=== PATIENT | female | born 1960 | race Caucasian/White ===

== ENCOUNTER 2022-10-24 10:59 | Outpatient (REF) | payer MEDICARE, SELFPAY ==
[2022-10-24 13:45] LABS: MANUAL DIFF FLAG NO
[2022-10-24 14:06] LABS: Basophils Percent Auto 0.6 % (0-2); Eosinophils Absolute Auto 0.1 X10*3/uL (0.0-0.4); Eosinophils Percent Auto 2.9 % (0-4); Hematocrit 42.4 % (37.0-47.0); Hemoglobin 14.2 g/dl (12.0-16.0); Imm Gran Abs Auto 0.01 X10*3/uL (0.00-0.03); Imm Gran Pct Auto 0.2 % (0.0-0.4); Lymphocytes Absolute Auto 1.1 X10*3/uL (1.2-4.9); Lymphocytes Percent Auto 23.4 % (20-40); Mean Corpuscular HGB Conc 33.5 g/dl (31.0-35.0); Mean Corpuscular Hemoglobin 31.3 pg (27.0-33.0); Mean Corpuscular Volume 93.4 fL (80.0-98.0); Mean Platelet Volume 10.3 fL (9.4-12.3); Monocytes Absolute Auto 0.4 X10*3/uL (0.1-1.2); Monocytes Percent Auto 7.8 % (2-11); NRBC Pct Auto 0.4 /100WBC (0.0-0.2); Neutrophils Absolute Auto 3.2 x10*3/uL (2.0-8.3); Neutrophils Percent Auto 65.1 % (45-73); Platelet Count 246 X10*3/uL (160-400); Red Blood Count 4.54 X10*6/uL (4.20-5.50); Red Cell Distribution Width 13.2 % (11.0-16.0); White Blood Count 4.9 X10*3/uL (4.8-10.8)
[2022-10-24 14:07] LABS: Appearance Urine Turbid; Color Urine Yellow; Glucose Urine UA Negative (Negative); Leukocyte Esterase Urine Negative (Negative); Nitrite Urine Negative (Negative); Specific Gravity - Urine 1.025 (1.005-1.025); Urine Blood Negative (Negative); Urine Ketones Negative (Negative); Urine Protein Negative (Neg-Trace)
[2022-10-24 14:31] LABS: Rheumatoid Factor < 13.0 IU/mL (<15.0)
[2022-10-24 14:40] LABS: Alanine Aminotransferase 17 U/L (0-31); Albumin Level 4.4 g/dL (3.5-5.0); Alkaline Phosphatase 59 U/L (39-117); Anion Gap 15 (12-20); Aspartate Amino Transferase 16 U/L (5-31); Bilirubin Total 0.7 mg/dL (0.0-1.0); Blood Urea Nitrogen 15 mg/dL (9-16); Calcium 9.4 mg/dL (8.4-10.2); Carbon Dioxide 22 mmol/L (22-29); Chloride 110 mmol/L (96-108); Cholesterol 334 mg/dL; Estimated Glomerular Filt Rate > 60; Glucose Fasting 124 mg/dL (60-99); HDL Cholesterol 57 mg/dL; LDL Cholesterol Calculated 235 mg/dl; Potassium 4.5 mmol/L (3.3-5.1); Sodium 142 mmol/L (135-145); Total Protein 6.4 g/dL (6.5-8.0); Triglycerides 214 mg/dL
[2022-10-24 14:50] LABS: TSH reflex Free T4 1.17 uIU/mL (0.32-4.0)
[2022-10-24 14:53] LABS: Erythrocyte Sedimentation Rate 4 MM/HR (0-20)
[2022-10-24 15:01] LABS: Creatinine Urine 127.43 mg/dL
[2022-10-26 17:08] LABS: Cyclic Citrullinated Peptide <16 UNITS
== END 2022-10-24 11:00 | disposition home or self-care (01) ==
LOC: HO.WFDLDS 10:59
PROVIDERS: Visit Provider Family Medicine
DX: Z00.00 Encounter for general adult medical examination without abnormal findings (principal); I10 Essential (primary) hypertension; M06.9 Rheumatoid arthritis, unspecified
CPT/HCPCS: 36415; 80053; 80061; 81003; 82043; 84443; 85025; 85652; 86200; 86431

== ENCOUNTER 2022-11-21 14:03 | Outpatient (REF) | payer MEDICARE, SELFPAY ==
--- NOTE | ~2022-11-21 | XR_ITS ---
EXAMINATION: XR BILATERAL HIPS WITH AP PELVIS CLINICAL INFORMATION: Pain COMPARISON: None available. TECHNIQUE: AP view of the pelvis and single views of each hip were obtained. FINDINGS: No acute fracture or dislocation. Sacroiliac joints are preserved. Mild osteophytosis of the bilateral acetabula suggestive of mild bilateral degenerative arthritis. Feeding symphysis is preserved. XR/XR hips ABIDA min 3V IMPRESSION: Mild bilateral hip osteoarthritis.
--- NOTE | ~2022-11-21 | XR_ITS ---
EXAMINATION: XR lumbar spine 6V w bending CLINICAL INFORMATION: Reason for Exam G89.4 - Chronic pain syndrome COMPARISON: None TECHNIQUE: 6 views of the lumbar spine FINDINGS: 5 nonrib-bearing lumbar-type vertebral bodies. Vertebral body heights are maintained. Anterolisthesis of L5 on S1. Possible L5 pars defects. No subluxation between flexion and extension views. Mild multilevel degenerative disc disease with loss of disc space height, facet arthropathy and disc osteophyte complexes. This is worst at L2/L3. Atherosclerosis of the abdominal aorta. Right upper quadrant cholecystectomy clips. XR/XR lumbar spine 6V w bending IMPRESSION: 1. Moderate spondylosis of the lumbar spine, as above detailed. 2. Spondylolisthesis, as above detailed.
== END 2022-11-21 14:04 | disposition home or self-care (01) ==
LOC: HO.XRAY 14:03
PROVIDERS: PCP Family Medicine; Visit Provider Nurse Practitioner Family
DX: M47.816 Spondylosis without myelopathy or radiculopathy, lumbar region (principal); G89.4 Chronic pain syndrome; M25.551 Pain in right hip; M25.552 Pain in left hip; M81.0 Age-related osteoporosis without current pathological fracture; G35 Multiple sclerosis; M06.9 Rheumatoid arthritis, unspecified; M53.3 Sacrococcygeal disorders, not elsewhere classified
CPT/HCPCS: 72114; 73522; 99202

== ENCOUNTER 2022-11-30 10:47 | Outpatient (REF) | payer MEDICARE, SELFPAY ==
[2022-11-30 11:20] LABS: Amphetamine Screen Urine Not Detected (Not Detect); Barbiturates, Urine Not Detected (Not Detect); Benzodiazepines Screen Urine Not Detected (Not Detect); Cannabinoid Screen Urine POSITIVE (Not Detect); Cocaine Screen Urine Not Detected (Not Detect); Fentanyl, urine Not Detected (Not Detect); Opiate Screen Urine Not Detected (Not Detect); Phencyclidine Screen Urine Not Detected (Not Detect)
== END 2022-11-30 10:48 | disposition home or self-care (01) ==
LOC: HO.LNP 10:47
PROVIDERS: Visit Provider Family Medicine
DX: G89.4 Chronic pain syndrome (principal); F11.20 Opioid dependence, uncomplicated
CPT/HCPCS: 80307

== ENCOUNTER → 2022-12-20 08:21 | Outpatient (BNVA) | payer MEDICARE, SELFPAY | PROVIDERS: PCP Family Medicine; Visit Provider Physician Assistant | DX: K59.03 Drug induced constipation (principal); T40.2X5A Adverse effect of other opioids, initial encounter; S30.861A Insect bite (nonvenomous) of abdominal wall, initial encounter; W57.XXXA Bitten or stung by nonvenomous insect and other nonvenomous arthropods, initial encounter | CPT/HCPCS: 99202 ==

== ENCOUNTER 2022-12-20 10:17 | Outpatient (REF) | payer MEDICARE, SELFPAY ==
[2022-12-22 13:18] LABS: Lyme Abs Screen <0.90 index
== END 2022-12-20 10:18 | disposition home or self-care (01) ==
LOC: HO.WFDLDS 10:17
PROVIDERS: Visit Provider Physician Assistant
DX: R53.83 Other fatigue (principal); S30.861A Insect bite (nonvenomous) of abdominal wall, initial encounter; W57.XXXA Bitten or stung by nonvenomous insect and other nonvenomous arthropods, initial encounter
CPT/HCPCS: 36415; 86617; 86618

== ENCOUNTER 2022-12-27 05:57 | Outpatient (REF) | payer MEDICARE, SELFPAY ==
--- NOTE | ~2022-12-27 | FL_ITS ---
EXAMINATION: XR FLUOROSCOPY WITH IMAGES CLINICAL INFORMATION: Right hip pain COMPARISON: None available. TECHNIQUE: Fluoroscopy Supervised By: Dr. Sarwat Au. Fluoroscopy Time: 0.2. Cumulative Dose: 3.3 mGy. DAP: 12.8 Gycm2. Images: 1. FINDINGS: Images demonstrate needle placement and contrast injection of the right hip joint. FL/FL guidance in treatment room IMPRESSION: Fluoroscopic guidance for right hip injection.
== END 2022-12-27 05:58 | disposition home or self-care (01) ==
LOC: CF 05:57
PROVIDERS: Visit Provider Anesthesiology
DX: R22.42 Localized swelling, mass and lump, left lower limb (principal); C85.90 Non-Hodgkin lymphoma, unspecified, unspecified site; M16.0 Bilateral primary osteoarthritis of hip
CPT/HCPCS: 20610; 99212; J3301

== ENCOUNTER 2023-01-04 13:03 | Outpatient (REF) | payer MEDICARE, SELFPAY ==
[2023-01-05 12:07] LABS: Amphetamine Screen Urine Not Detected (Not Detect); Barbiturates, Urine Not Detected (Not Detect); Benzodiazepines Screen Urine Not Detected (Not Detect); Cannabinoid Screen Urine Not Detected (Not Detect); Cocaine Screen Urine Not Detected (Not Detect); Fentanyl, urine Not Detected (Not Detect); Opiate Screen Urine POSITIVE (Not Detect); Phencyclidine Screen Urine Not Detected (Not Detect)
== END 2023-01-04 13:04 | disposition home or self-care (01) ==
LOC: HO.LAB 13:03
PROVIDERS: Visit Provider Family Medicine
DX: F11.20 Opioid dependence, uncomplicated (principal); G89.29 Other chronic pain
CPT/HCPCS: 80307

== ENCOUNTER 2023-01-10 07:43 | Outpatient (REF) | payer MEDICARE, SELFPAY ==
--- NOTE | ~2023-01-10 | XR_ITS ---
EXAMINATION: XR FOOT, RIGHT CLINICAL INFORMATION: Pain. COMPARISON: None available. TECHNIQUE: AP, lateral, and oblique views of the right foot. FINDINGS: There are post-surgical changes. There are plates and screws across the 2nd and 3rd MTT joints. Orthopedic hardware appears intact. There is ankylosis of the IP joint of the 2nd toe. There is question osteotomy of the proximal phalanx of the 3rd toe at the MTP joint. There is arthritis at the 3rd MTP joint with joint space narrowing and osteophyte formation. The distal phalanx of the 4th toe is normal-appearing. The proximal and mid phalanges are not seen, question post-surgical versus congenital. There is arthrodesis of the DIP joint of the 5th toe. There is mild hallux valgus deformity and osteoarthritis at the 1st MTP joint. Soft tissues are unremarkable. No soft tissue mass over the dorsal foot in the area indicated by arrow seen. Extensive post-surgical changes. XR/XR foot RT min 3V IMPRESSION: Plate and screws across the 2nd and 3rd metatarsal tarsal joints. Orthopedic hardware is intact. Overlying soft tissues in the area indicated as palpable abnormality by arrow appears unremarkable. Other nonacute post-surgical or congenital changes as described above.
--- NOTE | ~2023-01-10 | US_ITS ---
EXAMINATION: US EXTREMITY NONVASCULAR LIMITED CLINICAL INFORMATION: Left lateral hip mass and pain. COMPARISON: None available. TECHNIQUE: Grayscale and color imaging of the area of palpable abnormality over the left lateral hip was performed using a linear and curved transducer. FINDINGS: There is prominent subcutaneous fat seen over the left lateral hip in the area of patient's pain. No focal lesion is seen by ultrasound. Findings were discussed with the patient. We offered to perform ultrasound-guided percutaneous biopsy in the area of the patient's pain; however, the patient declined biopsy at this time. If the area of pain persists or increases, followup ultrasound or MR or CT of the soft tissues to see if a focal lesion can be seen would be recommended. US/US extremity nonvascular leyva IMPRESSION: Prominent fat. No focal lesion seen. Percutaneous biopsy was not performed.
== END 2023-01-10 07:44 | disposition home or self-care (01) ==
LOC: HO.US 07:43
PROVIDERS: PCP Family Medicine; Visit Provider Anesthesiology
DX: M79.671 Pain in right foot (principal); R22.42 Localized swelling, mass and lump, left lower limb; C85.90 Non-Hodgkin lymphoma, unspecified, unspecified site
CPT/HCPCS: 73630; 76882

== ENCOUNTER 2023-02-01 14:20 | Outpatient (REF) | payer MEDICARE, SELFPAY ==
[2023-02-01 14:39] LABS: Amphetamine Screen Urine Not Detected (Not Detect); Barbiturates, Urine Not Detected (Not Detect); Benzodiazepines Screen Urine Not Detected (Not Detect); Cannabinoid Screen Urine Not Detected (Not Detect); Cocaine Screen Urine Not Detected (Not Detect); Fentanyl, urine Not Detected (Not Detect); Opiate Screen Urine POSITIVE (Not Detect); Phencyclidine Screen Urine Not Detected (Not Detect)
== END 2023-02-01 14:21 | disposition home or self-care (01) ==
LOC: HO.LNP 14:20
PROVIDERS: Visit Provider Family Medicine
DX: F11.20 Opioid dependence, uncomplicated (principal)
CPT/HCPCS: 80307

== ENCOUNTER 2023-03-13 11:21 | Outpatient (AMB) | payer MEDICARE, SELFPAY ==
--- NOTE | 2023-03-13 11:23 | MHC.PC.OV ---
Vital Signs 03/13/23 11:24 Height 4 ft 11 in Weight 142 lb BMI 28.7 BP 130/70 Blood Pressure Location Rt brachial Position Sitting Pulse 74 Pulse Source Pulse Oximeter Pulse Oximetry (%) 97 Intake Visit Reasons: 1 mos Intake Note: pt is here for f/u Hitcher Required: No Accompanied by: Self / Same As Patient Allergies No Known Allergies Allergy (Verified 03/13/23 11:23) Tobacco use date assessed: 02/01/23 Dental Screening Dental Screen Date: 03/13/23 Did you have a dental visit in the last 12 months?: Yes Did you have a dental problem in the last 6 months where you did not have access to dental care?: No Was dental information given to patient?: Patient has dentist HPI 1 mos HPI Details 63 y/o female presents to f/u chronic conditions. Had increased Percocet from 5-325 mg, 1 tablet b.i.d. to 1-2 tablets b.i.d. She is followed by pain management and had recently received a R hip injection. Last labs drawn 10/24/22. Reviewed labs with pt. Triglycerides 214. TC 334. LDL 235. HDL 57. She is on artovastatin 10mg daily. Elevated fasting glucose. A1c today 03/13/23 is 5.8%. She is followed by pain mangement and she states they had ordered an MRI to evaluate mass which is most likely lipoma at her hip. HPI Comments History of Present Illness Details Documentation assistance for Salo Young MD, was provided by Jose Manuel Pino,? Photoresist Contact Printer on 03/13/2023 11:54 AM EST. I, Dr. Young, have read, observed, and verified documentation.? [facility] Medical History Multiple sclerosis Non-Hodgkin's lymphoma in remission Surgical History History of cholecystectomy History of esophagogastroduodenoscopy (EGD) History of mastectomy, total Hx of colonoscopy Hx of hernia repair Hx of hysterectomy Family History Mother Lung cancer Sister Lung cancer Social History Household Members: Family Housing: House Alcohol intake: current Alcohol intake frequency: a few times a month Alcohol type: wine Patient Tobacco Use Status: Never used Tobacco e-Cigarette/Vaping Use: Never Used Current occupational status: disabled Cognitive needs: No Hearing needs: No Vision needs: Yes Review of Systems Const Denies chills, Denies fatigue, Denies fever(s), Denies headache(s) and Denies weakness ENT Denies dizziness and Denies headache(s) Card Denies chest pain, Denies lightheadedness, Denies dyspnea and Denies other (Palpitations) Resp Denies cough, Denies dyspnea, Denies wheezing and Denies other ( shortness of breath) Musc Denies numbness and Denies tingling Neuro Denies dizziness, Denies headache(s), Denies numbness, Denies tingling, Denies paresthesias and Denies weakness Psych Denies anxiety and Denies depression Endo Denies fatigue Aller/Immun Denies wheezing Physical exam (Primary Care) Vital Signs: Last Vital Signs Pulse 74 03/13/23 11:24 BP 130/70 03/13/23 11:24 Pulse Ox 97 03/13/23 11:24 BMI result Body Mass Index 28.7 Tobacco/Smoking Status: Tobacco use Status Tobacco use date assessed 02/01/23 03/13/23 11:26 Patient Tobacco Use Status Never used Tobacco 03/13/23 11:26 e-Cigarette/Vaping Use Never Used 03/13/23 11:26 Const General: no acute distress and well developed Nutritional Appearance: well nourished Orientation/consciousness: patient oriented x3 [facility]: Yes normocephalic and Yes atraumatic Eyes General: appearance normal, both eyes and all related structures Pupils: Equal, round and reactive pupils present EOM: EOMs intact bilaterally Resp Effort & Inspection: normal respiratory effort Auscultation: clear to auscultation bilaterally Cardio Rate: regular rate Rhythm: regular rhythm Heart sounds: S1 normal heart sound present, S2 normal heart sound present, no gallops, no murmurs and no rubs Neuro General: patient oriented x3 and gait normal Cranial nerves: Yes Equal, round and reactive pupils present Psych Affect: normal affect Results AMB Hemoglobin A1c AMB Hemoglobin A1c 5.8 % Last Edit by Lucian Jorgensen CMA on 03/13/23 12:02 Assessment and Plan Assessment & Plan (1) Chronic pain syndrome: Code(s): G89.4 - Chronic pain syndrome Plan: Pain is controlled on current regimen of Percocet two tabs 3 times a day Also followed by pain management and they have ordered an MRI to evaluate mass which is likely a lipoma at her hip Follow-up with pain management as recommended Patient's pill count and urine screen are appropriate Will follow her every 3 months (2) Asthma: Code(s): J45.909 - Unspecified asthma, uncomplicated Plan: Patient has mild intermittent asthma Will refill her ProAir inhaler Symptoms most often triggered by allergens such as when she mows her lawn She can pre treat with this medication and I encouraged her to use her Zyrtec as well (3) Elevated fasting glucose: Code(s): R73.01 - Impaired fasting glucose Plan: A1c today was 5.8%; pre diabetes Encouraged a diet lower in sugars and starches Encouraged exercise as tolerated and weight control. (4) Hypercholesterolemia: Code(s): E78.00 - Pure hypercholesterolemia, unspecified Plan: TC and LDL cholesterol are very high She is tolerating atorvastatin 10 mg daily and I am increasing this to 40 mg daily today Will follow-up in 3 months (5) Pre-diabetes: Code(s): R73.03 - Prediabetes Plan: A1c 5.8% Encouraged diet low in sugars and starches Encouraged exercise as tolerated and weight loss Will follow-up again in 3 months Orders: Orders Basic Metabolic Panel Fasting Today E78.00 - Pure hypercholesterolemia, unspecified Lipid Panel Today E78.00 - Pure hypercholesterolemia, unspecified, Z00.00 - Encounter for general adult medical examination without abnormal findings AMB Hemoglobin A1c Today R73.01 - Impaired fasting glucose Medications: New albuterol sulfate 90 mcg/actuation (ProAir HFA) 2 puffs inhalation Q4-6H 30 days PRN 8.5 grams 0RF shortness of breath or wheezing E78.00 - Pure hypercholesterolemia, unspecified Changed From atorvastatin 10 mg PO BEDTIME 30 days 30 tabs 3RF To atorvastatin 40 mg PO BEDTIME 90 days 90 tabs 3RF Refilled oxycodone-acetaminophen 5-325 mg (Percocet) 2 tabs orally 3 times a day PRN; MassPat verified. Partial refill upon request. 30 days 180 tabs 0RF pain G89.4 - Chronic pain syndrome gabapentin 300 mg PO BEDTIME 30 days PRN 30 caps 2RF pain Coding Level of Care Code Est Pt Level 4 (63367) Diagnoses Chronic pain syndrome G89.4 Asthma J45.909 Elevated fasting glucose R73.01 Hypercholesterolemia E78.00 Pre-diabetes R73.03
[2023-03-13 11:24] VITALS: BP 130/70; PULSE 74; O2SAT 97; BMI 28.7
== END 2023-03-13 12:07 | disposition home or self-care (01) ==
PROVIDERS: PCP Family Medicine; Visit Provider Family Medicine
DX: G89.4 Chronic pain syndrome (principal); J45.909 Unspecified asthma, uncomplicated; R73.01 Impaired fasting glucose; E78.00 Pure hypercholesterolemia, unspecified; R73.03 Prediabetes
CPT/HCPCS: 83036; 99214

== ENCOUNTER 2023-03-28 13:42 | Outpatient (AMB) | payer MEDICARE, SELFPAY ==
--- NOTE | 2023-03-28 13:47 | A.OFFVIS_ITS ---
Intake Vital Signs 03/28/23 13:49 Height 4 ft 11 in Weight 142 lb 10.225 oz BMI 28.8 BP 120/70 Blood Pressure Location Rt brachial Position Sitting Pulse 68 Pulse Source Pulse Oximeter Pulse Oximetry (%) 97 Oxygen Delivery Method Room Air Intake Visit Reasons: Rheumatoid arthritis Intake Note: Patient presents for rheumatoid arthritis evaluation. Allergies No Known Allergies Allergy (Verified 03/28/23 13:50) Medication List - Last Reconciled 03/28/23 by Esdras Barajas MD albuterol sulfate 90 mcg/actuation (ProAir HFA) 2 puffs inhalation Q4-6H PRN 30 days atorvastatin 40 mg PO BEDTIME 90 days baclofen 10 mg PO TID carvedilol 12.5 mg PO BID docusate sodium (Colace) 200 mg (2 x 100 mg) PO BEDTIME gabapentin 300 mg PO BEDTIME PRN 30 days meloxicam 15 mg PO DAILY 30 days methylcellulose (laxative) (Citrucel) 500 mg PO BID naloxone 4 mg/actuation 4 mg intranasal Q2M PRN 30 days oxycodone-acetaminophen 5-325 mg (Percocet) 2 tabs orally 3 times a day PRN; MassPat verified. Partial refill upon request. 30 days sertraline 100 mg PO DAILY 90 days HPI HPI Comments History of Present Illness Details This is a 63-year-old female who presents for evaluation of arthritis. Of note patient was diagnosed with MS around age 35 and received Copaxone for 8 years. Per patient she did not receive any other MS specific treatment. She was diagnosed with non-Hodgkin's lymphoma around 2012 and received about a year have of rituximab and fludarabine. She states that she has been in remission since then. Patient states that she has had arthritis for many years. She states that she has had numerous surgeries for her feet for arthritis. She had surgery for bilateral tarsal tunnel syndrome Over the last 1-2 years she has been having episodes of her hands cramping up, fingers getting stuck, she has tingling and numbness of her fingers, worse at night. She noticed a deformity of her right thumb that is been happening over the last year. She notices intermittent pain and swelling of her fingers. Morning stiffness lasts 30 minutes. She is unaw are of any family history of autoimmune rheumatic disease. Denies any history of DVT/PE [facility] Medical History (Updated 03/28/23 @ 14:59 by Esdras Barajas MD) Carpal tunnel syndrome Encounter for testing for latent tuberculosis infection Multiple sclerosis Non-Hodgkin's lymphoma in remission Screening for viral disease Tarsal tunnel syndrome of both lower extremities Surgical History History of cholecystectomy History of esophagogastroduodenoscopy (EGD) History of mastectomy, total Hx of colonoscopy Hx of hernia repair Hx of hysterectomy Family History Mother Lung cancer Sister Lung cancer Social History Household Members: Family Housing: House Alcohol intake: current Alcohol intake frequency: a few times a month Alcohol type: wine Patient Tobacco Use Status: Never used Tobacco e-Cigarette/Vaping Use: Never Used Current occupational status: disabled 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 Cognitive needs: No Hearing needs: No Vision needs: Yes Female Reproductive History Menstrual Total pregnancies: 1 Full term: 1 Review of Systems Musc Reports deformity, Reports arthralgias, Reports joint swelling, Reports numbness, Reports stiffness and Reports tingling Neuro Reports numbness and Reports tingling Physical Exam Vital Signs: Last Vital Signs Pulse 68 03/28/23 13:49 BP 120/70 03/28/23 13:49 Pulse Ox 97 03/28/23 13:49 Oxygen Delivery Method Room Air 03/28/23 13:49 BMI result Body Mass Index 28.8 Const General: cooperative, healthy appearing and comfortable Nutritional Appearance: overweight Orientation/consciousness: patient oriented x3 Limitations: no limitations HEENT Head: Yes normocephalic and Yes atraumatic Mouth: moist mucous membranes Resp Effort & Inspection: normal respiratory effort and able to speak in complete sentences Auscultation: clear to auscultation bilaterally Cardio Rate: regular rate Rhythm: regular rhythm GI Inspection: No distended Palpation (GI): Soft to palpation and nontender Neuro General: patient oriented x3 Extrem Other: Z deformity of right thumb Mild right wrist tenderness without swelling Right 1st MCP tenderness Positive Tinel sign right hand Right hand: Few tender MCPs on the palmar side [place] neck deformities of left hand fingers Left 3rd MCP tenderness and swelling Left knee effusion Multiple deformities of both feet s/p multiple surgeries Assessment & Plan Assessment & Plan (1) Polyarthralgia: Code(s): M25.50 - Pain in unspecified joint Plan: This is a 63-year-old female with past medical history of non-Hodgkin's lymphoma, MS who presents for evaluation of multiple joint pain. Upon evaluation patient has Z deformity of her right thumb, multiple fingers deformity suspicious for [place] neck deformities, she has history of multiple surgeries for both feet arthritis since her 40s, history of bilateral tarsal tunnel release. He has carpal tunnel syndrome of right hand on exam. Clinical picture suspicious for inflammatory arthritis such as RA. Previous RF/CCP negative. Will order labs to evaluate disease activity. Check bilateral hand x-rays. Check bilateral knee x-rays. (2) Osteoporosis: Code(s): M81.0 - Age-related osteoporosis without current pathological fracture Qualifiers: Osteoporosis type: age-related Presence of current pathological fracture: without current pathological fracture Qualified Code(s): M81.0 - Age-related osteoporosis without current pathological fracture Plan: Mentions that she has history of osteoporosis but was never treated. Will check a bone density scan (3) Carpal tunnel syndrome: Code(s): G56.00 - Carpal tunnel syndrome, unspecified upper limb Qualifiers: Laterality: bilateral Qualified Code(s): G56.03 - Carpal tunnel syndrome, bilateral upper limbs Plan: Will check an EMG Plan I spent 48 minutes reviewing patient's chart, evaluating patient, ordering ely gnostic workup, counseling patient and documenting in the chart Orders: Orders Comprehensive Met. Panel Today M06.9 - Rheumatoid arthritis, unspecified C Reactive Protein Today M06.9 - Rheumatoid arthritis, unspecified Complete Blood Count Auto Diff Today M06.9 - Rheumatoid arthritis, unspecified Erythrocyte Sedimentation Rate Today M06.9 - Rheumatoid arthritis, unspecified CLEVE Reflex Titer and Pattern Today M06.9 - Rheumatoid arthritis, unspecified Immunofixation Pnl, Serum Today M06.9 - Rheumatoid arthritis, unspecified Protein Electrophoresis, Serum Today M06.9 - Rheumatoid arthritis, unspecified Hepatitis A,B,C Profile Today Z11.59 - Encounter for screening for other viral diseases T Spot TB Today Z11.7 - Encounter for testing for latent tuberculosis infection XR hand wrist LT Today M06.9 - Rheumatoid arthritis, unspecified XR hand wrist RT Today M06.9 - Rheumatoid arthritis, unspecified XR knee LT 3V Today M06.9 - Rheumatoid arthritis, unspecified XR knee RT 3V Today M06.9 - Rheumatoid arthritis, unspecified XR knee standing BI Today M06.9 - Rheumatoid arthritis, unspecified NE electromyogram (EMG) Today G56.00 - Carpal tunnel syndrome, unspecified upper limb XR DEXA axial skeleton Today M81.0 - Age-related osteoporosis without current pathological fracture Referrals Hematology & Oncology Referral C85.90 - Non-Hodgkin lymphoma, unspecified, unspecified site Coding Level of Care Code New Pt Level 4 (34684) Diagnoses Polyarthralgia M25.50 Osteoporosis M81.0 Osteoporosis type: age-related Presence of current pathological fracture: without current pathological fracture Carpal tunnel syndrome G56.03 Laterality: bilateral
[2023-03-28 13:49] VITALS: BP 120/70; PULSE 68; O2SAT 97; BMI 28.8
== END 2023-03-28 14:47 | disposition home or self-care (01) ==
PROVIDERS: PCP Family Medicine; Visit Provider Student in an Organized Health Care Education/Training Program
DX: M25.50 Pain in unspecified joint (principal); M81.0 Age-related osteoporosis without current pathological fracture; G56.03 Carpal tunnel syndrome, bilateral upper limbs
CPT/HCPCS: 99204

== ENCOUNTER 2023-03-28 13:42 | Outpatient (REF) | payer MEDICARE, SELFPAY ==
--- NOTE | ~2023-03-28 | XR_ITS ---
STUDY: Bilateral hands, bilateral knees INDICATION: Rheumatoid arthritis COMPARISON: None TECHNIQUE: 4 views each hand, 4 views each knee including standing knees FINDINGS: Right hand: Sclerosis, spurring, joint space narrowing and bony proliferation identified first carpometacarpal joint. There is hyperextension first metacarpophalangeal joint. No significant anterior phalangeal or MCP joint space narrowings. Only minimal radiocarpal sclerosis and joint space narrowing. No fracture or dislocation. Left hand: Sclerosis, joint space narrowing and bony proliferation first carpometacarpal joint. Other joint spaces are maintained. No fracture or dislocation. Knees: On standing knee view, left knee joint is lower than the right. Bilateral medial knee joint narrowings are seen, left greater than right. Patellar spurring. No fracture, dislocation or joint effusion bilaterally. XR/XR knee standing BI IMPRESSION: No acute bony pathology bilateral hands and bilateral knees. Degenerative type changes bilateral hands and knees.
--- NOTE | ~2023-03-28 | XR_ITS ---
STUDY: Bilateral hands, bilateral knees INDICATION: Rheumatoid arthritis COMPARISON: None TECHNIQUE: 4 views each hand, 4 views each knee including standing knees FINDINGS: Right hand: Sclerosis, spurring, joint space narrowing and bony proliferation identified first carpometacarpal joint. There is hyperextension first metacarpophalangeal joint. No significant anterior phalangeal or MCP joint space narrowings. Only minimal radiocarpal sclerosis and joint space narrowing. No fracture or dislocation. Left hand: Sclerosis, joint space narrowing and bony proliferation first carpometacarpal joint. Other joint spaces are maintained. No fracture or dislocation. Knees: On standing knee view, left knee joint is lower than the right. Bilateral medial knee joint narrowings are seen, left greater than right. Patellar spurring. No fracture, dislocation or joint effusion bilaterally. XR/XR knee RT 3V IMPRESSION: No acute bony pathology bilateral hands and bilateral knees. Degenerative type changes bilateral hands and knees.
--- NOTE | ~2023-03-28 | XR_ITS ---
STUDY: Bilateral hands, bilateral knees INDICATION: Rheumatoid arthritis COMPARISON: None TECHNIQUE: 4 views each hand, 4 views each knee including standing knees FINDINGS: Right hand: Sclerosis, spurring, joint space narrowing and bony proliferation identified first carpometacarpal joint. There is hyperextension first metacarpophalangeal joint. No significant anterior phalangeal or MCP joint space narrowings. Only minimal radiocarpal sclerosis and joint space narrowing. No fracture or dislocation. Left hand: Sclerosis, joint space narrowing and bony proliferation first carpometacarpal joint. Other joint spaces are maintained. No fracture or dislocation. Knees: On standing knee view, left knee joint is lower than the right. Bilateral medial knee joint narrowings are seen, left greater than right. Patellar spurring. No fracture, dislocation or joint effusion bilaterally. XR/XR hand wrist LT IMPRESSION: No acute bony pathology bilateral hands and bilateral knees. Degenerative type changes bilateral hands and knees.
--- NOTE | ~2023-03-28 | XR_ITS ---
STUDY: Bilateral hands, bilateral knees INDICATION: Rheumatoid arthritis COMPARISON: None TECHNIQUE: 4 views each hand, 4 views each knee including standing knees FINDINGS: Right hand: Sclerosis, spurring, joint space narrowing and bony proliferation identified first carpometacarpal joint. There is hyperextension first metacarpophalangeal joint. No significant anterior phalangeal or MCP joint space narrowings. Only minimal radiocarpal sclerosis and joint space narrowing. No fracture or dislocation. Left hand: Sclerosis, joint space narrowing and bony proliferation first carpometacarpal joint. Other joint spaces are maintained. No fracture or dislocation. Knees: On standing knee view, left knee joint is lower than the right. Bilateral medial knee joint narrowings are seen, left greater than right. Patellar spurring. No fracture, dislocation or joint effusion bilaterally. XR/XR knee LT 3V IMPRESSION: No acute bony pathology bilateral hands and bilateral knees. Degenerative type changes bilateral hands and knees.
--- NOTE | ~2023-03-28 | XR_ITS ---
STUDY: Bilateral hands, bilateral knees INDICATION: Rheumatoid arthritis COMPARISON: None TECHNIQUE: 4 views each hand, 4 views each knee including standing knees FINDINGS: Right hand: Sclerosis, spurring, joint space narrowing and bony proliferation identified first carpometacarpal joint. There is hyperextension first metacarpophalangeal joint. No significant anterior phalangeal or MCP joint space narrowings. Only minimal radiocarpal sclerosis and joint space narrowing. No fracture or dislocation. Left hand: Sclerosis, joint space narrowing and bony proliferation first carpometacarpal joint. Other joint spaces are maintained. No fracture or dislocation. Knees: On standing knee view, left knee joint is lower than the right. Bilateral medial knee joint narrowings are seen, left greater than right. Patellar spurring. No fracture, dislocation or joint effusion bilaterally. XR/XR hand wrist RT IMPRESSION: No acute bony pathology bilateral hands and bilateral knees. Degenerative type changes bilateral hands and knees.
[2023-03-28 15:28] LABS: MANUAL DIFF FLAG NO
[2023-03-28 15:47] LABS: Basophils Absolute Auto 0.1 X10*3/uL (0.0-0.2); Basophils Percent Auto 1.2 % (0-2); Eosinophils Absolute Auto 0.3 X10*3/uL (0.0-0.4); Eosinophils Percent Auto 6.8 % (0-4); Hematocrit 43.7 % (37.0-47.0); Hemoglobin 14.5 g/dl (12.0-16.0); Imm Gran Abs Auto 0.02 X10*3/uL (0.00-0.03); Imm Gran Pct Auto 0.5 % (0.0-0.4); Lymphocytes Absolute Auto 0.8 X10*3/uL (1.2-4.9); Lymphocytes Percent Auto 19.8 % (20-40); Mean Corpuscular HGB Conc 33.2 g/dl (31.0-35.0); Mean Corpuscular Hemoglobin 30.8 pg (27.0-33.0); Mean Corpuscular Volume 92.8 fL (80.0-98.0); Mean Platelet Volume 10.3 fL (9.4-12.3); Monocytes Absolute Auto 0.3 X10*3/uL (0.1-1.2); Neutrophils Absolute Auto 2.6 x10*3/uL (2.0-8.3); Neutrophils Percent Auto 63.7 % (45-73); Platelet Count 237 X10*3/uL (160-400); Red Blood Count 4.71 X10*6/uL (4.20-5.50); Red Cell Distribution Width 12.4 % (11.0-16.0); White Blood Count 4.1 X10*3/uL (4.8-10.8)
[2023-03-28 16:06] LABS: Alanine Aminotransferase 18 U/L (0-31); Albumin Level 4.7 g/dL (3.5-5.0); Alkaline Phosphatase 55 U/L (39-117); Anion Gap 14 (12-20); Aspartate Amino Transferase 17 U/L (5-31); Bilirubin Total 0.6 mg/dL (0.0-1.0); Blood Urea Nitrogen 22 mg/dL (9-16); C Reactive Protein 0.34 mg/dL (< or = 0.50); Calcium 9.6 mg/dL (8.4-10.2); Carbon Dioxide 25 mmol/L (22-29); Chloride 107 mmol/L (96-108); Estimated Glomerular Filt Rate > 60; Glucose Random 118 mg/dL (60-115); Potassium 4.4 mmol/L (3.3-5.1); Sodium 142 mmol/L (135-145); Total Protein 7.1 g/dL (6.5-8.0)
[2023-03-28 16:49] LABS: Erythrocyte Sedimentation Rate 4 MM/HR (0-20)
[2023-03-29 03:58] LABS: HBS Num1 19.24 mIU/mL (0-7.99); HBc Num1 0.06 S/CO (0.00-0.79); HBsAGNum1 0.45 S/CO (0.00-0.99); Hepatitis A Antibody IgM 0.18 Index (0-0.79); Hepatitis B Core Antibody Nonreactive (Nonreactive); Hepatitis B Surface Antigen Negative (Negative); ~HepC Num1 0.02 S/CO (0.00-0.79); ~Hepatitis A Antibody IgM Nonreactive (Nonreactive); ~Hepatitis B Surface Antibody REACTIVE (Nonreactive); ~Hepatitis C Antibody Nonreactive (Nonreactive)
[2023-03-29 13:34] LABS: Prot Elec - Albumin 4.9 g/dL (3.8-4.8); Prot Elec - Alpha1 0.3 g/dL (0.2-0.3); Prot Elec - Alpha2 0.8 g/dL (0.5-0.9); Prot Elec - Beta 1 0.4 g/dL (0.4-0.6); Prot Elec - Beta 2 0.3 g/dL (0.2-0.5); Prot Elec - Gamma 0.4 g/dL (0.8-1.7); Prot Elec - Total Protein 7.1 g/dL (6.1-8.1)
[2023-03-29 15:54] LABS: IgA 27 mg/dL (70-320); IgG 455 mg/dL (600-1540); IgM 30 mg/dL (50-300)
[2023-03-30 22:54] LABS: TS Negative Control Passed; TS Panel A 3; TS Panel B 4; TS Positive Control Passed; TSpotTB Negative (Negative)
[2023-03-31 13:29] LABS: Anti Nuclear Antibody Screen NEGATIVE (NEGATIVE)
== END 2023-03-28 13:43 | disposition home or self-care (01) ==
LOC: HO.LAB 13:42
PROVIDERS: PCP Family Medicine; Visit Provider Student in an Organized Health Care Education/Training Program
DX: Z11.7 Encounter for testing for latent tuberculosis infection (principal); Z11.59 Encounter for screening for other viral diseases; M06.9 Rheumatoid arthritis, unspecified; M25.50 Pain in unspecified joint; G56.03 Carpal tunnel syndrome, bilateral upper limbs; Z72.89 Other problems related to lifestyle
CPT/HCPCS: 36415; 73110; 73130; 73562; 73564; 73565; 80053; 82784; 84165; 85025; 85652; 86038; 86140; 86334; 86481; 86704; 86706; 86709; 86803; 87340; 99202

== ENCOUNTER 2023-04-11 14:04 | Outpatient (AMB) | payer MEDICARE, SELFPAY ==
[2023-04-11 14:06] VITALS: BP 110/64; PULSE 66; O2SAT 97; BMI 28.9
--- NOTE | 2023-04-11 14:06 | A.OFFVIS_ITS ---
Intake Vital Signs 04/11/23 14:06 Height 4 ft 11 in Weight 143 lb 4 oz BMI 28.9 BP 110/64 Blood Pressure Location Lt brachial Position Sitting Pulse 66 Pulse Source Pulse Oximeter Pulse Oximetry (%) 97 Oxygen Delivery Method Room Air Intake Visit Reasons: NPV-Multiple Sclerosis-confirmed Intake Note: Pt presents to the office today for a new patient visit for multiple sclerosis. Pt states she had chemotherapy and was on retuxin and flidera and during that time she had no issue with her MS. After being off of chemo for 6 months she states the MS symptoms started occuring again. Pt states she gets numbness and tingling in her fingers and toes. She states she has had a few falls due to her vertigo. Pt states she has small headaches sometimes but denies any blurred vision. Allergies No Known Allergies Allergy (Verified 04/11/23 14:31) Medication List - Last Reconciled 04/11/23 by Berta Hennessy MD albuterol sulfate 90 mcg/actuation (ProAir HFA) 2 puffs inhalation Q4-6H PRN 30 days atorvastatin 40 mg PO BEDTIME 90 days baclofen 10 mg PO TID carvedilol 12.5 mg PO BID docusate sodium (Colace) 200 mg (2 x 100 mg) PO BEDTIME gabapentin 300 mg PO BEDTIME PRN 30 days meloxicam 15 mg PO DAILY 30 days methylcellulose (laxative) (Citrucel) 500 mg PO BID naloxone 4 mg/actuation 4 mg intranasal Q2M PRN 30 days oxycodone-acetaminophen 5-325 mg (Percocet) 2 tabs orally 3 times a day PRN; MassPat verified. Partial refill upon request. 30 days sertraline 100 mg PO DAILY 90 days HPI HPI Comments History of Present Illness Details 63y/o female comes for further management of Multiple Sclerosis. she was diagnosed with MS at age 35. Her initial symptoms were vertigo, diplopia, balance issues. she also had an episode of diplopia and loss of vision for 3 days. she was treated with IV steroids. she was living in [place] at that time. she on copaxone for 8 years.she is not not sure why it was stopped. She reports chronic fatigue .Her episodes decreased significantly when she was on copaxone. AFter she stopped she had rare episodes. 12 years. ago she had non hodgkins lymphoma treated with Rituximab and Fludrabine and she did not have any MS episodes during the treatment epriod. she moved from [place]- 1 year ago - she was seeing a neurologist there. she was going to start on Ocrevus but she moved here with daughter. she still c/o chronic fatigue and has episodes of vertigo .she has occasional double vision. she had optic neuritis in her right eye but now has good vision. she reports chronic sleep issues- loud snoring and fatigue she had sleep study 6 years ago -diagnosed with sleep apnea . But she lost weight and repeat study 3 years ago was normal . But she has gained about 20 lbs since then . [facility] Medical History Carpal tunnel syndrome Encounter for testing for latent tuberculosis infection Multiple sclerosis Non-Hodgkin's lymphoma in remission Screening for viral disease Tarsal tunnel syndrome of both lower extremities Surgical History History of cholecystectomy History of esophagogastroduodenoscopy (EGD) History of mastectomy, total Hx of colonoscopy Hx of hernia repair Hx of hysterectomy Family History Mother Lung cancer Sister Lung cancer Social History Household Members: Family Housing: House Alcohol intake: current Alcohol intake frequency: a few times a month Alcohol type: wine Patient Tobacco Use Status: Never used Tobacco e-Cigarette/Vaping Use: Never Used Current occupational status: disabled 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 Cognitive needs: No Hearing needs: No Vision needs: Yes Review of Systems Const Denies chills, Denies fatigue, Denies fever(s), Denies headache(s), Reports snoring and Denies weakness Eyes Reports diplopia ENT Reports vertigo, Denies dizziness and Denies headache(s) Card Denies chest pain, Denies lightheadedness, Denies dyspnea and Denies other (Palpitations) Resp Denies cough, Denies dyspnea, Reports snoring, Denies wheezing and Denies other ( shortness of breath) Musc Denies numbness and Denies tingling Neuro Reports vertigo, Denies dizziness, Denies headache(s), Denies numbness, Denies tingling, Denies paresthesias and Denies weakness Psych Denies anxiety and Denies depression Endo Denies fatigue Aller/Immun Denies wheezing Physical Exam Vital Signs: Last Vital Signs Pulse 66 04/11/23 14:06 BP 110/64 04/11/23 14:06 Pulse Ox 97 04/11/23 14:06 Oxygen Delivery Method Room Air 04/11/23 14:06 BMI result Body Mass Index 28.9 Const General: cooperative, healthy appearing and comfortable Nutritional Appearance: average body habitus Orientation/consciousness: patient oriented x3 Eyes Pupils: Equal, round and reactive pupils present Neuro Other: mild dysmetria Marcio Ue left Ue tremors- mild intermittent General: patient oriented x3 Cranial nerves: Yes Facial sensation intact/muscles of mastication intact, Yes Equal, round and reactive pupils present, Yes Bilaterally intact EOM present, Yes Nystagmus not present, Yes Normal facial strength present, Yes Midline tongue present and Yes Symmetric palate elevation present Cognition (Neuro): normal cognition Gait exam (Neuro): Normal gait present Motor exam (neuro): Normal motor muscle tone present throughout and Other motor observations present (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 Code(s): G35 - Multiple sclerosis Plan MRI brain with Alhaji to evaluate progression of MS I will refer her to Dr. Kitchen at [facility] for MS for opinion. Orders: Orders MR head/brain wo/w con Today G35 - Multiple sclerosis Referrals Neurology Referral G35 - Multiple sclerosis Coding Level of Care Code New Pt Level 4 (49178) Diagnoses Multiple sclerosis G35
== END 2023-04-11 15:10 | disposition home or self-care (01) ==
PROVIDERS: PCP Family Medicine; Visit Provider Psychiatry & Neurology Neurology
DX: G35 Multiple sclerosis (principal)
CPT/HCPCS: 99204

== ENCOUNTER → 2023-04-11 14:04 | Outpatient (BNVA) | payer MEDICARE, SELFPAY | PROVIDERS: PCP Family Medicine; Visit Provider Psychiatry & Neurology Neurology | DX: G35 Multiple sclerosis (principal) | CPT/HCPCS: 99202 ==

== ENCOUNTER 2023-04-28 09:52 | Outpatient (REF) | payer MEDICARE, SELFPAY ==
--- NOTE | 2023-04-28 09:56 | EMG_ITS ---
Chief complaint: History of MS, non-Hodgkin's lymphoma, chemotherapy, chronic pain including neck pain, hand pain with arthritic changes in both thumbs Reason for referral: Evaluate for Carpal Tunnel Syndrome Referred by: Dr. Barajas Procedure done: Bilateral upper extremities NCS/EMG Precautions and/or limitations: None The limb temperature was monitored continuously and remained between 32-36 degrees C during the performance of the NCS. Nerve Conduction Studies Anti Sensory Summary Table ?Stim Site NR Onset (ms) Norm Onset (ms) Peak (ms) Norm Peak (ms) O-P Amp (?V) Norm O-P Amp Site1 Site2 Delta-0 (ms) Dist (cm) Mal (m/s) Norm Mal (m/s) Left Median Anti Sensory (2nd Digit) Wrist ? 2.6 3.7 <3.6 24.9 >10 Wrist 2nd Digit 2.6 14.0 54 Right Median Anti Sensory (2nd Digit) Wrist ? 3.0 3.6 <3.6 13.8 >10 Wrist 2nd Digit 3.0 14.0 47 Right Radial Anti Sensory (Thumb) Forearm ? 2.9 3.3 <3.1 26.9 Forearm Thumb 2.9 0.0 Left Ulnar Anti Sensory (5th Digit) Wrist ? 2.9 3.7 <3.7 14.0 >15.0 Wrist 5th Digit 2.9 14.0 48 Right Ulnar Anti Sensory (5th Digit) Wrist ?? 2.7 3.5 <3.7 22.8 >15.0 Wrist 5th Digit 2.7 14.0 52 Motor Summary Table ?Stim Site NR Onset (ms) Norm Onset (ms) O-P Amp (mV) Norm O-P Amp iAmp (mV) Amp (1st) (%) Site1 Site2 Delta-0 (ms) Dist (cm) Mal (m/s) Norm Mal (m/s) Left Median Motor (Abd Poll Brev) Wrist ? 3.7 <3.9 7.2 >4.5 8.6 100.0 Elbow Wrist 3.2 17.0 53 >45 Elbow ? 6.9 7.1 8.5 98.6 Right Median Motor (Abd Poll Brev) Wrist ? 3.4 <3.9 6.5 >4.5 8.3 100.0 Elbow Wrist 3.2 16.0 50 >45 Elbow ? 6.6 9.0 11.1 138.5 Left Ulnar Motor (Abd Dig Minimi) Wrist ? 2.7 <3.0 6.3 >5 8.0 100.0 B Elbow Wrist 3.2 14.5 45 >45 B Elbow ? 5.9 5.5 6.8 87.3 A Elbow B Elbow 2.0 10.0 50 >45 A Elbow ? 7.9 4.9 6.2 77.8 Right Ulnar Motor (Abd Dig Minimi) Wrist ? 3.0 <3.0 7.4 >5 8.6 100.0 B Elbow Wrist 2.9 13.0 45 >45 B Elbow ? 5.9 6.4 7.6 86.5 A Elbow B Elbow 1.3 10.0 77 >45 A Elbow ? 7.2 4.9 6.4 66.2 Comparison Summary Table ?Stim Site NR Peak (ms) Norm Peak (ms) P-T Amp (?V) Site1 Site2 Delta-P (ms) Norm Delta (ms) Left Median/Radial Dig I Comparison (Digit 1 - 10cm) Median ? 3.5 <2.9 11.5 Median Radial 0.7 Radial ? 2.8 <2.8 17.2 EMG ?Side Muscle Nerve Root Ins Act Fibs Psw Amp Dur Poly Recrt Int Pat Comment Right 1stDorInt Ulnar C8-T1 Nml Nml Nml Incr Incr 0 Nml Complete Right FlexCarRad Median C6-7 Nml Nml Nml Nml Nml 0 Nml Complete Right Biceps Musculocut C5-6 Nml Nml Nml Nml Nml 0 Nml Complete Right Triceps Radial C6-7-8 Nml Nml Nml Incr Incr 0 Reduced Complete Right Deltoid Axillary C5-6 Nml Nml Nml Nml Nml 0 Nml Complete Left 1stDorInt Ulnar C8-T1 Nml Nml Nml Nml Nml 0 Nml Complete Left FlexCarRad Median C6-7 Nml Nml Nml Nml Nml 0 Nml Complete Left Biceps Musculocut C5-6 Nml Nml Nml Nml Nml 0 Nml Complete Left Triceps Radial C6-7-8 Nml Nml Nml Incr Incr 0 Nml Complete Left Deltoid Axillary C5-6 Nml Nml Nml Nml Nml 0 Nml Complete FINDINGS: There is increased interlatency difference between left median and radial sensory nerves on digit 1. Left median sensory nerve showed mildly prolonged peak latency. All other nerves tested were within normal. Concentric needle EMG was performed in selected muscles of the bilateral upper extremities and cervical paraspinals. Study revealed signs of electrical abnormalities as shown in the table below. Right triceps showed increased amplitude and duration, reduced recruitment. Right FDI showed increased amplitude and duration Left triceps showed increased amplitude and duration. IMPRESSION: 1. This is an abnormal study. 2. There is electrodiagnostic evidence for left mild median neuropathy at the wrist. 3. There is electrodiagnostic findings suggestive for bilateral subacute/chronic C7-8 radiculopathy. 4. There is no electrodiagnostic evidence for ulnar neuropathy, or brachial plexopathy,. CLINICAL COMMENT: Further clinical correlation recommended. Thank you for your kind referral. Octavia Canales MD, JOSE Board Certified, [place] Board [employer] and Rehabilitation (ABPMR) Board Certified, [place] Board of Electrodiagnostic Medicine (ABEM) CODIN [id number] x2 MTDD
== END 2023-04-28 09:53 | disposition home or self-care (01) ==
LOC: HO.NEURO 09:52
PROVIDERS: PCP Family Medicine; Visit Provider Student in an Organized Health Care Education/Training Program
DX: M79.641 Pain in right hand (principal); M79.642 Pain in left hand
CPT/HCPCS: 95886; 95911

== ENCOUNTER → 2023-04-28 09:56 | Outpatient (BNV) | payer MEDICARE, SELFPAY | PROVIDERS: PCP Family Medicine; Visit Provider Physical Medicine & Rehabilitation | DX: G56.02 Carpal tunnel syndrome, left upper limb (principal); M54.12 Radiculopathy, cervical region | CPT/HCPCS: 95886; 95911 ==

== ENCOUNTER → 2023-05-01 13:58 | Outpatient (BNV) | payer MEDICARE, SELFPAY | PROVIDERS: PCP Family Medicine; Referring Provider Student in an Organized Health Care Education/Training Program; Visit Provider Internal Medicine | DX: Z85.72 Personal history of non-Hodgkin lymphomas (principal) | CPT/HCPCS: 99204 ==

== ENCOUNTER 2023-05-10 11:02 | Outpatient (REF) | payer MEDICARE, SELFPAY ==
--- NOTE | ~2023-05-10 | MM_ITS ---
EXAMINATION: BONE DENSITOMETRY CLINICAL INDICATION: Age-related osteoporosis without current pathological fracture. COMPARISON: This is the patient's baseline examination. TECHNIQUE: Using a STARFACE DXA System (software version: 13.1) manufactured by [employer], dual-energy x-ray absorptiometry was performed of the lumbar spine and left hip. The images are of good technical quality. Summary results are attached. FINDINGS: LEFT FEMUR, NECK: BMD 0.768 g/cm2, Z-score -0.6, T-score -1.9, osteopenia. LEFT FEMUR, TOTAL: BMD 0.841 g/cm2, Z-score -0.2, T-score -1.3, osteopenia. AP SPINE L2-L4 (excluding L1): The data of L1-L4 has been changed to exclude the L1 vertebral body, because at this level may cause overestimation of lumbar spine density. BMD 1.463 g/cm2, Z-score 3.6, T-score 2.2, normal. IDENTIFIED RISK FACTORS: Rheumatoid arthritis, osteoporosis, menopause, hysterectomy, bilateral oophorectomy. HISTORY OF FRACTURE: None listed. MEDICATIONS: Calcium supplements or multivitamin, vitamin D. MM/XR DEXA axial skeleton IMPRESSION: 1. DIAGNOSIS: Osteopenia based on the lowest T-score value of -1.9 in the femoral neck applying World Health Organization criteria. 2. 10-YEAR FRACTURE RISK PREDICTION, FRAX: Major osteoporotic fracture (clinical spine, forearm, hip or shoulder) 12.9%. Hip fracture 1.9%. 3. Treatment Recommendations: NOF guidelines recommend consideration for treatment in postmenopausal women and men age 50 and older presenting with the following: -A hip or vertebral (clinical or morphometric) fracture. -T-score less than or equal to -2.5 at the femoral neck or spine after appropriate evaluation to exclude secondary causes. -Low bone mass at the hip or spine and a 10-year fracture probability by FRAX of greater than or equal to 3% for hip fracture or greater than or equal to 20% for major osteoporotic fracture based on the [place] adapted WHO algorithm. 4. Other Recommendations: All treatment decisions require clinical judgment and consideration of individual patient factors, including patient preferences, comorbidities, previous drug use, risk factors not captured in the FRAX model (e.g. frailty, falls, vitamin D deficiency, increased bone turnover, interval significant decline in bone density) and possible under or overestimation of fracture risk by FRAX. Additional medical evaluation for secondary cause of low bone mineral density may be appropriate. FUTURE SCAN RECOMMENDATION: People with diagnosed cases of osteoporosis or at high risk for fracture should have regular bone mineral density tests. For patients eligible for Medicare, routine testing is allowed once every 2 years. The testing frequency can be increased to one year for patients who have rapidly progressing disease, those who are receiving or discontinuing medical therapy to restore bone mass, or have additional risk factors.
== END 2023-05-10 11:03 | disposition home or self-care (01) ==
LOC: HO.MAMMO 11:02
PROVIDERS: PCP Family Medicine; Visit Provider Family Medicine
DX: Z13.820 Encounter for screening for osteoporosis (principal); M81.0 Age-related osteoporosis without current pathological fracture; Z78.0 Asymptomatic menopausal state
CPT/HCPCS: 77080

== ENCOUNTER 2023-06-01 13:30 | Outpatient (AMB) | payer MEDICARE, SELFPAY ==
[2023-06-01 13:40] VITALS: BP 132/74; PULSE 81; TEMP 36.6; O2SAT 96; BMI 29.5
--- NOTE | 2023-06-01 13:40 | A.OFFVIS_ITS ---
Intake Vital Signs 06/01/23 13:40 Height 4 ft 11 in Weight 146 lb 2.664 oz BMI 29.5 BP 132/74 Blood Pressure Location Rt brachial Position Sitting Pulse 81 Pulse Source Pulse Oximeter Temp 97.8 F Temp Source Skin Pulse Oximetry (%) 96 Intake Visit Reasons: RA Intake Note: Pt presents today for follow up and test results. She was seen by Dr Terrell 05/01/23. Clinical Rehabilitation Coordinator Required: No Accompanied by: Self / Same As Patient Allergies No Known Allergies Allergy (Verified 06/01/23 13:46) Medication List - Last Reconciled 06/01/23 by Esdras Barajas MD albuterol sulfate 90 mcg/actuation (ProAir HFA) 2 puffs inhalation Q4-6H PRN 30 days atorvastatin 40 mg PO BEDTIME 90 days baclofen 10 mg PO TID carvedilol 12.5 mg PO BID docusate sodium (Colace) 200 mg (2 x 100 mg) PO BEDTIME gabapentin 300 mg PO BEDTIME PRN 30 days meloxicam 15 mg PO DAILY PRN methylcellulose (laxative) (Citrucel) 500 mg PO BID montelukast 10 mg PO DAILY naloxone 4 mg/actuation 4 mg intranasal Q2M PRN 30 days oxycodone-acetaminophen 5-325 mg (Percocet) 2 tabs orally 3 times a day PRN; MassPat verified. Partial refill upon request. 30 days sertraline 100 mg PO DAILY 90 days HPI HPI Comments History of Present Illness Details Patient returns for follow-up after completion of her diagnostic workup. Patient stated that she fell on her right hand recently and her right thumb hurts. She also complains of bilateral finger aching pain and numbness of her fingers. It tingling and numbness has worsened her left hand. She also has left medial knee pain when pressing on it and with walking. Initial history: This is a 63-year-old female who presents for evaluation of arthritis. Of note patient was diagnosed with MS around age 35 and received Copaxone for 8 years. Per patient she did not receive any other MS specific treatment. She was diagnosed with non-Hodgkin's lymphoma around 2012 and received about a year have of rituximab and fludarabine. She states that she krause s been in remission since then. Patient states that she has had arthritis for many years. She states that she has had numerous surgeries for her feet for arthritis. She had surgery for bilateral tarsal tunnel syndrome Over the last 1-2 years she has been having episodes of her hands cramping up, fingers getting stuck, she has tingling and numbness of her fingers, worse at night. She noticed a deformity of her right thumb that is been happening over the last year. She notices intermittent pain and swelling of her fingers. Morning stiffness lasts 30 minutes. She is unaware of any family history of autoimmune rheumatic disease. Denies any history of DVT/PE [facility] Medical History (Updated 06/01/23 @ 15:26 by Esdras Barajas MD) Tarsal tunnel syndrome of both lower extremities Screening for viral disease Encounter for testing for latent tuberculosis infection Multiple sclerosis Non-Hodgkin's lymphoma in remission Surgical History Hx of colonoscopy History of esophagogastroduodenoscopy (EGD) Hx of hysterectomy Hx of hernia repair History of mastectomy, total History of cholecystectomy Family History Mother Lung cancer Sister Lung cancer Social History Household Members: Family Housing: House Alcohol intake: current Alcohol intake frequency: a few times a month Alcohol type: wine Patient Tobacco Use Status: Never used Tobacco e-Cigarette/Vaping Use: Never Used Current occupational status: disabled 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 Cognitive needs: No Hearing needs: No Vision needs: Yes Review of Systems Musc Reports deformity, Reports arthralgias, Reports joint swelling, Reports numbness, Reports stiffness and Reports tingling Neuro Reports numbness and Reports tingling Physical Exam Vital Signs: Last Vital Signs Temp 97.8 F 06/01/23 13:40 Pulse 81 06/01/23 13:40 BP 132/74 06/01/23 13:40 Pulse Ox 96 06/01/23 13:40 BMI result Body Mass Index 29.5 Const General: cooperative, healthy appearing and comfortable Nutritional Appearance: overweight Orientation/consciousness: patient oriented x3 Limitations: no limitations HEENT Head: Yes normocephalic and Yes atraumatic Mouth: moist mucous membranes Resp Effort & Inspection: normal respiratory effort and able to speak in complete sentences Auscultation: clear to auscultation bilaterally Cardio Rate: regular rate Rhythm: regular rhythm GI Inspection: No distended Palpation (GI): Soft to palpation and nontender Neuro General: patient oriented x3 Extrem Other: Osteoarthritis changes of both hands Right thumb subluxation Mild right wrist tenderness without swelling Positive MCP squeeze test bilaterally without any MCP swelling Positive Tinel sign left hand Multiple deformities of both feet s/p multiple surgeries Assessment & Plan Assessment & Plan (1) Polyarthralgia: Code(s): M25.50 - Pain in unspecified joint Plan: This is a 63-year-old female with past medical history of non-Hodgkin's lymphoma, MS who presents for evaluation of multiple joint pain. Upon evaluation I do not see any evidence of an autoimmune rheumatic disease. Clinical picture rather consistent with generalized osteoarthritis. Comprehensive serology and inflammatory markers are unremarkable (2) Carpal tunnel syndrome: Code(s): G56.00 - Carpal tunnel syndrome, unspecified upper limb Qualifiers: Laterality: bilateral Qualified Code(s): G56.03 - Carpal tunnel syndrome, bilateral upper limbs Plan: Mild carpal tunnel syndrome on the left. Ordered a wrist splint. Referred patient to Hand surgery (3) Subluxation of thumb: Code(s): S63.103A - Unspecified subluxation of unspecified thumb, initial encounter Qualifiers: Laterality: right Encounter type: initial encounter Qualified Code(s): S63.101A - Unspecified subluxation of right thumb, initial encounter Plan: Prescribed the thumb spica splint. Referred patient to hand surgery (4) Radiculopathy: Code(s): M54.10 - Radiculopathy, site unspecified Qualifiers: Spinal region: cervical Qualified Code(s): M54.12 - Radiculopathy, cervical region Plan: EMG showed bilateral subacute/chronic T7/8 radiculopathy. Referred to spine surgery (5) Osteopenia: Code(s): M85.80 - Other specified disorders of bone density and structure, unspecified site Qualifiers: Osteopenia location: multiple sites Qualified Code(s): M85.89 - Other specified disorders of bone density and structure, multiple sites Plan: DEXA 2022 shows osteopenia. Discussed calcium and vitamin-D supplementation and weight-bearing exercises. Can repeat DEXA in 2-3 years Plan I spent 48 minutes reviewing patient's chart, evaluating patient, placing orders, counseling patient and documenting in the chart Orders: Referrals Hand Surgery Referral G56.02 - Carpal tunnel syndrome, left upper limb, S63.103A - Unspecified subluxation of unspecified thumb, initial encounter Neurosurgery Referral M54.10 - Radiculopathy, site unspecified Medications: New [wrist splint] wear nightly and as much as possible throughout the day 1 ea 0RF G56.02 - Carpal tunnel syndrome, left upper limb [wrist splint] wear nightly and as much as possible throughout the day 1 ea 0RF G56.02 - Carpal tunnel syndrome, left upper limb [thumb spica] right hand, wear nightly & as much as possible throughout the day 1 ea 0RF S63.103A - Unspecified subluxation of unspecified thumb, initial encounter [wrist splint] wear nightly and as much as possible throughout the day 1 ea 0RF G56.02 - Carpal tunnel syndrome, left upper limb Coding Level of Care Code Est Pt Level 5 (69214) Diagnoses Polyarthralgia M25.50 Bilateral carpal tunnel syndrome G56.03 Laterality: bilateral Subluxation of right thumb, initial encounter S63.101A Laterality: right Encounter type: initial encounter Cervical radiculopathy M54.12 Spinal region: cervical Osteopenia of multiple sites M85.89 Osteopenia location: multiple sites
== END 2023-06-01 14:19 | disposition home or self-care (01) ==
PROVIDERS: PCP Family Medicine; Visit Provider Student in an Organized Health Care Education/Training Program
DX: M25.50 Pain in unspecified joint (principal); G56.03 Carpal tunnel syndrome, bilateral upper limbs; S63.101A Unspecified subluxation of right thumb, initial encounter; M85.89 Other specified disorders of bone density and structure, multiple sites
CPT/HCPCS: 99215

== ENCOUNTER → 2023-06-01 13:30 | Outpatient (BNVA) | payer MEDICARE, SELFPAY | PROVIDERS: PCP Family Medicine; Visit Provider Student in an Organized Health Care Education/Training Program | DX: M25.50 Pain in unspecified joint (principal); M54.12 Radiculopathy, cervical region; S63.101A Unspecified subluxation of right thumb, initial encounter; M85.89 Other specified disorders of bone density and structure, multiple sites; G56.03 Carpal tunnel syndrome, bilateral upper limbs | CPT/HCPCS: 99212 ==

== ENCOUNTER 2023-06-05 13:52 | Outpatient (REF) | payer MEDICARE, SELFPAY ==
--- NOTE | ~2023-06-05 | MR_ITS ---
EXAMINATION: MR BRAIN WITHOUT AND WITH CONTRAST CLINICAL INFORMATION: 63 year old with history of MS. COMPARISON: None available. TECHNIQUE: Multiplanar, multisequence MRI of the brain was obtained before and after the intravenous administration of 6.5 mL Gadavist. FINDINGS: Brain Volume: Within normal limits within the limitations of qualitative assessment. Structural: No malformations. Brain and Meninges: DWI sequence demonstrates no restricted diffusion to suggest acute or subacute cerebral ischemia or active demyelination. There are scattered small foci of FLAIR/T2 signal hyperintensity in the subcortical and deeper white matter of both cerebral hemispheres with patchy, partially confluent zones of T2 hyperintensity in the periatrial white matter and deep parietal white matter bilaterally with no abnormal enhancement. The findings are consistent with history of MS. Cannot exclude superimposed chronic ischemic microangiopathy. No brainstem or infratentorial lesions are seen. Gradient refocused imaging demonstrates no abnormal susceptibility-weighted signal loss to suggest hemorrhage, hemosiderin staining or abnormal mineralization. No intracranial mass lesions, extra-axial fluid collections, pathologic intracranial enhancement, space-occupying process or mass effect. Ventricles and Subarachnoid Spaces: The ventricular system and subarachnoid spaces are within normal range; there is no hydrocephalus. Orbital Structures: The visualized orbital structures are grossly unremarkable within the limitations of the study. Susceptibility artifact partially obscures the anterior globes bilaterally. Vascular: Signal voids are noted in the visualized major intracranial vessels. Osseous Structures, Sinuses/Mastoids, Extracranial Soft Tissues: Small bilateral mastoid effusions are nonspecific. Minor mucosal thickening in the residual ethmoid complex noted with evidence of previous FESS procedure. Small defect in the right anterior frontal calvarium noted. Correlate for any history of previous shekhar hole craniostomy to explain this finding. Otherwise, bone marrow signal intensity appears grossly within normal limits. MR/MR head/brain wo/w con IMPRESSION: 1. Scattered nonenhancing white matter T2 hyperintensities in the cerebral hemispheres bilaterally as described above, consistent with history of MS. Cannot exclude superimposed chronic ischemic microangiopathy. No T1 black holes are identified. 2. No intracranial mass lesion, pathologic enhancement, space-occupying process, mass effect or hydrocephalus. 3. Postoperative changes involving the paranasal sinuses with a small defect in the right anterior frontal calvarium. Correlate for any history of a previous shekhar hole craniostomy. 4. Small bilateral mastoid effusions and minor mucosal thickening in the residual ethmoid complex.
[2023-06-05] MEDS: gadobutroL 7.5 ML VIAL IVPUSH (14:33)
== END 2023-06-05 13:53 | disposition home or self-care (01) ==
LOC: HO.MRI 13:52
PROVIDERS: PCP Family Medicine; Visit Provider Psychiatry & Neurology Neurology
DX: G35 Multiple sclerosis (principal)
CPT/HCPCS: 70553; A9585

== ENCOUNTER 2023-06-15 09:24 | Outpatient (AMB) | payer MEDICARE, SELFPAY ==
--- NOTE | 2023-06-15 09:28 | A.OFFPC_ITS ---
Vital Signs 06/15/23 09:30 Height 4 ft 11 in Weight 148 lb 6 oz BMI 30.0 BP 120/80 Blood Pressure Location Lt brachial Position Sitting Pulse 59 Pulse Source Pulse Oximeter Pulse Oximetry (%) 97 Oxygen Delivery Method Room Air Intake Visit Reasons: follow-up hyperlipidemia and pre diabetes Intake Note: Patient is here to follow up on cholesterol and prediabetes. Allergies No Known Allergies Allergy (Verified 06/15/23 09:31) Tobacco use date assessed: 06/15/23 HPI follow-up hyperlipidemia and pre diabetes HPI Details 63 y/o female presents to f/u HLD and pr e-diabetes. A1c today 06/15/23 5.7%. No recent lipid panel to review. [facility] Medical History Tarsal tunnel syndrome of both lower extremities Screening for viral disease Encounter for testing for latent tuberculosis infection Multiple sclerosis Non-Hodgkin's lymphoma in remission Surgical History Hx of colonoscopy History of esophagogastroduodenoscopy (EGD) Hx of hysterectomy Hx of hernia repair History of mastectomy, total History of cholecystectomy Family History Mother Lung cancer Sister Lung cancer Social History Household Members: Family Housing: House Alcohol intake: current Alcohol intake frequency: a few times a month Alcohol type: wine Patient Tobacco Use Status: Never used Tobacco e-Cigarette/Vaping Use: Never Used Current occupational status: disabled 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 1. Little interest or pleasure in doing things: not at all 2. Feeling down, depressed, or hopeless: not at all 3. Trouble falling or staying asleep, or sleeping too much: not at all 4. Feeling tired or having little energy: not at all 5. Poor appetite or overeating: not at all 6. Feeling bad about yourself - or that you are a failure or have let yourself or your family down: not at all 7. Trouble concentrating on things, such as reading the newspaper or watching television: not at all 8. Moving or speaking so slowly that other people could have noticed. Or the opposite - being so fidgety or restless that you have been moving around a lot more than usual: not at all 9. Thoughts that you would be better off or of hurting yourself in some way: not at all Total score: 0 Depression Screening Interpretation: Negative Depression Screening Done: Yes Source: Developed by Drs. Jim Darden, Elke Barbosa, Ike Bowser and colleagues, with an educational rina from [employer]. Thrive Questionnaire Date Thrive assessed: 06/15/23 I am a: Patient What is your living situation today?: I have a steady place to live Within the past 12 months, did the food you bought not last and you didn't have the money to get more?: Sometimes True Within the past 12 months, did you worry whether your food would run out before you got money to buy more?: Sometimes True Do you have trouble paying for medicines?: No Do you have trouble getting transportation to medical appointments?: No Do you have trouble paying your heating and electricity bill?: Yes Do you have trouble taking care of your child, family member or friend?: No Do you have trouble with day-to-day activities such as bathing, preparing meals, shopping, managing finances, etc.?: No Are you currently unemployed and looking for a job?: No Are you interested in more education?: Yes AUDIT C Alcohol Use Questionnaire (AUDIT-C) 1. How often do you have a drink containing alcohol?: Monthly or less 2. How many drinks containing alcohol do you have on a typical day when you are drinking?: 1 or 2 3. How often do you have six or more drinks on one occasion?: Never Total Score: 1 HAYDE-7 AMB Questionnaire HAYDE-7 Date HAYDE - 7 assessed: 06/15/23 Feeling nervous, anxious, or on edge: 0 = Not at all Not being able to stop or control worryin = Not at all Worrying too much about different things: 0 = Not at all Trouble relaxin = Not at all Being so restless that it is hard to sit still: 0 = Not at all Becoming easily annoyed or irritable: 0 = Not at all Feeling afraid as if something awful might happen: 0 = Not at all Total HAYDE-7 score (0-4 normal; 5-9 mild; 10-14 moderate; 15-21 severe): 0 Source: Developed by Drs. Jim Darden, Elke Barbosa, Ike Bowser and colleagues, with an educational rina from [employer]. Review of Systems Const Denies chills, Denies fatigue, Denies fever(s), Denies headache(s) and Denies weakness ENT Denies dizziness and Denies headache(s) Card Denies dyspnea Resp Denies cough, Denies dyspnea, Denies wheezing and Denies other (shortness of breath) Musc Denies numbness and Denies tingling Neuro Denies dizziness, Denies headache(s), Denies numbness, Denies tingling and Denies weakness Psych Denies anxiety and Denies depression Endo Denies fatigue Aller/Immun Denies wheezing Physical exam (Primary Care) Vital Signs: Last Vital Signs Pulse 59 06/15/23 09:30 BP 120/80 06/15/23 09:30 Pulse Ox 97 06/15/23 09:30 Oxygen Delivery Method Room Air 06/15/23 09:30 BMI result Body Mass Index 30.0 Tobacco/Smoking Status: Tobacco use Status Tobacco use date assessed 06/15/23 06/15/23 09:33 Patient Tobacco Use Status Never used Tobacco 06/15/23 09:30 e-Cigarette/Vaping Use Never Used 06/15/23 09:30 PHQ-9: PHQ-9 Score PHQ-9: Total score 0 06/15/23 10:14 Depression Screening Interpretation: Negative Thrive Assessment: Date of Thrive Assessment Date Thrive assessed 06/15/23 06/15/23 09:40 Const General: well developed; No acute distress Nutritional Appearance: well nourished Orientation/consciousness: patient oriented x3 HENMT Head: Yes normocephalic and Yes atraumatic Eyes General: appearance normal, both eyes and all related structures Pupils: Equal, round and reactive pupils present EOM: EOMs intact bilaterally Resp Effort & Inspection: normal respiratory effort Neuro General: patient oriented x3 and gait normal Cranial nerves: Yes Equal, round and reactive pupils present Psych Affect: normal affect Results AMB Hemoglobin A1c AMB Hemoglobin A1c 5.7 % Last Edit by Judith Lynch CMA on 06/15/23 09:55 Results Reviewed Results Reviewed: Laboratory Last Values Hgb A1c (Clinic) 5.7 % (4.0-6.0) 06/15/23 09:54 Assessment and Plan Assessment & Plan (1) Pre-diabetes: Code(s): R73.03 - Prediabetes Plan: A1c?decreased?from?5.8%?to?5.7%.??Still?in?pre?diabetes?range Recommended?diet?low?in?sugars?and?starches Recommended?exercise?and?some?weight?loss (2) Hypercholesterolemia: Code(s): E78.00 - Pure hypercholesterolemia, unspecified Plan: Patient?was?tolerating?atorvastatin?10?mg?daily?so?we? brought?this?up?to?40?mg?daily. Has?not?had?her?lipids?drawn?yet?but?will?do?so?next?week?and?we?can?follow- up?in?a?couple?of?weeks?by?telemedicine. (3) Left carpal tunnel syndrome: Code(s): G56.02 - Carpal tunnel syndrome, left upper limb Plan: Patient?is?referred?by?her?informatics spec?to?Hand?surgery Will?follow?along (4) Chronic, continuous use of opioids: Code(s): F11.90 - Opioid use, unspecified, uncomplicated Plan: Chronic?pain?from?MS,?musculoskeletal?conditions?of?back?and?hip?and?also?arthri tis Encouraged?patient?to?use?her?opioids?as?prescribed Follow-up?with?pain?management?and?rheumatology She?has?an?upcoming?MRI?for?hip?and?back Orders: Orders AMB Hemoglobin A1c Today Z13.9 - Encounter for screening, unspecified Medications: Refilled oxycodone-acetaminophen 5-325 mg (Percocet) 2 tabs orally 3 times a day PRN; MassPat verified. Partial refill upon request. 180 tabs 0RF pain 30 days G89.4 - Chronic pain syndrome Coding Level of Care Code Est Pt Level 4 (31567) Diagnoses Pre-diabetes R73.03 Hypercholesterolemia E78.00 Left carpal tunnel syndrome G56.02 Chronic, continuous use of opioids F11.90
[2023-06-15 09:30] VITALS: BP 120/80; PULSE 59; O2SAT 97
== END 2023-06-15 10:47 | disposition home or self-care (01) ==
PROVIDERS: PCP Family Medicine; Visit Provider Family Medicine
DX: R73.03 Prediabetes (principal); E78.00 Pure hypercholesterolemia, unspecified; G56.02 Carpal tunnel syndrome, left upper limb; F11.90 Opioid use, unspecified, uncomplicated; Z13.9 Encounter for screening, unspecified
CPT/HCPCS: 83036; 99214

== ENCOUNTER 2023-07-27 12:48 | Outpatient (REF) | payer MEDICARE, SELFPAY ==
[2023-07-27 14:57] LABS: Anion Gap 11 (12-20); Blood Urea Nitrogen 19 mg/dL (9-16); Calcium 9.6 mg/dL (8.4-10.2); Carbon Dioxide 28 mmol/L (22-29); Chloride 106 mmol/L (96-108); Cholesterol 199 mg/dL (<200); Estimated Glomerular Filt Rate > 60; Glucose Fasting 110 mg/dL (60-99); HDL Cholesterol 54 mg/dL (>40); LDL Cholesterol Calculated 112 mg/dL (<100); Potassium 4.2 mmol/L (3.3-5.1); Sodium 141 mmol/L (135-145); Triglycerides 169 mg/dL (<150)
== END 2023-07-27 12:49 | disposition home or self-care (01) ==
LOC: HO.WFDLDS 12:48
PROVIDERS: Visit Provider Family Medicine
DX: Z00.00 Encounter for general adult medical examination without abnormal findings (principal); E78.00 Pure hypercholesterolemia, unspecified
CPT/HCPCS: 36415; 80048; 80061

== ENCOUNTER 2023-08-10 09:53 | Outpatient (AMB) | payer MEDICARE, SELFPAY ==
[2023-08-10 09:59] VITALS: BP 126/70; PULSE 81; RESP 13; TEMP 36.2; O2SAT 97; BMI 30.1
--- NOTE | 2023-08-10 09:59 | MHC.PC.OV ---
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 Labs were drawn 07/27/23. Reviewed labs with pt. Triglycerides 169. TC 199. LDL 112. HDL 54. SHe is on artovastatin 40mg. PFSH Medical History Tarsal tunnel syndrome of both lower extremities Screening for viral disease Encounter for testing for latent tuberculosis infection Multiple sclerosis Non-Hodgkin's lymphoma in remission Surgical History Hx of colonoscopy History of esophagogastroduodenoscopy (EGD) Hx of hysterectomy Hx of hernia repair History of mastectomy, total History of cholecystectomy Family History Mother Lung cancer Sister Lung cancer Social History Household Members: Family Housing: House Alcohol intake: current Alcohol intake frequency: a few times a month Alcohol type: wine Patient Tobacco Use Status: Never used Tobacco e-Cigarette/Vaping Use: Never Used service: No Current occupational status: disabled 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 Jim Darden, Elke Barbosa, Ike Bowser and colleagues, with an educational rina from [employer]. Review of Systems Const Denies chills, Denies fatigue, Denies fever(s), Denies headache(s) and Denies weakness ENT Denies dizziness and Denies headache(s) Card Denies dyspnea Resp Denies cough, Denies dyspnea, Denies wheezing and Denies other (shortness of breath) Musc Denies numbness and Denies tingling Neuro Denies dizziness, Denies headache(s), Denies numbness, Denies tingling and Denies weakness Psych Denies anxiety and Denies depression Endo Denies fatigue Aller/Immun Denies wheezing Physical exam (Primary Care) Vital Signs: Last Vital Signs Temp 97.2 F 08/10/23 09:59 Pulse 81 08/10/23 09:59 Resp 13 08/10/23 09:59 BP 126/70 08/10/23 09:59 Pulse Ox 97 08/10/23 09:59 Oxygen Delivery Method Room Air 08/10/23 09:59 BMI result Body Mass Index 30.1 Tobacco/Smoking Status: Tobacco use Status Tobacco use date assessed 06/15/23 08/10/23 10:08 Patient Tobacco Use Status Never used Tobacco 08/10/23 10:08 e-Cigarette/Vaping Use Never Used 08/10/23 10:08 Thrive Assessment: Date of Thrive Assessment Date Thrive assessed 06/15/23 08/10/23 10:08 Const General: well developed; No acute distress Nutritional Appearance: well nourished Orientation/consciousness: patient oriented x3 [facility] Head: Yes normocephalic and Yes atraumatic Eyes General: appearance normal, both eyes and all related structures Pupils: Equal, round and reactive pupils present EOM: EOMs intact bilaterally Resp Effort & Inspection: normal respiratory effort Neuro General: patient oriented x3 and gait normal Cranial nerves: Yes Equal, round and reactive pupils present Psych Affect: normal affect Assessment and Plan Assessment & Plan (1) Hypercholesterolemia: Code(s): E78.00 - Pure hypercholesterolemia, unspecified Plan: LDL?cholesterol?much?improved?and?now?at?goal?of?less?than?130 Continue?atorvastatin (2) Chronic, continuous use of opioids: Code(s): F11.90 - Opioid use, unspecified, uncomplicated Plan: Ongoing?chronic?pain.??Following?up?with?her?specialists?as?recommended Taking?medication?as?prescribed Medications: Refilled oxycodone-acetaminophen 5-325 mg (Percocet) 2 tabs orally 3 times a day PRN; MassPat verified. Partial refill upon request. 180 tabs 0RF pain 30 days G89.4 - Chronic pain syndrome Coding Level of Care Code Est Pt Level 3 (04521) Diagnoses Hypercholesterolemia E78.00 Chronic, continuous use of opioids F11.90
== END 2023-08-10 10:32 | disposition home or self-care (01) ==
PROVIDERS: PCP Family Medicine; Visit Provider Family Medicine
DX: E78.00 Pure hypercholesterolemia, unspecified (principal); F11.90 Opioid use, unspecified, uncomplicated
CPT/HCPCS: 99213

== ENCOUNTER 2023-08-11 13:50 | Outpatient (REF) | payer MEDICARE, SELFPAY ==
[2023-08-11] MEDS: gadobutroL 7.5 ML VIAL IVPUSH (15:24)
== END 2023-08-11 13:51 | disposition home or self-care (01) ==
LOC: HO.MRI 13:50
PROVIDERS: PCP Family Medicine; Visit Provider Anesthesiology
DX: R22.42 Localized swelling, mass and lump, left lower limb (principal); M54.10 Radiculopathy, site unspecified
CPT/HCPCS: 72141; 73723; A9585

== ENCOUNTER 2023-08-24 14:07 | Outpatient (AMB) | payer MEDICARE, SELFPAY ==
--- NOTE | 2023-08-24 15:00 | HO.SPINEOV ---
Intake Intake Visit Reasons: radiculopathy Intake Note: Ms. Berrios was referred to our office for neck pain. MRI done @ [facility] [place]. Md Physician Dermatologist Required: No Allergies Seasonal Allergies Allergy (Intermediate, Verified 08/10/23 10:07) Cough Assessment & Plan Assessment & Plan (1) Cervical myelopathy: Code(s): G95.9 - Disease of spinal cord, unspecified Plan Dear Dr Barajas, Thank you for referring MRs Berrios to our office today. She is a very nice 63-year-old female with what she describes as a history of multiple sclerosis dating back 30 years ago when she was formally diagnosed, underwent chemotherapy for non-Hodgkin's lymphoma about 14 years ago and tells me that her MS has been in remission after that. She has not been on any MS treatments for at least 10 years other than some meclizine for dizziness. For about a year or more she has developed a progressive numbness and severe pain going down both of her arms as well as numbness of her feet with difficulty walking and gait imbalance. She had been moving around the country from place to place and moved up here from [place] last year, and has noticed that over the last 6 months or so she has having a lot of difficulty with fine motor tasks, buttoning buttons and strength in her hands. She thought this might just be her MS, she had seen Neurology who was evaluating her. She was also seen in your office for evaluation and cervical MRI was ordered and this showed severe spinal cord compression at C5-6. She was sent to us for an urgent evaluation. Her progression of symptoms has been slow, over the last year or so. Every month or 2 she will notice a change in the strength in her arms or worsening of her numbness but nothing acutely. PMH: History of MS, high cholesterol, non-Hodgkin's lymphoma with chemotherapy about 14 years ago and she has been in remission. History of hypertension, cholecystectomy, hysterectomy, foot surgery. Denies any history of bleeding disorders, heart attacks, strokes, pulmonary problems or kidney issues Social hx: She does not smoke, denies any drugs or significant alcohol use Medications: Baclofen, Zoloft, Coreg, vitamin-D, meloxicam, atorvastatin, gabapentin Allergies: None Physical exam: She is awake alert oriented no acute distress, here with her sister today, she is able to walk down the hallway about 15 or 20 ft without any gait imbalance but as soon as I tandem gait test her she is quite unsteady. On motor examination testing, she has significant weakness of both hands, right worse than left. I would rate these as 4/5. She also has significant right biceps and triceps weakness on the right, I would rate these as 4-5. Left arm strength is normal at the deltoid biceps and triceps. She has bilateral iliopsoas weakness. The rest of her distal lower extremity strength is full. She is diffusely hyperreflexic with clonus and Feliberto sign bilaterally. Imaging review: Cervical MRI done here at [place] shows evidence of multilevel degenerative disc disease, there is a spondylolisthesis at C4-5, there is significant disc degeneration at C5-6 with severe central canal stenosis with what looks like hyperintensity in the spinal cord at this level and the STIR sequencing. There is moderate to severe stenosis at C6-7. Impression: 63-year-old female, history of MS with progressive numbness and pain in both arms with weakness of the hands, difficulty with fine motor movements as well as gait instability with physical exam showing diffuse hyperreflexia with hand weakness and atrophy of the thenar spaces. She is presenting with a symptoms of myelopathy consistent with her MRI showing severe spinal cord compression at C5-6. There is cord signal change at this level as well. There is moderate stenosis at C6-7. There is also a slight spondylolisthesis at C4-5. At a minimum she will likely need anterior cervical fusion at C5-6 if not C6-7 as well. I am also concerned about the spondylolisthesis segment at C4-5 above a potential fusion. I am going to send her for flexion-extension films to see if we need to include this in the surgical construct as well. I am going to review all of her imaging with Dr. Arnold and get back to her with the final surgical plan. I will send a copy of my note to her neurologist to update her on the status, as well as her PCP Dr. Young. Thank you for allowing us to care for your patient. The total time spent with this visit with this patient was 45 minutes reviewing history, physical exam, cervical spine imaging review, and implementation of treatment plan or further diagnostic testing Ash Arnold MD,PhD [facility] Orders: Orders XR cervical spine 4V Today G95.9 - Disease of spinal cord, unspecified Coding Level of Care Code New Pt Level 4 (82792) Diagnoses Cervical myelopathy G95.9
== END 2023-08-24 16:00 | disposition home or self-care (01) ==
PROVIDERS: PCP Family Medicine; Referring Provider Student in an Organized Health Care Education/Training Program; Visit Provider Physician Assistant
DX: G95.9 Disease of spinal cord, unspecified (principal)
CPT/HCPCS: 99204

== ENCOUNTER 2023-08-24 14:07 | Outpatient (REF) | payer MEDICARE, SELFPAY ==
--- NOTE | ~2023-08-24 | XR_ITS ---
EXAMINATION: XR CERVICAL SPINE CLINICAL INFORMATION: Disease of the spinal cord, unspecified. COMPARISON: MR cervical spine 08/11/2023. TECHNIQUE: 3 views of the cervical spine were obtained. FINDINGS: Straightening of the cervical lordosis. Trace anterolisthesis of C4 on C5 and trace retrolisthesis of C5 on C6. No significant change in alignment in the extension and flexion views. No evidence of acute compression deformity or traumatic subluxation. Redemonstration of severe intervertebral disc height loss at C5-C6 and C6-C7 with exuberant osteophyte complexes, facet arthropathy and severe associated central spinal canal stenoses that is best characterized on prior MRI from 08/11/2023. No prevertebral soft tissue thickening. Included portions of the lung apices are clear. XR/XR cervical spine 4V IMPRESSION: 1. No acute compression deformity or traumatic subluxation. 2. Trace anterolisthesis of C4 on C5 and trace retrolisthesis of C5 on C6 without significant change on flexion or extension views. 3. Severe spondylosis from C5 through C7 resulting in significant central spinal canal stenosis, best characterized on prior MRI were associated intramedullary signal abnormalities were noted. Reevaluation with an MRI could be obtained as clinically warranted.
== END 2023-08-24 14:08 | disposition home or self-care (01) ==
LOC: HO.HOSX 14:07
PROVIDERS: PCP Family Medicine; Visit Provider Physician Assistant
DX: G95.9 Disease of spinal cord, unspecified (principal)
CPT/HCPCS: 72050; 99202

== ENCOUNTER 2023-09-01 09:37 | Outpatient (REF) | payer MEDICARE, SELFPAY | END 2023-09-01 09:38 | disposition home or self-care (01) | LOC: HO.MAMMO 09:37 | PROVIDERS: PCP Family Medicine; Visit Provider Family Medicine | DX: Z12.31 Encounter for screening mammogram for malignant neoplasm of breast (principal) | CPT/HCPCS: 77063; 77067 ==

== ENCOUNTER → 2023-09-01 09:45 | Outpatient (BNV) | payer MEDICARE, SELFPAY | PROVIDERS: PCP Family Medicine; Visit Provider Radiology Diagnostic Radiology | DX: Z12.31 Encounter for screening mammogram for malignant neoplasm of breast (principal) | CPT/HCPCS: 77063; 77067 ==

== ENCOUNTER 2023-09-13 11:48 | Outpatient (AMB) | payer MEDICARE, SELFPAY ==
[2023-09-13 11:53] VITALS: BP 160/78; PULSE 77; RESP 14; TEMP 36.2; O2SAT 99; BMI 29.4
--- NOTE | 2023-09-13 11:53 | AM.OFFWIN_ITS ---
Intake Vital Signs 09/13/23 11:53 Height 4 ft 11 in Weight 145 lb 8 oz BMI 29.4 BP 160/78 H Blood Pressure Location Rt brachial Position Sitting Respiration 14 Pulse 77 Pulse Source Pulse Oximeter Temp 97.1 F Temp Source Temporal Artery Scan Pulse Oximetry (%) 99 Oxygen Delivery Method Room Air Intake Visit Reasons: chest congestion,cough Intake Note: Patient states that shes also been experiencing pain in left ear. Patient states that she has been experiencing symptoms on and off for about a month. Patient Tobacco Use Status: Never used Tobacco Cigarette Examiner Required: No Accompanied by: Self / Same As Patient Allergies Seasonal Allergies Allergy (Intermediate, Verified 09/13/23 12:09) Cough Medication List - Last Reconciled 09/13/23 by Agustina Turner, LIQUOR INSPECTOR- albuterol sulfate 90 mcg/actuation (ProAir HFA) 2 puffs inhalation Q4-6H PRN 30 days atorvastatin 40 mg PO BEDTIME 90 days Bacillus coagulans (Digestive Advantage Probiotics-Prebiotic) cells PO baclofen 10 mg PO TID carvedilol 12.5 mg PO BID docusate sodium (Colace) 200 mg (2 x 100 mg) PO BEDTIME gabapentin 300 mg PO BEDTIME PRN 30 days meloxicam 15 mg PO DAILY PRN montelukast 10 mg PO DAILY naloxone 4 mg/actuation 4 mg intranasal Q2M PRN 30 days oxycodone-acetaminophen 5-325 mg (Percocet) 2 tabs orally 3 times a day PRN; MassPat verified. Partial refill upon request. 30 days sertraline 100 mg PO DAILY 90 days [thumb spica right hand, wear nightly & as much as possible throughout the day] [wrist splint wear nightly and as much as possible throughout the day] HPI HPI Comments History of Present Illness Details Here today w/ c/o URI for the last month did feel better but then her sx came back + cough, head congestion, L ear pain, ti red + sick exposures + asthma, using Proair with + relief UTD on vaccines Tx at home include: nyquil, dayquil + relief of sx Denies fever, chills, chest pain Does feel better than she has over the last few days PFSH Medical History Tarsal tunnel syndrome of both lower extremities Screening for viral disease Encounter for testing for latent tuberculosis infection Multiple sclerosis Non-Hodgkin's lymphoma in remission Surgical History Hx of colonoscopy History of esophagogastroduodenoscopy (EGD) Hx of hysterectomy Hx of hernia repair History of mastectomy, total History of cholecystectomy Family History Mother Lung cancer Sister Lung cancer Social History Household Members: Family Housing: House Alcohol intake: current Alcohol intake frequency: a few times a month Alcohol type: wine Patient Tobacco Use Status: Never used Tobacco e-Cigarette/Vaping Use: Never Used service: No Current occupational status: disabled 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 Cognitive needs: No Hearing needs: No Vision needs: No Review of Systems Const All systems reviewed & are unremarkable except as noted in HPI and below Physical Exam Vital Signs: Last Vital Signs Temp 97.1 F 09/13/23 11:53 Pulse 77 09/13/23 11:53 Resp 14 09/13/23 11:53 BP 160/78 H 09/13/23 11:53 Pulse Ox 99 09/13/23 11:53 Oxygen Delivery Method Room Air 09/13/23 11:53 BMI result Body Mass Index 29.4 Const Other: Awake alert oriented no acute distress Sclera and conjunctiva clear bilat TM intact bilat, erythema with mild injection noted to the left, mild effusions bilat Nares and turbinates within normal limits Pharynx within normal limits Lung sounds clear to auscultation bilat, hacking cough noted occasionally during exam without distress Regular rate and rhythm Assessment & Plan Assessment & Plan (1) RSV (respiratory syncytial virus infection): Code(s): B33.8 - Other specified viral diseases Plan: viral, no further tx, follow currrent CDC guidelines 1658 called w/ results. lmom (2) Flu-like symptoms: Code(s): R68.89 - Other general symptoms and signs Plan: This note is constructed using voice recognition software. While every effort has been made to ensure accuracy in back line cook, still errors may have been included Sometimes, these errors may affect the content or meaning of the given sentence . Feeling better with the use of the regi-rhu-wrvlypy cold medication. She should continue to use this until her symptoms are improved. I have encouraged her to use Flonase to help with the effusions in her ear. Viral swab obtained and showed RSV (3) Hypertension: Code(s): I10 - Essential (primary) hypertension Qualifiers: Hypertension type: primary hypertension Qualified Code(s): I10 - Essential (primary) hypertension Plan: Blood pressure noted to be elevated today on exam. She reports she has a history of hypertension of which she takes Coreg. Reports she is taking this as directed. Repeat blood pressure taken by myself remains the same at 160/90 on the left arm. I have advised her that she should monitor her blood pressure at home. She reports that she has a device in his able to do this. If her blood pressure remains elevated above 140/80 then she should come to the office for further follow-up and treatment. It may be elevated given the fact that she is here in the office today for medical exam in the fact that she is not feeling well. She denies any cardiac or neuro symptoms that would be worrisome. Orders: Orders SARS-CoV2/FLU/RSV Today R68.89 - Other general symptoms and signs Patient Instructions: Flonase (generic version ok) 1 spray each nostril twice per day until your symptoms are resolved. otherwise no nasal spray Coding Level of Care Code Est Pt Level 4 (64082) Diagnoses RSV (respiratory syncytial virus infection) B33.8 Flu-like symptoms R68.89 Primary hypertension I10 Hypertension type: primary hypertension Time Spent (min) 30
== END 2023-09-13 12:25 | disposition home or self-care (01) ==
PROVIDERS: PCP Family Medicine; Visit Provider Nurse Practitioner Family
DX: B33.8 Other specified viral diseases (principal); R68.89 Other general symptoms and signs; I10 Essential (primary) hypertension
CPT/HCPCS: 99214

== ENCOUNTER 2023-09-13 14:55 | Outpatient (REF) | payer MEDICARE, SELFPAY ==
[2023-09-13 15:43] LABS: Influenza A PCR NEGATIVE (Negative); Influenza B PCR NEGATIVE (Negative); Resp Syncy Virus RNA Qual PCR POSITIVE (Negative); SARS COV2 PCR INHOUSE NEGATIVE (Negative)
== END 2023-09-13 14:56 | disposition home or self-care (01) ==
LOC: HO.LNP 14:55
PROVIDERS: Visit Provider Nurse Practitioner Family
DX: R68.89 Other general symptoms and signs (principal); Z11.52 Encounter for screening for COVID-19; Z20.828 Contact with and (suspected) exposure to other viral communicable diseases
CPT/HCPCS: 0241U

== ENCOUNTER 2023-10-06 | Outpatient (REF) | payer MEDICARE, SELFPAY ==
--- NOTE | 2023-10-06 | ECG_ITS ---
Test Reason : preop Blood Pressure : / mmHG Vent. Rate : 061 BPM Atrial Rate : 061 BPM P-R Int : 118 ms QRS Dur : 086 ms QT Int : 424 ms P-R-T Axes : 053 044 051 degrees QTc Int : 426 ms Normal sinus rhythm Normal ECG No previous ECGs available Referred By: Susan López Electronically Signed By:PAMELA FELIPE MD
[2023-10-06 12:17] VITALS: BP 154/71; PULSE 63; RESP 20; O2SAT 97; BMI 29.1
--- NOTE | 2023-10-06 12:28 | HO.ANESPROP2 ---
Documented by User: Susan López NP 10/23/23 08:43 HPI - Anesthesia Eval Consult details Narrative: Resched to 12/28/23 63yo F for C5-6,C6-7 Anterior Cervical Discectomy with Fusion Multiple, 10/19/23 No recent illness No CP/SOB with walking MS. No rx x 8 years. Recent transfer of care to [facility] in [place]. Meclazine / baclofen for symptoms of vertigo, muscle spasm. Non-hodgkin's s/p chemo. 2011 JUNE hx. Last sleep study negative Asthma/allergies. Singulair. Albuterol rare Chronic prn opiods PMFSH Active Problems Active Problems: All Active Problems (Updated 10/06/23 @ 12:07 by Jazlyn Melgar RN) Hypertension (Acute) Flu-like symptoms (Acute) Cervical myelopathy (Acute) Osteopenia (Acute) Radiculopathy (Acute) Subluxation of thumb (Acute) Left carpal tunnel syndrome (Acute) Polyarthralgia (Acute) Pre-diabetes (Acute) Asthma (Acute) Foot pain (Acute) Chronic, continuous use of opioids (Acute) Bilateral hip joint arthritis (Acute) Mass of left hip region (Acute) Constipation due to opioid therapy (Acute) Fatigue (Acute) Tick bite of abdomen (Acute) Sacroiliac joint pain (Acute) Bilateral hip pain (Acute) Lumbar spondylosis (Acute) Chronic pain syndrome (Acute) Chronic pain (Acute) Hypercholesterolemia (Acute) Elevated fasting glucose (Acute) Shingles (Acute) History of colon polyps (Acute) Breast cancer screening by mammogram (Acute) Screening for colon cancer (Acute) Laboratory exam ordered as part of routine general medical examination (Acute) Non-Hodgkin's lymphoma in remission (Chronic) Multiple sclerosis (Acute) Past Medical History Medical History (Updated 10/06/23 @ 12:43 by Jazlyn Melgar RN) Renal calculi Sleep apnea Chronic pain Arthritis Elevated cholesterol Pre-diabetes Asthma HTN (hypertension) Tarsal tunnel syndrome of both lower extremities Encounter for testing for latent tuberculosis infection Multiple sclerosis Non-Hodgkin's lymphoma in remission Family History Family History Mother Lung cancer Sister Lung cancer Family history of problems with anesthesia: No Surgical History Surgical History (Updated 10/06/23 @ 12:10 by Jazlyn Melgar RN) Hx of foot surgery Hx of cystoscopy Hx of colonoscopy History of esophagogastroduodenoscopy (EGD) Hx of hysterectomy Hx of hernia repair History of cholecystectomy History of Problems with Anesthesia: No Social History Social History Household Members: Family Housing: House Are you a primary director of managed care to a significant other at home: No Do you presently have visiting nurse or other home services: No Alcohol intake: current Alcohol intake frequency: a few times a month Alcohol type: wine Patient Tobacco Use Status: Never used Tobacco e-Cigarette/Vaping Use: Never Used Use of substances other than those prescribed or required for medical reasons: No Have you been hit, kicked, punched, or otherwise hurt by someone within the past year? 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 Cognitive needs: No Hearing needs: No Vision needs: No Meds Allergies Allergy/AdvReac Type Severity Reaction Status Date / Time Seasonal Allergies Allergy Intermediate Cough Verified 09/13/23 12:09 Home Medications Medication Instructions Recorded Confirmed Last Taken Type baclofen 10 mg tablet 10 mg PO BID 10/24/22 10/06/23 Unknown History carvedilol 12.5 mg tablet 12.5 mg PO BID 10/24/22 10/06/23 Unknown History montelukast 10 mg tablet 10 mg PO QAM allergy symptoms 06/01/23 10/06/23 Unknown History Lactobacillus acidophilus 10 10,000 mmu cells PO DAILY 10/06/23 10/06/23 Unknown History billion cell capsule (Probiotic) meclizine 12.5 mg tablet 12.5 mg PO TID PRN Vertigo 10/06/23 10/06/23 Unknown History polyethylene glycol 3350 17 17 g PO DAILY 10/06/23 10/06/23 Unknown History gram/dose oral powder (Miralax) sertraline 100 mg tablet 100 mg PO QAM 10/06/23 10/06/23 Unknown History Exam Height,Weight and Vital Signs: Height 4 ft 11 in Weight 65.317 kg Last Vital Signs Pulse 63 10/06/23 12:17 Resp 20 10/06/23 12:17 BP 154/71 H 10/06/23 12:17 Pulse Ox 97 10/06/23 12:17 O2 Del Method Room Air 10/06/23 12:17 Pertinent Lab Results Pertinent Lab Results: Laboratory Tests 07/27/23 12:50 Sodium 141 Potassium 4.2 Chloride 106 Carbon Dioxide 28 BUN 19 H Creatinine 0.77 Narrative Narrative: MR head/brain wo/w con 05/2023 IMPRESSION: 1. Scattered nonenhancing white matter T2 hyperintensities in the cerebral hemispheres bilaterally as described above, consistent with history of MS. Cannot exclude superimposed chronic ischemic microangiopathy. No T1 black holes are identified. 2. No intracranial mass lesion, pathologic enhancement, space-occupying process, mass effect or hydrocephalus. 3. Postoperative changes involving the paranasal sinuses with a small defect in the right anterior frontal calvarium. Correlate for any history of a previous shekhar hole craniostomy. 4. Small bilateral mastoid effusions and minor mucosal thickening in the residual ethmoid complex. Airway Neck ROM: Limited Denture: Upper Loose/Missing/Broken Teeth: No (Crowned molars lower) Heart: RRR Lungs: CTAB Assessment and Plan Assessment Anesthesia Assessment: Anesthesia Plan Discussed and PAT Visit Final Anesthetic Review Family History of Problems with Anesthesia: No History of Problems with Anesthesia: No Documented by User: Wei Winkler MD 10/23/23 09:34 HPI - Anesthesia Eval Consult details Narrative: PATIENT RESCHEDULED TO 12/28/2023. Thanks. Resched to 12/28/23 63yo F for C5-6,C6-7 Anterior Cervical Discectomy with Fusion Multiple, 10/19/23 No recent illness No CP/SOB with walking MS. No rx x 8 years. Recent transfer of care to [facility] in [place]. Meclazine / baclofen for symptoms of vertigo, muscle spasm. Non-hodgkin's s/p chemo. 2010 JUNE hx. Last sleep study negative Asthma/allergies. Singulair. Albuterol rare Chronic prn opiods PMFSH Past Medical History Medical History (Updated 10/06/23 @ 12:43 by Jazlyn Melgar RN) Renal calculi Sleep apnea Chronic pain Arthritis Elevated cholesterol Pre-diabetes Asthma HTN (hypertension) Tarsal tunnel syndrome of both lower extremities Encounter for testing for latent tuberculosis infection Multiple sclerosis Non-Hodgkin's lymphoma in remission Family History Family History Mother Lung cancer Sister Lung cancer Surgical History Surgical History (Updated 10/06/23 @ 12:10 by Jazlyn Melgar RN) Hx of foot surgery Hx of cystoscopy Hx of colonoscopy History of esophagogastroduodenoscopy (EGD) Hx of hysterectomy Hx of hernia repair History of cholecystectomy Social History Social History Household Members: Family Housing: House Are you a primary director of managed care to a significant other at home: No Do you presently have visiting nurse or other home services: No Alcohol intake: current Alcohol intake frequency: a few times a month Alcohol type: wine Patient Tobacco Use Status: Never used Tobacco e-Cigarette/Vaping Use: Never Used Use of substances other than those prescribed or required for medical reasons: No Have you been hit, kicked, punched, or otherwise hurt by someone within the past year? 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 Cognitive needs: No Hearing needs: No Vision needs: No Meds Allergies Allergy/AdvReac Type Severity Reaction Status Date / Time Seasonal Allergies Allergy Intermediate Cough Verified 09/13/23 12:09 Home Medications Medication Instructions Recorded Confirmed Last Taken Type baclofen 10 mg tablet 10 mg PO BID 10/24/22 10/06/23 Unknown History carvedilol 12.5 mg tablet 12.5 mg PO BID 10/24/22 10/06/23 Unknown History montelukast 10 mg tablet 10 mg PO QAM allergy symptoms 06/01/23 10/06/23 Unknown History Lactobacillus acidophilus 10 10,000 mmu cells PO DAILY 10/06/23 10/06/23 Unknown History billion cell capsule (Probiotic) meclizine 12.5 mg tablet 12.5 mg PO TID PRN Vertigo 10/06/23 10/06/23 Unknown History polyethylene glycol 3350 17 17 g PO DAILY 10/06/23 10/06/23 Unknown History gram/dose oral powder (Miralax) sertraline 100 mg tablet 100 mg PO QAM 10/06/23 10/06/23 Unknown History
[2023-10-06 13:38] LABS: Hematocrit 38.4 % (37.0-47.0); Mean Corpuscular HGB Conc 33.9 g/dl (31.0-35.0); Mean Corpuscular Volume 91.4 fL (80.0-98.0); Platelet Count 203 X10*3/uL (160-400); White Blood Count 5.2 X10*3/uL (4.8-10.8)
== END 2023-10-06 00:01 | disposition home or self-care (01) ==
LOC: HO.PAT
PROVIDERS: Nurse Practitioner; PCP Family Medicine; Visit Provider Neurological Surgery
DX: Z01.818 Encounter for other preprocedural examination (principal)
CPT/HCPCS: 36415; 85027; 93005

== ENCOUNTER → 2023-10-06 13:02 | Outpatient (BNV) | payer MEDICARE, SELFPAY | PROVIDERS: PCP Family Medicine; Visit Provider Internal Medicine Cardiovascular Disease | DX: G95.9 Disease of spinal cord, unspecified (principal); Z01.818 Encounter for other preprocedural examination | CPT/HCPCS: 93010 ==

== ENCOUNTER 2023-12-14 13:30 | Outpatient (AMB) | payer MEDICARE, SELFPAY ==
[2023-12-14 13:36] VITALS: BP 144/80; PULSE 66; O2SAT 96; BMI 29.6
--- NOTE | 2023-12-14 13:36 | A.OFFPC_ITS ---
Vital Signs 12/14/23 13:36 Height 4 ft 11 in Weight 146 lb 8 oz BMI 29.6 BP 144/80 H Blood Pressure Location Rt brachial Position Sitting Pulse 66 Pulse Source Pulse Oximeter Pulse Oximetry (%) 96 Oxygen Delivery Method Room Air Intake Visit Reasons: follow up/chronic pain Intake Note: Patient is here with request of refills for Baclofen and Oxycodone is due on the . Allergies Seasonal Allergies Allergy (Intermediate, Verified 12/14/23 13:41) Cough Medication List - Last Reconciled 12/14/23 by Salo Young MD albuterol sulfate 90 mcg/actuation (ProAir HFA) 2 puffs inhalation Q4-6H PRN 30 days atorvastatin 40 mg PO BEDTIME 90 days baclofen 10 mg PO BID carvedilol 12.5 mg PO BID 90 days Lactobacillus acidophilus (Probiotic) 10,000 mmu cells PO DAILY meclizine 12.5 mg PO TID PRN meloxicam 15 mg PO BEDTIME 30 days montelukast 10 mg PO QAM naloxone 4 mg/actuation 4 mg intranasal Q2M PRN 30 days oxycodone-acetaminophen 5-325 mg (Percocet) 2 tabs orally 3 times a day PRN; MassPat verified. Partial refill upon request. 30 days polyethylene glycol 3350 (Miralax) 17 grams PO DAILY sertraline 100 mg PO QAM [thumb spica right hand, wear nightly & as much as possible throughout the day] [wrist splint wear nightly and as much as possible throughout the day] Tobacco use date assessed: 12/14/23 Dental Screening Dental Screen Date: 12/14/23 Did you have a dental visit in the last 12 months?: No Did you have a dental problem in the last 6 months where you did not have access to dental care?: No Was dental information given to patient?: Patient has dentist HPI follow up/chronic pain HPI Details 63 y/o female presents to f/u chronic co nditions. Blood pressure today 144/80. She is on carvedilol 12.5mg b.i.d. Pt is concerned about her weight - does have hx of pre-diabetes. Pt reports some fatigue. [facility] Medical History Renal calculi Sleep apnea Chronic pain Arthritis Elevated cholesterol Pre-diabetes Asthma HTN (hypertension) Tarsal tunnel syndrome of both lower extremities Encounter for testing for latent tuberculosis infection Multiple sclerosis Non-Hodgkin's lymphoma in remission Surgical History Hx of foot surgery Hx of cystoscopy Hx of colonoscopy History of esophagogastroduodenoscopy (EGD) Hx of hysterectomy Hx of hernia repair History of cholecystectomy Family History Mother Lung cancer Sister Lung cancer Social History Household Members: Family Housing: House Are you a primary home care giver to a significant other at home: No Do you presently have visiting nurse or other home services: No Alcohol intake: current Alcohol intake frequency: a few times a month Alcohol type: wine Patient Tobacco Use Status: Never used Tobacco e-Cigarette/Vaping Use: Never Used service: No Current occupational status: disabled 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 Jim Darden, Elke Barbosa, Ike Bowser and colleagues, with an educational rina from [email or web address]. Review of Systems Const Reports fatigue, Denies headache(s) and Denies weakness ENT Denies dizziness and Denies headache(s) Card Denies dyspnea Resp Denies cough, Denies dyspnea, Denies wheezing and Denies other (shortness of breath) Musc Denies numbness and Denies tingling Neuro Denies dizziness, Denies headache(s), Denies numbness, Denies tingling and Denies weakness Psych Denies anxiety and Denies depression Endo Reports fatigue Aller/Immun Denies wheezing Physical exam (Primary Care) Vital Signs: Last Vital Signs Pulse 66 12/14/23 13:36 BP 144/80 H 12/14/23 13:36 Pulse Ox 96 12/14/23 13:36 Oxygen Delivery Method Room Air 12/14/23 13:36 BMI result Body Mass Index 29.6 Tobacco/Smoking Status: Tobacco use Status Tobacco use date assessed 12/14/23 12/14/23 13:47 Patient Tobacco Use Status Never used Tobacco 12/14/23 13:38 e-Cigarette/Vaping Use Never Used 12/14/23 13:38 Thrive Assessment: Date of Thrive Assessment Date Thrive assessed 06/15/23 12/14/23 13:38 Const General: well developed; No acute distress Nutritional Appearance: well nourished Orientation/consciousness: patient oriented x3 HENMT Head: Yes normocephalic and Yes atraumatic Eyes General: appearance normal, both eyes and all related structures Pupils: Equal, round and reactive pupils present EOM: EOMs intact bilaterally Resp Effort & Inspection: normal respiratory effort Neuro General: patient oriented x3 and gait normal Cranial nerves: Yes Equal, round and reactive pupils present Psych Affect: normal affect Assessment and Plan Assessment & Plan (1) Hypertension: Code(s): I10 - Essential (primary) hypertension Qualifiers: Hypertension type: primary hypertension Qualified Code(s): I10 - Essential (primary) hypertension Plan: Blood?pressure?is?high?despite?taking?her?carvedilol?as?prescribed.??Will?add?skylar hernandez (2) Chronic pain syndrome: Code(s): G89.4 - Chronic pain syndrome Plan: Ongoing?pain?in?neck, low?back?and?bilateral?hips She?has?an?upcoming?appointment?with?Dr.?Penn mcdaniels?for?cervical?pain?and?cervical?myelopathy Follow-up?with? Continue?current?opioid?medication?and?can?use?baclofen?as?well. She?is?hopeful?that?after?surgery?she?will?not?need?this?m edication?any?longer.??We?discussed?that?she?may?need?help?with?weaning?off?of?i t?and?that?she?may?have?increased?pain?while?decreasing?the?medication. Will?follow (3) Pre-diabetes: Code(s): R73.03 - Prediabetes Plan: Will?follow-up?on?blood?sugars?at?next?visit (4) Cervical myelopathy: Code(s): G95.9 - Disease of spinal cord, unspecified Plan: As?above,?she?is?seeing Dr. Arnold Follow-up?as?recommended (5) Overweight: Code(s): E66.3 - Overweight Plan: Patient?would?like?to?try?Ozempic.??Discussed?risks/benefits Orders: Orders Drug Screen Urine Today Medications: New losartan 25 mg PO DAILY 90 days 90 tabs 2RF semaglutide (Ozempic) for 4 weeks 0.25 mg (0.368 mL) subcut QWEEK 28 days 1.472 mL 2RF Changed From baclofen 10 mg PO BID To baclofen 10 mg PO BID 30 days 60 tabs 0RF Refilled oxycodone-acetaminophen 5-325 mg (Percocet) 2 tabs orally 3 times a day PRN; MassPat verified. Partial refill upon request. 30 days 180 tabs 0RF pain G89.4 - Chronic pain syndrome Coding Level of Care Code Est Pt Level 3 (67861) Diagnoses Primary hypertension I10 Hypertension type: primary hypertension Chronic pain syndrome G89.4 Pre-diabetes R73.03 Cervical myelopathy G95.9 Overweight E66.3
== END 2023-12-14 14:32 | disposition home or self-care (01) ==
PROVIDERS: PCP Family Medicine; Visit Provider Family Medicine
DX: I10 Essential (primary) hypertension (principal); G89.4 Chronic pain syndrome; R73.03 Prediabetes; G95.9 Disease of spinal cord, unspecified; E66.3 Overweight
CPT/HCPCS: 99214

== ENCOUNTER 2023-12-14 14:34 | Outpatient (REF) | payer MEDICARE, SELFPAY ==
[2023-12-15 11:53] LABS: Appearance Urine Turbid; Color Urine Dark Yellow; Glucose Urine UA Negative (Negative); Leukocyte Esterase Urine Trace (Negative); Nitrite Urine Negative (Negative); PH 5.5 (5.0-9.0); Specific Gravity - Urine >= 1.030 (1.005-1.025); UMIC TRIGGER UA YES; Urine Blood Negative (Negative); Urine Ketones Trace mg/dL (Negative); Urine Protein Trace mg/dL (Neg-Trace)
[2023-12-15 12:28] LABS: Bacteria Urine 2+ (None Seen); RBC Urine 0-2 /HPF (0-2)
[2023-12-15 12:56] LABS: Amphetamine Screen Urine Not Detected (Not Detect); Barbiturates, Urine Not Detected (Not Detect); Benzodiazepines Screen Urine Not Detected (Not Detect); Buprenorphine Scr Not Detected (Not Detect); Cannabinoid Screen Urine Not Detected (Not Detect); Cocaine Screen Urine Not Detected (Not Detect); Fentanyl, urine Not Detected (Not Detect); Methadone Screen, Urine Not Detected (Not Detect); Opiate Screen Urine POSITIVE (Not Detect); Oxycodone Screen Urine Positive (Not Detect); Phencyclidine Screen Urine Not Detected (Not Detect)
[2023-12-15 13:04] LABS: Creatinine Urine 279.93 mg/dL; Microalbum/Creatinine Ratio Ur 7.1 ug/mg cr (<30)
== END 2023-12-14 14:35 | disposition home or self-care (01) ==
LOC: HO.LAB 14:34
PROVIDERS: Visit Provider Family Medicine
DX: I10 Essential (primary) hypertension (principal); F11.20 Opioid dependence, uncomplicated
CPT/HCPCS: 80307; 81001; 82043; 82570

== ENCOUNTER 2024-03-21 10:29 | Outpatient (AMB) | payer MEDICARE, SELFPAY ==
--- NOTE | 2024-03-21 11:15 | A.OFFPC_ITS ---
Vital Signs 03/21/24 11:23 Height 4 ft 11 in Weight 144 lb 4 oz BMI 29.1 BP 100/64 Blood Pressure Location Lt brachial Position Sitting Respiration 16 Pulse 65 Pulse Source Pulse Oximeter Temp 97.6 F Temp Source Oral Pulse Oximetry (%) 98 Oxygen Delivery Method Room Air Intake Visit Reasons: CPE with f/u labs and health maint. Intake Note: CPE Allergies Seasonal Allergies Allergy (Intermediate, Verified 12/14/23 13:41) Cough Medication List - Last Reconciled 03/21/24 by Salo Young MD albuterol sulfate 90 mcg/actuation (ProAir HFA) 2 puffs inhalation Q4-6H PRN 30 days atorvastatin 40 mg PO BEDTIME 90 days baclofen 10 mg PO BID 30 days carvedilol 12.5 mg PO BID 90 days Lactobacillus acidophilus (Probiotic) 10,000 mmu cells PO DAILY losartan 25 mg PO DAILY 90 days meclizine 12.5 mg PO TID PRN meloxicam 15 mg PO BEDTIME 30 days montelukast 10 mg PO QAM naloxone 4 mg/actuation 4 mg intranasal Q2M PRN 30 days oxycodone-acetaminophen 5-325 mg (Percocet) 2 tabs orally 3 times a day PRN; [employer] verified. Partial refill upon request. 30 days polyethylene glycol 3350 (Miralax) 17 grams PO DAILY semaglutide (Ozempic) 0.25 mg (0.368 mL) subcut QWEEK 28 days sertraline 100 mg PO QAM [thumb spica right hand, wear nightly & as much as possible throughout the day] [wrist splint wear nightly and as much as possible throughout the day] Tobacco use date assessed: 03/21/24 Fall risk assessment: 2 + Falls in past year Dental Screening Dental Screen Date: 03/21/24 Did you have a dental visit in the last 12 months?: No Did you have a dental problem in the last 6 months where you did not have access to dental care?: No Was dental information given to patient?: Yes HPI CPE with f/u labs and health maint. HPI Details 64 y/o female presents for an extended e xam with f/u labs and health maintenance. No recent labs to review. Blood pressure today 100/64. She is on losartan 25mg, carvedilol 12.5mg b.i.d. She notes she has been taking ozempic for her weight. She notes she has been losing inches but not weight. She has been exercising. [facility] Medical History Renal calculi Sleep apnea Chronic pain Arthritis Elevated cholesterol Pre-diabetes Asthma HTN (hypertension) Tarsal tunnel syndrome of both lower extremities Encounter for testing for latent tuberculosis infection Multiple sclerosis Non-Hodgkin's lymphoma in remission Surgical History Hx of foot surgery Hx of cystoscopy Hx of colonoscopy History of esophagogastroduodenoscopy (EGD) Hx of hysterectomy Hx of hernia repair History of cholecystectomy Family History Mother Lung cancer Sister Lung cancer Social History (Updated 03/21/24 @ 11:17 by Ej Pelletier) Household Members: Family Housing: House Are you a primary career placement services counselor to a significant other at home: No Do you presently have visiting nurse or other home services: No Alcohol intake: current Alcohol intake frequency: a few times a month Alcohol type: wine Patient Tobacco Use Status: Never used Tobacco e-Cigarette/Vaping Use: Never Used service: No Current occupational status: disabled 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 1. Little interest or pleasure in doing things: not at all 2. Feeling down, depressed, or hopeless: not at all 3. Trouble falling or staying asleep, or sleeping too much: not at all 4. Feeling tired or having little energy: several days 5. Poor appetite or overeating: not at all 6. Feeling bad about yourself - or that you are a failure or have let yourself or your family down: not at all 7. Trouble concentrating on things, such as reading the newspaper or watching television: not at all 8. Moving or speaking so slowly that other people could have noticed. Or the opposite - being so fidgety or restless that you have been moving around a lot more than usual: not at all 9. Thoughts that you would be better off or of hurting yourself in some way: not at all Total score: 1 Depression Screening Interpretation: Negative Depression Screening Done: Yes 22054 - PHQ-9 Billing: Yes Source: Developed by Drs. Jim Darden, Elke Barbosa, Ike Bowser and colleagues, with an educational rina from [employer]. Thrive Questionnaire Date Thrive assessed: 03/21/24 I am a: Patient What is your living situation today?: I have a steady place to live Within the past 12 months, did the food you bought not last and you didn't have the money to get more?: Never true Within the past 12 months, did you worry whether your food would run out before you got money to buy more?: Never true Do you have trouble paying for medicines?: No Do you have trouble getting transportation to medical appointments?: No Do you have trouble paying your heating and electricity bill?: No Do you have trouble taking care of your child, family member or friend?: No Do you have trouble with day-to-day activities such as bathing, preparing meals, shopping, managing finances, etc.?: No Are you currently unemployed and looking for a job?: No Are you interested in more education?: Yes Please select the resources that you would like help with: None Currently or been in a relationship where the following occur: No concerns reported THRIVE Score: 0 AUDIT C Alcohol Use Questionnaire (AUDIT-C) 1. How often do you have a drink containing alcohol?: Monthly or less 2. How many drinks containing alcohol do you have on a typical day when you are drinking?: 1 or 2 3. How often do you have six or more drinks on one occasion?: Less than monthly Total Score: 2 HAYDE-7 AMB Questionnaire HAYDE-7 Date HAYDE - 7 assessed: 03/21/24 Feeling nervous, anxious, or on edge: 0 = Not at all Not being able to stop or control worryin = Not at all Worrying too much about different things: 0 = Not at all Trouble relaxin = Not at all Being so restless that it is hard to sit still: 0 = Not at all Becoming easily annoyed or irritable: 0 = Not at all Feeling afraid as if something awful might happen: 0 = Not at all Total HAYDE-7 score (0-4 normal; 5-9 mild; 10-14 moderate; 15-21 severe): 0 Source: Developed by Drs. Jim Darden, Elke Barbosa, Ike Bowser and colleagues, with an educational rina from [employer]. HAYDE-7 Assessment Billing HAYDE-7 Assessment Tool: HAYDE-7 Assessment 58218 ACT Questionnaire In the past 4 weeks, how much of the time did your asthma keep you from getting as much done at work, school or at home?: None of the time During the past 4 weeks, how often have you had shortness of breath?: 1-2 times a week During the past 4 weeks, how often did your asthma symptoms wake you up at night or earlier than usual in the morning?: Not at all During the past 4 weeks, how often have you had to use your rescue inhaler or nebulizer medication?: 1-2 times a week How would you rate your asthma control during the past 4 weeks?: Well controlled ACT Interpretation: Positive Score: 20 Review of Systems Const Denies chills, Denies fatigue, Denies fever(s), Denies headache(s) and Denies weakness Eyes Denies change in vision ENT Denies dizziness, Denies headache(s), Denies hearing loss, Denies nasal congestion, Denies sinus pain, Denies sinus pressure and Denies sore throat Card Denies chest pain, Denies lightheadedness, Denies dyspnea and Denies other (palpitations) Resp Denies cough, Denies dyspnea and Denies wheezing GI Denies abdominal pain, Denies melena, Denies hematochezia, Denies change in bowel habits, Denies dyspepsia and Denies nausea Denies hematuria and Denies dysuria Musc Denies abnormal gait, Denies myalgias, Denies arthralgias, Denies numbness and Denies tingling Skin/Breast Denies rash, Denies unusual bruising and Denies wounds Neuro Denies abnormal gait, Denies dizziness, Denies headache(s), Denies memory loss, Denies numbness, Denies Sensory deficit (Neuro), Denies tingling and Denies weakness Psych Denies anxiety, Denies depression and Denies memory loss Endo Denies cold intolerance, Denies fatigue, Denies heat intolerance, Denies polydipsia and Denies polyuria Cristopher/Lymph Denies easy bleeding and Denies easy bruising Aller/Immun Denies wheezing Physical exam (Primary Care) Vital Signs: Last Vital Signs Temp 97.6 F 03/21/24 11:23 Pulse 65 03/21/24 11:23 Resp 16 03/21/24 11:23 BP 100/64 03/21/24 11:23 Pulse Ox 98 03/21/24 11:23 Oxygen Delivery Method Room Air 03/21/24 11:23 BMI result Body Mass Index 29.1 Tobacco/Smoking Status: Tobacco use Status Tobacco use date assessed 03/21/24 03/21/24 11:27 Patient Tobacco Use Status Never used Tobacco 03/21/24 11:17 e-Cigarette/Vaping Use Never Used 03/21/24 11:17 PHQ-9: PHQ-9 Score PHQ-9: Total score 1 03/21/24 12:08 Depression Screening Interpretation: Negative Thrive Assessment: Date of Thrive Assessment Date Thrive assessed 03/21/24 03/21/24 11:27 Currently or been in a relationship where the following occur: No concerns reported Const General: no acute distress, well developed, alert and awake Nutritional Appearance: well nourished Orientation/consciousness: patient oriented x3 HENMT Head: Yes normocephalic and Yes atraumatic Ears: hearing grossly normal bilaterally and TM's normal bilaterally General nose exam: Normal external nose present and Normal nares present Mouth: Normal oral and palatal mucosa present and moist mucous membranes Teeth and gingiva: dentition normal Throat: Yes posterior oropharynx normal Eyes General: appearance normal, both eyes and all related structures Pupils: Equal, round and reactive pupils present and Pupil accommodation reflex normal EOM: EOMs intact bilaterally Neck Neck: Yes normal visual inspection, Yes no lymphadenopathy and Yes trachea midline Thyroid: Thyroid normal Carotids: no bruits Lymphatic: no lymphadenopathy noted Chest Chest palpation & inspection: normal inspection of the chest Resp Effort & Inspection: normal respiratory effort Auscultation: clear to auscultation bilaterally Cardio Rate: regular rate Rhythm: regular rhythm Heart sounds: S1 normal heart sound present, S2 normal heart sound present, no gallops, no murmurs and no rubs Bruits: no abdominal aortic bruits and no carotid bruits GI Palpation (GI): No Abdominal aortic bruit present, Soft to palpation, nontender, No hepatosplenomegaly present and No Rebound tenderness present Auscultation: normal bowel sounds General: Yes no CVA tenderness Back/Spine/Pelvis Back: no CVA tenderness Cervical Spine: cervical ROM normal and No Cervical spine tenderness Thoracic/Lumbar Spine: thoraco-lumbar ROM normal, No pain with thoraco-lumbar ROM, No thoracic spinal tenderness and No lumbar spinal tenderness Skin Lesions: no lesions Rashes: no rashes Trauma: no lacerations or abrasions Wounds: no wounds Nails: normal Neuro General: patient oriented x3 Cranial nerves: Yes Equal, round and reactive pupils present Cognition (Neuro): normal cognition Gait exam (Neuro): Normal gait present Motor exam (neuro): 5/5 motor strength present throughout Sensory Exam: No Sensory deficit (Neuro) Deep tendon reflexes (DTR's): Right patellar reflex intensity grade: 2+ and Left patellar reflex intensity grade: 2+ Extrem General: Yes normal to inspection and No edema Psych Appearance: grossly normal Affect: normal affect Attitude: cooperative Thought process: Normal thought process present Assessment and Plan Assessment & Plan (1) Hypertension: Code(s): I10 - Essential (primary) hypertension Qualifiers: Hypertension type: primary hypertension Qualified Code(s): I10 - Essential (primary) hypertension Plan: Blood?pressure?is?controlled.??Goal?is?less?than?140/90 Continue?current?medication Patient?did?note a?mild?productive?cough.??However?she?also?has?a?right?ear?infection?and?this?is ?the?more?likely?cause?of?productive?cough?on?a?patient?with?losartan. (2) Chronic pain: Code(s): G89.29 - Other chronic pain Plan: Taking?her?medication?as?prescribed?and?pain?is?tolerable. Followed?by??Catalina and?also?rheumatology Last?urine?drug?screen?was?appropriate Continue?current?medication (3) Overweight: Code(s): E66.3 - Overweight Plan: Patient?was?able?to?get?Ozempic?and?is?taking?it?as?prescribed. No?adverse?effects She?notes that?she?has?had?decrease?in?size- clothes?are?fitting?better?but?she?has?not?noticed?any?significant?weight?loss. According?to?our?scale?she?has?lost?a?couple?of?lb Will?increase?Ozempic?and?follow-up?in?a?few?months (4) Breast cancer screening by mammogram: Code(s): Z12.31 - Encounter for screening mammogram for malignant neoplasm of breast Plan: Mammogram?in?August?was?negative?for?malignancy Will?continue?annual?screen (5) Screening for cervical cancer: Code(s): Z12.4 - Encounter for screening for malignant neoplasm of cervix Plan: Patient?no?longer?has?her?cervix She?would?like?regular?laborer demolition?care?however Referred?to?[facility]?laborer demolition (6) Screening for colon cancer: Code(s): Z12.11 - Encounter for screening for malignant neoplasm of colon Plan: Patient?had?colonoscopy?in?[place]?within?10?years.??She?thinks?that?this?was?no rmal?but?does?not?have?further?information Will?try?to?get?report (7) Right otitis media: Code(s): H66.91 - Otitis media, unspecified, right ear Plan: Sent?script?for?amoxicillin (8) Adult general medical exam: Code(s): Z00.00 - Encounter for general adult medical examination without abnormal findings Plan: 64-year-old?female?presents?for?an?extended?exam Stable Encouraged?healthy?diet?and?exercise Orders: Orders UA and rflx microscopic Today Z00.00 - Encounter for general adult medical examination without abnormal findings TSH reflex Free T4 Today Z00.00 - Encounter for general adult medical examination without abnormal findings Vitamin B12 and Folate Today E53.8 - Deficiency of other specified B group vitamins MM tomosynthesis screening BI Today Z12.31 - Encounter for screening mammogram for malignant neoplasm of breast Comprehensive [place]. Panel Fast Today Z00.00 - Encounter for general adult medical examination without abnormal findings Lipid Panel Today Z00.00 - Encounter for general adult medical examination without abnormal findings Microalbumin, Random (w Creat) Today I10 - Essential (primary) hypertension Vitamin D 25-OH Total Today E55.9 - Vitamin D deficiency, unspecified Complete Blood Count Auto Diff Today Z00.00 - Encounter for general adult medical examination without abnormal findings Referrals [facility] Referral Z00.00 - Encounter for general adult medical examination without abnormal findings Medications: New amoxicillin 500 mg PO Q12H 10 days 20 tabs 0RF Changed From semaglutide (Ozempic) for 4 weeks 0.25 mg (0.368 mL) subcut QWEEK 28 days 1.472 mL 2RF To semaglutide (Ozempic) for 4 weeks 0.5 mg (0.736 mL) subcut QWEEK 28 days 2.944 mL 2RF Refilled oxycodone-acetaminophen 5-325 mg (Percocet) 2 tabs orally 3 times a day PRN; [employer]Pat verified. Partial refill upon request. 30 days 180 tabs 0RF pain G89.4 - Chronic pain syndrome Coding Level of Care Code Est Pt Level 4 (31025) Diagnoses Primary hypertension I10 Hypertension type: primary hypertension Chronic pain G89.29 Overweight E66.3 Breast cancer screening by mammogram Z12.31 Screening for cervical cancer Z12.4 Screening for colon cancer Z12.11 Right otitis media H66.91 Adult general medical exam Z00.00 Additional Codes HAYDE-7 Assessment Billing - HAYDE-7 Assessment Tool: HAYDE-7 Assessment 47833 ([id number])
[2024-03-21 11:23] VITALS: BP 100/64; PULSE 65; RESP 16; TEMP 36.4; O2SAT 98; BMI 29.1
== END 2024-03-21 12:32 | disposition home or self-care (01) ==
PROVIDERS: PCP Family Medicine; Visit Provider Family Medicine
DX: Z00.00 Encounter for general adult medical examination without abnormal findings (principal); I10 Essential (primary) hypertension; G89.29 Other chronic pain; E66.3 Overweight; Z68.29 Body mass index [BMI] 29.0-29.9, adult; H66.91 Otitis media, unspecified, right ear; Z12.31 Encounter for screening mammogram for malignant neoplasm of breast; Z12.11 Encounter for screening for malignant neoplasm of colon
CPT/HCPCS: 99214; 99396

== ENCOUNTER 2024-03-21 13:12 | Outpatient (REF) | payer MEDICARE, SELFPAY ==
[2024-03-21 14:32] LABS: MANUAL DIFF FLAG NO
[2024-03-21 14:35] LABS: Eosinophils Absolute Auto 0.2 X10*3/uL (0.0-0.4); Eosinophils Percent Auto 5.3 % (0-4); Hematocrit 39.6 % (37.0-47.0); Hemoglobin 13.3 g/dl (12.0-16.0); Imm Gran Abs Auto 0.02 X10*3/uL (0.00-0.03); Imm Gran Pct Auto 0.5 % (0.0-0.4); Lymphocytes Absolute Auto 0.8 X10*3/uL (1.2-4.9); Lymphocytes Percent Auto 20.3 % (20-40); Mean Corpuscular HGB Conc 33.6 g/dl (31.0-35.0); Mean Corpuscular Hemoglobin 31.4 pg (27.0-33.0); Mean Corpuscular Volume 93.6 fL (80.0-98.0); Mean Platelet Volume 9.9 fL (9.4-12.3); Monocytes Absolute Auto 0.4 X10*3/uL (0.1-1.2); Monocytes Percent Auto 9.7 % (2-11); Neutrophils Absolute Auto 2.6 x10*3/uL (2.0-8.3); Neutrophils Percent Auto 63.2 % (45-73); Platelet Count 200 X10*3/uL (160-400); Red Blood Count 4.23 X10*6/uL (4.20-5.50); Red Cell Distribution Width 12.5 % (11.0-16.0); White Blood Count 4.1 X10*3/uL (4.8-10.8)
[2024-03-21 14:49] LABS: Appearance Urine Turbid; Color Urine Yellow; Glucose Urine UA Negative (Negative); Leukocyte Esterase Urine Negative (Negative); Nitrite Urine Negative (Negative); PH 5.5 (5.0-9.0); Specific Gravity - Urine 1.025 (1.005-1.025); Urine Blood Negative (Negative); Urine Ketones Negative (Negative); Urine Protein Negative (Neg-Trace)
[2024-03-21 15:08] LABS: Creatinine Urine 189.24 mg/dL; Microalbum/Creatinine Ratio Ur 8.9 ug/mg cr (<30)
[2024-03-21 15:13] LABS: Alanine Aminotransferase 27 U/L (0-31); Albumin Level 4.5 g/dL (3.5-5.0); Alkaline Phosphatase 41 U/L (39-117); Anion Gap 13 (12-20); Aspartate Amino Transferase 25 U/L (5-31); Bilirubin Total 0.6 mg/dL (0.0-1.0); Blood Urea Nitrogen 22 mg/dL (9-16); Calcium 9.8 mg/dL (8.4-10.2); Carbon Dioxide 26 mmol/L (22-29); Chloride 107 mmol/L (96-108); Cholesterol 192 mg/dL (<200); Estimated Glomerular Filt Rate > 60; Glucose Fasting 110 mg/dL (60-99); HDL Cholesterol 55 mg/dL (>40); LDL Cholesterol Calculated 105 mg/dL (<100); Potassium 4.2 mmol/L (3.3-5.1); Sodium 142 mmol/L (135-145); Total Protein 6.7 g/dL (6.5-8.0); Triglycerides 162 mg/dL (<150)
[2024-03-21 15:19] LABS: TSH reflex Free T4 0.91 uIU/mL (0.32-4.0); Vitamin D 25-OH Total 44.2 ng/mL (>30)
[2024-03-21 15:30] LABS: Folate 10.5 ng/mL (> or = 4.0); Vitamin B12 582 pg/mL (200-900)
== END 2024-03-21 13:13 | disposition home or self-care (01) ==
LOC: HO.WFDLDS 13:12
PROVIDERS: Visit Provider Family Medicine
DX: Z00.00 Encounter for general adult medical examination without abnormal findings (principal); F11.90 Opioid use, unspecified, uncomplicated; I10 Essential (primary) hypertension; E53.8 Deficiency of other specified B group vitamins; E55.9 Vitamin D deficiency, unspecified
CPT/HCPCS: 36415; 80053; 80061; 81003; 82043; 82306; 82570; 82607; 82746; 84443; 85025

== ENCOUNTER → 2024-04-08 13:39 | Outpatient (AMB) | payer MEDICARE, SELFPAY ==
--- NOTE | 2024-04-08 13:37 | MHC.PC.OV ---
Intake Visit Reasons: f/u CPE-labs via telemedicine Intake Note: Lab review Allergies Seasonal Allergies Allergy (Intermediate, Verified 04/08/24 13:37) Cough Medication List - Last Reconciled 04/08/24 by Salo Young MD albuterol sulfate 90 mcg/actuation (ProAir HFA) 2 puffs inhalation Q4-6H PRN 30 days amoxicillin 500 mg PO Q12H 10 days atorvastatin 40 mg PO BEDTIME 90 days baclofen 10 mg PO BID 30 days carvedilol 12.5 mg PO BID 90 days Lactobacillus acidophilus (Probiotic) 10,000 mmu cells PO DAILY losartan 25 mg PO DAILY 90 days meclizine 12.5 mg PO TID PRN meloxicam 15 mg PO BEDTIME 30 days montelukast 10 mg PO QAM 90 days naloxone 4 mg/actuation 4 mg intranasal Q2M PRN 30 days oxycodone-acetaminophen 5-325 mg (Percocet) 2 tabs orally 3 times a day PRN; [employer]Pat verified. Partial refill upon request. 30 days polyethylene glycol 3350 (Miralax) 17 grams PO DAILY semaglutide (Ozempic) 0.5 mg (0.736 mL) subcut QWEEK 28 days sertraline 100 mg PO QAM 90 days [thumb spica right hand, wear nightly & as much as possible throughout the day] [wrist splint wear nightly and as much as possible throughout the day] Tobacco use date assessed: 03/21/24 Dental Screening Dental Screen Date: 03/21/24 HPI f/u CPE-labs via telemedicine HPI Details 64 y/o female presents to f/u CPE-labs via telemedicine. Labs drawn 03/21/24. Reviewed labs with pt. Elevated fasting glucose of 110. Last A1c 5.7%. Triglycerides 162. TC 192. LDL 105. HDL 55. She is on artovastatin 40mg. Pt notes ear is still hurting her. HPI Comments History of Present Illness Details Documentation assistance for Salo Young MD, was provided by Jose Manuel Pino, Pharmacy Clinical Coordinator on 04/08/2024 at 1:50 PM EST. I, Dr. Young, have read, observed, and verified documentation. [facility] Medical History Renal calculi Sleep apnea Chronic pain Arthritis Elevated cholesterol Pre-diabetes Asthma HTN (hypertension) Tarsal tunnel syndrome of both lower extremities Encounter for testing for latent tuberculosis infection Multiple sclerosis Non-Hodgkin's lymphoma in remission Surgical History Hx of foot surgery Hx of cystoscopy Hx of colonoscopy History of esophagogastroduodenoscopy (EGD) Hx of hysterectomy Hx of hernia repair History of cholecystectomy Family History Mother Lung cancer Sister Lung cancer Social History (Updated 03/21/24 @ 11:17 by Ej Pelletier) Household Members: Family Housing: House Are you a primary career technical education instructor to a significant other at home: No Do you presently have visiting nurse or other home services: No Alcohol intake: current Alcohol intake frequency: a few times a month Alcohol type: wine Patient Tobacco Use Status: Never used Tobacco e-Cigarette/Vaping Use: Never Used service: No Current occupational status: disabled 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 Jim Darden, Elke Barbosa, Ike Bowser and colleagues, with an educational rina from [employer]. Review of Systems Const Denies chills, Denies fatigue, Denies fever(s), Denies headache(s) and Denies weakness ENT Denies dizziness and Denies headache(s) Card Denies dyspnea Resp Denies cough, Denies dyspnea, Denies wheezing and Denies other (shortness of breath) Musc Denies numbness and Denies tingling Neuro Denies dizziness, Denies headache(s), Denies numbness, Denies tingling and Denies weakness Psych Denies anxiety and Denies depression Endo Denies fatigue Aller/Immun Denies wheezing Physical exam (Primary Care) Tobacco/Smoking Status: Tobacco use Status Tobacco use date assessed 03/21/24 04/08/24 13:38 Patient Tobacco Use Status Never used Tobacco 04/08/24 13:38 e-Cigarette/Vaping Use Never Used 08/26/24 13:38 Thrive Assessment: Date of Thrive Assessment Date Thrive assessed 03/21/24 04/08/24 13:38 Telehealth Telehealth Telehealth Platform: Telephone Location of provider rendering services: practice address Location of patient: address on file Patient Identification confirmed using: Name, : Yes Telehealth method: voice only Patient verbally consented to treatment: Yes Patient verbally consented to billing insurance company: Yes Patient informed of any privacy concerns related to visit: Yes Minutes spent on Phone/Video with Pt.: 6 Assessment and Plan Assessment & Plan (1) Hypercholesterolemia: Code(s): E78.00 - Pure hypercholesterolemia, unspecified Plan: LDL?cholesterol?is?above?goal?of?less?than?100, on?atorvastatin?40?mg?daily. No?change?in?her?medication?today?but?I?encouraged?a?diet?lower?in?saturated?fats?and?cholesterol Encouraged?exercise?and?weight?loss (2) Pre-diabetes: Code(s): R73.03 - Prediabetes Plan: Fasting?blood?sugar?is?still?elevated Encouraged?a?diet?lower?in?sugars?and?starches Encouraged?weight?loss?and?exercise (3) Ear discomfort: Code(s): H92.09 - Otalgia, unspecified ear Plan: Patient?has?ongoing?ear?discomfort?despite?treatment?for?an?ear?infection?with?amoxicillin She?will?get?checked?out?at?the?walk-in?or?urgent?care. If?no?further?sign?of?infection,?would?refer?her?to?ENT Coding Level of Care Code Tele Est Pt Level 2 (40646) Diagnoses Hypercholesterolemia E78.00 Pre-diabetes R73.03 Ear discomfort H92.09
== END ==
LOC: HO.HMGFM 13:39
PROVIDERS: PCP Family Medicine; Visit Provider Family Medicine
DX: E78.00 Pure hypercholesterolemia, unspecified (principal); R73.03 Prediabetes
CPT/HCPCS: 99441

== ENCOUNTER 2024-06-25 09:30 | Outpatient (AMB) | payer MEDICARE, SELFPAY ==
--- NOTE | 2024-06-25 09:33 | A.OFFPC_ITS ---
Vital Signs 06/25/24 09:43 Height 4 ft 11 in Weight 140 lb 8 oz BMI 28.4 BP 131/77 Blood Pressure Location Rt brachial Position Sitting Respiration 14 Pulse 82 Pulse Source Pulse Oximeter Temp 96.4 F L Temp Source Temporal Artery Scan Pulse Oximetry (%) 97 Oxygen Delivery Method Room Air Intake Visit Reasons: f/u weight Intake Note: f/u on weight management Allergies Seasonal Allergies Allergy (Intermediate, Verified 06/25/24 09:40) Cough Medication List - Last Reconciled 06/25/24 by Salo Young MD albuterol sulfate 90 mcg/actuation 2 puffs inhalation Q4-6H PRN 30 days atorvastatin 40 mg PO BEDTIME 90 days baclofen 10 mg PO BID 30 days carvedilol 12.5 mg PO BID 90 days Lactobacillus acidophilus (Probiotic) 10,000 mmu cells PO DAILY losartan 25 mg PO DAILY 90 days meclizine 12.5 mg PO TID PRN meloxicam 15 mg PO BEDTIME 30 days montelukast 10 mg PO QAM 90 days naloxone 4 mg/actuation 4 mg intranasal Q2M PRN 30 days oxycodone-acetaminophen 5-325 mg (Percocet) 2 tabs orally 3 times a day PRN; [facility] verified. Partial refill upon request. 30 days polyethylene glycol 3350 (Miralax) 17 grams PO DAILY semaglutide (Ozempic) 0.5 mg (0.736 mL) subcut QWEEK 28 days sertraline 100 mg PO QAM 90 days [thumb spica right hand, wear nightly & as much as possible throughout the day] [wrist splint wear nightly and as much as possible throughout the day] Tobacco use date assessed: 03/21/24 Dental Screening Dental Screen Date: 03/21/24 HPI f/u weight HPI Details 64 y/o female presents to .u weight as well as pre-diabetes. Last A1c 04/08/24 5.7%. A1c today 06/25/24 is 5.6%. Has lost some weight since last office visit in March - 144 lbs to 140 lbs. [facility] Medical History Renal calculi Sleep apnea Chronic pain Arthritis Elevated cholesterol Pre-diabetes Asthma HTN (hypertension) Tarsal tunnel syndrome of both lower extremities Encounter for testing for latent tuberculosis infection Multiple sclerosis Non-Hodgkin's lymphoma in remission Surgical History Hx of foot surgery Hx of cystoscopy Hx of colonoscopy History of esophagogastroduodenoscopy (EGD) Hx of hysterectomy Hx of hernia repair History of cholecystectomy Family History Mother Lung cancer Sister Lung cancer Social History (Updated 03/21/24 @ 11:17 by Ej Pelletier [facility]) Household Members: Family Housing: House Are you a primary health care social worker to a significant other at home: No Do you presently have visiting nurse or other home services: No Alcohol intake: current Alcohol intake frequency: a few times a month Alcohol type: wine Patient Tobacco Use Status: Never used Tobacco e-Cigarette/Vaping Use: Never Used service: No Current occupational status: disabled 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 1. Little interest or pleasure in doing things: not at all 2. Feeling down, depressed, or hopeless: not at all 3. Trouble falling or staying asleep, or sleeping too much: several days 4. Feeling tired or having little energy: several days 5. Poor appetite or overeating: several days 6. Feeling bad about yourself - or that you are a failure or have let yourself or your family down: not at all 7. Trouble concentrating on things, such as reading the newspaper or watching television: several days 8. Moving or speaking so slowly that other people could have noticed. Or the opposite - being so fidgety or restless that you have been moving around a lot more than usual: not at all 9. Thoughts that you would be better off or of hurting yourself in some way: not at all Total score: 4 Source: Developed by Drs. Jim Darden, Elke Barbosa, Ike Bowser and colleagues, with an educational rina from [employer]. Thrive Questionnaire Date Thrive assessed: 03/21/24 HAYDE-7 AMB Questionnaire HAYDE-7 Date HAYDE - 7 assessed: 03/21/24 Source: Developed by Drs. Jim Darden, Elke Barbosa, Ike Bowser and colleagues, with an educational rina from [employer]. Review of Systems Const Denies chills, Denies fatigue, Denies fever(s), Denies headache(s) and Denies weakness ENT Denies dizziness and Denies headache(s) Card Denies dyspnea Resp Denies cough, Denies dyspnea, Denies wheezing and Denies other (shortness of breath) Musc Denies numbness and Denies tingling Neuro Denies dizziness, Denies headache(s), Denies numbness, Denies tingling and Denies weakness Psych Denies anxiety and Denies depression Endo Denies fatigue Aller/Immun Denies wheezing Physical exam (Primary Care) Vital Signs: Last Vital Signs Temp 96.4 F L 06/25/24 09:43 Pulse 82 06/25/24 09:43 Resp 14 06/25/24 09:43 BP 131/77 06/25/24 09:43 Pulse Ox 97 06/25/24 09:43 Oxygen Delivery Method Room Air 06/25/24 09:43 BMI result Body Mass Index 28.4 Tobacco/Smoking Status: Tobacco use Status Tobacco use date assessed 03/21/24 06/25/24 09:33 Patient Tobacco Use Status Never used Tobacco 06/25/24 09:33 e-Cigarette/Vaping Use Never Used 06/25/24 09:33 PHQ-9: PHQ-9 Score PHQ-9: Total score 4 06/25/24 10:09 Thrive Assessment: Date of Thrive Assessment Date Thrive assessed 03/21/24 06/25/24 09:33 Const General: well developed; No acute distress Nutritional Appearance: well nourished Orientation/consciousness: patient oriented x3 [facility] Head: Yes normocephalic and Yes atraumatic Eyes General: appearance normal, both eyes and all related structures Pupils: Equal, round and reactive pupils present EOM: EOMs intact bilaterally Resp Effort & Inspection: normal respiratory effort Auscultation: clear to auscultation bilaterally Cardio Rate: regular rate Rhythm: regular rhythm Heart sounds: S1 normal heart sound present, S2 normal heart sound present, no gallops, no murmurs and no rubs Neuro General: patient oriented x3 and gait normal Cranial nerves: Yes Equal, round and reactive pupils present Psych Affect: normal affect Results AMB Hemoglobin A1c AMB Hemoglobin A1c 5.6 % Last Edit by COLLIN Harmon on 06/25/24 10:15 Results Reviewed Results Reviewed: Laboratory Last Values Hgb A1c (Clinic) 5.6 % (4.0-6.0) 06/25/24 10:14 Coding Level of Care Code Est Pt Level 4 (29594) Diagnoses Pre-diabetes R73.03 Primary hypertension I10 Hypertension type: primary hypertension Overweight E66.3 Chronic pain G89.29 Assessment & Plan Assessment & Plan (1) Pre-diabetes: Code(s): R73.03 - Prediabetes Category: Medical Plan: A1c?5.6%?which?is?at?top?normal?range Continuing?Ozempic?for?weight?control?and?this?is?likely?the?cause?of?her?improv ing?A1c Encouraged?diet?low?in?sugars?and?starches,?exercise?and?weight?loss Will?continue?to?monitor (2) Hypertension: Code(s): I10 - Essential (primary) hypertension Category: Medical Qualifiers: Hypertension type: primary hypertension Qualified Code(s): I10 - Essential (primary) hypertension Plan: Blood?pressure?is?controlled.??Goal?is?less?than?140/90 Continue?current?medication (3) Overweight: Code(s): E66.3 - Overweight Category: Medical Plan: Patient?has?only?lost?a?few?lb?with?Ozempic Will?try?increasing?the?dose We?discussed?that?if?she?is?not?losing?any?significant?amount?of? weight?on?Ozempic?we?should?consider?stopping?this.??She?does?benefit?regarding? her?blood?sugars?and?might?need?a?different?blood?sugar?medication. (4) Chronic pain: Code(s): G89.29 - Other chronic pain Category: Medical Plan: Chronic?back?hip?and?small?joint?pain?such?as?in?bilateral?hands. She?is?on?chronic?opioids Taking?medication?as?prescribed Urine?drug?screen?is?ordered. Orders: Orders Drug Screen Urine Today F11.90 - Opioid use, unspecified, uncomplicated AMB Hemoglobin A1c Today R73.03 - Prediabetes
[2024-06-25 09:43] VITALS: BP 131/77; PULSE 82; RESP 14; TEMP 35.8; O2SAT 97; BMI 28.4
== END 2024-06-25 10:23 | disposition home or self-care (01) ==
PROVIDERS: PCP Family Medicine; Visit Provider Family Medicine
DX: R73.03 Prediabetes (principal); I10 Essential (primary) hypertension; E66.3 Overweight; G89.29 Other chronic pain

== ENCOUNTER 2024-06-25 09:30 | Outpatient (REF) | payer MEDICARE, SELFPAY ==
[2024-06-25 15:19] LABS: Amphetamine Screen Urine Not Detected (Not Detect); Barbiturates, Urine Not Detected (Not Detect); Benzodiazepines Screen Urine Not Detected (Not Detect); Buprenorphine Scr Not Detected (Not Detect); Cannabinoid Screen Urine Not Detected (Not Detect); Cocaine Screen Urine Not Detected (Not Detect); Fentanyl, urine Not Detected (Not Detect); Methadone Screen, Urine Not Detected (Not Detect); Opiate Screen Urine Not Detected (Not Detect); Oxycodone Screen Urine Positive (Not Detect); Phencyclidine Screen Urine Not Detected (Not Detect)
== END 2024-06-25 09:31 | disposition home or self-care (01) ==
LOC: HO.LAB 09:30
PROVIDERS: PCP Family Medicine; Visit Provider Family Medicine
DX: R73.03 Prediabetes (principal); I10 Essential (primary) hypertension; E66.3 Overweight; Z68.28 Body mass index [BMI] 28.0-28.9, adult; G89.29 Other chronic pain; Z79.85 Long-term (current) use of injectable non-insulin antidiabetic drugs; Z79.891 Long term (current) use of opiate analgesic; Z79.899 Other long term (current) drug therapy
CPT/HCPCS: 80307; 83036; 99212

== ENCOUNTER 2024-09-26 09:24 | Outpatient (AMB) | payer MEDICARE, SELFPAY ==
--- NOTE | 2024-09-26 09:37 | A.OFFPC_ITS ---
Vital Signs 09/26/24 09:48 Height 4 ft 11 in Weight 135 lb 4 oz BMI 27.3 BP 114/60 Blood Pressure Location Lt brachial Position Sitting Respiration 14 Pulse 71 Pulse Source Pulse Oximeter Temp 97.7 F Temp Source Oral Pulse Oximetry (%) 97 Oxygen Delivery Method Room Air Intake Visit Reasons: f/u weight, pre-diabetes Intake Note: pre-dm follow up would like to get tested for hep c due to exsposure Allergies Seasonal Allergies Allergy (Intermediate, Verified 09/26/24 09:44) Cough Medication List - Last Reconciled 09/26/24 by Salo Young MD albuterol sulfate 90 mcg/actuation 2 puffs inhalation Q4-6H PRN 30 days atorvastatin 40 mg PO BEDTIME 90 days baclofen 10 mg PO BID 30 days carvedilol 12.5 mg PO BID 90 days Lactobacillus acidophilus (Probiotic) 10,000 mmu cells PO DAILY losartan 25 mg PO DAILY 90 days meclizine 12.5 mg PO TID PRN meloxicam 15 mg PO BEDTIME 30 days montelukast 10 mg PO QAM 90 days naloxone 4 mg/actuation 4 mg intranasal Q2M PRN 30 days oxycodone-acetaminophen 5-325 mg (Percocet) 2 tabs orally 3 times a day PRN; [employer] verified. Partial refill upon request. 30 days polyethylene glycol 3350 (Miralax) 17 grams PO DAILY semaglutide 1 mg (0.75 mL) subcut QWEEK 84 days sertraline 100 mg PO QAM 90 days [thumb spica right hand, wear nightly & as much as possible throughout the day] [wrist splint wear nightly and as much as possible throughout the day] Tobacco use date assessed: 03/21/24 Dental Screening Dental Screen Date: 03/21/24 HPI f/u weight, pre-diabetes HPI Details 64 y/o female presents to f/u weight con trol, pre-diabetes. Weight today 135 lbs, which improved from 140 lbs in June. [facility], [facility] Medical History Renal calculi Sleep apnea Chronic pain Arthritis Elevated cholesterol Pre-diabetes Asthma HTN (hypertension) Tarsal tunnel syndrome of both lower extremities Encounter for testing for latent tuberculosis infection Multiple sclerosis Non-Hodgkin's lymphoma in remission Surgical History Hx of foot surgery Hx of cystoscopy Hx of colonoscopy History of esophagogastroduodenoscopy (EGD) Hx of hysterectomy Hx of hernia repair History of cholecystectomy Family History Mother Lung cancer Sister Lung cancer Social History (Updated 03/21/24 @ 11:17 by [facility]j [facility]ier [facility] Household Members: Family Housing: House Are you a primary manager managed care to a significant other at home: No Do you presently have visiting nurse or other home services: No Alcohol intake: current Alcohol intake frequency: a few times a month Alcohol type: wine Patient Tobacco Use Status: Never used Tobacco e-Cigarette/Vaping Use: Never Used service: No Current occupational status: disabled 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 1. Little interest or pleasure in doing things: not at all 2. Feeling down, depressed, or hopeless: not at all Source: Developed by Drs. Jim Darden, Ike Redd and colleagues, with an educational rina from [employer] Thrive Questionnaire Date Thrive assessed: 03/21/24 HAYDE-7 AMB Questionnaire HAYDE-7 Date HAYDE - 7 assessed: 03/21/24 Source: Developed by Elke Ordonez Kurt Kroenke and colleagues, with an educational rina from [employer] Review of Systems Const Denies chills, Denies fatigue, Denies fever(s), Denies headache(s) and Denies weakness ENT Denies dizziness and Denies headache(s) Card Denies dyspnea Resp Denies cough, Denies dyspnea, Denies wheezing and Denies other (shortness of breath) Musc Denies numbness and Denies tingling Neuro Denies dizziness, Denies headache(s), Denies numbness, Denies tingling and Denies weakness Psych Denies anxiety and Denies depression Endo Denies fatigue Aller/Immun Denies wheezing Physical exam (Primary Care) Vital Signs: Last Vital Signs Temp 97.7 F 09/26/24 09:48 Pulse 71 09/26/24 09:48 Resp 14 09/26/24 09:48 BP 114/60 09/26/24 09:48 Pulse Ox 97 09/26/24 09:48 Oxygen Delivery Method Room Air 09/26/24 09:48 BMI result Body Mass Index 27.3 Tobacco/Smoking Status: Tobacco use Status Tobacco use date assessed 03/21/24 09/26/24 09:39 Patient Tobacco Use Status Never used Tobacco 09/26/24 09:39 e-Cigarette/Vaping Use Never Used 09/26/24 09:39 Thrive Assessment: Date of Thrive Assessment Date Thrive assessed 03/21/24 09/26/24 09:39 Const General: well developed; No acute distress Nutritional Appearance: well nourished Orientation/consciousness: patient oriented x3 [facility] Head: Yes normocephalic and Yes atraumatic Eyes General: appearance normal, both eyes and all related structures Pupils: Equal, round and reactive pupils present EOM: EOMs intact bilaterally Resp Effort & Inspection: normal respiratory effort Auscultation: clear to auscultation bilaterally Cardio Rate: regular rate Rhythm: regular rhythm Heart sounds: S1 normal heart sound present, S2 normal heart sound present, no gallops, no murmurs and no rubs Neuro General: patient oriented x3 and gait normal Cranial nerves: Yes Equal, round and reactive pupils present Psych Affect: normal affect Results AMB Hemoglobin A1c AMB Hemoglobin A1c 5.7 % Last Edit by Ej Pelletier CMA on 09/26/24 09:58 Results Reviewed Results Reviewed: Laboratory Last Values Hgb A1c (Clinic) 5.7 % (4.0-6.0) 09/26/24 09:57 Coding Level of Care Code Est Pt Level 3 (96437) Diagnoses Pre-diabetes R73.03 Overweight E66.3 Assessment & Plan Assessment & Plan (1) Pre-diabetes: Code(s): R73.03 - Prediabetes Category: Medical Plan: A1c?in?pre?diabetes?range.??This?had?been?higher.??She?has?been?losing?weight,?l ikely?secondary?to?Ozempic?use. I?suspect?this?is?likely?diet-controlled?diabetes. Concern?that?off?of?Ozempic?A1c?deshaun l?begin?to?climb?again?and?she?may?also?gaining?weight. Will?continue?to?follow (2) Overweight: Code(s): E66.3 - Overweight Category: Medical Plan: Patient?lost?5?lb?on?Ozempic Recommend?she?continue?this?if?covered?by?insurance. Orders: Orders AMB Hemoglobin A1c Today R73.03 - Prediabetes
[2024-09-26 09:48] VITALS: BP 114/60; PULSE 71; RESP 14; TEMP 36.5; O2SAT 97; BMI 27.3
== END 2024-09-26 10:23 | disposition home or self-care (01) ==
PROVIDERS: PCP Family Medicine; Visit Provider Family Medicine
DX: R73.03 Prediabetes (principal); E66.3 Overweight

== ENCOUNTER 2024-09-26 10:44 | Outpatient (REF) | payer MEDICARE, SELFPAY ==
--- OUTSIDE RECORDS SUMMARY | 2024-09-26 11:25 | XMS_ITS | Data Portability ---
Author Organization [place] - [facility], [facility] [place] [address] [place] [address] Assessment No assessment recorded. Plan of Treatment Reminders Order Date Submit Date Provider Last Modified By Organization Details Last Modified Time Details Appointments None recorded. Lab lipid panel, blood [address] [place], [address], [place], [address], 10:56:54 TSH, serum, reflex free T4 [address] [place], [address], [place], [address], 10:56:55 CMP, serum or plasma 2020 021 [employer] [place], [address], [place], [address], 10:56:55 Referral None recorded. Procedures None recorded. Surgeries None recorded. Imaging None recorded. Medication Orders phentermine 37.5 mg tablet 2020 021 [facility] #[id number], [address], [place], [id number], 09:44:30 phentermine 37.5 mg tablet [address] [facility] #[id number], [address], [place], [phone], 22:13:56 phentermine 37.5 mg tablet 2020 021 [facility] #[id number], [address], [place], [place], [phone], 17:20:00 Patient TargetsNo targets recorded. Patient Instructions Encounter Date Encounter Id Patient Instructions Last Modified By Organization Details Last Modified Time 02/23/2021 [id number] rhythm strip, EKG* Not available 02/25/2021 11:25:55 02/23/2021 CT IS A 61 YEAR OLD FEMALE WHO IS 4'11'' AND WEIGHS 140 POUNDS PRESENTS FOR FIRST VISIT WITH REPORTS OF IMBALANCED NUTRITION AND WEIGHT. PLAN: 1. DEVELOP A DAILY FOOD PLAN BASED ON CALORIE INTAKE -1500 - 1800 CALORIES ADA DIET 2.DEVELOP HOME EXERCISE REGIME TO COMPLETE DAILY (WALKING, GYM, YOGA) -CHAIR YOGA -POOL THERAPY 3. EDUCATE PATIENT ON HEALTH PROBLEMS THAT JEFFREY RESULT FROM NOT LOSING WEIGHT >PT DOES SUFFER FROM LOW BACK PAIN -OTC VITAMINS 4. INCREASE WATER INTAKE 8oz AND LIMIT SUGAR BASED DRINKS 5. WEIGH ON NEXT VISIT 6. SEND FOR BASELINE LABS AND EKG 7. FOLLOW UP IN 2WEEKS [email or web address] Not available 02/23/2021 18:12:48 05/03/2021 [id number] 05/03/21 CT IS A 61 YEAR OLD FEMALE WHO IS 4'11'' AND WEIGHS 143 POUNDS PRESENTS WITH REPORTS OF IMBALANCED NUTRITION AND WEIGHT. WEIGHT GAIN NOTED ON VISIT, PRIOR TO START OF PHENTERMINE, PT IN FOR F/U ON LABS PRIOR TO START. TSH WNL , GLU 124, WITH ABNOMAL LIPID PROFILE. LONG DISCUSSION ABOUT HEART HEALTHY DIET AND EXERCISE. DISCCUSED CORRELATION BETWEEN FASTING GLU OF 124, ELEVATED LIPID LEVEL FOR DIABETES AND HEART DISEASE. PT STATES WAS PREVISOULY INFORMED BY PCP REGARDING ELEVATED BLOOD LEVELS, NO LABS FOR REVIEW AT PRESENT. TO START ON PHENETERMINE WITH GOAL OF WEIGHT LOSS AND IMPROVING LABRATORY VALUES FOR OVEALL WELLNESS. PT WILL PURSUE CONCERVATIVE TREATMENT FOR ABNORMAL LABS. TO START OTC OMEGA 3 ALONG WITH DIET AND EXERCISE. PT IS HAS MISSED PRIOR APPOINTMENTS FOR LAB REVIEW PRIOR TO INITIATING PHENTERMINE BUT SHE WAS POSITIVE FOR COVID AND NOT ON IV ABX FOR INFECTED LACRATION TO LEFT HAND INDEX FINGER WITH APPROX TREATMENT TIME OF 4-6 WEEKS. PLAN: 1. DEVELOP A DAILY FOOD PLAN BASED ON CALORIE INTAKE -1500 - 1800 CALORIES ADA DIET 2.DEVELOP HOME EXERCISE REGIME TO COMPLETE DAILY (WALKING, GYM, YOGA) -CHAIR YOGA -POOL THERAPY 3. EDUCATE PATIENT ON HEALTH PROBLEMS THAT JEFFREY RESULT FROM NOT LOSING WEIGHT >PT DOES SUFFER FROM LOW BACK PAIN -OTC VITAMINS 4. INCREASE WATER INTAKE 8oz AND LIMIT SUGAR BASED DRINKS 5. WEIGH ON NEXT VISIT 6. SEND FOR BASELINE LABS AND EKG 7. FOLLOW UP IN 2WEEKS [email or web address] Not available 05/04/2021 09:32:16 06/21/2021 [id number] 06/21/2021 CT IS A 61 YEAR OLD FEMALE WHO IS 4'11'' AND WEIGHS 136 POUNDS SHE HAS LOST 7 LBS IN THE PAST 30 DAYS. PRESENTS WITH REPORTS OF IMBALANCED NUTRITION AND WEIGHT. PATIENT HAS SHOWN A 7LBS WEIGHT LOSS WITH BMI DOWN TO 37.5. WITH CORMOBIDITY OF HTN, CONTROLLED. WILL REFILL PHENTERMINE AND CONTINUE TO FOLLOW. DISCUSSED TO CONTINUE WEIGHT LOSS JOURNEY WITH EXERCISE THERAPY AND HEART HEALTHY LOW CARB DIET. PLAN: 1. DEVELOP A DAILY FOOD PLAN BASED ON CALORIE INTAKE 1800 CALORIES ADA DIET 2.DEVELOP HOME EXERCISE REGIME TO COMPLETE DAILY (WALKING, GYM, YOGA) -CHAIR YOGA -POOL THERAPY 3. EDUCATE PATIENT ON HEALTH PROBLEMS THAT JEFFREY RESULT FROM NOT LOSING WEIGHT >PT DOES SUFFER FROM LOW BACK PAIN -OTC VITAMINS 4. INCREASE WATER INTAKE 8oz AND LIMIT SUGAR BASED DRINKS 5. WEIGH ON NEXT VISIT 6. F/U IN 4WEEKS [email or web address] Not available 06/21/2021 15:04:42 07/26/2021 [id number] 07/26/2021 CT IS A 61 YEAR OLD FEMALE WHO IS 4'11'' AND WEIGHS 133 POUNDS SHE HAS LOST 3 LBS IN THE PAST 30 DAYS. PRESENTS WITH REPORTS OF IMBALANCED NUTRITION AND WEIGHT. PATIENT HAS SHOWN A 3LBS WEIGHT LOSS WITH BMI DOWN TO 26.9. WITH CORMOBIDITY OF HTN, CONTROLLED. WILL REFILL PHENTERMINE AND CONTINUE TO FOLLOW. DISCUSSED TO CONTINUE WEIGHT LOSS JOURNEY WITH EXERCISE THERAPY AND HEART HEALTHY LOW CARB DIET. WILL COTINUE FOR 1 MORE MONTH FOR TOTAL OF THREE MONTHS . PLAN: 1. DEVELOP A DAILY FOOD PLAN BASED ON CALORIE INTAKE 1800 CALORIES ADA DIET 2.DEVELOP HOME EXERCISE REGIME TO COMPLETE DAILY (WALKING, GYM, YOGA) -CHAIR YOGA -POOL THERAPY 3. EDUCATE PATIENT ON HEALTH PROBLEMS THAT JEFFREY RESULT FROM NOT LOSING WEIGHT >PT DOES SUFFER FROM LOW BACK PAIN -OTC VITAMINS 4. INCREASE WATER INTAKE 8oz AND LIMIT SUGAR BASED DRINKS 5. WEIGH ON NEXT VISIT 6. F/U IN 4WEEKS [email or web address] Not available 07/26/2021 16:00:44 Reason for Referral None Reported. Problems Name Problem SNOMED Code Status Onset Date Resolution Date Notes Provider Name and Address Organization Details Recorded Time Increased blood pressure 79008007 Active 021 RAVEN Solomon [address], [place], [address], [facility] 1 18:06:19 Overweight 489181567 Active 021 RAVEN Solomon [address], [place], [address], [facility] 1 18:06:43 Problem Notes None recorded. Medical Equipment None Reported. Medications Name Sig Start Date Stop Date Status Note LastModified by Organization Details LastModified Time ivermectin 3 mg tablet TAKE 6 TABLETS BY MOUTH 1 TIME active Not Available Not Available No t Available doxycycline hyclate 100 mg capsule TAKE 1 CAPSULE BY MOUTH TWICE DAILY FOR 10 DAYS active Not Available Not Available No t Available carvedilol 12.5 mg tablet TAKE 1 TABLET BY MOUTH TWICE DAILY active Not Available Not Available No t Available fluconazole 150 mg tablet active Not Available Not Availabl e Not Available sertraline 100 mg tablet TAKE 1 TABLET BY MOUTH EVERY DAY active Not Available Not Available No t Available phentermine 37.5 mg tablet Take 1 tablet every day by oral route as directed for 30 days. 2020 active Not Available Not Available Not Avai lable prochlorperazi ne maleate 10 mg tablet TK 1 T PO Q 6 H PRF NAUSEA active Not Available Not Available No t Available oxycodone-acet aminophen 10 mg-325 mg tablet TAKE 1 TABLET BY MOUTH EVERY 6 HOURS NEEDED active Not Available Not Available No t Available meclizine 25 mg tablet TK 1 T PO TID PRN active Not Available Not Available No t Available baclofen 10 mg tablet TAKE 1 TABLET BY MOUTH THREE TIMES DAILY active Not Available Not Available No t Available dexamethasone 4 mg tablet TAKE 1 TABLET BY MOUTH TWICE DAILY FOR 5 DAYS active Not Available Not Available No t Available montelukast 10 mg tablet TAKE 1 TABLET BY MOUTH EVERY DAY active Not Available Not Available No t Available morphine ER 15 mg tablet,extende d release TAKE 1 TABLET BY MOUTH EVERY 12 HOURS DIRECTED active Not Available Not Available No t Available acyclovir 200 mg capsule TAKE 1 CAPSULE BY MOUTH FOUR TIMES DAILY FOR 5 DAYS DIRECTED active Not Available Not Available No t Available gabapentin 100 mg capsule TAKE 1 CAPSULE BY MOUTH THREE TIMES DAILY active Not Available Not Available No t Available doxycycline hyclate 100 mg tablet TK 1 T PO BID UTD active Not Available Not Available No t Available ceftriaxone 2 gram solution for injection active Not Available Not Availabl e Not Available nitrofurantoin monohydrate/ma crocrystals 100 mg capsule TK 1 C PO Q 12 H WC active Not Available Not Available No t Available Narcan 4 mg/actuation nasal spray SHUKRI REP ALN active Not Available Not Available No t Available Vitals Date Recorded Heart rate Body height Body mass index (BMI) Body weight Systolic blood pressure Diastolic blood pressure Provider Name and Address Organization Details Last Updated DateTime 1 67 /min 149.86 cm 28.3 kg/m2 59675.9 3 g 185 mm[Hg] 104 mm[Hg] GENE TORO M.D. [address], [place], [address] 6[facility] [place] 1 16:17:06 Date Recorded Body height Heart rate Body mass index (BMI) Body weight Systolic blood pressure Diastolic blood pressure Provider Name and Address Organization Details Last Updated DateTime 1 149.86 cm 70 /min 28.9 kg/m2 46551.7 1 g 128 mm[Hg] 84 mm[Hg] GENE TORO M.D. [address] [facility] [address], [place], [address] [place] 1 15:47:19 Date Recorded Body height Body mass index (BMI) Body weight Heart rate Systolic blood pressure Diastolic blood pressure Provider Name and Address Organization Details Last Updated DateTime 1 149.86 cm 27.5 kg/m2 38740.5 6 g 91 /min 108 mm[Hg] 67 mm[Hg] GENE TORO M.D. [address] [address], [place], [address], [facility] 14:32:40 Date Recorded Body height Heart rate Body mass index (BMI) Body weight Systolic blood pressure Diastolic blood pressure Provider Name and Address Organization Details Last Updated DateTime 1 149.86 cm 88 /min 26.9 kg/m2 25103.7 9 g 153 mm[Hg] 88 mm[Hg] GENE TORO M.D. [address] [facility] [address], [place], [address], [facility] 15:41:17 Social History None recorded. Functional Status None recorded. Mental Status None recorded. Family History Nothing Reported. Medical History No medical history recorded. Gynecological HistoryNo gynecological history recorded. Obstetrics History GPAL:G 0 P 0 0 0 0 Past Encounters Encounter ID Performer Location Encounter Start Date Encounter Closed Date Diagnosis/Indication Diagnosis SNOMED-CT Code Diagnosis ICD10 Code Diagnosis Note [id number] GENE TORO M.D. [facility] [address] [facility] [place] [address] 02/23/2021 15:40:57 02/25/2021 15:34:30 Overweight 918794836 E66.3 [id number] GENE TORO M.D. [facility] [address] [place] [address] 05/03/2021 14:52:27 05/05/2021 11:24:38 Overweight 520398586 E66.3 [id number] GENE TORO M.D. [facility] [address] [place] [address] 06/21/2021 14:24:55 06/22/2021 22:49:35 Overweight 598797510 E66.3 Increased blood pressure 35094576 R03.0 [id number] GENE TORO M.D. [facility] [address] [place] [address] 07/26/2021 15:39:26 08/02/2021 16:44:19 Overweight 074383651 E66.3 Increased blood pressure 11708767 R03.0 Health Concerns Section Related Observation LastModified by Organization Detai ls LastModified Time None Recorded Concern Status LastModified by Organization Details LastModified Time None Recorded Advance Directives Directive None Recorded Payers Encounter Date Sequence Insurance Name Policy Number Policy Ramirez Covered Member ID Ramirez Member ID Guarantor Name 02/23/2021 1 [employer] (MEDICARE REPLACEMENT PPO) [id number] [address] [id number] [address] [facility] 05/03/2021 1 [employer] (MEDICARE REPLACEMENT PPO) [id number] [address] [id number] [address] [facility] 06/21/2021 1 [employer] (MEDICARE REPLACEMENT PPO) [id number] [address] [id number] [address] [facility] 07/26/2021 1 [employer] (MEDICARE REPLACEMENT PPO) [id number] [address] [id number] [address] [facility] [facility] Notes Date Note Type Note Provider Name and Address Organization Details Recorded Time 07/26/2021 text/html WE[facility]NAG[facility] GENE TORO M.D. [address], [place], [address], [facility] 07/28/2021 09:44:33 OBGyn Episode No OBEpisode recorded.
--- OUTSIDE RECORDS SUMMARY | 2024-09-26 11:25 | XMS_ITS | Data Portability ---
Author Organization [place] - [facility]rology macrina MCFARLANE [facility] Address [address] [facility] [address] [place] [address] Assessment No assessment recorded. Plan of Treatment Reminders Order Date Submit Date Provider Last Modified By Organization Details Last Modified Time Details Appointments None recorded. Lab None recorded. Referral ophthalmol ogist referral 2019 [facility], [address] [place], [address], 0 12:20:43 Procedures None recorded. Surgeries None recorded. Imaging MRI, brain, w/wo contrast 2019 020 [facility], [address] [facility] [address], [place], [address], 0 19:30:39 Medication Orders meclizine 25 mg tablet 2019 020 [facility][id number], [address] [place], [place], [id number], 0 11:15:15 baclofen 10 mg tablet 2019 020 [facility] #[id number], [address] [place], [place], [id number], 0 22:07:55 Patient TargetsNo targets recorded. Patient InstructionsNo instructions recorded. 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 Referring Physician: Alejandra Lucas, Neurology, Encounter Date: 05/26/2020 Results Created Date Observation Date Name Description Value Unit Range Abnormal Flag Note LastModifiedBy Organization Detail LastModifiedTime 04/28/20 20 04/28/2020 MRI, brain , w/wo contr ast No observ ation record ed. [email or web address] [facility] [address] [facility] [address], [place], [address], 05/26/2020 10:50:44 05/06/20 20 04/28/2020 MRI, brain , w/wo contr ast No observ ation record ed. [email or web address] [facility] [address] [facility] [address], [place], [address], 05/26/2020 10:50:44 01/06/20 21 01/24/2019 MRI, brain , w/wo contr ast No observ ation record ed. [email or web address] Not Available 01/05 10:38:08 Result Notes None recorded. Problems Name Problem SNOMED Code Status Onset Date Resolution Date Notes Provider Name and Address Organization Details Recorded Time Multiple sclerosis 06753219 Active 020 Alejandra Lucas MD [address] [facility], [place], [address], [facility] 0 22:09:55 Spasticity 151881800 Active 020 Alejandra Lucas MD [address] [facility], [place], [address], [facility] 0 22:09:56 Vertigo 396564906 Active 020 Alejandra Lucas MD [address] [facility], [place], [address], [facility] 0 22:09:57 Problem Notes None recorded. Procedures Surgical History Date Name Laterality Status Provider Name and Address Organization Details Recorded Time 04/29/20 20 Unlisted px foot/toes completed Emili Barron [place] [facility] 05/26/2020 09:42:01 arthroscopy completed Emili Barron [place] [facility] 04/24/2020 09:12:54 Hysterectomy completed Emili Barron [place] [facility] 04/24/2020 09:13:02 Unlisted px foot/toes completed Emili Barron [place] [facility] 04/24/2020 09:13:11 cholecystectomy completed Emili Barron [place] [facility] 04/24/2020 09:13:34 Imaging Results Imaging Date Name Status LastModified by Organiz ation Details LastModified Time 04/28/2020 MRI, brain, w/wo contrast completed [email or web address] [place] [address] [address], [place], [address], 05/26/2020 10:50:44 04/28/2020 MRI, brain, w/wo contrast completed [email or web address] [place] [address] [address], [place], [address], 05/26/2020 10:50:44 01/24/2019 MRI, brain, w/wo contrast completed [email or web address] Information not available 01/05/2021 10:38:08 Procedure Notes None recorded. Medical Equipment None Reported. Allergies No known drug allergies Medications Name Sig Start Date Stop Date [...] No t Available fluconazole 150 mg tablet 04/24 completed Not Available Not Available Not Available sertraline 100 mg tablet TAKE 1 TABLET BY MOUTH EVERY DAY active Not Available Not Available No t Available phentermine 37.5 mg tablet TAKE 1 TABLET BY MOUTH EVERY DAY IN THE MORNING 11/26 completed Not Available Not Available Not Available prochlorper azine maleate 10 mg tablet TK 1 T PO Q 6 H PRF NAUSEA 07/30 completed Not Available Not Available Not Available oxycodone-a cetaminophe n 5 mg-325 mg tablet 04/24 completed Not Available Not Available Not Available oxycodone-a cetaminophe n 10 mg-325 mg tablet TAKE 1 TABLET BY MOUTH FOUR TIMES DAILY FOR 23 DAYS NEEDED active Not Available Not Available No t Available meclizine 25 mg tablet Take 1 tablet 3 times a day by oral route as needed for 30 days. active Not Available Not Available No t Available baclofen 10 mg tablet Take 1 tablet 3 times a day by oral route for 90 days. active Not Available Not Available No t Available ropinirole 0.5 mg tablet qd 07/30 completed Not Available Not Available Not Available dexamethaso ne 4 mg tablet TAKE 1 TABLET BY MOUTH TWICE DAILY FOR 5 DAYS active Not Available Not Available No t Available montelukast 10 mg tablet TAKE 1 TABLET BY MOUTH EVERY DAY active Not Available Not Available No t Available morphine ER 15 mg tablet,exte nded release TAKE 1 TABLET BY MOUTH EVERY 12 HOURS DIRECTED active Not Available Not Available No t Available acyclovir 200 mg capsule TAKE 1 CAPSULE BY MOUTH FOUR TIMES DAILY FOR 5 DAYS DIRECTED active Not Available Not Available No t Available mupirocin 2 % topical ointment 04/24 completed Not Available Not Available Not Available gabapentin 100 mg capsule TAKE 1 CAPSULE BY MOUTH THREE TIMES DAILY active Now BID Not Available Not Available Not Available cefuroxime axetil 500 mg tablet 04/24 completed Not Available Not Available Not Available methylpredn isolone 4 mg tablets in a dose pack 04/24 completed Not Available Not Available Not Available doxycycline hyclate 100 mg tablet TK 1 T PO BID UTD 07/30 completed Not Available Not Available Not Available amoxicillin 875 mg-potassiu m clavulanate 125 mg tablet 04/24 completed Not Available Not Available Not Available ceftriaxone 2 gram solution for injection active Not Available Not Available No t Available nitrofurant oin monohydrate /macrocryst als 100 mg capsule 04/24 completed Not Available Not Available Not Available Boostrix Tdap 2.5 Lf unit-8 mcg-5 Lf/0.5 mL intramuscul ar syringe ADM 0.5ML IM UTD 07/30 completed Not Available Not Available Not Available vitamin E qd active Not Available Not Anabell ilable Not Available Vitamin D qd active Not Available Not Anabell ilable Not Available multivitami n qd active Not Available Not Available Not Available Amitiza 24 mcg capsule 04/24 completed Not Available Not Available Not Available cyanocobala min (vit B-12) 1,000 mcg/mL injection kit Inject 1 mL every month by subcutane ous route. 11/26 completed Not Available Not Available Not Available Narcan 4 mg/actuatio n nasal spray SHUKRI REP ALN active Not Available Not Available No t Available Shingrix (PF) 50 mcg/0.5 mL intramuscul ar suspension, kit ADM 0.5ML IM UTD 07/30 completed Not Available Not Available Not Available Afluria Qd 2019- (36 mos up)(PF)60 mcg (15 mcg x4)/0.5 mL IM syringe ADM 0.5ML IM UTD 07/30 completed Not Available Not Available Not Available Vitals Date Recorded Body height Body mass index (BMI) Body weight Respiratory rate Body temperature Heart rate Systolic blood pressure Diastolic blood pressure Provider Name and Address Organization Details Last Updated DateTime 0 149.86 cm 28.3 kg/m2 35147.9 3 g 14 /min 97.3 [degF] 68 /min 150 mm[Hg] 95 mm[Hg] [facility] 0 10:46:47 Date Recorded Body height Body mass index (BMI) Body weight Respiratory rate Body temperature Heart rate Systolic blood pressure Diastolic blood pressure Provider Name and Address Organization Details Last Updated DateTime 0 149.86 cm 27.9 kg/m2 84645.7 5 g 16 /min 97.3 [degF] 67 /min 129 mm[Hg] 79 mm[Hg] [facility] 0 09:40:03 Date Recorded Body height Body mass index (BMI) Body weight Respiratory rate Body temperature Heart rate Systolic blood pressure Diastolic blood pressure Provider Name and Address Organization Details Last Updated DateTime 0 149.86 cm 26.1 kg/m2 73053.4 2 g 16 /min 97.2 [degF] 81 /min 139 mm[Hg] 81 mm[Hg] [facility] 0 09:52:29 Date Recorded Body height Body mass index (BMI) Body weight Respiratory rate Body temperature Heart rate Systolic blood pressure Diastolic blood pressure Provider Name and Address Organization Details Last Updated DateTime 1 149.86 cm 28.3 kg/m2 22666.9 3 g 15 /min 97.7 [degF] 63 /min 148 mm[Hg] 83 mm[Hg] Emili Barron [place] [facility] 1 09:54:12 Social History Question Answer Notes LastModified by Organizat ion Details LastModified Time Tobacco Smoking Status Never Smoker Emili Barron null, [place] [facility] 04/24/2020 09:13:47 Accident Related Injury No Information not available 04/24/2020 Do You Have An Advance Directive? No Information not available 04/24/2020 What Is Your Level Of Alcohol Consumption? Moderate Information not available 04/24/2020 What Is Your Level Of Caffeine Consumption? Moderate Information not available 04/24/2020 How Much Tobacco Do You Chew? None Information not available 04/24/2020 Currently No Information not available 04/24/2020 What Type Of Diet Are You Following? REGULAR Information not available 04/27/2020 Do You Or Have You Ever Used E-cigarettes Or Vape? Never Used Electronic Cigarettes Information not available 04/24/2020 Which Of Your Hands Is Dominant? Left Information not available 04/27/2020 Live Alone Or With Others? With Others Information not available 04/27/2020 What Was The Date Of Your Most Recent Tobacco Screening? 04/27/2020 Information not available 04/27/2020 Do You Or Have You Ever Used Smokeless Tobacco? Never Used Smokeless Tobacco Information not available 04/24/2020 How Much Tobacco Do You Smoke? No Information not available 04/24/2020 General Stress Level Medium Information not available 04/27/2020 Do You Use Any Illicit Or Recreational Drugs? No Information not available 04/24/2020 How Many Years Have You Smoked Tobacco? 0 Information not available 04/24/2020 Sex: Female Functional Status Question Answer Note LastModified by Organization D etails LastModified Time What is your exercise level? Moderate Information not available 04/27/2020 Mental Status Question Answer Note LastModified by Organization D etails LastModified Time Do you have difficulty concentrating, remembering or making decisions? No Information no t available 04/24/2020 Family History Relationship Description Onset Age of this Age Resolved Age Notes LastModified by Organization Details LastModified Time Mother Chronic obstructive pulmonary disease lung cancer Not available 04/24/2020 09:14:47 Father Chronic obstructive pulmonary disease 65 Not available 2019 09:14:47 Medical History Condition Response Anxiety Disorder Y Heart Problems Y Hyperlipidemia Y Cancer Y Thyroid Problems Y Depression Y Anemia Y Multiple Sclerosis Y Obstructive Sleep Apnea Y Hypertension Y Osteoporosis Y Gynecological HistoryNo gynecological history recorded. Obstetrics History GPAL:G 0 P 0 0 0 0 Past Encounters Encounter ID Performer Location Encounter Start Date Encounter Closed Date Diagnosis/Indication Diagnosis SNOMED-CT Code Diagnosis ICD10 Code Diagnosis Note [id number] Alejandra Lucas MD Main Office [address] [facility] [place] [address] 04/27/2020 10:32:20 04/27/2020 11:20:02 Multiple sclerosis 23927948 G35 Currently she has not evidence of activity. We need to rule out the possibilit y of exacerbati on or new multiple sclerosis lesions. Symptomati c management continues Spasticity 966431445 R25 .2 Baclofen is helping Vertigo 562824863 R42 Will is start symptomati c management [id number] Alejandra Lucas MD Main Office [address] [facility],[address] [place] [address] 05/26/2020 09:22:59 05/26/2020 10:29:48 Multiple sclerosis 90094545 G35 Currently she has not evidence of activity. We need to rule out the possibilit y of exacerbati on or new multiple sclerosis lesions. Symptomati c management continues Spasticity 900833455 R25 .2 Baclofen is helping. Vertigo 747634337 R42 She is having improvemen t with meclizine Optic neuritis 66777654 H46.9 She had symptoms in the past and recently she has had problems with her vision. She has never had formal ophthalmol ogical evaluation and will refer Elevated blood-pressure reading without diagnosis of hypertension 137260774 R03.0 We have discussed about importance of losing weight. She is going to start exercising after she improves of the right foot [id number] Alejandra Lucas MD Main Office [address] [place] [address] 07/30/2020 09:45:30 07/30/2020 10:22:55 Multiple sclerosis 62998358 G35 No evidence of relapses but she has residual deficits that are worsening. She has severe fatigue and problems with balance. She recently had a fall with fx of the ankle that required so far 2 interventi ons. Spasticity 914520504 R25 .2 Baclofen is helping. She may benefit from trial with medical marijuana. Will contact her. Vertigo 114957671 R42 She is having improvemen t with meclizine but still present [id number] Alejandra Lucas MD Main Office [address] [place] [address] 11/26/2020 09:39:56 11/26/2020 10:42:31 Multiple sclerosis 84784130 G35 No evidence of relapses but she has residual deficits that are worsening. She has severe fatigue and problems with balance. She recently had a fall with fx of the ankle that required so far 2 interventi ons. Spasticity 474352196 R25 .2 Baclofen is helping. She may benefit from trial with medical marijuana. Will contact her. Vertigo 881868018 R42 She is having improvemen t with meclizine but still present Health Concerns Section Related Observation LastModified by Organization Detai ls LastModified Time None Recorded Concern Status LastModified by Organization Details LastModified Time None Recorded Advance Directives Directive N: Payers Encounter Date Sequence Insurance Name Policy Number Policy Ramirez Covered Member ID Ramirez Member ID Guarantor Name 04/27/2020 1 [place] Janeth Berrios [id number] Janeth Berrios 05/26/2020 1 [place] Janeth Berrios [id number] Janeth Berrios 07/30/2020 1 [place] Janeth Berrios [id number] Janeth Berrios 11/26/2020 1 [employer] (MEDICARE REPLACEMENT PPO) [id number] Janeth Berrios [id number] Janeth Berrios Notes Date Note Type Note Provider Name and Address Organization Details Recorded Time 04/27/2020 text/html Patient followed in the office since 2018 She will have foot surgery. Again vertigo, spasticity in the hands. She is painting house which I think that might been triggered in prep symptoms from being overtired She is not working currently. He was very difficult her work at the [employer]. She was born in [place], she just moved to [place] 4 years ago. HISTORY OF MULTIPLE SCLEROSIS Date of symptom onset: Vertigo and falling 1998 Date of diagnosis: 1999 Current disease course: Secondary progressive with no activity Prior DMT's: Copaxone for 8 years until diagnoses lymphoma. 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 Complete remission. Last dose of chemotherapy was at least 10 y ago. Most recent MS attack: No recent Most recent MRI: Brain MRI in January 2019 Most recent labs: December 2017 JCV Antibody: NA Serum Hcg: NA CSF: Negative per patient Alejandra Lucas MD [address] [facility],[address], [place], [address], [facility] [place] 05/09/2020 22:10:54 05/26/2020 text/html Patient followed in the office since 2017 with diagnosis of multiple sclerosis. Patient has had no evidence of disease activity since she had chemotherapy for lymphoma. She has residual symptoms that are affecting her level of activity. The patient had right foot surgery and it is immobilized. 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 She try to help as much as possible but she was following all the time and having more spasticity and finally she could not continue working. I have told her already that she is not allowed to work particularly heavy lifting or walking long distances. If she tries to work it should be something very easy and no more than part-time ever. She also try to pain her house which caused severe spasticity and she had to quit that activity also. She was having vertigo that is improved with meclizine. There has been some visual symptoms. In the past she had optic neuritis but she has not had a formal evaluation by freight weigher. She is totally and permanently disabled. HISTORY OF MULTIPLE SCLEROSIS Date of symptom onset: Vertigo and falling 1998 Date of diagnosis: 1999 Current disease course: Secondary progressive with no activity Prior DMT's: Copaxone for 8 years until diagnoses lymphoma. 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 Complete remission. Last dose of chemotherapy was at least 10 y ago. Most recent MS attack: No recent Most recent MRI: Brain MRI in January 2019 Most recent labs: December 2017 JCV Antibody: NA Serum Hcg: NA CSF: Negative per patient Residual symptoms: Severe spasticity, decreased visual acuity, balance problems with frequent falls, episodes of vertigo, weakness Alejandra Lucas MD [address] [facility],[address], [place], [address], [facility] 05/26/2020 10:57:12 07/30/2020 text/html Patient followed in the office since 2018 with diagnosis of multiple sclerosis. Patient has had no evidence of disease activity since she had chemotherapy for lymphoma. She has residual symptoms that are affecting her level of activity. The patient had right foot surgery and she had an second surgery to remove some of the screws. She has also arthritis in the back and foot that is having more problems. Residual symptoms: Right sided weakness, mild Falls and fatigue with minimal activity, her balance is poor and she cannot tolerate much exertion. Vertigo spells better with meclizine She has problems with memory. She gets distracted easily and has problems recalling recent information. 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 She try to help as much as possible but she was following all the time and having more spasticity and finally she could not continue working. I have told her already that she is not allowed to work particularly heavy lifting or walking long distances. If she tries to work it should be something very easy and no more than part-time ever. She also try to paint her house which caused severe spasticity and she had to quit that activity also. She is totally and permanently disabled. HISTORY OF MULTIPLE SCLEROSIS Date of symptom onset: Vertigo and falling 1998 Date of diagnosis: 1999 Current disease course: Secondary progressive with no activity Prior DMT's: Copaxone for 8 years until diagnoses lymphoma. 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 Complete remission. Last dose of chemotherapy was at least 10 y ago. Most recent MS attack: No recent Most recent MRI: Brain MRI in January 2019 Most recent labs: December 2017 JCV Antibody: NA Serum Hcg: NA CSF: Negative per patient Residual symptoms: Severe spasticity, decreased visual acuity, balance problems with frequent falls, episodes of vertigo, weakness Alejandra Lucas MD [address] [facility],[address], [place], [address], [facility] 08/03/2020 20:08:39 11/26/2020 text/html LESLYE SCLEROS IS Patient followed in the office since 2018. Patient has had no evidence of disease activity since she had chemotherapy for lymphoma. She has residual symptoms that are affecting her level of activity. The patient had right foot surgery and she had an second surgery to remove some of the screws. She has also arthritis in the back and foot that is having more problems. Residual symptoms: Right sided weakness, mild Falls and fatigue with minimal activity, her balance is poor and she cannot tolerate much exertion. Vertigo spells better with meclizine She has problems with memory. She gets distracted easily and has problems recalling recent information. She is totally and permanently disabled. HISTORY OF MULTIPLE SCLEROSIS Date of symptom onset: Vertigo and falling 1998 Date of diagnosis: 1999 Current disease course: Secondary progressive with no activity Prior DMT's: Copaxone for 8 years until diagnoses lymphoma. 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 Complete remission. Last dose of chemotherapy was at least 10 y ago. Most recent MS attack: No recent Most recent MRI: Brain MRI in January 2019 Most recent labs: December 2017 JCV Antibody: NA Serum Hcg: NA CSF: Negative per patient Residual symptoms: Severe spasticity, decreased visual acuity, balance problems with frequent falls, episodes of vertigo, weakness Alejandra Lucas MD [address] [facility],[address], [place], [address], [facility] 12/06/2020 20:30:53 OBGyn Episode No OBEpisode recorded.
--- OUTSIDE RECORDS SUMMARY | 2024-09-26 11:25 | XMS_ITS | Clinical Summary ---
Author Organization [facility] Address [address] [place], [place] [id number] Care Team Providers Care Nfl Player Name Role Phone Berta Hennessy MD Primary Care Provider [phone] Allergies Active Allergy Reactions Criticality Noted Date Comments Seasonal 07/28/2023 Medications Medication Sig Dispensed Refills Start Date End Date Status albuterol 108 (90 Base) MCG/ACT inhaler TAKE 2 PUFF INHALED EVERY 4 TO 6 HOURS NEEDED FOR SHORTNESS OF BREATH OR WHEEZING FOR 30 DAYS 0 06/10/2023 Active atorvastatin (LIPITOR) tablet 40 mg Take 1 tablet (40 mg total) by mouth every night at bedtime. 0 06/08/2023 Active gabapentin (NEURONTIN) 300 MG capsule 0 05/08/2023 Active meloxicam (MOBIC) 15 MG tablet Take 1 tablet (15 mg total) by mouth daily. 0 07/05/2023 Active montelukast (SINGULAIR) 10 MG tablet TAKE 1 TABLET BY MOUTH DAILY X90 DAYS 0 07/07/2023 Active oxyCODONE-acetaminop hen (PERCOCET) 5-325 MG per tablet Take 2 tablets by mouth 3 (three) times a day as needed. for pain 0 07/12/2023 Active sertraline (ZOLOFT) 100 MG tablet Take 1 tablet (100 mg total) by mouth daily. 0 05/08/2023 Active ergocalciferol (VITAMIN D2) capsule 02863 units Take 1 capsule (50,000 Units total) by mouth once a week. 4 capsule 12 07/31/2023 Active Social History Tobacco Use Types Packs/Day Years Used Date Smoking Tobacco: Never Smokeless Tobacco: Never Tobacco Cessation:Counseling Given: Not Answered Alcohol Use Standard Drinks/Week Comments Never 0 (1 standard drink = 0.6 oz pur e alcohol) Sex and Gender Information Value Date Recorded Sex Assigned at Female 04/19/2023 11:48 AM EDT Gender Identity Not on file Sexual Orientation Not on file Job Start Date Occupation Industry Not on file Not on file Not on file Last Filed Vital Signs Vital Sign Reading Time Taken Comments Blood Pressure 134/75 07/28/2023 9:23 AM EST Pulse 61 07/28/2023 9:23 AM EST Temperature 36.8 ??C (98.2 ??F) 07/28/2023 9:23 AM ES T Respiratory Rate - - Oxygen Saturation 98% 07/28/2023 9:23 AM EST Inhaled Oxygen Concentration - - Weight 67.5 kg (148 lb 12.8 oz) 07/28/2023 9:23 AM EST Height 149.9 cm (4' 11 ) 07/28/2023 9:23 AM EST Body Mass Index 30.05 07/28/2023 9:23 AM EST Plan of Treatment Health Maintenance Due Date Last Done Comments Hepatitis C Screening 1960 COVID-19 Vaccine (#1) 1960 Depression Screening 1972 Preventative Health Evaluation 01/24/1978 DTap / Tdap / Td (1 - Tdap) 01/24/1979 Cervical Cancer Screening (P ap Smear) 01/24/1981 Colon Cancer Screening (Colonoscopy) 01/24/2005 Breast Cancer Screening (Mammogram) 01/24/2010 Shingrix-Zoster Vaccine (1 of 2) 01/24/2010 Influenza Vaccine (#1) 2024 Pneumococcal Vaccine (1 of 1 - PCV) 01/24/2025 RSV Adult > 60+ Yrs or Pregn ant (1 - 1-dose 75+ series) 01/24/2035 Hepatitis B Vaccines Aged Out No long er eligible based on patient's age to complete this topic Pneumococcal Vaccine Aged Out No long er eligible based on patient's age to complete this topic RSV Ped < 20 months Aged Out No longe r eligible based on patient's age to complete this topic Care Teams Nfl Player Relationship Specialty Start Date End Date Berta Hennessy MD [address] [address] PCP - General Neurology 04/19/23
--- OUTSIDE RECORDS SUMMARY | 2024-09-26 11:25 | XMS_ITS | Data Portability ---
Author Organization AJAY colin MD, [facility] Address [address] [place] [address] Assessment Encounter Date Assessment Date Assessment LastModified by Organization Details LastModified Time 08/01/2018 08/01/2018 Patient presents with hernia. Previous diagnostic tests include INSERT TEXT HERE. History and physical exam indicate need for surgical repair, and I recommend INSERT TEXT HERE. Discussed procedure options with patient. See orders below. [email or web address] Not available 08/01/2018 10:11:07 12/14/2020 12/14/2020 08/01/18 Patient comes in complaining of right groin pain. 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 I did a colonoscopy and the patient 2 years ago grossly unremarkable. 12/14/20 Janeth is a pleasant 60-year-old female with known history of lymphoma and colon polyps. Currently experiencing constipation/ch rogerio in bowel habits. Last colonoscopy was in 2016. Has been placed on Amitiza. Is currently on pain meds. Due to change in bowel habits will perform a colonoscopy for evaluation. No reports of abdominal pain or blood in the stool. [email or web address] Not available 12/14/2020 13:47:32 Plan of Treatment Reminders Order Date Submit Date Provider Last Modified By Organization Details Last Modified Time Details Appointments None record ed. Lab None record ed. Referral None record ed. Procedures None record ed. Surgeries None record ed. Imaging None record ed. Medication Orders None record ed. Patient TargetsNo targets recorded. Patient InstructionsNo instructions recorded. Reason for Referral None Reported. Results Created Date Observation Date Name Description Value Unit Range Abnormal Flag Note LastModifiedBy Organization Detail LastModifiedTime 03/13/20 20 03/11/2020 US, abdom en No observ ation record ed. [email or web address] [facility] [address], [place], [address], 03/13/2020 12:46:40 Result Notes None recorded. Problems Name Problem SNOMED Code Status Onset Date Resolution Date Notes Provider Name and Address Organization Details Recorded Time Constipation 36968917 Active 021 BRITTNEY Peralta [place] - Domingo E Galliano MD 13:38:04 Problem Notes None recorded. Procedures Surgical History Date Name Laterality Status Provider Name and Address Organization Details Recorded Time 05/01/20 18 EGD completed ALVARADO Reaves MD 12/14/2020 12:49:01 12/22/19 16 Colonoscopy completed ALVARADO Reaves MD 12/14/2020 12:48:38 12/25/19 14 Colonoscopy completed ALVARADO Reaves MD 12/14/2020 12:49:31 09/13/19 14 EGD completed ALVARADO Reaves MD 12/14/2020 12:50:10 Gallbladder Surgery completed jim Dumont MD 07/09/2018 09:53:54 Hysterectomy completed jim Dumont MD 07/09/2018 09:54:01 Hernia Repair completed jim Dumont MD 07/09/2018 09:55:08 Imaging Results Imaging Date Name Status LastModified by Organiz ation Details LastModified Time 03/11/2020 US, abdomen completed [email or web address] [facility] [address], [place], [address], 03/13/2020 12:46:40 Procedure Notes None recorded. Medical Equipment None Reported. Allergies No known drug allergies Medications Name Sig Start Date Stop Date Status Note LastModified by Organization Details LastModified Time carvedilol 12.5 mg tablet TAKE 1 TABLET BY MOUTH TWICE DAILY active Not Available Not Available No t Available fluconazole 150 mg tablet TK 1 T PO ONCE. MAY REPEAT DOSE IN THREE DAYS IF NOT RESOLVED 12/14 completed Not Available Not Available Not Available sertraline 100 mg tablet TAKE 1 TABLET BY MOUTH EVERY DAY active Not Available Not Available No t Available phentermine 37.5 mg tablet TAKE 1 TABLET BY MOUTH EVERY DAY IN THE MORNING 12/14 completed Not Available Not Available Not Available prochlorper azine maleate 10 mg tablet TK 1 T PO Q 6 H PRF NAUSEA 12/14 completed Not Available Not Available Not Available oxycodone-a cetaminophe n 5 mg-325 mg tablet TK 1 T PO Q 6 TO 8 H PRN 12/14 completed Not Available Not Available Not Available [...] No t Available ropinirole 0.5 mg tablet TK 1 T PO QHS UTD 12/14 completed Not Available Not Available Not Available montelukast 10 mg tablet TAKE 1 TABLET BY MOUTH EVERY DAY active Not Available Not Available No t Available morphine ER 15 mg tablet,exte nded release TK 1 T PO Q 12 H UTD 12/14 completed Not Available Not Available Not Available gabapentin 100 mg capsule TAKE 1 CAPSULE BY MOUTH THREE TIMES DAILY active Not Available Not Available No t Available doxycycline hyclate 100 mg tablet TK 1 T PO BID UTD 12/14 completed Not Available Not Available Not Available nitrofurant oin monohydrate /macrocryst als 100 mg capsule TK 1 C PO Q 12 H WC 12/14 completed Not Available Not Available Not Available Amitiza 24 mcg capsule TK 1 C PO BID UTD active Not Available Not Available No t Available Narcan 4 mg/actuatio n nasal spray SHUKRI REP ALN 12/14 completed Not Available Not Available Not Available Vitals Date Recorded Body height Provider Name an d Address Organization Details Last Updated DateTime 12/14/2020 152.4 cm Giovana Dumont MD 12/14/2020 12:41:00 Date Recorded Body mass index (BMI) Body weight Body temperature Heart rate Systolic blood pressure Diastolic blood pressure Provider Name and Address Organization Details Last Updated DateTime 1 27.8 kg/m2 43859.2 7 g 96 [degF] 64 /min 118 mm[Hg] 60 mm[Hg] ALVARADO Reaves MD 1 12:51:43 Date Recorded Body height Body mass index (BMI) Body weight Systolic blood pressure Diastolic blood pressure Provider Name and Address Organization Details Last Updated DateTime 07/09/2018 152.4 cm 25 kg/m2 57702.82 g 135 mm[Hg] 73 mm[Hg] jim Dumont MD 8 09:51:37 Date Recorded Body height Body mass index (BMI) Body weight Systolic blood pressure Diastolic blood pressure Provider Name and Address Organization Details Last Updated DateTime 08/01/2018 152.4 cm 25 kg/m2 97681.82 g 135 mm[Hg] 79 mm[Hg] stanley Dumont MD 8 10:12:35 Social History Question Answer Notes LastModified by Organizat ion Details LastModified Time Tobacco Smoking Status Never Smoker Not Available [facility] 05/28/2020 03:13:28 Do You Have An Advance Directive? No Information n ot available 12/14/2020 What Is Your Level Of Alcohol Consumption? Occasional Information not available 12/14/2020 What Is Your Level Of Caffeine Consumption? Occasional Information not available 12/14/2020 In The 14 Days Before Symptom Onset, Have You Had Close Contact With A Laboratory-confirm ed COVID-19 While That Case Was Ill? No Information n ot available 12/14/2020 In The 14 Days Before Symptom Onset, Have You Had Close Contact With A Person Who Is Under Investigation For COVID-19 While That Person Was Ill? No Information not available 12/14/2020 Have You Been To An Area Known To Be High Risk For COVID-19? No Information not available 12/14/2020 What Type Of Diet Are You Following? REGULAR Information n ot available 12/14/2020 What Was The Date Of Your Most Recent Tobacco Screening? 12/14/2020 Information not available 12/14/2020 Do You Use Any Illicit Or Recreational Drugs? No Information not available 12/14/2020 How Many Years Have You Smoked Tobacco? 0 [id number] Information not available 05/28/2020 Sex: Unknown Functional Status Question Answer Note LastModified by Organization D etails LastModified Time Are you able to walk? YESWOREST Information not available 12/14/2020 What is your exercise level? None Information not available 12/14/2020 Mental Status None recorded. Family History Relationship Description Onset Age of this Age Resolved Age Notes LastModified by Organization Details LastModified Time Father No current problems or disability [email or web address] Not available 07/09 09:52:46 Mother No current problems or disability [email or web address] Not available 07/09 09:52:46 Mother Malignant tumor of lung sister lung cancer also [email or web address] Not available 07/09/2018 09:53:20 Medical History Condition Response Gout N Other N Kidney Stones Y Depression N COPD N Osteoporosis/Osteopenia Y Anemia N Diverticulosis/Diverticulitis Y Colon Polyps Y GERD/Acid Reflux N Deep Vein Thrombosis N Diabetes N Anxiety Disorder N Autoimmune disease N Hemorrhoids Y Bleeding Disorder N Arthritis Y Seizures/Epilepsy N Tuberculosis N Cancer Y Stroke N Asthma Y Sleep Apnea N Hepatitis N Cirrhosis N Liver Disease N Pulmonary Embolism N Hypertension N Gynecological HistoryNo gynecological history recorded. Obstetrics History GPAL:G 0 P 0 0 0 0 Immunizations Vaccine Type Date Status Note Provider Nam e and Address Organization Details Recorded Time Influenza, split virus, quadrivalent, preservative 0 completed Brandy Pike LPN [place], [place] - Edenilson Dumont MD 12/14/2020 12:47:30 Past Encounters Encounter ID Performer Location Encounter Start Date Encounter Closed Date Diagnosis/Indication Diagnosis SNOMED-CT Code Diagnosis ICD10 Code Diagnosis Note [id number] Edenilson Dumont MD Main Office [address] [facility] [address] [place] [address] 05/14/2018 11:58:15 05/16/2018 15:14:56 Ultrasound scan abnormal [id number] R93.89 Today I did a right groin ultrasound dynamic. With a linear probe. Patient does have a small right inguinal hernia. Right inguinal hernia 23 2345259 K40.90 We will schedule patient for open right inguinal hernia. Inguinal hernia 62703680 0 K40.90 Gave the patient for an open right inguinal hernia repair [id number] Edenilson Dumont MD Main Office [address] [place] [address] 07/09/2018 09:10:56 07/09/2018 10:45:28 [id number] Edenilson Dumont MD Main Office [address] [place] [address] 08/01/2018 09:20:43 08/01/2018 10:38:00 [id number] BRITTNEY Peralta Main Office [address] [place] [address] 12/14/2020 12:08:02 12/14/2020 14:53:29 Constipation 71680359 K59.00 We will schedule colonoscop y. Bowel prep instructio ns provided. Health Concerns Section Related Observation LastModified by Organization Detai ls LastModified Time None Recorded Concern Status LastModified by Organization Details LastModified Time None Recorded Advance Directives Directive N: Payers Encounter Date Sequence Insurance Name Policy Number Policy Ramirez Covered Member ID Ramirez Member ID Guarantor Name 05/14/2018 1 [place] Janeth Berrios [id number] Janeth Berrios 05/14/2018 2 [place] [id number] [facility] (SECONDARY TO MEDICARE) Janeth Berrios [id number] Janeth Berrios 07/09/2018 1 [place] Janeth Berrios [id number] Janeth Berrios 07/09/2018 2 [place] [employer] [place] [employer] [place]SECONDARY [place] MEDICARE) Janeth Berrios [id number] Janeth Berrios 08/01/2018 1 [place] Janeth Berrios [id number] Janeth Berrios 08/01/2018 2 [place] [employer] [facility] [place] [facility] (SECONDARY TO MEDICARE) Janeth Berrios [id number] Janeth Berrios 12/14/2020 1 [employer] (MEDICARE REPLACEMENT PPO) [id number] Janeth Berrios [id number] Janeth Berrios 12/14/2020 2 [place] [facility] (SECONDARY TO MEDICARE) Janeth Berrios [id number] Janeth Berrios Notes Date Note Type Note Provider Name and Address Organization Details Recorded Time 05/14/2018 text/html Patient comes in complaining of right groin pain. 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 I did a colonoscopy and the patient 2 years ago gross[place] [address], [place], [address], AJYA Dumont MD 07/09/2018 10:32:52 08/01/2018 text/html HerniaReported bypatient.Notes:Tona ent status post open right inguinal hernia repair patient doing well denies any pain [place] [address], [place], [address], [facility] Danette Dumont MD 08/01/2018 10:18:04 12/14/2020 text/html 08/01/18Patient comes in complaining of right groin pain. 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 I did a colonoscopy and the patient 2 years ago grossly unremarkable.12/14/20 nia is a pleasant 16-year-old female with known history of lymphoma. She is currently currently experiencing constipation/change in bowel habits. Last colonoscopy was in 2015. Due to change in bowel habits will perform a colonoscopy for evaluation. No reports of abdominal pain or blood in the stool. BRITTNEY Peralta [place] - Domingo E Galliano MD 12/14/2020 13:48:38 OBGyn Episode No OBEpisode recorded.
--- OUTSIDE RECORDS SUMMARY | 2024-09-26 11:27 | XMS_ITS | Data Portability ---
Author Organization [place] - Sleep & Pulmona ry [facility], [facility] - ER Address [address] [place] [address] Care Team Providers Care Director Of Health Education Name Role Phone HUDSON, GEOFF OTHER Assessment No assessment recorded. Plan of Treatment Reminders Order Date Submit Date Provider Last Modified By Organization Details Last Modified Time Details Appointments None record ed. Lab None record ed. Referral None record ed. Procedures None record ed. Surgeries None record ed. Imaging None record ed. Medication Orders None record ed. Patient TargetsNo targets recorded. Patient Instructions Encounter Date Encounter Id Patient Instructions Last Modified By Organization Details Last Modified Time 05/01/2017 [id number] sleep apnea: car e instructions Not available 05/01/2017 09:44:25 sleep study, baseline diagnostic polysomnogram* - PLEASE SCHEDULE PATIENT AND CALL US WITH DATE SO WE MAY SET F/U DATE ACCORDINGLY JAMES Not available 05/30/2017 11:10:05 shortness of breath: care instructions Not available 05/01/2017 09:44:25 complete PFT w/ post bronchodilator spirometry* JAMES Not available 06/12/2017 15:11:56 Reason for Referral None Reported. Results Created Date Observation Date Name Description Value Unit Range Abnormal Flag Note LastModifiedBy Organization Detail LastModifiedTime 05/29/20 17 05/09/2017 sleep study , basel ine diagn ostic polys omnog nirmala* No observ ation record ed. [email or web address] [facility] - [address], [place], [address], 06/15/2017 11:01:20 06/12/20 17 06/12/2017 compl ete PFT w/ [facility] h[facility] ator ricco metry * No observ ation record ed. [email or web address] [facility] [address] [facility] [address], [place], [address], 06/19/2017 16:37:55 Result Notes None recorded. Problems No Known Problems Procedures Surgical History None recorded. Imaging Results Imaging Date Name Status LastModified by Organization Details LastModified Time 05/09/2017 sleep study, baseline diagnostic polysomnogram* completed [email or web address] [facility] [place] [address] [facility] [place], [address], 06/15/2017 11:01:20 06/12/2017 complete PFT w/ post bronchodilator spirometry* completed [email or web address] [facility] [address] [facility] [address], [place], [address], 06/19/2017 16:37:55 Procedure Notes None recorded. Medical Equipment None Reported. Allergies No known drug allergies Medications Name Sig Start Date Stop Date Status Note LastModified by Organization Details LastModified Time Zoloft 100 mg tablet Take 1 tablet every day by oral route. active Not Available Not Available No t Available Percocet 5 mg-325 mg tablet Take 1 tablet every 6 hours by oral route. active Not Available Not Available No t Available Coreg 12.5 mg tablet Take 1 tablet twice a day by oral route. active Not Available Not Available No t Available Vitals Date Recorded Body height Body mass index (BMI) Body weight Respiratory rate Heart rate Oxygen saturation Oxygen saturation in Arterial blood by Pulse oximetry Body temperature Systolic blood pressure Diastolic blood pressure Provider Name and Address Organization Details Last Updated DateTime 7 149.86 cm 26.7 kg/m2 80183.1 9 g 15 /min 73 /min 98 % 98 % 98.3 [degF] 136 mm[Hg] 66 mm[Hg] carlos jeffrey [facility] 7 09:20:42 Date Recorded Body height Body mass index (BMI) Body weight Respiratory rate Heart rate Oxygen saturation Oxygen saturation in Arterial blood by Pulse oximetry Body temperature Systolic blood pressure Diastolic blood pressure Provider Name and Address Organization Details Last Updated DateTime 7 149.86 cm 26.5 kg/m2 75369.6 g 15 /min 68 /min 99 % 99 % 98 [degF] 140 mm[Hg] 80 mm[Hg] carlos jeffrey [facility] Sleep & Pulmonary [facility] 7 10:49:51 Social History Question Answer Notes LastModified by Organizat ion Details LastModified Time Tobacco Smoking Status Former Smoker carlos jeffrey kuldeep [facility] Sleep [facility] 05/01/2017 09:13:31 Live Alone Or With Others? With Others Information not available 05/01/2017 Marital Status Informatio n not available 05/01/2017 What Was The Date Of Your Most Recent Tobacco Screening? 06/15/2017 Information not available 03/07/2019 Are You Passively Exposed To Smoke? Yes 55 Years Family Information not available 05/01/2017 How Much Tobacco Do You Smoke? No Information not available 05/01/2017 How Many Years Have You Smoked Tobacco? 0 [email or web address] Information not available 06/08/2017 Sex: Unknown Functional Status None recorded. Mental Status None recorded. Family History Relationship Description Onset Age of this Age Resolved Age Notes LastModified by Organization Details LastModified Time Father Chronic obstructive pulmonary disease [email or web address] Not available 2016 09:13:10 Father Malignant tumor of lung ASTHMA [email or web address] Not available 2016 09:13:24 Medical History Condition Response CANCER Y JUNE Y Gynecological HistoryNo gynecological history recorded. Obstetrics History GPAL:G 0 P 0 0 0 0 Past Encounters Encounter ID Performer Location Encounter Start Date Encounter Closed Date Diagnosis/Indication Diagnosis SNOMED-CT Code Diagnosis ICD10 Code Diagnosis Note [id number] Liz Pitts [facility]1 [place] [address] [facility] [place] [address] 05/01/2017 08:46:31 05/01/2017 09:59:53 Dyspnea 462135638 R06.02 Possible from asthmatic bronchitis . I have reviewed the chest Xray and clear Obstructiv e sleep apnea syndrome 94458470 G47.33 She has JUNE about 10 years ago and failed treatment , she has lost weight but she is symptomati c . Sleep disorder 80672436 G47.9 Wheezing 62196671 R06.2 [id number] Liz Pitts [facility] [place] [address] [facility] [place] [address] 06/15/2017 10:35:14 06/15/2017 11:09:17 Dyspnea 731664519 R06.02 I have reviewed the PFt and normal , just some very mild decrease DLCO and her breathing is better . Obstructiv e sleep apnea syndrome 41814156 G47.33 I have reviewed the repeat PSG and she has AHI 4.6 and no JUNE , she has lost over 30 pounds with significan t improvemen t of the JUNE and no need for CPAP Health Concerns Section Related Observation LastModified by Organization Detai ls LastModified Time None Recorded Concern Status LastModified by Organization Details LastModified Time None Recorded Advance Directives Directive None Recorded Payers Encounter Date Sequence Insurance Name Policy Number Policy Ramirez Covered Member ID Ramirez Member ID Guarantor Name 05/01/2017 1 [place] Janeth Berrios [id number] Janeth Berrios 06/15/2017 1 [place] Janeth Berrios [id number] Janeth Berrios Notes Date Note Type Note Provider Name and Address Organization Details Recorded Time 05/01/2017 text/html She has been refered for wheezing and JUNE . She has been complaining or recurrent bronchitis and allergies and has been wheezing on and off and coughing , she has no chest pain and has SOB on exertion . Uses an inhlare as needed when she get sick . Alsos has been diagnosed with JUNE and she has been on a CPAP in the past but she could not tolerate and she has lost 45 pounds since the sleep study . She has been sleeping well but sometimes she wakes up gasping for air and she snores , has been taking naps , feel tired in am and during the day and doze . No sleep walking or talking , no headaches . Liz Pitts Md1 [address] [facility],[address], [place], [address], [facility] - [facility] 05/01/2017 09:39:22 06/15/2017 text/html She is here for follow up and she has been doing well . She has not been sick and no new medications .She has some SOB on exertion and she has been seen pain management . Liz Pitts Md1 [address] [facility],[address], [place], [address], [facility] - [facility] 06/15/2017 11:04:42 OBGyn Episode No OBEpisode recorded.
--- OUTSIDE RECORDS SUMMARY | 2024-09-26 11:27 | XMS_ITS | Data Portability ---
Author Organization [place] - [facility], [facility] Address [address] [place] [address] Assessment No assessment recorded. Plan of Treatment Reminders Order Date Submit Date Provider Last Modified By Organization Details Last Modified Time Details Appointments None recorded. Lab drug screen, urine 2021 022 In-House Results, For Internal Use Only, Do Not Delete/merge, [id number] 10:19:01 drug screen, urine 2021 022 In-House Results, For Internal Use Only, Do Not Delete/merge, [id number] 13:24:44 CMP, serum or plasma 2021 [employer] [facility], [address], [place], [address], 2 03:21:18 urinalysis, dipstick 2021 022 In-House Results, For Internal Use Only, Do Not Delete/merge, [id number] 2 16:02:39 Referral None recorded. Procedures greater trochanteri c bursa injection (PROC) 2021 022 Not available 13:53:25 Surgeries None recorded. Imaging XR, hip + pelvis, bilateral, 3 or 4 view 2021 JAMES Akumin [place], [address] [facility] [facility], [place], [address], 2 20:37:24 Medication Orders oxycodone-a cetaminophe n 10 mg-325 mg tablet 2021 [facility] #59933, [address], [place], [id number], 10:19:15 oxycodone-a cetaminophe n 10 mg-325 mg tablet 2021 [facility] #21469, [address], [place], [id number], 13:46:12 baclofen 10 mg tablet 2021 [facility] #42150, [address], [place], [id number], 10:19:13 baclofen 10 mg tablet 2021 [facility] #19629, [address], [place], [id number], 10:19:13 oxycodone-a cetaminophe n 10 mg-325 mg tablet 2021 [facility] #48696, [address], [place], [id number], 18:27:44 valacyclovi r 1 gram tablet 2021 [facility] #30100, [address], [place], [id number], 18:52:14 Medrol (Fco) 4 mg tablets in a dose pack 2021 [facility] #28227, [address], [place], [id number], 18:39:20 baclofen 10 mg tablet 2021 [facility] #53407, [address], [id number], 18:28:02 oxycodone-a cetaminophe n 10 mg-325 mg tablet 2021 [facility] #61078, [address] [facility], [place], [place], [id number], 13:51:13 baclofen 10 mg tablet 2021 [facility] #34317, [address], [place], [id number], 13:53:06 Patient TargetsNo targets recorded. Patient Instructions Encounter Date Encounter Id Patient Instructions Last Modified By Organization Details Last Modified Time 02/15/2022 [id number] depression and chronic disease: care instructions Not available 02/15/2022 16:02:39 advance directives: care instructions Not available 02/15/2022 16:02:39 influenza (flu) vaccine (live, intranasal): what you need to know [email or web address] Not available 02/15/2022 16:02:39 02/15/2022 Janeth comes in today for her four week follow up.pt states she has been very tired and fatigued . Pt states she thinks she is going through an MS episode. C/O of bilateral hip pain, on exam ROM within range but tender point at greater trochanter will send for xrays then to have INJ in office if approved by INS once image reviewed and no further need for orthopedic evaluation Plan - continue regimen, send for hip xray A comprehensive review of this patient? s most recent and past UDS results play a doyle role in my decision-making process regarding treatment. The latest PDMP of this patient was reviewed to ensure absence of evidence of any doctor shopping or other indication of breach of compliance by this patient. The patient has been previously educated about proper storage and disposal of Opioids and other medications prescribed by our office. A signed Pain Management Agreement is on file. Patient denies any side effects from medications and there is no evidence detected of drug abuse, addiction, or diversion. This patient is being prescribed more than a 72-hour supply of controlled substances for continuation of Chronic Pain treatment of their ongoing medical diagnoses. Patient will follow up with our office in four weeks for re-evaluation, sooner if earlier interventions become necessary. We discussed the dangers of Narcotic Pain Medication and the adverse effects of long-term use including but not limited to the possibility of decreased Liver and Kidney function, depressed immune system, increased risk of respiratory depression/arrest , cognitive dysfunction and depression, dependence, and abuse potential. Patient reports that their pain medication regimen enables daily functioning and without treatment their function would be significantly hindered. Fall risk: A Shane Scale Assessment was performed on this patient to determine their likelihood of falling. This assessment included: History of falling, secondary medical diagnosis placing them at a higher risk of falling, ambulatory aids currently in use, gait assessment, patient? s mental judgement regarding their fall risk, etc. This Fall assessment will help the patient and their family to institute fall prevention strategies for those most at risk. [email or web address] Not available 02/16/2022 14:13:46 03/15/2022 [id number] advance directives: care instructions [email or web address] Not available 03/15/2022 21:51:30 influenza (flu) vaccine (live, intranasal): what you need to know [email or web address] Not available 03/15/2022 21:51:31 using your medicines: care instructions Not available 03/15/2022 21:51:30 learning about high blood pressure Not available 03/15/2022 21:51:30 body mass index: care instructions Not available 03/15/2022 21:51:31 03/15/2022- Janeth comes in today for her four week follow up.pt states she has been very tired and fatigued . Pt states she thinks she is going through an MS episode. C/O of bilateral hip pain, on exam ROM within range but tender point at greater trochanter will send for xrays then to have INJ in office if approved by INS once image reviewed and no further need for orthopedic evaluation. (UPDATE PATIENT HAS NOT YET GOTTEN THE XRAY DONE. WE HAVE PRINTED OUT THE ORDER AGAIN.) Plan - 1. SHE IS TAKING OXYCODONE 10/325MG AND BACLOFEN 10MG WE ARE PRESCRIBING VALCYLIVOR FOR SHINGLES, WHICH IS CAUSING HER PAIN, AND MEDRO PACK FOR NERVE PAIN . continue regimen, send for hip xray 2. Continue HEP and stretching as tolerated. 3. This patient is being prescribed more than a 72-hour supply of controlled substances for continuation of Chronic Pain treatment of their ongoing medical diagnoses. Patient will follow up with our office in four weeks for re-evaluation, sooner if earlier interventions become necessary. 4. A comprehensive review of this patient? s most recent and past UDS results play a doyle role in my decision-making process regarding treatment. The latest PDMP of this patient was reviewed to ensure absence of evidence of any doctor shopping or other indication of breach of compliance by this patient. The patient has been previously educated about proper storage and disposal of Opioids and other medications prescribed by our office. A signed Pain Management Agreement is on file. Patient denies any side effects from medications and there is no evidence detected of drug abuse, addiction or diversion. 5. We discussed the dangers of Narcotic Pain Medication and the adverse effects of long-term use including but not limited to the possibility of decreased Liver and Kidney function, depressed immune system, increased risk of respiratory depression/arrest , cognitive dysfunction and depression, dependence, and abuse potential. Patient reports that their pain medication regimen enables daily functioning and without treatment their function would be significantly hindered. 6. Patient was given brochures / worksheets to assist with their continued interactive participation towards improved self-care. The following was provided: BMI and advance directive and influenza vac Not available 03/15/2022 21:53:52 03/23/2022 [id number] 03/23/22 JANETH IS HERE TODAY FOR INJECTION TO HER RIGHT HIP BURSA. SHE C/O PAIN TO BOTH HIPS FOR SOME TIME AND HAS HAD PERIODIC STEROID INJECTIONS WITH GOOD PAIN RELIEF FOR A FEW MONTHS. AFTER IDENTIFYING THE CORRECT AREA OF PAIN AND AFTER TOPICAL STERILIZATION, WE INJECTED 3ML OF A MIXTURE OF DEPO 40, WITH BUPIVICAINE AND LIDOCAINE. A GENTLE MASSAGE TO THE AREA WAS PERFORMED AFTER THE INJECTION. JANETH VOICED NO COMPLAINTS AND LEFT THE CLINIC IN STABLE CONDITION. WE ADVISED HER TO APPLY ICE PRN OVER THE NEXT 24 HOURS IF NEEDED. Not available 03/27/2022 21:23:32 04/07/2022 [id number] 04/07/2022 TODAY VIA TELEPHONE CALL I DISCUSSED THE MOST RECENT RADIOLOGY STUDIES ON THIS PATIENT. MODERATE SCOLIOSIS OF THE LUMBAR SPINE MODERATE DEGENERATIVE CHANGES OF THE RIGHT HIP JOINT MODERATE DEGENERATIVE CHANGES TO THE LEFT HIP JOINT [email or web address] Not available 04/30/2022 12:55:37 04/13/2022 [id number] 04/13/2022- Onelia comes in today for her four week follow up, she continues to ambulate independently. Onelia presents today with tenderness of the lumbar spine, with radiating pain down the left leg, all the way down to the toes on the left foot. PT states that she does not have an weakness of the BLE's. PT confirms muscle cramps in the bilateral calves at night. Patient recently had a Bursa injection in the right hip with DENYS Richter. Janeth reports relief since the injection, and is hoping for another one to be administered in the left hip, in the future. PT STATES HER PAIN LEVEL IS A 7-9/10 ON MEDICATION AND A 10+/10 WITHOUT MEDICATION. PLAN- 1. SHE IS TAKING PERCOCET 10/325 AT 3 QD. WE WILL REFILL HER CURRENT MEDICATION AT THE CURRENT DOSES. SHE WILL NEED A REFILL ON GABAPENTIN. This patient is being prescribed more than a 72-hour supply of controlled substances for continuation of Chronic Pain treatment of their ongoing medical diagnoses. Patient will follow up with our office in four weeks for re-evaluation, sooner if earlier interventions become necessary. We discussed the dangers of Narcotic Pain Medication and the adverse effects of long-term use including but not limited to the possibility of decreased Liver and Kidney function, depressed immune system, increased risk of respiratory depression/arrest , cognitive dysfunction and depression, dependence and abuse potential. Patient reports that their pain medication regimen enables daily functioning and without treatment their function would be significantly hindered. A comprehensive review of this patient? s most recent and past UDS results play a doyle role in my decision-making process regarding treatment. The latest PDMP of this patient was reviewed to ensure absence of evidence of any doctor shopping or other indication of breach of compliance by this patient. The patient has been previously educated about proper storage and disposal of Opioids and other medications prescribed by our office. A signed Pain Management Agreement is on file. Patient denies any side effects from medications and there is no evidence detected of drug abuse, addiction or diversion. Not available 04/13/2022 11:28:11 Reason for Referral None Reported. Results Created Date Observation Date Name Description Value Unit Range Abnormal Flag Note LastModifiedBy Organization Detail LastModifiedTime 02/16/2002/15/2022 urina lysis , dipst ick OPIATES OPI MOR negati ve Not Available In-House Results For Internal Use Only, Do Not Delete/merge, 02/15/2022 14:03:40 02/16/20 22 02/15/2022 urina lysis , dipst ick OXYCODONE OXI positi ve Not Available In-House Results For Internal Use Only, Do Not Delete/merge, 02/15/2022 14:03:40 02/16/20 22 02/15/2022 urina lysis , dipst ick METHADONE MTD negati ve Not Available In-House Results For Internal Use Only, Do Not Delete/merge, 02/15/2022 14:03:40 02/16/20 22 02/15/2022 urina lysis , dipst ick BENZODIAZEPI BERTA BZO negati ve Not Available In-House Results For Internal Use Only, Do Not Delete/merge, 02/15/2022 14:03:40 02/16/20 22 02/15/2022 urina lysis , dipst ick BARBITUARATE S BAR negati ve Not Available In-House Results For Internal Use Only, Do Not Delete/merge, 02/15/2022 14:03:40 02/16/20 22 02/15/2022 urina lysis , dipst ick TRICYCLIC TCA negati ve Not Available In-House Results For Internal Use Only, Do Not Delete/merge, 02/15/2022 14:03:40 02/16/20 22 02/15/2022 urina lysis , dipst ick AMPHETAMINES AMP negati ve Not Available In-House Results For Internal Use Only, Do Not Delete/merge, 02/15/2022 14:03:40 02/16/20 22 02/15/2022 urina lysis , dipst ick METHAMPHETAM INE METH negati ve Not Available In-House Results For Internal Use Only, Do Not Delete/merge, 02/15/2022 14:03:40 02/16/20 22 02/15/2022 urina lysis , dipst ick COCAINE LEONARDO negati ve Not Available In-House Results For Internal Use Only, Do Not Delete/merge, 02/15/2022 14:03:40 02/16/20 22 02/15/2022 urina lysis , dipst ick PHENCYCLIDIN E PCP negati ve Not Available In-House Results For Internal Use Only, Do Not Delete/merge, 02/15/2022 14:03:40 02/16/20 22 02/15/2022 urina lysis , dipst ick MDMA XTC negati ve Not Available In-House Results For Internal Use Only, Do Not Delete/merge, 02/15/2022 14:03:40 02/16/20 22 02/15/2022 urina lysis , dipst ick MARIJUANA THC negati ve Not Available In-House Results For Internal Use Only, Do Not Delete/merge, 02/15/2022 14:03:40 02/16/20 22 02/15/2022 urina lysis , dipst ick SEND TO LAB NO Not Available In-Namoy se Results For Internal Use Only, Do Not Delete/merge, 02/15/2022 14:03:40 03/21/20 22 03/22/2022 COMPR EHENS PATITO METAB OLIC PANEL glucose 106 mg/dL 65-99 high Fasti ng refer ence inter cinthia For someo ne witho ut known diabe kamar, a gluco se value betwe en 100 and 125 mg/dL is consi stent with predi abete s and shoul d be confi rmed with a follo w-up test. Not Available [facility] [place] [facility] [address], [place], [address], 03/22/2022 03:21:16 03/21/20 22 03/22/2022 COMPR EHENS PATITO METAB OLIC PANEL urea nitrogen (BUN) 25 mg/dL 7-25 normal Not Available [facility] [place] [facility] [address], [place], [address], 03/22/2022 03:21:16 03/21/20 22 03/22/2022 COMPR EHENS PATITO METAB OLIC PANEL creatinine 0.70 mg/dL 0.50-1 .05 normal Not Available [facility] [address], [place], [address], 03/22/2022 03:21:16 03/21/20 22 03/22/2022 COMPR EHENS PATITO METAB OLIC PANEL eGFR 98 mL/mi n/1.7 3m2 > or = 60 normal The eGFR is based on the CKD-E PI 2020 equat ion. To calcu late the new eGFR from a previ ous Creat inine or Cysta tin C resul t, go to https ://vilma w.keo unger.o lisa/laura morales s/ kdoqi /gfr% 5Fcal culat or Not Available [facility] [address], [place], [address], 03/22/2022 03:21:16 03/21/20 22 03/22/2022 COMPR EHENS PATITO METAB OLIC PANEL BUN/creatini ne ratio NOT APPLIC ABLE (calc ) 6-22 Not Available [facility] [address], [place], [address], 03/22/2022 03:21:16 03/21/20 22 03/22/2022 COMPR EHENS PATITO METAB OLIC PANEL sodium 140 mmol/ L 135-14 6 normal Not Available [facility] [place] [facility] [address], [place], [address], 03/22/2022 03:21:16 03/21/20 22 03/22/2022 COMPR EHENS PATITO METAB OLIC PANEL potassium 4.5 mmol/ L 3.5-5. 3 normal Not Available [facility] [address], [place], [address], 03/22/2022 03:21:16 03/21/20 22 03/22/2022 COMPR EHENS PATITO METAB OLIC PANEL chloride 105 mmol/ L 98-110 normal Not Available [facility] [address], [place], [address], 03/22/2022 03:21:16 03/21/20 22 03/22/2022 COMPR EHENS PATITO METAB OLIC PANEL carbon dioxide 24 mmol/ L 20-32 normal Not Available [facility] [address], [place], [address], 03/22/2022 03:21:16 03/21/20 22 03/22/2022 COMPR EHENS PATITO METAB OLIC PANEL calcium 10.0 mg/dL 8.6-10 .4 normal Not Available [facility] [address], [place], [address], 03/22/2022 03:21:16 03/21/20 22 03/22/2022 COMPR EHENS PATITO METAB OLIC PANEL protein, total 7.0 g/dL 6.1-8. 1 normal Not Available [facility] [address], [place], [address], 03/22/2022 03:21:16 03/21/20 22 03/22/2022 COMPR EHENS PATITO METAB OLIC PANEL albumin 4.8 g/dL 3.6-5. 1 normal Not Available [facility] [address], [place], [address], 03/22/2022 03:21:16 03/21/20 22 03/22/2022 COMPR EHENS PATITO METAB OLIC PANEL globulin 2.2 g/dL_ (calc ) 1.9-3. 7 normal Not Available [facility] [address], [place], [address], 03/22/2022 03:21:16 03/21/20 22 03/22/2022 COMPR EHENS PATITO METAB OLIC PANEL albumin/glob ulin ratio 2.2 (calc ) 1.0-2. 5 normal Not Available [facility] [address], [place], [address], 03/22/2022 03:21:16 03/21/20 22 03/22/2022 COMPR EHENS PATITO METAB OLIC PANEL bilirubin, total 0.4 mg/dL 0.2-1. 2 normal Not Available [facility] [address], [place], [address], 03/22/2022 03:21:16 03/21/20 22 03/22/2022 COMPR EHENS PATITO METAB OLIC PANEL alkaline phosphatase 51 U/L 37-153 normal Not Available [facility] [employer] [facility] [address], [place], [address], 03/22/2022 03:21:16 03/21/20 22 03/22/2022 COMPR EHENS PATITO METAB OLIC PANEL AST 14 U/L 10-35 normal Not Available [facility] [address], [place], [address], 03/22/2022 03:21:16 03/21/20 22 03/22/2022 COMPR EHENS PATITO METAB OLIC PANEL ALT 22 U/L 6-29 normal Not Available [facility] [address], [place], [address], 03/22/2022 03:21:16 03/29/20 22 03/29/2022 XR, hip + pelvi s, bilat eral, 3 or 4 view No observ ation record ed. [facility] [address] [place], [address], 04/07/2022 20:32:49 Result Notes None recorded. Problems Name Problem SNOMED Code Status Onset Date Resolution Date Notes Provider Name and Address Organization Details Recorded Time Low back pain 515502363 Completed 201601/29/2018 MD Mikaela Cabello [address], [place], [address] , [facility] 8 09:43:11 Lumbar radiculop athy 032350335 Completed 201601/29/2018 MD Mikaela Cabello [address], [place], [address] , [facility] 8 09:42:52 Inflammat ion of sacroilia c joint 20182909 Active 2016 MD Mikaela Cabello,[address], [place], [address] , [facility] 7 16:57:52 Cervical radiculop athy 93378010 Active 2016 MD Mikaela Cabello [address], [place], [address] , [facility] 7 16:58:05 Multiple sclerosis 23673480 Active 2016 MD Mikaela Cabello,[address], [place], [address] , [facility] 7 16:58:13 Chronic obstructi ve pulmonary disease 45573843 Active 2016 MD Mikaela Cabello,[address], [place], [address] , [facility] 7 16:58:21 Myofascia l pain 929759782 Active 2016 MD [address], [place], [address] , [place] [facility] 7 16:58:40 Neck pain 45085315 Active 2016 MD Mikaela Cabello [address], [place], [address] , [place] [facility] 7 16:58:52 Non-Hodgk in's lymphoma (clinical ) 878792789 Active 2016 MD Mikaela Cabello,[address], [place], [address] , [place] [facility] 7 16:59:07 Restless legs 21314821 Active 2016 MD Mikaela Cabello,[address], [place], [address] , [facility] 7 16:59:20 Osteoporo sis 23170630 Active 2016 MD Mikaela Cabello,[address], [place], [address] , [facility] 7 16:59:33 Chronic fatigue syndrome 20070575 Active 2016 MD Mikaela [address]ello,[address], [place], [address] , [facility] 7 16:59:44 Spinal cord compressi on 30125348 Active 2016 MD Mikaela Cabello,[address], [place], [address] , [facility] 17:00:07 Obesity 309697954 Active 2016 MD Mikaela [address]ello,[address], [place], [address] , [facility] 10/25/201 7 15:18:28 Lumbosacr al radiculit is 82922888 Active 2017 MD Mikaela Cabello [address], [place], [address] , [facility] 8 09:43:03 Long-term drug therapy Active 2017 MD Mikaela Cabello,[address], [place], [address] , [facility] 8 09:43:28 Spasm of back muscles 744063366 Active 2017 MD Mikaela Cabello [address], [place], [address] , [facility] 8 12:30:05 Myalgia/m yositis - multiple 804251416 Active 2017 MD Mikaela Cabello,[address], [place], [address] , [facility] 8 12:30:21 Cervical spondylos is 544968461 Active 2017 MD Mikaela Cabello,[address], [place], [address] , [facility] 8 12:30:29 Chronic pain syndrome 348924138 Active 2017 MD Mikaela Cabello,[address], [place], [address] , [facility] 8 12:30:37 Increased blood pressure 16903667 Active 2017 MD Mikaela Cabello,[address], [place], [address] , [facility] 8 09:14:49 Rheumatoi d arthritis 77178257 Active 2018 MD Mikaela Cabello [address], [place], [address] , [facility] 9 13:45:06 Pain in right hip joint 61061640978 9102 Active 2018 GENE TORO M.D. [address], [place], [address] , [facility] 9 09:25:54 Bursitis of hip 97027972 Active 2018 BRITTNEY LUNA [address], [place], [address] , [facility] 9 15:26:40 Greater trochante jose pain syndrome of right lower limb 72587885730 659335 Active 2018 GENE TORO M.D. [address], [place], [address] , [facility] 9 09:26:37 Pain in right foot 08262326365 9107 Active 2018 GENE TORO M.D. [address], [place], [address] , [facility] 9 16:25:41 Fatigue 29811008 Active 2018 GENE TORO M.D. [address], [place], [address] , [facility] 9 16:31:53 Drug-dayanara awilda constipat ion 15045110 Active 2019 GENE TORO M.D. [address], [place], [address] , [facility] 0 09:24:53 Herpes zoster 7558481 Active 2021 GENE TORO M.D. [address], [place], [address] , [facility] 13:31:05 Problem Notes None recorded. Procedures Surgical History Date Name Laterality Status Provider Name and Address Organization Details Recorded Time 03/23/2022 Procedure completed GENE TORO M.D. [address] [facility],[address], [place], [address], [facility] 03/27/2022 21:23:38 08/19/2019 Procedure completed GENE TORO M.D. [address] [facility],[address], [place], [address], [facility] 08/19/2019 14:15:23 06/17/2019 Procedure completed GENE TORO M.D. [address] [facility] [address], [place], [address], [facility] 06/18/2019 09:27:55 Imaging Results Imaging Date Name Status LastModified by Organiz ation Details LastModified Time 03/29/2022 XR, hip + pelvis, bilateral, 3 or 4 view completed Akumin [place] [address] [facility], [place], [address], 04/07/2022 20:32:49 Procedure Notes None recorded. Medical Equipment None Reported. Allergies No known drug allergies Medications Name Sig Start Date Stop Date Status Note LastModified by Organization Details LastModified Time Prescripti on - Clarificat ion 11/17 completed Not Available Not Available Not Available amoxicilli n 500 mg capsule TK 1 C PO BID FOR 14 DAYS 09/24 completed Not Available Not Available Not Available ivermectin 3 mg tablet TAKE 6 TABLETS BY MOUTH 1 TIME active Not Available Not Available No t Available doxycyclin e hyclate 100 mg capsule TAKE 1 CAPSULE BY MOUTH TWICE DAILY FOR 10 DAYS 07/27 completed Not Available Not Available Not Available carvedilol 12.5 mg tablet TAKE 1 TABLET BY MOUTH TWICE DAILY active Not Available Not Available No t Available naproxen 375 mg tablet TK 1 T PO BID 09/24 completed Not Available Not Available Not Available azithromyc in 250 mg tablet 04/23 completed Not Available Not Available Not Available ibuprofen 800 mg tablet TAKE 1 TABLET EVERY 8 HOURS NEEDED FOR PAIN TAKE WITH FOOD active Not Available Not Available No t Available fluconazol e 150 mg tablet TK 1 T PO ONCE. MAY REPEAT DOSE IN THREE DAYS IF NOT RESOLVED active Not Available Not Available No t Available valacyclov ir 1 gram tablet TAKE 1 TABLET BY MOUTH EVERY 8 HOURS DIRECTED active Not Available Not Available No t Available clarithrom ycin 500 mg tablet TK 1 T PO BID FOR 14 DAYS 09/24 completed Not Available Not Available Not Available fluconazol e 200 mg tablet TK 1 T PO D 09/24 completed Not Available Not Available Not Available sertraline 100 mg tablet TAKE 1 TABLET BY MOUTH EVERY DAY active Not Available Not Available No t Available moxifloxac in 400 mg tablet TK 1 T PO QD 09/24 completed Not Available Not Available Not Available clobetasol 0.05 % topical cream APPLY BID TO RASH UP TO 2 WEEKS PER MONTH NEEDED 09/24 completed Not Available Not Available Not Available phentermin e 37.5 mg tablet TAKE 1 TABLET BY MOUTH EVERY DAY DIRECTED active Not Available Not Available No t Available prochlorpe razine maleate 10 mg tablet TK 1 T PO Q 6 H PRF NAUSEA 11/17 completed Not Available Not Available Not Available valacyclov ir 500 mg tablet TK 1 T PO BID FOR 5 DAYS 11/17 completed Not Available Not Available Not Available oxycodone- acetaminop hen 5 mg-325 mg tablet TK 1 T PO Q 6 TO 8 H PRN 01/28 completed Not Available Not Available Not Available alprazolam 0.5 mg tablet TK 1 T PO D 09/24 completed Not Available Not Available Not Available amoxicilli n 875 mg tablet TAKE 1 TABLET (ORAL) 2 TIMES PER DAY FOR 10 DAYS FOR INFECTIO N active Not Available Not Available No t Available oxycodone- acetaminop hen 10 mg-325 mg tablet TAKE 1 TABLET BY MOUTH EVERY 6 HOURS NEEDED active Not Available Not Available No t Available levetirace walker 250 mg tablet TK 3 TS PO QHS 09/24 completed Not Available Not Available Not Available meclizine 25 mg tablet TK 1 T PO TID PRN 11/17 completed Not Available Not Available Not Available baclofen 10 mg tablet TAKE 1 TABLET BY MOUTH THREE TIMES DAILY active Not Available Not Available No t Available pantoprazo le 40 mg tablet,del ayed release TK 1 T PO BID FOR 14 DAYS 11/17 completed Not Available Not Available Not Available triamcinol one acetonide 0.1 % topical ointment HOLGER AA ON ARM BID 09/24 completed Not Available Not Available Not Available ropinirole 0.5 mg tablet TK 1 T PO QHS UTD 11/17 completed Not Available Not Available Not Available dexamethas one 4 mg tablet TAKE 1 TABLET BY MOUTH TWICE DAILY FOR 5 DAYS 07/27 completed Not Available Not Available Not Available montelukas t 10 mg tablet TAKE 1 TABLET BY MOUTH EVERY DAY active Not Available Not Available No t Available clindamyci n 2 % vaginal cream IVB FOR 7 NTS UTD 09/24 completed Not Available Not Available Not Available morphine ER 15 mg tablet,ext ended release TAKE 1 TABLET BY MOUTH EVERY 12 HOURS DIRECTED 07/27 completed Not Available Not Available Not Available acyclovir 200 mg capsule Take 1 capsule 4 times a day by oral route as directed for 5 days. 2020 active Not Available Not Available Not Avai lable mupirocin 2 % topical ointment HOLGER SML AMT EXT AA TID 11/17 completed Not Available Not Available Not Available gabapentin 100 mg capsule Take 1 capsule 3 times a day by oral route for 30 days. 02/15 completed weight gain Not Available Not Available Not Available cefuroxime axetil 500 mg tablet TK 1 T PO Q 12 H FOR 10 DAYS 11/17 completed Not Available Not Available Not Available methylpred nisolone 4 mg tablets in a dose pack FOLLOW PACKAGE DIRECTIO NS active Not Available Not Available No t Available doxycyclin e hyclate 100 mg tablet TK 1 T PO BID UTD 11/17 completed Not Available Not Available Not Available diazepam 5 mg tablet TK 1 T PO BID PRN FOR 4 DAYS 09/24 completed Not Available Not Available Not Available amoxicilli n 875 mg-potassi um clavulanat e 125 mg tablet TK 1 T PO Q 12 H FOR 10 DAYS 11/17 completed Not Available Not Available Not Available ceftriaxon e 2 gram solution for injection active Not Available Not Available No t Available nitrofuran toin monohydrat e/macrocry stals 100 mg capsule 11/17 completed Not Available Not Available Not Available tizanidine 2 mg capsule TK 1 C PO BID PRN 11/17 completed Not Available Not Available Not Available Boostrix Tdap 2.5 Lf unit-8 mcg-5 Lf/0.5 mL intramuscu lar syringe ADM 0.5ML IM UTD 11/17 completed Not Available Not Available Not Available Amitiza 24 mcg capsule TK 1 C PO BID UTD 11/17 completed Not Available Not Available Not Available Virtussin AC 10 mg-100 mg/5 mL oral liquid TK 5 ML PO Q 6 H PRN COU UTD 09/24 completed Not Available Not Available Not Available naloxone 4 mg/actuati on nasal spray CALL 911. SPR CONTENTS OF ONE SPRAYER (0.1ML) INTO ONE NOSTRIL. REPEAT IN 2-3 MIN IF SYMPTOMS OF OPIOID EMERGENC Y PERSIST, ALTERNAT E NOSTRILS active Not Available Not Available No t Available Shingrix (PF) 50 mcg/0.5 mL intramuscu lar suspension , kit ADMINIST ER 0.5ML IN THE MUSCLE DIRECTED 11/17 completed Not Available Not Available Not Available Afluria Qd 2018- (36 mos up)(PF)60 mcg (15 mcg x4)/0.5 mL IM syringe ADM 0.5ML IM UTD 11/17 completed Not Available Not Available Not Available Afluria Qd 2019- (36 mos up)(PF)60 mcg (15 mcg x4)/0.5 mL IM syringe ADM 0.5ML IM UTD 11/17 completed Not Available Not Available Not Available Vitals Date Recorded Body height Heart rate Body mass index (BMI) Body weight Systolic blood pressure Diastolic blood pressure Provider Name and Address Organization Details Last Updated DateTime 2 149.86 cm 77 /min 25.9 kg/m2 01752.8 2 g 122 mm[Hg] 81 mm[Hg] GENE TORO M.D. [address] [facility], [place], [address] [place] [address] [facility] 2 13:31:41 Date Recorded Body height Body mass index (BMI) Body weight Heart rate Systolic blood pressure Diastolic blood pressure Provider Name and Address Organization Details Last Updated DateTime 2 149.86 cm 25.9 kg/m2 98200.8 2 g 72 /min 133 mm[Hg] 86 mm[Hg] GENE TORO M.D. [address] [facility],[address], [place], [address] [place] 2 13:13:10 Date Recorded Body height Body mass index (BMI) Body weight Heart rate Systolic blood pressure Diastolic blood pressure Provider Name and Address Organization Details Last Updated DateTime 2 149.86 cm 25.9 kg/m2 83443.8 2 g 77 /min 128 mm[Hg] 82 mm[Hg] GENE TORO M.D. [address] [facility],[address], [place], [address] 2 08:41:03 Date Recorded Body height Body mass index (BMI) Body weight Provider Name and Address Organization Details Last Updated DateTime 04/07/2022 149.86 cm 25.9 kg/m2 98813.82 g GENE TORO M.D. [address] [facility] [address], [place], [address] 04/07/2022 20:32:44 Date Recorded Body height Body mass index (BMI) Body weight Heart rate Systolic blood pressure Diastolic blood pressure Provider Name and Address Organization Details Last Updated DateTime 2 149.86 cm 25.9 kg/m2 57165.8 2 g 103 /min 131 mm[Hg] 80 mm[Hg] GENE TORO M.D. [address] [facility] [place], [address] 2 09:56:25 Social History Question Answer Notes LastModified by Organizat ion Details LastModified Time Tobacco Smoking Status Never Smoker GENE TORO M.D. [address] [facility] [address], [address], [facility] [place] 06/16/2020 09:57:52 Do You Have An Advance Directive? No Information not available 06/29/2021 What Is Your Level Of Alcohol Consumption? Occasional Information not available 06/29/2021 Are You Blind Or Do You Have Difficulty Seeing? No Information not available 06/29/2021 In The 14 Days Before Symptom Onset, Have You Had Close Contact With A Laboratory-confir med COVID-19 While That Case Was Ill? No Information not available 06/29/2021 In The 14 Days Before Symptom Onset, Have You Had Close Contact With A Person Who Is Under Investigation For COVID-19 While That Person Was Ill? No Information not available 06/29/2021 Have You Been To An Area Known To Be High Risk For COVID-19? No Information not available 06/29/2021 Are You Deaf Or Do You Have Serious Difficulty Hearing? No Information not available 06/29/2021 Do You Or Have You Ever Used E-cigarettes Or Vape? Never Used Electronic Cigarettes Information not available 06/16/2020 How Many Days Of Moderate To Strenuous Exercise, Like A Brisk Walk, Did You Do In The Last 7 Days? 7 Information not available 06/29/2021 On Those Days That You Engage In Moderate To Strenuous Exercise, How Many Minutes, On Average, Do You Exercise? 30 Information not available 06/29/2021 What Was The Date Of Your Most Recent Tobacco Screening? 10/26/2021 Information not available 10/26/2021 What Is Your Relationship Status? Single Information not available 06/29/2021 Do You Or Have You Ever Used Smokeless Tobacco? Never Used Smokeless Tobacco Information not available 06/16/2020 How Much Tobacco Do You Smoke? No Information not available 06/16/2020 Do You Feel Stressed (tense, Restless, Nervous, Or Anxious, Or Unable To Sleep At Night)? [id number] BEST FRIEND JUST Information not available 06/29/2021 Do You Use Any Illicit Or Recreational Drugs? No Information not available 07/27/2021 How Many Years Have You Smoked Tobacco? 0 [email or web address] Information not available 07/14/2020 Do You Or Have You Ever Used Any Other Forms Of Tobacco Or Nicotine? No [email or web address] Information not available 06/29/2021 Sex: Female Functional Status Question Answer Note LastModified by Organization D etails LastModified Time Do you have difficulty walking or climbing stairs? Yes [email or web address] Information not available 06/29/2021 Do you have difficulty doing errands alone? No Information not available 06/29/2021 Do you have difficulty dressing or bathing? No Information not available 06/29/2021 Mental Status Question Answer Note LastModified by Organization D etails LastModified Time Do you have difficulty concentrating, remembering or making decisions? [place] [id number] Information no t available 06/29/2021 Family History Nothing Reported. Medical History Condition Response HIV N Gout N Kidney Stones Y Hyperthyroidism N Hepatitis A N Migraines N Depression Y COPD N Hypothyroidism N IBS - Irritable Bowel Syndrome N Anemia N Hepatitis C N Anxiety Disorder N Diabetes N Arthritis Y Tuberculosis N CAD - Coronary Artery Disease N Cancer Y Stroke N Diverticulitis N Asthma N Hepatitis B N Seizures N High Cholesterol Y GERD/Reflux N Liver Disease N Heart Disease N Pulmonary Embolism N Fibromyalgia N Hypertension Y Osteoporosis Y Kidney Disease N Gynecological HistoryNo gynecological history recorded. Obstetrics History GPAL:G 0 P 0 0 0 0 Past Encounters Encounter ID Performer Location Encounter Start Date Encounter Closed Date Diagnosis/Indication Diagnosis SNOMED-CT Code Diagnosis ICD10 Code Diagnosis Note [id number] Jose Hatch MD [facility] [address] [facility] [address] [place] [address] 03/29/2017 15:04:29 03/30/2017 10:18:08 Low back pain 533045190 M54.5 Inflammati on of sacroiliac joint 89138634 M46.1 Lumbar fac et joint pain 416844693 M54.5 Neck pain 54516502 M54.2 Cervical f acet joint pain 761532173 M54.2 Skin sensa tion disturbance 29916216 R20.9 Sleep apnea 97288245 G47 .30 Lumbar radiculopathy 128 659442 M54.16 Cervical radiculopathy 69589457 M54.12 Myofascial pain 84057876 9 M79.1 Non-Hodgki n's lymphoma (clinical) 997143868 C85.90 Multiple sclerosis 75613 007 G35 Chronic ob structive pulmonary disease 63507643 J44.9 Long-term drug therapy 157470018 Z79.899 Restless legs 81256934 G 25.81 Osteoporosis 74858794 M8 1.0 [id number] Jose Hatch MD [facility] [address] [facility] [address] [place] [address] 04/12/2017 09:16:17 04/13/2017 13:27:49 Low back pain 046050801 M54.5 Lumbar radiculopathy 128 018952 M54.16 Inflammati on of sacroiliac joint 27720234 M46.1 Lumbar fac et joint pain 118976959 M54.5 Neck pain 74730374 M54.2 Cervical f acet joint pain 914244451 M54.2 Skin sensa tion disturbance 15371253 R20.9 Sleep apnea 39718677 G47 .30 Cervical radiculopathy 86359753 M54.12 Myofascial pain 85150111 9 M79.1 Non-Hodgki n's lymphoma (clinical) 831530710 C85.90 Multiple sclerosis 78991 007 G35 Chronic ob structive pulmonary disease 27367456 J44.9 Long-term drug therapy 187480134 Z79.899 Restless legs 76992018 G 25.81 Osteoporosis 84790053 M8 1.0 Chronic fa tigue syndrome 88541331 R53.82 Spinal cor d compression 50170337 G95.20 [id number] Jose Hatch MD [facility] [facility] [address] [place] [address] 05/10/2017 15:57:15 05/16/2017 15:50:47 Lumbar radiculopathy 150503372 M54.16 Low back pain 879407899 M54.5 Multiple sclerosis 74623 007 G35 Long-term drug therapy 653663064 Z79.899 Cervical radiculopathy 34119287 M54.12 Myofascial pain 56233688 9 M79.1 Neck pain 24612668 M54.2 Non-Hodgki n's lymphoma (clinical) 207116652 C85.90 Osteoporosis 76198455 M8 1.0 Spinal cor d compression 99937871 G95.20 Inflammati on of sacroiliac joint 10710238 M46.1 [id number] Jose Hatch MD [facility] [address] [facility] [address] [place] [address] 06/07/2017 12:36:54 06/08/2017 16:16:09 Lumbar radiculopathy 109236174 M54.16 Osteoporosis 22345760 M8 1.0 Multiple sclerosis 80066 007 G35 Long-term drug therapy 470967325 Z79.899 Spinal cor d compression 03518293 G95.20 Neck pain 12138982 M54.2 Myofascial pain 70388300 9 M79.1 Cervical radiculopathy 78158585 M54.12 Inflammati on of sacroiliac joint 89879870 M46.1 Obesity 236492005 E66.9 [id number] Jose Hatch MD [facility] [address] [facility] [address] [place] [address] 07/05/2017 10:40:27 07/09/2017 14:03:18 Lumbar radiculopathy 798075140 M54.16 Multiple sclerosis 00357 007 G35 Low back pain 013379947 M54.5 Long-term drug therapy 562650366 Z79.899 Myofascial pain 57373182 9 M79.1 Cervical radiculopathy 63306711 M54.12 Inflammati on of sacroiliac joint 02836927 M46.1 Spinal cor d compression 48082390 G95.20 Osteoporosis 41690573 M8 1.0 Restless legs 45026212 G 25.81 [id number] Jose Hatch MD [facility] [address] [address] 07/31/2017 16:18:40 08/01/2017 15:13:56 Lumbar radiculopathy 439103337 M54.16 Multiple sclerosis 62062 007 G35 Low back pain 709484740 M54.5 Long-term drug therapy 648279534 Z79.899 Myofascial pain 77990990 9 M79.1 Cervical radiculopathy 50908163 M54.12 Inflammati on of sacroiliac joint 27543823 M46.1 Spinal cor d compression 75921191 G95.20 Osteoporosis 35626453 M8 1.0 Restless legs 25004229 G 25.81 Chronic fa tigue syndrome 03868357 R53.82 Anxiety disorder 7235982 06 F41.9 Non-Hodgki n's lymphoma (clinical) 141628881 C85.90 Chronic ob structive pulmonary disease 53026985 J44.9 [id number] Jose Hatch MD [facility] [address] [facility] [address] [place] [address] 09/04/2017 08:43:44 09/04/2017 16:24:06 Low back pain 054569165 M54.5 Restless legs 78791183 G 25.81 Cervical radiculopathy 44104943 M54.12 Long-term drug therapy 035272519 Z79.899 Anxiety 03166272 F41.9 [id number] Jose Hatch MD [facility] [address] [facility] [address] [place] [address] 10/02/2017 10:19:16 10/02/2017 23:13:02 Low back pain 921898504 M54.5 Long-term drug therapy 775647876 Z79.899 Cervical radiculopathy 66450246 M54.12 Restless legs 41118103 G 25.81 Anxiety 10368875 F41.9 Obesity 556583622 E66.9 Chronic fa tigue syndrome 77743946 R53.82 Lumbar radiculopathy 128 009741 M54.16 Relapsing remitting multiple sclerosis 864735616 G35 Myofascial pain syndrome 655500135 M79.1 [id number] Jose Hatch MD [facility] [address] [facility] [address] [place] [address] 11/06/2017 16:40:36 11/08/2017 11:17:30 Low back pain 784835775 M54.5 Cervical radiculopathy 81753724 M54.12 Restless legs 80277601 G 25.81 Anxiety 70139879 F41.9 Obesity 061933079 E66.9 Chronic fa tigue syndrome 54465076 R53.82 Lumbar radiculopathy 128 300803 M54.16 Long-term drug therapy 335898499 Z79.899 Relapsing remitting multiple sclerosis 489642415 G35 Myofascial pain syndrome 032083523 M79.1 [id number] Jose Hatch MD [facility] [address] [facility] [address] [place] [address] 12/04/2017 14:44:23 12/05/2017 14:05:44 Chronic fatigue syndrome 07997241 R53.82 Anxiety 34426486 F41.1 Cervical radiculopathy 46728067 M54.12 Long-term drug therapy 436914354 Z79.899 Restless legs 05926797 G 25.81 Obesity 332284776 E66.9 Low back pain 135113471 M54.5 Lumbar radiculopathy 128 095848 M54.16 Relapsing remitting multiple sclerosis 697479143 G35 Myofascial pain syndrome 626975946 M79.1 [id number] Jose Hatch MD [facility] [address] [address] 01/01/2018 14:41:59 01/04/2018 10:29:02 Chronic fatigue syndrome 00450807 R53.82 Anxiety 76880736 F41.1 Cervical radiculopathy 52529910 M54.12 Long-term drug therapy 546761865 Z79.899 Restless legs 27130941 G 25.81 Obesity 270417495 E66.9 Low back pain 692467169 M54.5 Lumbar radiculopathy 128 195554 M54.16 Relapsing remitting multiple sclerosis 906300895 G35 Myofascial pain syndrome 181040536 M79.1 [id number] Jose Hatch MD [facility] [address] [facility] [address] [place] [address] 01/29/2018 09:15:36 01/29/2018 11:13:29 Non-Hodgkin's lymphoma (clinical) 456166854 C85.90 Lumbosacra l radiculitis 82291218 M54.17 Multiple sclerosis 18452 007 G35 Long-term drug therapy 732560713 Z79.899 Inflammati on of sacroiliac joint 56466226 M46.1 Cervical radiculopathy 11620571 M54.12 Spinal cor d compression 47957824 G95.20 Neck pain 21969740 M54.2 Osteoporosis 80454446 M8 1.0 Restless legs 31507022 G 25.81 Myofascial pain 85644967 9 M79.1 Chronic ob structive pulmonary disease 89654955 J44.9 [id number] Jose Hatch MD [facility] [address] [facility] [place] [address] 02/28/2018 10:01:11 02/28/2018 11:50:17 Non-Hodgkin's lymphoma (clinical) 076468149 C85.90 Multiple sclerosis 93658 007 G35 Lumbosacra l radiculitis 55553366 M54.17 Long-term drug therapy 434598056 Z79.899 Inflammati on of sacroiliac joint 00474044 M46.1 Cervical radiculopathy 08139708 M54.12 Spinal cor d compression 10572930 G95.20 Neck pain 48538076 M54.2 Osteoporosis 34121859 M8 1.0 Restless legs 28182671 G 25.81 Myofascial pain 30418574 9 M79.1 Obesity 468958078 E66.9 Chronic fa tigue syndrome 17407660 R53.82 Chronic ob structive pulmonary disease 91669679 J44.9 [id number] Jose Hatch MD [facility] [address] [facility],[address] [place] [address] 03/28/2018 11:48:50 04/02/2018 10:01:32 Non-Hodgkin's lymphoma (clinical) 078669193 C85.90 Multiple sclerosis 89983 007 G35 Lumbosacra l radiculitis 77397597 M54.17 Long-term drug therapy 665576016 Z79.899 Inflammati on of sacroiliac joint 57819386 M46.1 Cervical radiculopathy 56836387 M54.12 Spinal cor d compression 32176969 G95.20 Neck pain 18989260 M54.2 Osteoporosis 47263507 M8 1.0 Restless legs 26245439 G 25.81 Myofascial pain 88691022 9 M79.1 Obesity 841765357 E66.9 Chronic fa tigue syndrome 95206179 R53.82 Chronic ob structive pulmonary disease 92909273 J44.9 [id number] Jose Hatch MD [facility] [address] [place] [address] 04/23/2018 12:13:10 04/23/2018 15:47:03 Inflammation of sacroiliac joint 59337609 M46.1 Notes: SI joints are formed by the connection of the sacrum and the right and left iliac bones. While most of the bones of the spine are mobile, the sacrum is made up of five vertebrae that are fused together and do not move. As a result, the SI joints connect the spine to the pelvis. The sacrum and the ileum are held together by ligaments. There is relatively little motion at the SI joints. There are normally less than 4 degrees of rotation and 2 mm of translatio n at these joints. Most of the motion in the area of the pelvis occurs either at the hips or the lumbar spine. These joints do need to support the entire weight of the upper body which places a large amount of stress across them. This can lead to wearing of the cartilage of the SI joints and arthritis. Lumbosacra l radiculitis 71668707 M54.17 Notes: Discussed radicular pain extend from the spinal cord down into the arms and legs. Inflammato ry irritation of the nerve root can produce severe pain. Such inflammati on most commonly arises from a disc injury such as HNP or DDD. Controllin g and decreasing the local inflammati on, will control and decrease the pain. Radiculopa thy can also produce numbness and/or weakness and may become permanent if the pressure is not relieved. Conservati ve treatment such as rest, ice, NSAID when appropriat e and HEP including stretching and strengthin g help alleviate symptoms. Physical Therapy is also beneficial . If no relief from conservati ve care, injection therapy is indicated. Cervical radiculopathy 65699089 M54.12 Notes: Cervical radiculopa thy is pain and neurologic al symptoms resulting from any type of condition that irritates a nerve in the cervical spine.Cerv ical nerves exit the cervical spine at each level, and then branch out to supply muscles that enable the shoulders, arms, hands and fingers to function. They also carry sensory fibers to the skin and muscles that provide sensation. When any nerve root in the cervical spine is irritated through compressio n or inflammati on, the symptoms can radiate along that nerves pathway into the arm and hand. The patients specific cervical radiculopa thy symptoms will depend primarily on which nerve is affected. Cervical spondylosis 387 981028 M47.812 Notes: Discussed cervicalgi a in detail with the patient. The pain may spread into the shoulder or down the arm. When a bone spur causes nerve root compressio n, extremity weakness may result. In rare cases, bone spurs that form at the front of the cervical spine, may cause dysphagia. Conservati ve treatment such as rest, ice, NSAID when appropriat e and HEP including stretching and strengthin g help alleviate symptoms. Physical Therapy is also beneficial . If no relief from conservati ve care, injection therapy may be indicated. Spasm of back muscles 20 1497655 M62.830 Notes: Muscle spasms are usually the body's protective mechanism of an underlying injury or strain. Muscles tense up to protect the area and keep you from further injuring yourself. As these muscles go into spasm, the lose blood flow and can build up inflammato ry toxins. The muscle spasm will then become painful especially to touch. Icing can decrease inflammati on, while heat can improve blood flow. An injection of the steroid medication to the area (Trigger Point) can decrease inflammati on of both the muscle spasm and the underlying pathology. Myalgia/my ositis - multiple [id number] M79.1 Notes: Discussed with the patient pain may be localized, as in a muscle strain or crush injury, or generalize d pain. The most common type of localized muscle pain is caused by muscle overuse or injury from strenuous activity. Myositis can lead to muscle pain, swelling, and weakness and may be caused by overexerci se or injury to the muscles, and chronic forms can develop. Both myalgia and myositis are symptoms of underlying conditions . Effective relief requires diagnosis and treatment of the underlying condition causing these symptoms.S tiffness or weakness may be evident in gait, posture, and coordinati on. Wasting , hypertroph y or contractur e of the muscles may also be evident. Muscle tone and strength are assessed. EMG and nerve conduction studies NCS measure the electrical activity and proper functionin g of muscles. X-ray, diagnose bone and joint disorders, differenti ating them from muscle disorders. Conservati ve treatment consists of stretching and strengthen ing exercises, possible NSAID, physical therapy and strapping. Injection for diagnostic and/or therapeuti c evaluation is indicated if no relief from conservati ve treatment is noted Chronic pain syndrome 37 [id number] G89.4 Notes: Pain Management : Medication Management Evaluation 1. Diagnosis reviewed and clinical options reviewed for necessity of medication management . 2. Medication types, classes , amounts, dosages, and refills reviewed with verificati on. 3. Reviewed analgesic response, adverse side effects, aberrant behavior, physical activity , and affect. 4. Reviewed risk stratifica tion for ongoing medication management . 5. Checked urine drug screening, and genetic metabolism testing if appropriat e. 6. Reviewed safe and appropriat e storage of medication s. 7. Discussed pharmacy dispensing and monitoring . 8. Determined appropriat e return to clinic interval. Medication s ordered as below. Drug dependence [id number] Z79.891 [id number] Jose Hatch MD [facility] [place] [address] [facility] [address] [place] [address] 05/23/2018 08:32:16 05/23/2018 12:37:07 Inflammation of sacroiliac joint [id number] M46.1 Notes: SI joints are formed by the connection of the sacrum and the right and left iliac bones. While most of the bones of the spine are mobile, the sacrum is made up of five vertebrae that are fused together and do not move. As a result, the SI joints connect the spine to the pelvis. The sacrum and the ileum are held together by ligaments. There is relatively little motion at the SI joints. There are normally less than 4 degrees of rotation and 2 mm of translatio n at these joints. Most of the motion in the area of the pelvis occurs either at the hips or the lumbar spine. These joints do need to support the entire weight of the upper body which places a large amount of stress across them. This can lead to wearing of the cartilage of the SI joints and arthritis. Lumbosacra l radiculitis 26287256 M54.17 Notes: Discussed radicular pain extend from the spinal cord down into the arms and legs. Inflammato ry irritation of the nerve root can produce severe pain. Such inflammati on most commonly arises from a disc injury such as HNP or DDD. Controllin g and decreasing the local inflammati on, will control and decrease the pain. Radiculopa thy can also produce numbness and/or weakness and may become permanent if the pressure is not relieved. Conservati ve treatment such as rest, ice, NSAID when appropriat e and HEP including stretching and strengthin g help alleviate symptoms. Physical Therapy is also beneficial . If no relief from conservati ve care, injection therapy is indicated. Cervical radiculopathy [id number] M54.12 Notes: Cervical radiculopa thy is pain and neurologic al symptoms resulting from any type of condition that irritates a nerve in the cervical spine.Cerv ical nerves exit the cervical spine at each level, and then branch out to supply muscles that enable the shoulders, arms, hands and fingers to function. They also carry sensory fibers to the skin and muscles that provide sensation. When any nerve root in the cervical spine is irritated through compressio n or inflammati on, the symptoms can radiate along that nerves pathway into the arm and hand. The patients specific cervical radiculopa thy symptoms will depend primarily on which nerve is affected. Cervical spondylosis [id number] 422892 M47.812 Notes: Discussed cervicalgi a in detail with the patient. The pain may spread into the shoulder or down the arm. When a bone spur causes nerve root compressio n, extremity weakness may result. In rare cases, bone spurs that form at the front of the cervical spine, may cause dysphagia. Conservati ve treatment such as rest, ice, NSAID when appropriat e and HEP including stretching and strengthin g help alleviate symptoms. Physical Therapy is also beneficial . If no relief from conservati ve care, injection therapy may be indicated. Spasm of back muscles 20 [id number] M62.830 Notes: Muscle spasms are usually the body's protective mechanism of an underlying injury or strain. Muscles tense up to protect the area and keep you from further injuring yourself. As these muscles go into spasm, the lose blood flow and can build up inflammato ry toxins. The muscle spasm will then become painful especially to touch. Icing can decrease inflammati on, while heat can improve blood flow. An injection of the steroid medication to the area (Trigger Point) can decrease inflammati on of both the muscle spasm and the underlying pathology. Myalgia/my ositis - multiple [id number] M79.10 Notes: Discussed with the patient pain may be localized, as in a muscle strain or crush injury, or generalize d pain. The most common type of localized muscle pain is caused by muscle overuse or injury from strenuous activity. Myositis can lead to muscle pain, swelling, and weakness and may be caused by overexerci se or injury to the muscles, and chronic forms can develop. Both myalgia and myositis are symptoms of underlying conditions . Effective relief requires diagnosis and treatment of the underlying condition causing these symptoms.S tiffness or weakness may be evident in gait, posture, and coordinati on. Wasting , hypertroph y or contractur e of the muscles may also be evident. Muscle tone and strength are assessed. EMG and nerve conduction studies NCS measure the electrical activity and proper functionin g of muscles. X-ray, diagnose bone and joint disorders, differenti ating them from muscle disorders. Conservati ve treatment consists of stretching and strengthen ing exercises, possible NSAID, physical therapy and strapping. Injection for diagnostic and/or therapeuti c evaluation is indicated if no relief from conservati ve treatment is noted Chronic pain syndrome 37 [id number] G89.4 Notes: Pain Management : Medication Management Evaluation 1. Diagnosis reviewed and clinical options reviewed for necessity of medication management . 2. Medication types, classes , amounts, dosages, and refills reviewed with verificati on. 3. Reviewed analgesic response, adverse side effects, aberrant behavior, physical activity , and affect. 4. Reviewed risk stratifica tion for ongoing medication management . 5. Checked urine drug screening, and genetic metabolism testing if appropriat e. 6. Reviewed safe and appropriat e storage of medication s. 7. Discussed pharmacy dispensing and monitoring . 8. Determined appropriat e return to clinic interval. Medication s ordered as below. Long-term drug therapy [id number] Z79.899 Increased blood pressure [id number] R03.0 [id number] Jose Hatch MD [facility] [place] [address] [facility] [address] [place] [address] 07/03/2018 09:05:13 07/03/2018 17:21:47 Inflammation of sacroiliac joint 14955428 M46.1 Notes: SI joints are formed by the connection of the sacrum and the right and left iliac bones. While most of the bones of the spine are mobile, the sacrum is made up of five vertebrae that are fused together and do not move. As a result, the SI joints connect the spine to the pelvis. The sacrum and the ileum are held together by ligaments. There is relatively little motion at the SI joints. There are normally less than 4 degrees of rotation and 2 mm of translatio n at these joints. Most of the motion in the area of the pelvis occurs either at the hips or the lumbar spine. These joints do need to support the entire weight of the upper body which places a large amount of stress across them. This can lead to wearing of the cartilage of the SI joints and arthritis. Lumbosacra l radiculitis [id number] M54.17 Notes: Discussed radicular pain extend from the spinal cord down into the arms and legs. Inflammato ry irritation of the nerve root can produce severe pain. Such inflammati on most commonly arises from a disc injury such as HNP or DDD. Controllin g and decreasing the local inflammati on, will control and decrease the pain. Radiculopa thy can also produce numbness and/or weakness and may become permanent if the pressure is not relieved. Conservati ve treatment such as rest, ice, NSAID when appropriat e and HEP including stretching and strengthin g help alleviate symptoms. Physical Therapy is also beneficial . If no relief from conservati ve care, injection therapy is indicated. Cervical radiculopathy [id number] M54.12 Notes: Cervical radiculopa thy is pain and neurologic al symptoms resulting from any type of condition that irritates a nerve in the cervical spine.Cerv ical nerves exit the cervical spine at each level, and then branch out to supply muscles that enable the shoulders, arms, hands and fingers to function. They also carry sensory fibers to the skin and muscles that provide sensation. When any nerve root in the cervical spine is irritated through compressio n or inflammati on, the symptoms can radiate along that nerves pathway into the arm and hand. The patients specific cervical radiculopa thy symptoms will depend primarily on which nerve is affected. Long-term drug therapy [id number] Z79.899 Cervical spondylosis 387 809752 M47.812 Notes: Discussed cervicalgi a in detail with the patient. The pain may spread into the shoulder or down the arm. When a bone spur causes nerve root compressio n, extremity weakness may result. In rare cases, bone spurs that form at the front of the cervical spine, may cause dysphagia. Conservati ve treatment such as rest, ice, NSAID when appropriat e and HEP including stretching and strengthin g help alleviate symptoms. Physical Therapy is also beneficial . If no relief from conservati ve care, injection therapy may be indicated. Spasm of back muscles 20 [id number] M62.830 Notes: Muscle spasms are usually the body's protective mechanism of an underlying injury or strain. Muscles tense up to protect the area and keep you from further injuring yourself. As these muscles go into spasm, the lose blood flow and can build up inflammato ry toxins. The muscle spasm will then become painful especially to touch. Icing can decrease inflammati on, while heat can improve blood flow. An injection of the steroid medication to the area (Trigger Point) can decrease inflammati on of both the muscle spasm and the underlying pathology. Myalgia/my ositis - multiple [id number] M79.10 Notes: Discussed with the patient pain may be localized, as in a muscle strain or crush injury, or generalize d pain. The most common type of localized muscle pain is caused by muscle overuse or injury from strenuous activity. Myositis can lead to muscle pain, swelling, and weakness and may be caused by overexerci se or injury to the muscles, and chronic forms can develop. Both myalgia and myositis are symptoms of underlying conditions . Effective relief requires diagnosis and treatment of the underlying condition causing these symptoms.S tiffness or weakness may be evident in gait, posture, and coordinati on. Wasting , hypertroph y or contractur e of the muscles may also be evident. Muscle tone and strength are assessed. EMG and nerve conduction studies NCS measure the electrical activity and proper functionin g of muscles. X-ray, diagnose bone and joint disorders, differenti ating them from muscle disorders. Conservati ve treatment consists of stretching and strengthen ing exercises, possible NSAID, physical therapy and strapping. Injection for diagnostic and/or therapeuti c evaluation is indicated if no relief from conservati ve treatment is noted Chronic pain syndrome 37 8632890 G89.4 Notes: Pain Management : Medication Management Evaluation 1. Diagnosis reviewed and clinical options reviewed for necessity of medication management . 2. Medication types, classes , amounts, dosages, and refills reviewed with verificati on. 3. Reviewed analgesic response, adverse side effects, aberrant behavior, physical activity , and affect. 4. Reviewed risk stratifica tion for ongoing medication management . 5. Checked urine drug screening, and genetic metabolism testing if appropriat e. 6. Reviewed safe and appropriat e storage of medication s. 7. Discussed pharmacy dispensing and monitoring . 8. Determined appropriat e return to clinic interval. Medication s ordered as below. [id number] Jose Hatch MD [facility] [place] [address] [place] [address] 07/31/2018 09:19:55 07/31/2018 13:30:15 Inflammation of sacroiliac joint [id number] M46.1 Notes: SI joints are formed by the connection of the sacrum and the right and left iliac bones. While most of the bones of the spine are mobile, the sacrum is made up of five vertebrae that are fused together and do not move. As a result, the SI joints connect the spine to the pelvis. The sacrum and the ileum are held together by ligaments. There is relatively little motion at the SI joints. There are normally less than 4 degrees of rotation and 2 mm of translatio n at these joints. Most of the motion in the area of the pelvis occurs either at the hips or the lumbar spine. These joints do need to support the entire weight of the upper body which places a large amount of stress across them. This can lead to wearing of the cartilage of the SI joints and arthritis. Lumbosacra l radiculitis 87583712 M54.17 Notes: Discussed radicular pain extend from the spinal cord down into the arms and legs. Inflammato ry irritation of the nerve root can produce severe pain. Such inflammati on most commonly arises from a disc injury such as HNP or DDD. Controllin g and decreasing the local inflammati on, will control and decrease the pain. Radiculopa thy can also produce numbness and/or weakness and may become permanent if the pressure is not relieved. Conservati ve treatment such as rest, ice, NSAID when appropriat e and HEP including stretching and strengthin g help alleviate symptoms. Physical Therapy is also beneficial . If no relief from conservati ve care, injection therapy is indicated. Cervical radiculopathy 63228058 M54.12 Notes: Cervical radiculopa thy is pain and neurologic al symptoms resulting from any type of condition that irritates a nerve in the cervical spine.Cerv ical nerves exit the cervical spine at each level, and then branch out to supply muscles that enable the shoulders, arms, hands and fingers to function. They also carry sensory fibers to the skin and muscles that provide sensation. When any nerve root in the cervical spine is irritated through compressio n or inflammati on, the symptoms can radiate along that nerves pathway into the arm and hand. The patients specific cervical radiculopa thy symptoms will depend primarily on which nerve is affected. Long-term drug therapy [id number] Z79.899 Cervical spondylosis 387 844554 M47.812 Notes: Discussed cervicalgi a in detail with the patient. The pain may spread into the shoulder or down the arm. When a bone spur causes nerve root compressio n, extremity weakness may result. In rare cases, bone spurs that form at the front of the cervical spine, may cause dysphagia. Conservati ve treatment such as rest, ice, NSAID when appropriat e and HEP including stretching and strengthin g help alleviate symptoms. Physical Therapy is also beneficial . If no relief from conservati ve care, injection therapy may be indicated. Spasm of back muscles 20 3289340 M62.830 Notes: Muscle spasms are usually the body's protective mechanism of an underlying injury or strain. Muscles tense up to protect the area and keep you from further injuring yourself. As these muscles go into spasm, the lose blood flow and can build up inflammato ry toxins. The muscle spasm will then become painful especially to touch. Icing can decrease inflammati on, while heat can improve blood flow. An injection of the steroid medication to the area (Trigger Point) can decrease inflammati on of both the muscle spasm and the underlying pathology. Myalgia/my ositis - multiple [id number] M79.10 Notes: Discussed with the patient pain may be localized, as in a muscle strain or crush injury, or generalize d pain. The most common type of localized muscle pain is caused by muscle overuse or injury from strenuous activity. Myositis can lead to muscle pain, swelling, and weakness and may be caused by overexerci se or injury to the muscles, and chronic forms can develop. Both myalgia and myositis are symptoms of underlying conditions . Effective relief requires diagnosis and treatment of the underlying condition causing these symptoms.S tiffness or weakness may be evident in gait, posture, and coordinati on. Wasting , hypertroph y or contractur e of the muscles may also be evident. Muscle tone and strength are assessed. EMG and nerve conduction studies NCS measure the electrical activity and proper functionin g of muscles. X-ray, diagnose bone and joint disorders, differenti ating them from muscle disorders. Conservati ve treatment consists of stretching and strengthen ing exercises, possible NSAID, physical therapy and strapping. Injection for diagnostic and/or therapeuti c evaluation is indicated if no relief from conservati ve treatment is noted Chronic pain syndrome 37 3960602 G89.4 Notes: Pain Management : Medication Management Evaluation 1. Diagnosis reviewed and clinical options reviewed for necessity of medication management . 2. Medication types, classes , amounts, dosages, and refills reviewed with verificati on. 3. Reviewed analgesic response, adverse side effects, aberrant behavior, physical activity , and affect. 4. Reviewed risk stratifica tion for ongoing medication management . 5. Checked urine drug screening, and genetic metabolism testing if appropriat e. 6. Reviewed safe and appropriat e storage of medication s. 7. Discussed pharmacy dispensing and monitoring . 8. Determined appropriat e return to clinic interval. Medication s ordered as below. [id number] Jose Hatch MD [facility] [place] [address] [place] [address] 09/24/2018 08:47:14 09/24/2018 09:56:22 Cervical radiculopathy [id number] M54.12 Notes: Cervical radiculopa thy is pain and neurologic al symptoms resulting from any type of condition that irritates a nerve in the cervical spine.Cerv ical nerves exit the cervical spine at each level, and then branch out to supply muscles that enable the shoulders, arms, hands and fingers to function. They also carry sensory fibers to the skin and muscles that provide sensation. When any nerve root in the cervical spine is irritated through compressio n or inflammati on, the symptoms can radiate along that nerves pathway into the arm and hand. The patients specific cervical radiculopa thy symptoms will depend primarily on which nerve is affected. Cervical spondylosis 387 830893 M47.812 Notes: Discussed cervicalgi a in detail with the patient. The pain may spread into the shoulder or down the arm. When a bone spur causes nerve root compressio n, extremity weakness may result. In rare cases, bone spurs that form at the front of the cervical spine, may cause dysphagia. Conservati ve treatment such as rest, ice, NSAID when appropriat e and HEP including stretching and strengthin g help alleviate symptoms. Physical Therapy is also beneficial . If no relief from conservati ve care, injection therapy may be indicated. Myalgia/my ositis - multiple 500011284 M79.18 Notes: Discussed with the patient pain may be localized, as in a muscle strain or crush injury, or generalize d pain. The most common type of localized muscle pain is caused by muscle overuse or injury from strenuous activity. Myositis can lead to muscle pain, swelling, and weakness and may be caused by overexerci se or injury to the muscles, and chronic forms can develop. Both myalgia and myositis are symptoms of underlying conditions . Effective relief requires diagnosis and treatment of the underlying condition causing these symptoms.S tiffness or weakness may be evident in gait, posture, and coordinati on. Wasting , hypertroph y or contractur e of the muscles may also be evident. Muscle tone and strength are assessed. EMG and nerve conduction studies NCS measure the electrical activity and proper functionin g of muscles. X-ray, diagnose bone and joint disorders, differenti ating them from muscle disorders. Conservati ve treatment consists of stretching and strengthen ing exercises, possible NSAID, physical therapy and strapping. Injection for diagnostic and/or therapeuti c evaluation is indicated if no relief from conservati ve treatment is noted. Spasm of back muscles 20 6013625 M62.830 Notes: Muscle spasms are usually the body's protective mechanism of an underlying injury or strain. Muscles tense up to protect the area and keep you from further injuring yourself. As these muscles go into spasm, the lose blood flow and can build up inflammato ry toxins. The muscle spasm will then become painful especially to touch. Icing can decrease inflammati on, while heat can improve blood flow. An injection of the steroid medication to the area (Trigger Point) can decrease inflammati on of both the muscle spasm and the underlying pathology. Chronic pain syndrome 37 1537026 G89.4 Notes: Pain Management : Medication Management Evaluation 1. Diagnosis reviewed and clinical options reviewed for necessity of medication management . 2. Medication types, classes , amounts, dosages, and refills reviewed with verificati on. 3. Reviewed analgesic response, adverse side effects, aberrant behavior, physical activity , and affect. 4. Reviewed risk stratifica tion for ongoing medication management . 5. Checked urine drug screening, and genetic metabolism testing if appropriat e. 6. Reviewed safe and appropriat e storage of medication s. 7. Discussed pharmacy dispensing and monitoring . 8. Determined appropriat e return to clinic interval. Medication s ordered as below. Long-term drug therapy [id number] Z79.899 Restless legs 74011006 G 25.81 [id number] Jose Hatch MD [facility] [place] [address] [facility] [address] [place] [address] 10/22/2018 10:54:28 10/22/2018 16:42:52 Cervical spondylosis [id number] M47.812 Notes: Discussed cervicalgi a in detail with the patient. The pain may spread into the shoulder or down the arm. When a bone spur causes nerve root compressio n, extremity weakness may result. In rare cases, bone spurs that form at the front of the cervical spine, may cause dysphagia. Conservati ve treatment such as rest, ice, NSAID when appropriat e and HEP including stretching and strengthin g help alleviate symptoms. Physical Therapy is also beneficial . If no relief from conservati ve care, injection therapy may be indicated. Spasm of back muscles 20 7262248 M62.830 Notes: Muscle spasms are usually the body's protective mechanism of an underlying injury or strain. Muscles tense up to protect the area and keep you from further injuring yourself. As these muscles go into spasm, the lose blood flow and can build up inflammato ry toxins. The muscle spasm will then become painful especially to touch. Icing can decrease inflammati on, while heat can improve blood flow. An injection of the steroid medication to the area (Trigger Point) can decrease inflammati on of both the muscle spasm and the underlying pathology. Lumbosacra l radiculitis 33070758 M54.17 Notes: Discussed radicular pain extend from the spinal cord down into the arms and legs. Inflammato ry irritation of the nerve root can produce severe pain. Such inflammati on most commonly arises from a disc injury such as HNP or DDD. Controllin g and decreasing the local inflammati on, will control and decrease the pain. Radiculopa thy can also produce numbness and/or weakness and may become permanent if the pressure is not relieved. Conservati ve treatment such as rest, ice, NSAID when appropriat e and HEP including stretching and strengthin g help alleviate symptoms. Physical Therapy is also beneficial . If no relief from conservati ve care, injection therapy is indicated. Long-term drug therapy [id number] Z79.899 Restless legs 19417028 G 25.81 Cervical radiculopathy 82328635 M54.12 Notes: Cervical radiculopa thy is pain and neurologic al symptoms resulting from any type of condition that irritates a nerve in the cervical spine.Cerv ical nerves exit the cervical spine at each level, and then branch out to supply muscles that enable the shoulders, arms, hands and fingers to function. They also carry sensory fibers to the skin and muscles that provide sensation. When any nerve root in the cervical spine is irritated through compressio n or inflammati on, the symptoms can radiate along that nerves pathway into the arm and hand. The patients specific cervical radiculopa thy symptoms will depend primarily on which nerve is affected. Inflammati on of sacroiliac joint 25967318 M46.1 Notes: SI joints are formed by the connection of the sacrum and the right and left iliac bones. While most of the bones of the spine are mobile, the sacrum is made up of five vertebrae that are fused together and do not move. As a result, the SI joints connect the spine to the pelvis. The sacrum and the ileum are held together by ligaments. There is relatively little motion at the SI joints. There are normally less than 4 degrees of rotation and 2 mm of translatio n at these joints. Most of the motion in the area of the pelvis occurs either at the hips or the lumbar spine. These joints do need to support the entire weight of the upper body which places a large amount of stress across them. This can lead to wearing of the cartilage of the SI joints and arthritis. [id number] Jose Hatch MD [facility] [address] [place] [address] 11/21/2018 11:43:55 11/21/2018 13:56:51 Cervical spondylosis 512619137 M47.812 Notes: Discussed cervicalgi a in detail with the patient. The pain may spread into the shoulder or down the arm. When a bone spur causes nerve root compressio n, extremity weakness may result. In rare cases, bone spurs that form at the front of the cervical spine, may cause dysphagia. Conservati ve treatment such as rest, ice, NSAID when appropriat e and HEP including stretching and strengthin g help alleviate symptoms. Physical Therapy is also beneficial . If no relief from conservati ve care, injection therapy may be indicated. Lumbosacra l radiculitis 18235087 M54.17 Notes: Discussed radicular pain extend from the spinal cord down into the arms and legs. Inflammato ry irritation of the nerve root can produce severe pain. Such inflammati on most commonly arises from a disc injury such as HNP or DDD. Controllin g and decreasing the local inflammati on, will control and decrease the pain. Radiculopa thy can also produce numbness and/or weakness and may become permanent if the pressure is not relieved. Conservati ve treatment such as rest, ice, NSAID when appropriat e and HEP including stretching and strengthin g help alleviate symptoms. Physical Therapy is also beneficial . If no relief from conservati ve care, injection therapy is indicated. Cervical radiculopathy 46298483 M54.12 Notes: Cervical radiculopa thy is pain and neurologic al symptoms resulting from any type of condition that irritates a nerve in the cervical spine.Cerv ical nerves exit the cervical spine at each level, and then branch out to supply muscles that enable the shoulders, arms, hands and fingers to function. They also carry sensory fibers to the skin and muscles that provide sensation. When any nerve root in the cervical spine is irritated through compressio n or inflammati on, the symptoms can radiate along that nerves pathway into the arm and hand. The patients specific cervical radiculopa thy symptoms will depend primarily on which nerve is affected. Long-term drug therapy 912893897 Z79.899 Restless legs 12517622 G 25.81 Spasm of back muscles 20 6960443 M62.830 Notes: Muscle spasms are usually the body's protective mechanism of an underlying injury or strain. Muscles tense up to protect the area and keep you from further injuring yourself. As these muscles go into spasm, the lose blood flow and can build up inflammato ry toxins. The muscle spasm will then become painful especially to touch. Icing can decrease inflammati on, while heat can improve blood flow. An injection of the steroid medication to the area (Trigger Point) can decrease inflammati on of both the muscle spasm and the underlying pathology. Inflammati on of sacroiliac joint 00756921 M46.1 Notes: SI joints are formed by the connection of the sacrum and the right and left iliac bones. While most of the bones of the spine are mobile, the sacrum is made up of five vertebrae that are fused together and do not move. As a result, the SI joints connect the spine to the pelvis. The sacrum and the ileum are held together by ligaments. There is relatively little motion at the SI joints. There are normally less than 4 degrees of rotation and 2 mm of translatio n at these joints. Most of the motion in the area of the pelvis occurs either at the hips or the lumbar spine. These joints do need to support the entire weight of the upper body which places a large amount of stress across them. This can lead to wearing of the cartilage of the SI joints and arthritis. Rheumatoid arthritis 698 06246 M06.9 [id number] Jose Hatch MD [facility] [address] [facility] [address] [place] [address] 12/24/2018 08:17:29 12/24/2018 09:35:05 Cervical spondylosis 927380919 M47.812 Notes: Discussed cervicalgi a in detail with the patient. The pain may spread into the shoulder or down the arm. When a bone spur causes nerve root compressio n, extremity weakness may result. In rare cases, bone spurs that form at the front of the cervical spine, may cause dysphagia. Conservati ve treatment such as rest, ice, NSAID when appropriat e and HEP including stretching and strengthin g help alleviate symptoms. Physical Therapy is also beneficial . If no relief from conservati ve care, injection therapy may be indicated. Spasm of back muscles 20 8121090 M62.830 Notes: Muscle spasms are usually the body's protective mechanism of an underlying injury or strain. Muscles tense up to protect the area and keep you from further injuring yourself. As these muscles go into spasm, the lose blood flow and can build up inflammato ry toxins. The muscle spasm will then become painful especially to touch. Icing can decrease inflammati on, while heat can improve blood flow. An injection of the steroid medication to the area (Trigger Point) can decrease inflammati on of both the muscle spasm and the underlying pathology. Lumbosacra l radiculitis 42399015 M54.17 Notes: Discussed radicular pain extend from the spinal cord down into the arms and legs. Inflammato ry irritation of the nerve root can produce severe pain. Such inflammati on most commonly arises from a disc injury such as HNP or DDD. Controllin g and decreasing the local inflammati on, will control and decrease the pain. Radiculopa thy can also produce numbness and/or lnuhim5hh and may become permanent if the pressure is not relieved. Conservati ve treatment such as rest, ice, NSAID when appropriat e and HEP including stretching and strengthin g help alleviate symptoms. Physical Therapy is also beneficial . If no relief from conservati ve care, injection therapy is indicated. Long-term drug therapy 110705579 Z79.899 Inflammati on of sacroiliac joint 48516889 M46.1 Notes: SI joints are formed by the connection of the sacrum and the right and left iliac bones. While most of the bones of the spine are mobile, the sacrum is made up of five vertebrae that are fused together and do not move. As a result, the SI joints connect the spine to the pelvis. The sacrum and the ileum are held together by ligaments. There is relatively little motion at the SI joints. There are normally less than 4 degrees of rotation and 2 mm of translatio n at these joints. Most of the motion in the area of the pelvis occurs either at the hips or the lumbar spine. These joints do need to support the entire weight of the upper body which places a large amount of stress across them. This can lead to wearing of the cartilage of the SI joints and arthritis. Cervical radiculopathy 67196674 M54.12 Notes: Cervical radiculopa thy is pain and neurologic al symptoms resulting from any type of condition that irritates a nerve in the cervical spine.Cerv ical nerves exit the cervical spine at each level, and then branch out to supply muscles that enable the shoulders, arms, hands and fingers to function. They also carry sensory fibers to the skin and muscles that provide sensation. When any nerve root in the cervical spine is irritated through compressio n or inflammati on, the symptoms can radiate along that nerves pathway into the arm and hand. The patients specific cervical radiculopa thy symptoms will depend primarily on which nerve is affected. Restless legs 13417503 G 25.81 Multiple sclerosis 75573 007 G35 Chronic pain syndrome 37 5554340 G89.4 Notes: Pain Management : Medication Management Evaluation 1. Diagnosis reviewed and clinical options reviewed for necessity of medication management . 2. Medication types, classes , amounts, dosages, and refills reviewed with verificati on. 3. Reviewed analgesic response, adverse side effects, aberrant behavior, physical activity , and affect. 4. Reviewed risk stratifica tion for ongoing medication management . 5. Checked urine drug screening, and genetic metabolism testing if appropriat e. 6. Reviewed safe and appropriat e storage of medication s. 7. Discussed pharmacy dispensing and monitoring . 8. Determined appropriat e return to clinic interval. Medication s ordered as below. Rheumatoid arthritis 698 69503 M06.9 [id number] GENE TORO M.D. [facility] [address] [place] [address] 01/23/2019 08:03:42 01/23/2019 13:43:58 Cervical spondylosis 090888553 M47.812 Lumbosacra l radiculitis 44427809 M54.17 Cervical radiculopathy 98334748 M54.12 Long-term drug therapy 408590363 Z79.899 Inflammati on of sacroiliac joint 26436882 M46.1 Rheumatoid arthritis 698 07532 M06.9 Restless legs 15685702 G 25.81 Spasm of back muscles 20 2527310 M62.830 Non-Hodgki n's lymphoma (clinical) 081234816 C85.90 Overweight 515879648 E66 .3 Multiple sclerosis 37750 007 G35 [id number] GENE TORO M.D. [facility] [address] [facility] [address] [place] [address] 02/20/2019 08:20:37 02/20/2019 09:25:07 Multiple sclerosis 97643017 G35 Rheumatoid arthritis 698 72781 M06.9 Cervical spondylosis 387 098856 M47.812 Lumbosacra l radiculitis 81033156 M54.17 Cervical radiculopathy 93510349 M54.12 Long-term drug therapy 279050984 Z79.899 Inflammati on of sacroiliac joint 50141300 M46.1 Restless legs 59488926 G 25.81 Spasm of back muscles 20 0480501 M62.830 Non-Hodgki n's lymphoma (clinical) 210298259 C85.90 Overweight 309508348 E66 .3 [id number] GENE TORO M.D. [facility] [address] [facility] [address] [place] [address] 03/26/2019 09:06:23 03/26/2019 11:06:08 Cervical radiculopathy 78206529 M54.12 Cervical spondylosis 387 164815 M47.812 Multiple sclerosis 02961 007 G35 Long-term drug therapy 361855923 Z79.899 Rheumatoid arthritis 698 03360 M06.9 Lumbosacra l radiculitis 47374059 M54.17 Inflammati on of sacroiliac joint 86840992 M46.1 Restless legs 51862938 G 25.81 Spasm of back muscles 20 1955369 M62.830 Non-Hodgki n's lymphoma (clinical) 580163709 C85.90 Overweight 043652554 E66 .3 [id number] GENE TORO M.D. [facility] [address] [facility] [address] [place] [address] 04/23/2019 10:06:19 04/23/2019 13:29:57 Cervical radiculopathy 79042593 M54.12 Cervical spondylosis 387 349697 M47.812 Multiple sclerosis 89453 007 G35 Long-term drug therapy 941042169 Z79.899 Rheumatoid arthritis 698 83027 M06.9 Lumbosacra l radiculitis 38298160 M54.17 Inflammati on of sacroiliac joint 93092880 M46.1 Restless legs 76797279 G 25.81 Spasm of back muscles 20 2397838 M62.830 Non-Hodgki n's lymphoma (clinical) 674509681 C85.90 Overweight 122571088 E66 .3 Drug-induc ed constipation 20570241 K59.03 [id number] GENE TORO M.D. [facility] [address] [facility] [address] [place] [address] 05/28/2019 08:49:01 05/28/2019 10:36:23 Cervical radiculopathy 50316604 M54.12 Cervical spondylosis 387 638361 M47.812 Multiple sclerosis 00324 007 G35 Long-term drug therapy 454495272 Z79.899 Lumbosacra l radiculitis 36202270 M54.17 Inflammati on of sacroiliac joint 38616104 M46.1 Restless legs 09506590 G 25.81 Spasm of back muscles 20 4819268 M62.830 Drug-induc ed constipation 10827772 K59.03 Pain in ri ght hip joint 2764935094 28201 M25.551 [id number] GENE TORO M.D. [facility] [address] [facility] [address] [place] [address] 06/17/2019 14:42:41 06/18/2019 09:30:46 Inflammation of sacroiliac joint 14084701 M46.1 Pain in ri ght hip joint 8890256156 09931 M25.551 Myalgia/my ositis - multiple 475054192 M60.89 Chronic pain syndrome 37 1149942 G89.4 Bursitis of hip 37568742 M70.71 Greater tr ochanteric pain syndrome of right lower limb 0657524879 7363179 M70.61 [id number] GENE TORO M.D. [facility] [address] [facility] [address] [place] [address] 07/09/2019 11:58:34 07/12/2019 12:04:13 Cervical radiculopathy 31669118 M54.12 Cervical spondylosis 387 872561 M47.812 Multiple sclerosis 14963 007 G35 Long-term drug therapy 267077637 Z79.899 Lumbosacra l radiculitis 78887879 M54.17 Inflammati on of sacroiliac joint 95054953 M46.1 Restless legs 04939663 G 25.81 Spasm of back muscles 20 5885479 M62.830 Drug-induc ed constipation 33713343 K59.03 Pain in ri ght hip joint 9610915922 47791 M25.551 Overweight 137438883 E66 .3 [id number] GENE TORO M.D. [facility] [address] [facility] [address] [place] [address] 07/31/2019 15:13:04 08/01/2019 12:11:12 Cervical radiculopathy 87244252 M54.12 Cervical spondylosis 387 679565 M47.812 Multiple sclerosis 68620 007 G35 Long-term drug therapy 451232773 Z79.891 Lumbosacra l radiculitis 80346984 M54.17 Inflammati on of sacroiliac joint 80230115 M46.1 Restless legs 75863351 G 25.81 Spasm of back muscles 20 5754733 M62.830 Drug-induc ed constipation 64889966 K59.03 Pain in ri ght hip joint 5927359504 06814 M25.551 Pain in right foot 63990 21604 70848 M79.671 Chronic fa tigue syndrome 85342530 G93.3 [id number] GENE TORO M.D. [facility] [address] [address] 08/19/2019 08:28:10 08/20/2019 09:23:59 Inflammation of sacroiliac joint 03887192 M46.1 Multiple sclerosis 04590 007 G35 Pain in right foot 04209 58023 93734 M79.671 Obesity 738703721 E66.9 Bursitis of hip 82775947 M70.71 Greater tr ochanteric pain syndrome of right lower limb 7997851936 8230376 M70.61 [id number] GENE TORO M.D. [facility] [address] [address] 08/27/2019 08:31:23 08/27/2019 12:19:43 Cervical radiculopathy 47301253 M54.12 Cervical spondylosis 387 390476 M47.812 Multiple sclerosis 21736 007 G35 Long-term drug therapy 974304532 Z79.891 Lumbosacra l radiculitis 56500209 M54.17 Inflammati on of sacroiliac joint 38690843 M46.1 Chronic fa tigue syndrome 58356352 G93.3 Restless legs 98975297 G 25.81 Spasm of back muscles 20 6934248 M62.830 Drug-induc ed constipation 77531109 K59.03 Pain in ri ght hip joint 9207269382 93962 M25.551 Pain in right foot 50951 51900 14531 M79.671 [id number] GENE TORO M.D. [facility] [address] [address] 09/25/2019 08:33:14 09/25/2019 09:15:42 Non-Hodgkin's lymphoma (clinical) 183326048 C85.90 Cervical radiculopathy 08499672 M54.12 Cervical spondylosis 387 533223 M47.812 Multiple sclerosis 08430 007 G35 Long-term drug therapy 077212877 Z79.891 Lumbosacra l radiculitis 54765043 M54.17 Inflammati on of sacroiliac joint 35481484 M46.1 Chronic fa tigue syndrome 21632689 G93.3 Restless legs 74280599 G 25.81 Spasm of back muscles 20 7498907 M62.830 Drug-induc ed constipation 10269941 K59.03 Pain in ri ght hip joint 6303958599 15630 M25.551 Pain in right foot 32440 47707 94731 M79.671 Fatigue 90971346 R53.83 [id number] GENE TORO M.D. [facility] [address] [address] 10/23/2019 10:23:27 10/23/2019 12:15:55 Lumbosacral radiculitis 42668632 M54.17 Inflammati on of sacroiliac joint 38864782 M46.1 Cervical radiculopathy 34838397 M54.12 Long-term drug therapy 528633678 Z79.891 Cervical spondylosis 387 374532 M47.812 Neck pain 02288835 M54.2 Myofascial pain 32122004 9 M79.10 Multiple sclerosis 30240 007 G35 Fatigue 56407621 R53.83 Drug-induc ed constipation 80298958 K59.03 [id number] GENE TORO M.D. [facility] [address] [facility] [address] [place] [address] 11/26/2019 08:33:48 11/26/2019 09:42:44 Non-Hodgkin's lymphoma (clinical) 846267601 C85.90 Multiple sclerosis 43052 007 G35 Lumbosacra l radiculitis 20679908 M54.17 Inflammati on of sacroiliac joint 03987489 M46.1 Cervical radiculopathy 05714816 M54.12 Long-term drug therapy 041581033 Z79.891 Cervical spondylosis 387 595641 M47.812 Neck pain 18051397 M54.2 Myofascial pain 56575492 9 M79.10 Fatigue 51297356 R53.83 Drug-induc ed constipation 06745287 K59.03 [id number] GENE TORO M.D. [facility] [address] [facility] [address] [place] [address] 12/24/2019 08:51:49 12/24/2019 09:55:32 Cervical radiculopathy 86831408 M54.12 Cervical spondylosis 387 787396 M47.812 Rheumatoid arthritis 698 79351 M06.9 Long-term drug therapy 558077312 Z79.891 Restless legs 64382686 G 25.81 Spasm of back muscles 20 0840870 M62.830 Chronic pain syndrome 37 7340211 G89.4 Lumbosacra l radiculitis 08662938 M54.17 Myalgia/my ositis - multiple 391562275 M60.89 Pain in right foot 07665 25178 87031 M79.671 Pain in ri ght hip joint 7023269014 23386 M25.551 Drug-induc ed constipation 87616488 K59.03 Fatigue 69616782 R53.83 Multiple sclerosis 36744 007 G35 [id number] GENE TORO M.D. [facility] [address] [facility] [address] [place] [address] 01/29/2020 10:19:04 01/29/2020 13:17:47 Fatigue 95901373 R53.83 Multiple sclerosis 10225 007 G35 Rheumatoid arthritis 698 85034 M06.9 Cervical radiculopathy 50206255 M54.12 Cervical spondylosis 387 854460 M47.812 Long-term drug therapy 705080390 Z79.891 Restless legs 31171078 G 25.81 Spasm of back muscles 20 9006489 M62.830 Chronic pain syndrome 37 6622814 G89.4 Lumbosacra l radiculitis 82738533 M54.17 Myalgia/my ositis - multiple 985733382 M60.89 Pain in right foot 24006 30356 34284 M79.671 Pain in ri ght hip joint 6940257861 47659 M25.551 Drug-induc ed constipation 51162200 K59.03 [id number] GENE TORO M.D. [facility] [address] [facility] [address] [place] [address] 02/25/2020 00:11:20 02/25/2020 12:08:12 Fatigue 63990819 R53.83 Multiple sclerosis 29390 007 G35 Rheumatoid arthritis 698 78800 M06.9 Cervical radiculopathy 22774566 M54.12 Cervical spondylosis 387 084217 M47.812 Restless legs 84611787 G 25.81 Spasm of back muscles 20 0492375 M62.830 Chronic pain syndrome 37 1317292 G89.4 Lumbosacra l radiculitis 44323987 M54.17 Myalgia/my ositis - multiple 154226485 M60.89 Pain in right foot 08525 21951 05763 M79.671 Pain in ri ght hip joint 3074970546 94274 M25.551 Drug-induc ed constipation 82424958 K59.03 [id number] GENE TORO M.D. [facility] [address] [facility] [address] [place] [address] 03/25/2020 14:44:32 03/26/2020 11:43:36 Fatigue 47774696 R53.83 Multiple sclerosis 67811 007 G35 Cervical radiculopathy 77003142 M54.12 Rheumatoid arthritis 698 18066 M06.9 Cervical spondylosis 387 054503 M47.812 Restless legs 41440511 G 25.81 Spasm of back muscles 20 4087833 M62.830 Chronic pain syndrome 37 2423029 G89.4 Lumbosacra l radiculitis 57628041 M54.17 Myalgia/my ositis - multiple 904546539 M60.89 Pain in right foot 65410 11707 41082 M79.671 Pain in ri ght hip joint 8793121392 05932 M25.551 Drug-induc ed constipation 04169945 K59.03 Long-term drug therapy 983861173 Z79.891 [id number] GENE TORO M.D. [facility] [address] [facility] [address] [place] [address] 04/22/2020 15:06:03 04/23/2020 09:34:41 Cervical radiculopathy 08962034 M54.12 Fatigue 14545720 R53.83 Multiple sclerosis 72132 007 G35 Long-term drug therapy 514232855 Z79.891 Rheumatoid arthritis 698 23356 M06.9 Cervical spondylosis 387 597809 M47.812 Restless legs 95123753 G 25.81 Spasm of back muscles 20 7692621 M62.830 Chronic pain syndrome 37 7283622 G89.4 Lumbosacra l radiculitis 79687666 M54.17 Myalgia/my ositis - multiple 498022879 M60.89 Pain in right foot 35011 38016 06643 M79.671 Pain in ri ght hip joint 4403660122 59861 M25.551 Drug-induc ed constipation 35493371 K59.03 [id number] GENE TORO M.D. [facility] [address] [facility] [address] [place] [address] 05/18/2020 10:41:50 05/19/2020 09:03:03 Cervical radiculopathy 91764333 M54.12 Fatigue 40189353 R53.83 Multiple sclerosis 14059 007 G35 Long-term drug therapy 824805105 Z79.891 Rheumatoid arthritis 698 03678 M06.9 Cervical spondylosis 387 637794 M47.812 Restless legs 56926095 G 25.81 Spasm of back muscles 20 4522320 M62.830 Chronic pain syndrome 37 0480742 G89.4 Lumbosacra l radiculitis 21926643 M54.17 Myalgia/my ositis - multiple 010050541 M60.89 Pain in right foot 01305 54750 14442 M79.671 Pain in ri ght hip joint 4708436340 85060 M25.551 Drug-induc ed constipation 39990457 K59.03 [id number] GENE TORO M.D. [facility] [address] [facility] [address] [place] [address] 06/16/2020 09:46:11 06/16/2020 13:53:11 Cervical radiculopathy 66449687 M54.12 Fatigue 13442742 R53.83 Multiple sclerosis 14692 007 G35 Long-term drug therapy 144981475 Z79.891 Rheumatoid arthritis 698 82963 M06.9 Cervical spondylosis 387 913038 M47.812 Restless legs 22378326 G 25.81 Spasm of back muscles 20 9901672 M62.830 Chronic pain syndrome 37 8924572 G89.4 Lumbosacra l radiculitis 95958878 M54.17 Myalgia/my ositis - multiple 956007619 M60.89 Pain in right foot 05415 81864 96483 M79.671 Pain in ri ght hip joint 3560140133 47787 M25.551 Drug-induc ed constipation 41406024 K59.03 [id number] GENE TORO M.D. [facility] [address] [facility] [address] [place] [address] 07/13/2020 08:38:38 07/14/2020 15:01:47 Cervical radiculopathy 48897693 M54.12 Fatigue 02227855 R53.83 Multiple sclerosis 53963 007 G35 Long-term drug therapy 920972140 Z79.891 Rheumatoid arthritis 698 46085 M05.19 Cervical spondylosis 387 871686 M47.812 Restless legs 20191135 G 25.81 Spasm of back muscles 20 6244690 M62.830 Chronic pain syndrome 37 9770727 G89.4 Lumbosacra l radiculitis 42702552 M54.17 Myalgia/my ositis - multiple 785631883 M60.89 Pain in right foot 39500 56818 64569 M79.671 Pain in ri ght hip joint [id number] 97918 M25.551 Drug-induc ed constipation 49607011 K59.03 Tobacco us e cessation education 118291106 Z87.891 [id number] GENE TORO M.D. [facility] [address] [facility] [address] [place] [address] 08/26/2020 09:58:26 08/26/2020 10:30:22 Cervical radiculopathy 20505165 M54.12 Fatigue 11782798 R53.83 Cervical spondylosis 387 494575 M47.812 Chronic pain syndrome 37 9831880 G89.4 Inflammati on of sacroiliac joint 61418831 M46.1 Long-term drug therapy 942378696 Z79.891 Lumbosacra l radiculitis 39390607 M54.17 Multiple sclerosis 45700 007 G35 Myalgia/my ositis - multiple 149792000 M60.89 Non-Hodgki n's lymphoma (clinical) 894345344 C85.90 [id number] GENE TORO M.D. [facility] [address] [facility] [address] [place] [address] 09/23/2020 14:52:35 09/24/2020 08:16:38 Cervical radiculopathy 63114016 M54.12 Rheumatoid arthritis 698 41475 M05.19 Multiple sclerosis 47774 007 G35 Long-term drug therapy 751347998 Z79.891 Fatigue 08819985 R53.83 Cervical spondylosis 387 185295 M47.812 Restless legs 21540132 G 25.81 Spasm of back muscles 20 8464862 M62.830 Chronic pain syndrome 37 8361476 G89.4 Lumbosacra l radiculitis 16929594 M54.17 Myalgia/my ositis - multiple 953816055 M60.89 Pain in right foot 71145 50804 98459 M79.671 Pain in ri ght hip joint 2197933600 74358 M25.551 Drug-induc ed constipation 79538211 K59.03 Tobacco us e cessation education 296198790 Z87.891 Bursitis of hip 48764457 M70.71 M70.72 Greater tr ochanteric pain syndrome of right lower limb 6733601651 9849586 M70.61 Non-Hodgki n's lymphoma (clinical) 205377655 C85.90 [id number] GENE TORO M.D. [facility] [address] [facility] [address] [place] [address] 10/21/2020 16:45:12 10/26/2020 21:08:53 Cervical radiculopathy 09878193 M54.12 Cervical spondylosis 387 069167 M47.812 Inflammati on of sacroiliac joint 22500829 M46.1 Long-term drug therapy 952683111 Z79.891 Chronic pain syndrome 37 8444429 G89.4 Fatigue 27801689 R53.83 Lumbosacra l radiculitis 45480958 M54.17 Multiple sclerosis 90134 007 G35 Myalgia/my ositis - multiple 351193343 M60.89 Non-Hodgki n's lymphoma (clinical) 228586408 C85.90 [id number] GENE TORO M.D. [facility] [address] [facility] [address] [place] [address] 11/17/2020 11:01:43 11/18/2020 12:48:50 Cervical radiculopathy 22817053 M54.12 Notes: Cervical radiculopa thy is pain and neurologic al symptoms resulting from any type of condition that irritates a nerve in the cervical spine.Cerv ical nerves exit the cervical spine at each level, and then branch out to supply muscles that enable the shoulders, arms, hands and fingers to function. They also carry sensory fibers to the skin and muscles that provide sensation. When any nerve root in the cervical spine is irritated through compressio n or inflammati on, the symptoms can radiate along that nerves pathway into the arm and hand. The patients specific cervical radiculopa thy symptoms will depend primarily on which nerve is affected. Greater tr ochanteric pain syndrome of right lower limb 1818015127 7642878 M70.61 Pain in ri ght hip joint 3414672436 55629 M25.551 Rheumatoid arthritis 698 87918 M06.9 Multiple sclerosis 37396 007 G35 Inflammati on of sacroiliac joint 85874440 M46.1 Notes: SI joints are formed by the connection of the sacrum and the right and left iliac bones. While most of the bones of the spine are mobile, the sacrum is made up of five vertebrae that are fused together and do not move. As a result, the SI joints connect the spine to the pelvis. The sacrum and the ileum are held together by ligaments. There is relatively little motion at the SI joints. There are normally less than 4 degrees of rotation and 2 mm of translatio n at these joints. Most of the motion in the area of the pelvis occurs either at the hips or the lumbar spine. These joints do need to support the entire weight of the upper body which places a large amount of stress across them. This can lead to wearing of the cartilage of the SI joints and arthritis. [id number] GENE TORO M.D. [facility] [address] [facility] [address] [place] [address] 12/14/2020 09:46:57 12/15/2020 08:56:18 Cervical radiculopathy 83440351 M54.12 Notes: Cervical radiculopa thy is pain and neurologic al symptoms resulting from any type of condition that irritates a nerve in the cervical spine.Cerv ical nerves exit the cervical spine at each level, and then branch out to supply muscles that enable the shoulders, arms, hands and fingers to function. They also carry sensory fibers to the skin and muscles that provide sensation. When any nerve root in the cervical spine is irritated through compressio n or inflammati on, the symptoms can radiate along that nerves pathway into the arm and hand. The patients specific cervical radiculopa thy symptoms will depend primarily on which nerve is affected. Greater tr ochanteric pain syndrome of right lower limb 8143192507 3636440 M70.61 Pain in ri ght hip joint 3306734453 78092 M25.551 Rheumatoid arthritis 698 85995 M06.9 Multiple sclerosis 53771 007 G35 Inflammati on of sacroiliac joint 69518024 M46.1 Notes: SI joints are formed by the connection of the sacrum and the right and left iliac bones. While most of the bones of the spine are mobile, the sacrum is made up of five vertebrae that are fused together and do not move. As a result, the SI joints connect the spine to the pelvis. The sacrum and the ileum are held together by ligaments. There is relatively little motion at the SI joints. There are normally less than 4 degrees of rotation and 2 mm of translatio n at these joints. Most of the motion in the area of the pelvis occurs either at the hips or the lumbar spine. These joints do need to support the entire weight of the upper body which places a large amount of stress across them. This can lead to wearing of the cartilage of the SI joints and arthritis. [id number] GENE TORO M.D. [facility] [address] [facility] [address] [address] 01/13/2021 13:58:18 01/18/2021 22:33:01 Cervical radiculopathy 56523973 M54.12 Notes: Cervical radiculopa thy is pain and neurologic al symptoms resulting from any type of condition that irritates a nerve in the cervical spine.Cerv ical nerves exit the cervical spine at each level, and then branch out to supply muscles that enable the shoulders, arms, hands and fingers to function. They also carry sensory fibers to the skin and muscles that provide sensation. When any nerve root in the cervical spine is irritated through compressio n or inflammati on, the symptoms can radiate along that nerves pathway into the arm and hand. The patients specific cervical radiculopa thy symptoms will depend primarily on which nerve is affected. Greater tr ochanteric pain syndrome of right lower limb [id number] 9262806 M70.61 Pain in ri ght hip joint 3384986498 69045 M25.551 Rheumatoid arthritis 698 96461 M06.9 Multiple sclerosis 27975 007 G35 Inflammati on of sacroiliac joint 04500082 M46.1 Notes: SI joints are formed by the connection of the sacrum and the right and left iliac bones. While most of the bones of the spine are mobile, the sacrum is made up of five vertebrae that are fused together and do not move. As a result, the SI joints connect the spine to the pelvis. The sacrum and the ileum are held together by ligaments. There is relatively little motion at the SI joints. There are normally less than 4 degrees of rotation and 2 mm of translatio n at these joints. Most of the motion in the area of the pelvis occurs either at the hips or the lumbar spine. These joints do need to support the entire weight of the upper body which places a large amount of stress across them. This can lead to wearing of the cartilage of the SI joints and arthritis. Long-term drug therapy 368188027 Z79.899 [id number] GENE TORO M.D. [facility] [address] [place] [address] 02/10/2021 08:41:24 02/10/2021 10:24:46 Greater trochanteric pain syndrome of right lower limb [id number] 0151378 M70.61 Rheumatoid arthritis 698 20776 M06.9 M05.29 Cervical radiculopathy 65130923 M54.12 Notes: Cervical radiculopa thy is pain and neurologic al symptoms resulting from any type of condition that irritates a nerve in the cervical spine.Cerv ical nerves exit the cervical spine at each level, and then branch out to supply muscles that enable the shoulders, arms, hands and fingers to function. They also carry sensory fibers to the skin and muscles that provide sensation. When any nerve root in the cervical spine is irritated through compressio n or inflammati on, the symptoms can radiate along that nerves pathway into the arm and hand. The patients specific cervical radiculopa thy symptoms will depend primarily on which nerve is affected. Cervical spondylosis 387 417763 M47.812 Notes: Discussed cervicalgi a in detail with the patient. The pain may spread into the shoulder or down the arm. When a bone spur causes nerve root compressio n, extremity weakness may result. In rare cases, bone spurs that form at the front of the cervical spine, may cause dysphagia. Conservati ve treatment such as rest, ice, NSAID when appropriat e and HEP including stretching and strengthin g help alleviate symptoms. Physical Therapy is also beneficial . If no relief from conservati ve care, injection therapy may be indicated. Long-term drug therapy 253097328 Z79.899 Lumbosacra l radiculitis 62271370 M54.17 Notes: Discussed radicular pain extend from the spinal cord down into the arms and legs. Inflammato ry irritation of the nerve root can produce severe pain. Such inflammati on most commonly arises from a disc injury such as HNP or DDD. Controllin g and decreasing the local inflammati on, will control and decrease the pain. Radiculopa thy can also produce numbness and/or weakness and may become permanent if the pressure is not relieved. Conservati ve treatment such as rest, ice, NSAID when appropriat e and HEP including stretching and strengthin g help alleviate symptoms. Physical Therapy is also beneficial . If no relief from conservati ve care, injection therapy is indicated. Multiple sclerosis 36209 007 G35 Chronic pain syndrome 37 0871659 G89.4 Notes: Pain Management : Medication Management Evaluation 1. Diagnosis reviewed and clinical options reviewed for necessity of medication management . 2. Medication types, classes , amounts, dosages, and refills reviewed with verificati on. 3. Reviewed analgesic response, adverse side effects, aberrant behavior, physical activity , and affect. 4. Reviewed risk stratifica tion for ongoing medication management . 5. Checked urine drug screening, and genetic metabolism testing if appropriat e. 6. Reviewed safe and appropriat e storage of medication s. 7. Discussed pharmacy dispensing and monitoring . 8. Determined appropriat e return to clinic interval. Medication s ordered as below. Pain in ri ght hip joint 2429846533 32550 M25.551 Myalgia/my ositis - multiple 730136033 M60.89 Notes: Discussed with the patient pain may be localized, as in a muscle strain or crush injury, or generalize d pain. The most common type of localized muscle pain is caused by muscle overuse or injury from strenuous activity. Myositis can lead to muscle pain, swelling, and weakness and may be caused by overexerci se or injury to the muscles, and chronic forms can develop. Both myalgia and myositis are symptoms of underlying conditions . Effective relief requires diagnosis and treatment of the underlying condition causing these symptoms.S tiffness or weakness may be evident in gait, posture, and coordinati on. Wasting , hypertroph y or contractur e of the muscles may also be evident. Muscle tone and strength are assessed. EMG and nerve conduction studies NCS measure the electrical activity and proper functionin g of muscles. X-ray, diagnose bone and joint disorders, differenti ating them from muscle disorders. Conservati ve treatment consists of stretching and strengthen ing exercises, possible NSAID, physical therapy and strapping. Injection for diagnostic and/or therapeuti c evaluation is indicated if no relief from conservati ve treatment is noted Bursitis of hip 24545704 M70.71 Inflammati on of sacroiliac joint 59079450 M46.1 [id number] GENE TORO M.D. [facility] [address] [place] [address] [address] [place] [address] 03/02/2021 14:25:27 03/08/2021 09:41:36 Generalized rash 203590054 R21 Rheumatoid arthritis 698 47465 M06.9 M05.29 [id number] GENE TORO M.D. [facility] [address] [place] [address] [address] [place] [address] 05/04/2021 15:12:19 05/05/2021 12:00:13 Non-Hodgkin's lymphoma (clinical) 140190271 C85.90 Cervical radiculopathy 19066430 M54.12 Rheumatoid arthritis 698 22874 M06.9 M05.29 Cervical spondylosis 387 982646 M47.812 Inflammati on of sacroiliac joint 67000469 M46.1 Long-term drug therapy 591565804 Z79.891 Chronic pain syndrome 37 9030457 G89.4 Fatigue 73198154 R53.83 Lumbosacra l radiculitis 65283628 M54.17 Multiple sclerosis 02363 007 G35 Myalgia/my ositis - multiple 616324098 M60.89 [id number] [facility] [address] [facility] [address] [place] [address] 06/01/2021 15:09:13 06/04/2021 19:21:10 Non-Hodgkin's lymphoma (clinical) 307446203 C85.90 Cervical radiculopathy 39751221 M54.12 Cervical spondylosis 387 508447 M47.812 Rheumatoid arthritis 698 97212 M06.9 M05.29 Lumbosacra l radiculitis 09455524 M54.17 Long-term drug therapy 496099298 Z79.891 Inflammati on of sacroiliac joint 07891625 M46.1 Multiple sclerosis 17962 007 G35 Chronic pain syndrome 37 8557775 G89.4 Fatigue 19505251 R53.83 Myalgia/my ositis - multiple 905588121 M60.89 [id number] GENE TORO M.D. [facility] [address] [place] [address] 06/29/2021 15:08:29 07/02/2021 12:57:06 Non-Hodgkin's lymphoma (clinical) 848169846 C85.90 Cervical radiculopathy 46223039 M54.12 Notes: Cervical radiculopa thy is pain and neurologic al symptoms resulting from any type of condition that irritates a nerve in the cervical spine.Cerv ical nerves exit the cervical spine at each level, and then branch out to supply muscles that enable the shoulders, arms, hands and fingers to function. They also carry sensory fibers to the skin and muscles that provide sensation. When any nerve root in the cervical spine is irritated through compressio n or inflammati on, the symptoms can radiate along that nerves pathway into the arm and hand. The patients specific cervical radiculopa thy symptoms will depend primarily on which nerve is affected. Cervical spondylosis 387 948706 M47.812 Notes: Discussed cervicalgi a in detail with the patient. The pain may spread into the shoulder or down the arm. When a bone spur causes nerve root compressio n, extremity weakness may result. In rare cases, bone spurs that form at the front of the cervical spine, may cause dysphagia. Conservati ve treatment such as rest, ice, NSAID when appropriat e and HEP including stretching and strengthin g help alleviate symptoms. Physical Therapy is also beneficial . If no relief from conservati ve care, injection therapy may be indicated. Rheumatoid arthritis 698 47660 M06.9 M05.29 Lumbosacra l radiculitis 86691997 M54.17 Notes: Discussed radicular pain extend from the spinal cord down into the arms and legs. Inflammato ry irritation of the nerve root can produce severe pain. Such inflammati on most commonly arises from a disc injury such as HNP or DDD. Controllin g and decreasing the local inflammati on, will control and decrease the pain. Radiculopa thy can also produce numbness and/or weakness and may become permanent if the pressure is not relieved. Conservati ve treatment such as rest, ice, NSAID when appropriat e and HEP including stretching and strengthin g help alleviate symptoms. Physical Therapy is also beneficial . If no relief from conservati ve care, injection therapy is indicated. Long-term drug therapy 822482646 Z79.891 Inflammati on of sacroiliac joint 32187367 M46.1 Multiple sclerosis 62849 007 G35 Chronic pain syndrome 37 8888377 G89.4 Notes: Pain Management : Medication Management Evaluation 1. Diagnosis reviewed and clinical options reviewed for necessity of medication management . 2. Medication types, classes , amounts, dosages, and refills reviewed with verificati on. 3. Reviewed analgesic response, adverse side effects, aberrant behavior, physical activity , and affect. 4. Reviewed risk stratifica tion for ongoing medication management . 5. Checked urine drug screening, and genetic metabolism testing if appropriat e. 6. Reviewed safe and appropriat e storage of medication s. 7. Discussed pharmacy dispensing and monitoring . 8. Determined appropriat e return to clinic interval. Medication s ordered as below. Fatigue 96417206 R53.83 Myalgia/my ositis - multiple 161158505 M60.89 Notes: Discussed with the patient pain may be localized, as in a muscle strain or crush injury, or generalize d pain. The most common type of localized muscle pain is caused by muscle overuse or injury from strenuous activity. Myositis can lead to muscle pain, swelling, and weakness and may be caused by overexerci se or injury to the muscles, and chronic forms can develop. Both myalgia and myositis are symptoms of underlying conditions . Effective relief requires diagnosis and treatment of the underlying condition causing these symptoms.S tiffness or weakness may be evident in gait, posture, and coordinati on. Wasting , hypertroph y or contractur e of the muscles may also be evident. Muscle tone and strength are assessed. EMG and nerve conduction studies NCS measure the electrical activity and proper functionin g of muscles. X-ray, diagnose bone and joint disorders, differenti ating them from muscle disorders. Conservati ve treatment consists of stretching and strengthen ing exercises, possible NSAID, physical therapy and strapping. Injection for diagnostic and/or therapeuti c evaluation is indicated if no relief from conservati ve treatment is noted [id number] GENE TORO M.D. [facility] [address] [place] [address] 07/27/2021 09:16:24 08/02/2021 16:42:42 Rheumatoid arthritis 39010605 M06.9 M05.29 Non-Hodgki n's lymphoma (clinical) 360733643 C85.90 Cervical radiculopathy 16107536 M54.12 Notes: Cervical radiculopa thy is pain and neurologic al symptoms resulting from any type of condition that irritates a nerve in the cervical spine.Cerv ical nerves exit the cervical spine at each level, and then branch out to supply muscles that enable the shoulders, arms, hands and fingers to function. They also carry sensory fibers to the skin and muscles that provide sensation. When any nerve root in the cervical spine is irritated through compressio n or inflammati on, the symptoms can radiate along that nerves pathway into the arm and hand. The patients specific cervical radiculopa thy symptoms will depend primarily on which nerve is affected. Cervical spondylosis 387 795927 M47.812 Notes: Discussed cervicalgi a in detail with the patient. The pain may spread into the shoulder or down the arm. When a bone spur causes nerve root compressio n, extremity weakness may result. In rare cases, bone spurs that form at the front of the cervical spine, may cause dysphagia. Conservati ve treatment such as rest, ice, NSAID when appropriat e and HEP including stretching and strengthin g help alleviate symptoms. Physical Therapy is also beneficial . If no relief from conservati ve care, injection therapy may be indicated. Lumbosacra l radiculitis 25030191 M54.17 Notes: Discussed radicular pain extend from the spinal cord down into the arms and legs. Inflammato ry irritation of the nerve root can produce severe pain. Such inflammati on most commonly arises from a disc injury such as HNP or DDD. Controllin g and decreasing the local inflammati on, will control and decrease the pain. Radiculopa thy can also produce numbness and/or weakness and may become permanent if the pressure is not relieved. Conservati ve treatment such as rest, ice, NSAID when appropriat e and HEP including stretching and strengthin g help alleviate symptoms. Physical Therapy is also beneficial . If no relief from conservati ve care, injection therapy is indicated. Long-term drug therapy 630024930 Z79.891 Inflammati on of sacroiliac joint 76334323 M46.1 Multiple sclerosis 91624 007 G35 Chronic pain syndrome 37 3756843 G89.4 Notes: Pain Management : Medication Management Evaluation 1. Diagnosis reviewed and clinical options reviewed for necessity of medication management . 2. Medication types, classes , amounts, dosages, and refills reviewed with verificati on. 3. Reviewed analgesic response, adverse side effects, aberrant behavior, physical activity , and affect. 4. Reviewed risk stratifica tion for ongoing medication management . 5. Checked urine drug screening, and genetic metabolism testing if appropriat e. 6. Reviewed safe and appropriat e storage of medication s. 7. Discussed pharmacy dispensing and monitoring . 8. Determined appropriat e return to clinic interval. Medication s ordered as below. Fatigue 21903975 R53.83 Myalgia/my ositis - multiple 331143209 M60.89 Notes: Discussed with the patient pain may be localized, as in a muscle strain or crush injury, or generalize d pain. The most common type of localized muscle pain is caused by muscle overuse or injury from strenuous activity. Myositis can lead to muscle pain, swelling, and weakness and may be caused by overexerci se or injury to the muscles, and chronic forms can develop. Both myalgia and myositis are symptoms of underlying conditions . Effective relief requires diagnosis and treatment of the underlying condition causing these symptoms.S tiffness or weakness may be evident in gait, posture, and coordinati on. Wasting , hypertroph y or contractur e of the muscles may also be evident. Muscle tone and strength are assessed. EMG and nerve conduction studies NCS measure the electrical activity and proper functionin g of muscles. X-ray, diagnose bone and joint disorders, differenti ating them from muscle disorders. Conservati ve treatment consists of stretching and strengthen ing exercises, possible NSAID, physical therapy and strapping. Injection for diagnostic and/or therapeuti c evaluation is indicated if no relief from conservati ve treatment is noted Advance di rective discussed with patient 284986182 Z71.89 Body mass index 25-29 - overweight 251263244 Z68.26 BMI 26.7 Administra tion of influenza vaccine 98427402 Z23 [id number] GENE TORO M.D. [facility] [address] [place] [address] 08/24/2021 10:05:36 08/24/2021 22:36:36 Non-Hodgkin's lymphoma (clinical) 032590783 C85.90 Cervical radiculopathy 88750974 M54.12 Notes: Cervical radiculopa thy is pain and neurologic al symptoms resulting from any type of condition that irritates a nerve in the cervical spine.Cerv ical nerves exit the cervical spine at each level, and then branch out to supply muscles that enable the shoulders, arms, hands and fingers to function. They also carry sensory fibers to the skin and muscles that provide sensation. When any nerve root in the cervical spine is irritated through compressio n or inflammati on, the symptoms can radiate along that nerves pathway into the arm and hand. The patients specific cervical radiculopa thy symptoms will depend primarily on which nerve is affected. Rheumatoid arthritis 698 16472 M06.9 M05.29 Cervical spondylosis 387 374111 M47.812 Notes: Discussed cervicalgi a in detail with the patient. The pain may spread into the shoulder or down the arm. When a bone spur causes nerve root compressio n, extremity weakness may result. In rare cases, bone spurs that form at the front of the cervical spine, may cause dysphagia. Conservati ve treatment such as rest, ice, NSAID when appropriat e and HEP including stretching and strengthin g help alleviate symptoms. Physical Therapy is also beneficial . If no relief from conservati ve care, injection therapy may be indicated. Lumbosacra l radiculitis 40252632 M54.17 Notes: Discussed radicular pain extend from the spinal cord down into the arms and legs. Inflammato ry irritation of the nerve root can produce severe pain. Such inflammati on most commonly arises from a disc injury such as HNP or DDD. Controllin g and decreasing the local inflammati on, will control and decrease the pain. Radiculopa thy can also produce numbness and/or weakness and may become permanent if the pressure is not relieved. Conservati ve treatment such as rest, ice, NSAID when appropriat e and HEP including stretching and strengthin g help alleviate symptoms. Physical Therapy is also beneficial . If no relief from conservati ve care, injection therapy is indicated. Long-term drug therapy [id number] Z79.891 Inflammati on of sacroiliac joint 78808008 M46.1 Multiple sclerosis 35834 007 G35 Chronic pain syndrome 37 3844575 G89.4 Notes: Pain Management : Medication Management Evaluation 1. Diagnosis reviewed and clinical options reviewed for necessity of medication management . 2. Medication types, classes , amounts, dosages, and refills reviewed with verificati on. 3. Reviewed analgesic response, adverse side effects, aberrant behavior, physical activity , and affect. 4. Reviewed risk stratifica tion for ongoing medication management . 5. Checked urine drug screening, and genetic metabolism testing if appropriat e. 6. Reviewed safe and appropriat e storage of medication s. 7. Discussed pharmacy dispensing and monitoring . 8. Determined appropriat e return to clinic interval. Medication s ordered as below. Fatigue 11196720 R53.83 Myalgia/my ositis - multiple 762207648 M60.89 Notes: Discussed with the patient pain may be localized, as in a muscle strain or crush injury, or generalize d pain. The most common type of localized muscle pain is caused by muscle overuse or injury from strenuous activity. Myositis can lead to muscle pain, swelling, and weakness and may be caused by overexerci se or injury to the muscles, and chronic forms can develop. Both myalgia and myositis are symptoms of underlying conditions . Effective relief requires diagnosis and treatment of the underlying condition causing these symptoms.S tiffness or weakness may be evident in gait, posture, and coordinati on. Wasting , hypertroph y or contractur e of the muscles may also be evident. Muscle tone and strength are assessed. EMG and nerve conduction studies NCS measure the electrical activity and proper functionin g of muscles. X-ray, diagnose bone and joint disorders, differenti ating them from muscle disorders. Conservati ve treatment consists of stretching and strengthen ing exercises, possible NSAID, physical therapy and strapping. Injection for diagnostic and/or therapeuti c evaluation is indicated if no relief from conservati ve treatment is noted Advance di rective discussed with patient 760865413 Z71.89 Body mass index 25-29 - overweight 761477272 Z68.26 BMI 26.7 Administra tion of influenza vaccine 73567764 Z23 [id number] GENE TORO M.D. [facility] [address] [place] [address] 09/21/2021 09:39:15 09/27/2021 21:21:12 Cervical spondylosis 051117180 M47.812 Notes: Discussed cervicalgi a in detail with the patient. The pain may spread into the shoulder or down the arm. When a bone spur causes nerve root compressio n, extremity weakness may result. In rare cases, bone spurs that form at the front of the cervical spine, may cause dysphagia. Conservati ve treatment such as rest, ice, NSAID when appropriat e and HEP including stretching and strengthin g help alleviate symptoms. Physical Therapy is also beneficial . If no relief from conservati ve care, injection therapy may be indicated. Cervical radiculopathy 62526068 M54.12 Notes: Cervical radiculopa thy is pain and neurologic al symptoms resulting from any type of condition that irritates a nerve in the cervical spine.Cerv ical nerves exit the cervical spine at each level, and then branch out to supply muscles that enable the shoulders, arms, hands and fingers to function. They also carry sensory fibers to the skin and muscles that provide sensation. When any nerve root in the cervical spine is irritated through compressio n or inflammati on, the symptoms can radiate along that nerves pathway into the arm and hand. The patients specific cervical radiculopa thy symptoms will depend primarily on which nerve is affected. Multiple sclerosis 98288 007 G35 Long-term drug therapy 733339835 Z79.891 Lumbosacra l radiculitis 92958774 M54.17 Notes: Discussed radicular pain extend from the spinal cord down into the arms and legs. Inflammato ry irritation of the nerve root can produce severe pain. Such inflammati on most commonly arises from a disc injury such as HNP or DDD. Controllin g and decreasing the local inflammati on, will control and decrease the pain. Radiculopa thy can also produce numbness and/or weakness and may become permanent if the pressure is not relieved. Conservati ve treatment such as rest, ice, NSAID when appropriat e and HEP including stretching and strengthin g help alleviate symptoms. Physical Therapy is also beneficial . If no relief from conservati ve care, injection therapy is indicated. Non-Hodgki n's lymphoma (clinical) 458698063 C85.90 Osteoporosis 65310254 M8 1.0 Rheumatoid arthritis 698 14023 M05.29 [id number] GENE TORO M.D. [facility] [address] [place] [address] 10/26/2021 13:00:23 10/27/2021 17:58:30 Cervical spondylosis 527376240 M47.812 Notes: Discussed cervicalgi a in detail with the patient. The pain may spread into the shoulder or down the arm. When a bone spur causes nerve root compressio n, extremity weakness may result. In rare cases, bone spurs that form at the front of the cervical spine, may cause dysphagia. Conservati ve treatment such as rest, ice, NSAID when appropriat e and HEP including stretching and strengthin g help alleviate symptoms. Physical Therapy is also beneficial . If no relief from conservati ve care, injection therapy may be indicated. Cervical radiculopathy 62630137 M54.12 Notes: Cervical radiculopa thy is pain and neurologic al symptoms resulting from any type of condition that irritates a nerve in the cervical spine.Cerv ical nerves exit the cervical spine at each level, and then branch out to supply muscles that enable the shoulders, arms, hands and fingers to function. They also carry sensory fibers to the skin and muscles that provide sensation. When any nerve root in the cervical spine is irritated through compressio n or inflammati on, the symptoms can radiate along that nerves pathway into the arm and hand. The patients specific cervical radiculopa thy symptoms will depend primarily on which nerve is affected. Multiple sclerosis 89185 007 G35 Long-term drug therapy 759865968 Z79.891 Lumbosacra l radiculitis 17486432 M54.17 Notes: Discussed radicular pain extend from the spinal cord down into the arms and legs. Inflammato ry irritation of the nerve root can produce severe pain. Such inflammati on most commonly arises from a disc injury such as HNP or DDD. Controllin g and decreasing the local inflammati on, will control and decrease the pain. Radiculopa thy can also produce numbness and/or weakness and may become permanent if the pressure is not relieved. Conservati ve treatment such as rest, ice, NSAID when appropriat e and HEP including stretching and strengthin g help alleviate symptoms. Physical Therapy is also beneficial . If no relief from conservati ve care, injection therapy is indicated. Non-Hodgki n's lymphoma (clinical) 576553730 C85.90 Osteoporosis 44131740 M8 1.0 Rheumatoid arthritis 698 30975 M05.29 [id number] GENE TORO M.D. [facility] [address] [place] [address] 12/06/2021 09:12:51 12/06/2021 20:26:10 Cervical spondylosis 047427326 M47.812 Notes: Discussed cervicalgi a in detail with the patient. The pain may spread into the shoulder or down the arm. When a bone spur causes nerve root compressio n, extremity weakness may result. In rare cases, bone spurs that form at the front of the cervical spine, may cause dysphagia. Conservati ve treatment such as rest, ice, NSAID when appropriat e and HEP including stretching and strengthin g help alleviate symptoms. Physical Therapy is also beneficial . If no relief from conservati ve care, injection therapy may be indicated. Cervical radiculopathy 57407784 M54.12 Notes: Cervical radiculopa thy is pain and neurologic al symptoms resulting from any type of condition that irritates a nerve in the cervical spine.Cerv ical nerves exit the cervical spine at each level, and then branch out to supply muscles that enable the shoulders, arms, hands and fingers to function. They also carry sensory fibers to the skin and muscles that provide sensation. When any nerve root in the cervical spine is irritated through compressio n or inflammati on, the symptoms can radiate along that nerves pathway into the arm and hand. The patients specific cervical radiculopa thy symptoms will depend primarily on which nerve is affected. Multiple sclerosis 83821 007 G35 Long-term drug therapy 614664587 Z79.891 [employer]UC[employer] PROVIDED Lumbosacra l radiculitis 88559855 M54.17 Notes: Discussed radicular pain extend from the spinal cord down into the arms and legs. Inflammato ry irritation of the nerve root can produce severe pain. Such inflammati on most commonly arises from a disc injury such as HNP or DDD. Controllin g and decreasing the local inflammati on, will control and decrease the pain. Radiculopa thy can also produce numbness and/or weakness and may become permanent if the pressure is not relieved. Conservati ve treatment such as rest, ice, NSAID when appropriat e and HEP including stretching and strengthin g help alleviate symptoms. Physical Therapy is also beneficial . If no relief from conservati ve care, injection therapy is indicated. Non-Hodgki n's lymphoma (clinical) 921496538 C85.90 Osteoporosis 42728309 M8 1.0 Rheumatoid arthritis 698 60372 M05.29 [id number] GENE TORO M.D. [facility] [address] [place] [address] 01/04/2022 15:56:22 01/04/2022 22:07:43 Cervical spondylosis 427941728 M47.812 Notes: Discussed cervicalgi a in detail with the patient. The pain may spread into the shoulder or down the arm. When a bone spur causes nerve root compressio n, extremity weakness may result. In rare cases, bone spurs that form at the front of the cervical spine, may cause dysphagia. Conservati ve treatment such as rest, ice, NSAID when appropriat e and HEP including stretching and strengthin g help alleviate symptoms. Physical Therapy is also beneficial . If no relief from conservati ve care, injection therapy may be indicated. Cervical radiculopathy 11924315 M54.12 Notes: Cervical radiculopa thy is pain and neurologic al symptoms resulting from any type of condition that irritates a nerve in the cervical spine.Cerv ical nerves exit the cervical spine at each level, and then branch out to supply muscles that enable the shoulders, arms, hands and fingers to function. They also carry sensory fibers to the skin and muscles that provide sensation. When any nerve root in the cervical spine is irritated through compressio n or inflammati on, the symptoms can radiate along that nerves pathway into the arm and hand. The patients specific cervical radiculopa thy symptoms will depend primarily on which nerve is affected. Multiple sclerosis 81861 007 G35 Long-term drug therapy 541977462 Z79.891 Lumbosacra l radiculitis 60284972 M54.17 Notes: Discussed radicular pain extend from the spinal cord down into the arms and legs. Inflammato ry irritation of the nerve root can produce severe pain. Such inflammati on most commonly arises from a disc injury such as HNP or DDD. Controllin g and decreasing the local inflammati on, will control and decrease the pain. Radiculopa thy can also produce numbness and/or weakness and may become permanent if the pressure is not relieved. Conservati ve treatment such as rest, ice, NSAID when appropriat e and HEP including stretching and strengthin g help alleviate symptoms. Physical Therapy is also beneficial . If no relief from conservati ve care, injection therapy is indicated. Non-Hodgki n's lymphoma (clinical) 010513423 C85.90 Osteoporosis 03119883 M8 1.0 Rheumatoid arthritis 698 90540 M05.29 [id number] GENE TORO M.D. [facility] [address] [place] [address] 02/15/2022 13:11:33 02/17/2022 11:52:01 Long-term drug therapy 947092222 Z79.899 Cervical radiculopathy 40494898 M54.12 Notes: Cervical radiculopa thy is pain and neurologic al symptoms resulting from any type of condition that irritates a nerve in the cervical spine.Cerv ical nerves exit the cervical spine at each level, and then branch out to supply muscles that enable the shoulders, arms, hands and fingers to function. They also carry sensory fibers to the skin and muscles that provide sensation. When any nerve root in the cervical spine is irritated through compressio n or inflammati on, the symptoms can radiate along that nerves pathway into the arm and hand. The patients specific cervical radiculopa thy symptoms will depend primarily on which nerve is affected. 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 The pain may spread into the shoulder or down the arm. When a bone spur causes nerve root compressio n, extremity weakness may result. In rare cases, bone spurs that form at the front of the cervical spine, may cause dysphagia. Conservati ve treatment such as rest, ice, NSAID when appropriat e and HEP including stretching and strengthen ing help alleviate symptoms. Physical Therapy is also beneficial . If no relief from conservati ve care, injection therapy may be indicated. Chronic pain syndrome 37 0078910 G89.4 Notes: Pain Management : Medication Management Evaluation 1. Diagnosis reviewed and clinical options reviewed for necessity of medication management . 2. Medication types, classes , amounts, dosages, and refills reviewed with verificati on. 3. Reviewed analgesic response, adverse side effects, aberrant behavior, physical activity , and affect. 4. Reviewed risk stratifica tion for ongoing medication management . 5. Checked urine drug screening, and genetic metabolism testing if appropriat e. 6. Reviewed safe and appropriat e storage of medication s. 7. Discussed pharmacy dispensing and monitoring . 8. Determined appropriat e return to clinic interval. Medication s ordered as below. Lumbosacra l radiculitis 59456212 M54.17 Notes: Discussed radicular pain extend from the spinal cord down into the arms and legs. Inflammato ry irritation of the nerve root can produce severe pain. Such inflammati on most commonly arises from a disc injury such as HNP or DDD. Controllin g and decreasing the local inflammati on, will control and decrease the pain. Radiculopa thy can also produce numbness and/or weakness and may become permanent if the pressure is not relieved. Conservati ve treatment such as rest, ice, NSAID when appropriat e and HEP including stretching and strengthen ing help alleviate symptoms. Physical Therapy is also beneficial . If no relief from conservati ve care, injection therapy is indicated. Spasm of back muscles 20 2636391 M62.830 Body mass index 25-29 - overweight 094414260 Z68.26 BMI 25.9 At moderat e risk for fall 8245173465 90557486 Z91.89 Depression screening 171 370176 Z13.31 Advance di rective discussed with patient 564216990 Z71.89 Influenza 9674392 J11.1 Medication review done by doctor 396669861 Z76.89 [id number] GENE TORO M.D. [facility] [address] [place] [address] 03/15/2022 12:56:50 03/16/2022 09:55:28 Long-term drug therapy 890246928 Z79.899 Cervical radiculopathy 80469329 M54.12 Notes: Cervical radiculopa thy is pain and neurologic al symptoms resulting from any type of condition that irritates a nerve in the cervical spine.Cerv ical nerves exit the cervical spine at each level, and then branch out to supply muscles that enable the shoulders, arms, hands and fingers to function. They also carry sensory fibers to the skin and muscles that provide sensation. When any nerve root in the cervical spine is irritated through compressio n or inflammati on, the symptoms can radiate along that nerves pathway into the arm and hand. The patients specific cervical radiculopa thy symptoms will depend primarily on which nerve is affected. 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 Diagnosis reviewed and clinical options reviewed for necessity of medication management . 2. Medication types, classes , amounts, dosages, and refills reviewed with verificati on. 3. Reviewed analgesic response, adverse side effects, aberrant behavior, physical activity , and affect. 4. Reviewed risk stratifica tion for ongoing medication management . 5. Checked urine drug screening, and genetic metabolism testing if appropriat e. 6. Reviewed safe and appropriat e storage of medication s. 7. Discussed pharmacy dispensing and monitoring . 8. Determined appropriat e return to clinic interval. Medication s ordered as below. [id number] GENE TORO M.D. 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 [facility] [address] [place] [address] 04/13/2022 09:33:11 04/13/2022 22:28:21 Cervical radiculopathy 78102860 M54.12 Notes: Cervical radiculopa thy is pain and neurologic al symptoms resulting from any type of condition that irritates a nerve in the cervical spine.Cerv ical nerves exit the cervical spine at each level, and then branch out to supply muscles that enable the shoulders, arms, hands and fingers to function. They also carry sensory fibers to the skin and muscles that provide sensation. When any nerve root in the cervical spine is irritated through compressio n or inflammati on, the symptoms can radiate along that nerves pathway into the arm and hand. The patients specific cervical radiculopa thy symptoms will depend primarily on which nerve is affected. 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 2994078495 4075310 M70.61 Spasm of back muscles 20 1875571 M62.830 Herpes zoster 3136342 B0 2.9 Long-term drug therapy 016930022 Z79.899 Health Concerns Section Related Observation LastModified by Organization Detai ls LastModified Time None Recorded Concern Status LastModified by Organization Details LastModified Time None Recorded Advance Directives Directive N: Payers Encounter Date Sequence Insurance Name Policy Number Policy Ramirez Covered Member ID Ramirez Member ID Guarantor Name 02/15/2022 1 [employer] (MEDICARE REPLACEMENT PPO) [id number] Janeth Rosas Berrios [id number] Janeth Berrios 02/15/2022 2 [place] [id number] Janeth Alison Berrios [id number] Jaenth Berrios 03/15/2022 1 [employer] (MEDICARE REPLACEMENT PPO) [id number] Janeth Rosas Berrios [id number] Janeth Berrios 03/15/2022 2 [place] [employer] Janeth Rosas Berrios [id number] Janeth Berrios 03/23/2022 1 [employer] (MEDICARE REPLACEMENT PPO) [id number] L Janeth Rosas Berrios [id number] Janeth Berrios 04/07/2022 1 [employer] (MEDICARE REPLACEMENT PPO) [id number] L Janeth Rosas Berrios [id number] Janeth Berrios 04/13/2022 1 [employer] (MEDICARE REPLACEMENT PPO) [id number] L Janeth M Berrios [id number] Janeth Berrios Notes Date Note Type Note Provider Name and Address Organization Details Recorded Time 02/15/2022 text/html Pain Management C-spineReported bypatient.Location :radiating to RUE;radiating to LUE;radiating to bilateral UE;right shoulder pain;left shoulder pain;neck pain trapezius area bilateral Quality:throbbing; tightness;numbess; burning;sharp;ting ling;always the same Severity:same;inte rference with sleep;interference with work Duration:constant; pain at night Onset/Timing:chron ic Context:cannot identify Alleviating Factors:medication Aggravating Factors:cold weather; damp weather; lifting; looking down; looking up; sitting; turning to the left; turning to the right; twisting; movement/positioni ng Associated Symptoms:no bladder compromise; no bowel compromise;weaknes s;numbness Radiation Right:T1; C2-7; entire extremity; radial nerve Radiation Left:T1; C2-7; entire extremity; radial nerve Work Related:no ADL (Activities of Daily Living):walking; sweeping; mopping; improves with medication Pain Relief With Current Medications:70-80% ; 5-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 [address] [facility], [place], [address], [facility] 02/16/2022 20:12:25 03/15/2022 text/html Pain Management C-spineReported bypatient.Location :radiating to RUE;radiating to LUE;radiating to bilateral UE;right shoulder pain;left shoulder pain;neck pain trapezius area bilateral Quality:throbbing; tightness;numbess; burning;sharp;ting ling;always the same Severity:same;inte rference with sleep;interference with work Duration:constant; pain at night Onset/Timing:chron ic Context:cannot identify Alleviating Factors:medication Aggravating Factors:cold weather; damp weather; lifting; looking down; looking up; sitting; turning to the left; turning to the right; twisting; movement/positioni ng Associated Symptoms:no bladder compromise; no bowel compromise;weaknes s;numbness Radiation Right:T1; C2-7; entire extremity; radial nerve Radiation Left:T1; C2-7; entire extremity; radial nerve Work Related:no ADL (Activities of Daily Living):walking; sweeping; mopping; improves with medication Pain Relief With Current Medications:70-80% ; 5-6 hrs. 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 [address] [facility], [place], [address], [facility] 03/15/2022 21:55:57 03/23/2022 text/html Pain Management C-spineReported bypatient.Location :radiating to RUE;radiating to LUE;radiating to bilateral UE;right shoulder pain;left shoulder pain;neck pain trapezius area bilateral Quality:throbbing; tightness;numbess; burning;sharp;ting ling;always the same Severity:same;inte rference with sleep;interference with work Duration:constant; pain at night Onset/Timing:chron ic Context:cannot identify Alleviating Factors:medication Aggravating Factors:cold weather; damp weather; lifting; looking down; looking up; sitting; turning to the left; turning to the right; twisting; movement/positioni ng Associated Symptoms:no bladder compromise; no bowel compromise;weaknes s;numbness Radiation Right:T1; C2-7; entire extremity; radial nerve Radiation Left:T1; C2-7; entire extremity; radial nerve Work Related:no ADL (Activities of Daily Living):walking; sweeping; mopping; improves with medication Pain Relief With Current Medications:70-80% ; 5-6 hrs. 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 [address] [facility],[address], [place], [address], [facility] 03/27/2022 21:27:27 04/07/2022 text/html Pain Management C-spineReported bypatient.Location :radiating to RUE;radiating to LUE;radiating to bilateral UE;right shoulder pain;left shoulder pain;neck pain trapezius area bilateral Quality:throbbing; tightness;numbess; burning;sharp;ting ling;always the same Severity:same;inte rference with sleep;interference with work Duration:constant; pain at night Onset/Timing:chron ic Context:cannot identify Alleviating Factors:medication Aggravating Factors:cold weather; damp weather; lifting; looking down; looking up; sitting; turning to the left; turning to the right; twisting; movement/positioni ng Associated Symptoms:no bladder compromise; no bowel compromise;weaknes s;numbness Radiation Right:T1; C2-7; entire extremity; radial nerve Radiation Left:T1; C2-7; entire extremity; radial nerve Work Related:no ADL (Activities of Daily Living):walking; sweeping; mopping; improves with medication Pain Relief With Current Medications:70-80% ; 5-6 hrs. 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 [address] [facility], [place], [address], [facility] 05/02/2022 13:52:26 04/13/2022 text/html Pain Management C-spineReported bypatient.Location :radiating to RUE;radiating to LUE;radiating to bilateral UE;right shoulder pain;left shoulder pain;neck pain trapezius area bilateral Quality:throbbing; tightness;numbess; burning;sharp;ting ling;always the same Severity:same;inte rference with sleep;interference with work Duration:constant; pain at night Onset/Timing:chron ic Context:cannot identify Alleviating Factors:medication Aggravating Factors:cold weather; damp weather; lifting; looking down; looking up; sitting; turning to the left; turning to the right; twisting; movement/positioni ng Associated Symptoms:no bladder compromise; no bowel compromise;weaknes s;numbness Radiation Right:T1; C2-7; entire extremity; radial nerve Radiation Left:T1; C2-7; entire extremity; radial nerve Work Related:no ADL (Activities of Daily Living):walking; sweeping; mopping; improves with medication Pain Relief With Current Medications:70-80% ; 5-6 hrs. 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 [address], [place], [address], [facility] 04/13/2022 11:28:47 OBGyn Episode No OBEpisode recorded.
--- OUTSIDE RECORDS SUMMARY | 2024-09-26 11:27 | XMS_ITS | Data Portability ---
Author Organization [place] - [place] PIPER Arredondo, [id number] Address [address] [facility] [address] [place] [address] Assessment Encounter Date Assessment Date Assessment LastModified by Organization Details LastModified Time 03/21/2017 03/21/2017 57 year old female here with several concerns: 1) bleeding after intercourse- vaginal cultures done- use lubricant with intercourse- may need estrace cream- will await cultures. 2) occ RLQ pain with intercourse- urine sent for culture- pt. has had bowel resection- may have scar tissue. [email or web address] Not available 03/21/2017 12:05:16 Plan of Treatment Reminders Order Date Submit Date Provider Last Modified By Organization Details Last Modified Time Details Appointments None recorded. Lab bacterial vaginosis panel, vaginal 2016 017 [place] [address] [place] [address], [id number], 7 01:00:46 urinalysis , dipstick 2016 017 [email or web address] [id number] In-House Results, For Internal Use Only, Do Not Delete/merge, [id number] 7 12:03:45 culture, urine 2016 017 [place] [facility] ([facility]) , [facility] [address], [place], [address], 7 16:50:06 Referral None recorded. Procedures None recorded. Surgeries None recorded. Imaging None recorded. Medication Orders None recorded. Patient TargetsNo targets recorded. Patient InstructionsNo instructions recorded. Reason for Referral None Reported. Results Created Date Observation Date Name Description Value Unit Range Abnormal Flag Note LastModifiedBy Organization Detail LastModifiedTime 03/21/20 17 03/21/2017 urina lysis , dipst ick Unknown Analyte Clean Catch Not Available In-House Results For Internal Use Only, Do Not Delete/merge, 03/21/2017 11:22:56 03/21/20 17 03/21/2017 urina lysis , dipst ick Unknown Analyte Negati ve Not Available In-House Results For Internal Use Only, Do Not Delete/merge, 03/21/2017 11:22:56 03/21/20 17 03/21/2017 urina lysis , dipst ick Unknown Analyte Negati ve Not Available In-House Results For Internal Use Only, Do Not Delete/merge, 03/21/2017 11:22:56 03/21/20 17 03/21/2017 urina lysis , dipst ick Unknown Analyte Trace Not Available In-Naomy se Results For Internal Use Only, Do Not Delete/merge, 03/21/2017 11:22:56 03/21/20 17 03/21/2017 urina lysis , dipst ick Unknown Analyte 1.025 Not Available In-Naomy se Results For Internal Use Only, Do Not Delete/merge, 03/21/2017 11:22:56 03/21/20 17 03/21/2017 urina lysis , dipst ick Unknown Analyte Negati ve Not Available In-House Results For Internal Use Only, Do Not Delete/merge, 03/21/2017 11:22:56 03/21/20 17 03/21/2017 urina lysis , dipst ick Unknown Analyte 5.0 Not Available In-Naomy se Results For Internal Use Only, Do Not Delete/merge, 03/21/2017 11:22:56 03/21/20 17 03/21/2017 urina lysis , dipst ick Unknown Analyte Trace Not Available In-Naomy se Results For Internal Use Only, Do Not Delete/merge, 03/21/2017 11:22:56 03/21/20 17 03/21/2017 urina lysis , dipst ick Unknown Analyte 0.2 Not Available In-Naomy se Results For Internal Use Only, Do Not Delete/merge, 03/21/2017 11:22:56 03/21/20 17 03/21/2017 urina lysis , dipst ick Unknown Analyte negati ve Not Available In-House Results For Internal Use Only, Do Not Delete/merge, [id number] 03/21/2017 11:22:56 03/21/20 17 03/21/2017 urina lysis , dipst ick Unknown Analyte Small Not Available In-Naomy se Results For Internal Use Only, Do Not Delete/merge, 03/21/2017 11:22:56 03/21/20 17 03/21/2017 urina lysis , dipst ick Unknown Analyte Yellow Not Available In-Naomy se Results For Internal Use Only, Do Not Delete/merge, 03/21/2017 11:22:56 03/21/20 17 03/21/2017 urina lysis , dipst ick Unknown Analyte Cloudy Not Available In-Naomy se Results For Internal Use Only, Do Not Delete/merge, 03/21/2017 11:22:56 03/21/20 17 03/23/2017 bacte rial vagin osis panel , vagin al anisa glabrata by real-time PCR Negati ve normal Swab- 1 Vagin al Not Available [facility] [address] [place] [address], [id number], 03/25/2017 01:00:46 03/21/2003/24/2017 bacte rial vagin osis panel , vagin al gardnerella vaginalis by real-time PCR Positi ve abnormal Swab- 1 Vagin al Not Available [facility] ([facility]) [address] [place] [address], [id number], 03/25/2017 01:00:46 03/21/2003/24/2017 bacte rial vagin osis panel , vagin al atopobium vaginae by real-time PCR Positi ve abnormal Swab- 1 Vagin al Not Available [facility] ([facility] [address] [place] [address], [id number], 03/25/2017 01:00:46 03/21/2003/24/2017 bacte rial vagin osis panel , vagin al bacterial vaginosis associated bacterium 2 (bvab2) by real-time PCR Negati ve normal Swab- 1 Vagin al Not Available [facility] [address] [place] [address], [id number], 03/25/2017 01:00:46 03/21/20 17 03/24/2017 bacte rial vagin osis panel , vagin al megasphaera species (type 1 and type 2) by real-time PCR Negati ve normal Swab- 1 Vagin al Type1 :Nega tive Type2 :Nega tive. Not Available [facility] [address] [place] [address], [id number], 03/25/2017 01:00:46 03/21/2003/24/2017 bacte rial vagin osis panel , vagin al lactobacillu s (bv \T\ av panel) by real time PCR See Commen t normal Swab- 1 Vagin al L.cri spatu s: Negat surinder L.zoila senii : Posit surinder L.gas seri : Negat surinder L.ine rs : Negat surinder. Not Available [facility] ([facility]) [address] [place] [address], [id number], 03/25/2017 01:00:46 03/21/2003/24/2017 bacte rial vagin osis panel , vagin al anisa albicans by real-time PCR Negati ve normal Swab- 1 Vagin al Not Available [facility] ([facility] [address] [place] [address], [id number], 03/25/2017 01:00:46 03/21/20 17 03/24/2017 bacte rial vagin osis panel , vagin al anisa tropicalis by real-time PCR Negati ve normal Swab- 1 Vagin al Not Available [facility] ([facility]) [address] [place] [address], [id number], 03/25/2017 01:00:46 03/21/20 03/24/2017 bacte rial vagin osis panel , vagin al anisa parapsilosis by real-time PCR Negati ve normal Swab- 1 Vagin al Not Available [facility] ([facility]) [address] [place] [address], [place], [address], 03/25/2017 01:00:46 03/22/20 17 03/22/2017 cultu re, urine abnormal status normal Not Available [facility] ([facility]) [address] [place] [address] Chris El, [place], [address], 03/24/2017 16:50:06 Result Notes None recorded. Problems Name Problem SNOMED Code Status Onset Date Resolution Date Notes Provider Name and Address Organization Details Recorded Time Abnormal vaginal bleeding 584269111 Active 017 Eugencia Jaylen-Butn er (TERMED) [facility] 7 10:37:15 Problem Notes None recorded. 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 Procedure Notes None recorded. Medical Equipment None Reported. Allergies No known drug allergies Medications Name Sig Start Date Stop Date Status Note LastModified by Organization Details LastModified Time amoxicillin 500 mg capsule 03/21 completed Not Available Not Available Not Available nystatin 100,000 unit/mL oral suspension 03/21 completed Not Available Not Available Not Available doxycycline hyclate 100 mg capsule 03/21 completed Not Available Not Available Not Available carvedilol 12.5 mg tablet TK 1 T PO QD active Not Available Not Available No t Available naproxen 375 mg tablet active Not Available Not Available Not Available azithromyci n 250 mg tablet 03/21 completed Not Available Not Available Not Available fluconazole 150 mg tablet 03/21 completed Not Available Not Available Not Available benzonatate 200 mg capsule TK 1 C PO TID WITH WATER PRN COU active Not Available Not Available No t Available cephalexin 250 mg capsule 03/21 completed Not Available Not Available Not Available fluconazole 200 mg tablet 03/21 completed Not Available Not Available Not Available phenazopyri dine 200 mg tablet TK 1 T PO TID FOR 2 DAYS 03/21 completed Not Available Not Available Not Available prednisone 20 mg tablet 03/21 completed Not Available Not Available Not Available sertraline 100 mg tablet TK 1 T PO QD active Not Available Not Available No t Available moxifloxaci n 400 mg tablet TK 1 T PO D FOR 7 DAYS 03/21 completed Not Available Not Available Not Available phentermine 37.5 mg tablet TK 1 T PO BID active Not Available Not Available No t Available valacyclovi r 500 mg tablet active Not Available Not Available Not Available ciprofloxac in 500 mg tablet 03/21 completed Not Available Not Available Not Available bupropion HCl SR 100 mg tablet,12 hr sustained-r elease TK 1 T PO ONCE DAILY 03/21 completed Not Available Not Available Not Available amoxicillin 500 mg tablet 03/21 completed Not Available Not Available Not Available oxycodone-a cetaminophe n 5 mg-325 mg tablet 03/21 completed Not Available Not Available Not Available alprazolam 0.5 mg tablet TK 1 T PO BID PRN active Not Available Not Available No t Available oxycodone-a cetaminophe n 10 mg-325 mg tablet TK 1 T PO QID 03/21 completed Not Available Not Available Not Available triamcinolo ne acetonide 0.1 % topical ointment active Not Available Not Available Not Available montelukast 10 mg tablet active Not Available Not Available Not Available clindamycin 2 % vaginal cream Insert 1 applicato rful every day by vaginal route for 7 days. 2016 active Not Available Not Available Not Avai lable prednisone 5 mg tablets in a dose pack 03/21 completed Not Available Not Available Not Available cefuroxime axetil 500 mg tablet 03/21 completed Not Available Not Available Not Available methylpredn isolone 4 mg tablets in a dose pack TK UTD 03/21 completed Not Available Not Available Not Available ipratropium bromide 42 mcg (0.06 %) nasal spray 03/21 completed Not Available Not Available Not Available cefdinir 300 mg capsule 03/21 completed Not Available Not Available Not Available fluticasone propionate 50 mcg/actuati on nasal spray,suspe nsion 03/21 completed Not Available Not Available Not Available doxycycline hyclate 100 mg tablet 03/21 completed Not Available Not Available Not Available azithromyci n 500 mg tablet 03/21 completed Not Available Not Available Not Available ProAir HFA 90 mcg/actuati on aerosol inhaler INHALE 2 PUFFS PO Q 4 H PRN active Not Available Not Available No t Available Virtussin AC 10 mg-100 mg/5 mL oral liquid TK 5 ML PO Q 6 H PRN COU UTD 03/21 completed Not Available Not Available Not Available Vitals Date Recorded Body weight Body mass index (BMI) Body height Systolic blood pressure Diastolic blood pressure Provider Name and Address Organization Details Last Updated DateTime 03/21/2017 81426.97 g 26.4 kg/m2 152.4 cm 132 mm[Hg] 70 mm[Hg] Shimadavid combs (TERMED) [facility] [employer] 10:33:14 Social History Question Answer Notes LastModified by Organizat ion Details LastModified Time Tobacco Smoking Status Never Smoker Joaquin Corbin (TERMED) [facility] [employer] 03/21/2017 10:42:25 Do You Have An Advance Directive? No Information not available 03/21/2017 What Is Your Level Of Alcohol Consumption? Occasional Information not available 03/21/2017 What Is Your Level Of Caffeine Consumption? Moderate Information not available 03/21/2017 How Much Tobacco Do You Chew? None Information not available 03/21/2017 What Type Of Diet Are You Following? 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 No Information not available 03/21/2017 Illicit Drugs? No Informat ion not available 03/21/2017 Marital Status Informat ion not available 03/21/2017 What Was The Date Of Your Most Recent Tobacco Screening? 03/21/2017 Information not available 03/07/2019 Seat Belts Used Routinely Yes Information not available 03/21/2017 Smoke Alarm In Home Yes Information not available 03/21/2017 General Stress Level Medium Information not available 03/21/2017 Do You Use Sunscreen Routinely? Yes Information not available 03/21/2017 Sex: Unknown Functional Status Question Answer Note LastModified by Organizat ion Details LastModified Time What is your exercise level? Occasional Information not available 03/21/2017 Mental Status None recorded. Family History Relationship Description Onset Age of this Age Resolved Age Notes LastModified by Organization Details LastModified Time Father No current problems or disability [email or web address] Not available 10:42:15 Mother No current problems or disability [email or web address] Not available 10:42:15 Medical History Condition Response GI- Hemorrhoids N Neurology-Other N Hematology-Blood Clotting Disorder/Facto r V Leiden N Neurology- Stroke/TIA N Dermatology-Acne N Endocrinology-Other N Endocrinology- Osteoporosis Y Psych- Depression N Hematology-Other N Hematology-Anemia N Ortho-Chronic Back Pain Y Dermatology-Other N Dermatology-Eczema/Psoriasis N Rheumatology-Autoimmune Disease Y Cardiology- High Cholesterol N Cancer- Ovary N Cardiology- Heart Arrhythmia N Psych-other N Hematology-DVT/Pulmonary Embolism N Neurology- Seizures/Epilepsy N Cancer- Breast N Ortho-Fractures N Psych- ADD N GI- Liver Disease/Hepatitis N Weight Management/Obesity N Psych- PMS/PMDD N Pulmonary-Other N Cancer- Colon N ENT- Hearing Loss Y Cancer- Vulvar N Psych- Anxiety Disorder N Cancer- Vaginal N GI- Reflux/Ulcers N GI-Other N Rheumatology-Arthritis Y Neurology- Headaches/Migraines N Hematology-Bleeding Disorder N Endocrinology- Diabetes N ID-Chicken Pox/Shingles Y Cancer- Cervical N Cancer- Skin N Pulmonary- COPD/Emphysema N Cardiology- Heart Disease N GI- Irritable Bowel Syndrome N ID-HIV N GI- Colon Polyps Y GI- Crohn's/Ulcerative Colitis N Endocrinology- Osteopenia Y Psych- Bipolar Disease N Cardiology- High Blood Pressure Y Cancer- Lung N Cancer- Endometrial/Uterine N Eyes- Vision Loss/Macular Degeneration N ENT-Other N ID-Other N Psych- Eating Disorder N Rheumatology-Other N Hematology-Blood Transfusion Y Pulmonary- Asthma N Urology- Hematuria (Blood in Urine) N Pulmonary- Sleep Apnea Y Neurology- Dementia Y Urology- Interstitial Cystitis N Urology- Stones Y ID-MRSA Y Cancer-Other Y GI- Gallbladder Disease Y Gynecological History Statement/Question Response Date of Last Mammogram Date of LMP Age at Menopause 42 Age at Menarche 12 Post Menopausal Hormone Use Past Use History of Endometriosis N History of Cervical Dysplasia Y Age at first intercourse 18 Date of Last Colonoscopy Sexually active Y Current Control Method: Hysterecto my History of Sexually Transmitted Infectio n N History of Infertility N HPV Vaccine Not applicable Date of last bone density History of abnormal PAP Y Date of Last Pap Smear History of Recurrent Ovarian Cyst N History of Fibroids Y History of PCOS N Obstetrics History GPAL:G 1 P 1 0 0 1 Type Value Full Term 1 Living 1 Total 1 Past Encounters Encounter ID Performer Location Encounter Start Date Encounter Closed Date Diagnosis/Indication Diagnosis SNOMED-CT Code Diagnosis ICD10 Code Diagnosis Note [id number] BRITTNEY SANCHEZ CC185_([facility] O[facility]) [place] [address] [place] [address] 03/21/2017 10:19:03 03/21/2017 11:26:36 Pain in pelvis 57615926 R10.2 Vaginal discharge 714382 006 N89.8 Dyspareunia 61090069 N94 .10 Health Concerns Section Related Observation LastModified by Organization Detai ls LastModified Time None Recorded Concern Status LastModified by Organization Details LastModified Time None Recorded Advance Directives Directive N: Payers Encounter Date Sequence Insurance Name Policy Number Policy Ramirez Covered Member ID Ramirez Member ID Guarantor Name 03/21/2017 1 [place] Janeth Berrios [id number] Janeth Berrios Notes Date Note Type Note Provider Name and Address Organization Details Recorded Time 03/21/2017 text/html 57 year old alley moreland 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 She states she has bleeding after intercourse and R side pelvic pain. Had a complete hyst with BSO and then needed a bowel resection after- 2011. Had [facility] pap in past but no HPV typing done- colposcopy was normal and repaps in 2014 and 2015 were normal. Get's occ RLQ pain- more with intercourse. Occ bleeding after intercourse only when she wipes- denies any discharge, itching, odor or vaginal dryness. BRITTNEY SANCHEZ [address] [facility], [address], [place], [address], [facility], [facility] 03/21/2017 12:05:38 OBGyn Episode No OBEpisode recorded.
[2024-09-27 07:54] LABS: HBc Num1 0.15 S/CO (0.00-0.79); HBsAGNum1 0.19 S/CO (0.00-0.99); Hepatitis B Core Antibody Nonreactive (Nonreactive); Hepatitis B Surface Antigen Negative (Negative); ~HepC Num1 0.02 S/CO (0.00-0.79); ~Hepatitis B Surface Antibody REACTIVE (Nonreactive); ~Hepatitis C Antibody Nonreactive (Nonreactive)
== END 2024-09-26 10:45 | disposition home or self-care (01) ==
LOC: HO.WFDLDS 10:44
PROVIDERS: Visit Provider Family Medicine
DX: Z20.5 Contact with and (suspected) exposure to viral hepatitis (principal); Z11.3 Encounter for screening for infections with a predominantly sexual mode of transmission; R73.03 Prediabetes; E66.3 Overweight; Z68.27 Body mass index [BMI] 27.0-27.9, adult; Z71.3 Dietary counseling and surveillance
CPT/HCPCS: 36415; 83036; 86704; 86706; 86803; 87340; 99212

== ENCOUNTER 2024-10-30 09:49 | Outpatient (AMB) | payer MEDICARE, SELFPAY ==
--- NOTE | 2024-10-30 09:35 | A.OFFPC_ITS ---
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 Notes hx of sleep apnea. Had not been able to tolerate her last CPAP mask. 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 Jim Darden, Elke Barbosa, Ike Bowser and colleagues, with an educational rina from [employer]. Physical exam (Primary Care) Tobacco/Smoking Status: Tobacco use Status Tobacco use date assessed 03/21/24 10/30/24 09:38 Patient Tobacco Use Status Never used Tobacco 10/30/24 09:38 e-Cigarette/Vaping Use Never Used 10/30/24 09:38 Thrive Assessment: Date of Thrive Assessment Date Thrive assessed 03/21/24 10/30/24 09:38 Telehealth Telehealth Telehealth Platform: Telephone Location of provider rendering services: practice address Location of patient: address on file Patient Identification confirmed using: Name, : Yes Telehealth method: voice only Patient verbally consented to treatment: Yes Patient verbally consented to billing insurance company: Yes Patient informed of any privacy concerns related to visit: Yes Coding Level of Care Code Tele Est Pt Level 2 (21967) Diagnoses Exposure to hepatitis C Z20.5 Overweight E66.3 Sleep apnea G47.30 Assessment & Plan Assessment & Plan (1) Exposure to hepatitis C: Code(s): Z20.5 - Contact with and (suspected) exposure to viral hepatitis Category: Medical Plan: Patient?is?partner?had?hepatitis?C?and?was?treated?and?re cently?had?liver?transplant. Testing?for?hep?C?is?negative?for?patient (2) Overweight: Code(s): E66.3 - Overweight Category: Medical Plan: Patient?was?prescribed?Ozempic?but?this?was?declined?by?her?insurance. She?has?a?history?of?sleep?apnea?so?may?qualify Sending?patient?for?sleep?study?as?he?has?not?had?what?some?time. (3) Sleep apnea: Comment: states tried CPAP, could not use, better with weight loss Code(s): G47.30 - Sleep apnea, unspecified Category: Medical Plan: As?above,?history?of?sleep?apnea. Patient?has?gained?weight?and?notes?that?she?has?gasping?she?is?sleeping Referred?to?Sleep?Medicine Orders: Referrals Sleep Medicine Referral G47.30 - Sleep apnea, unspecified Medications: Refilled sertraline 100 mg PO QAM 90 days 90 tabs 3RF
== END 2024-10-30 17:05 | disposition home or self-care (01) ==
LOC: HO.HMCFM 09:49
PROVIDERS: PCP Family Medicine; Visit Provider Family Medicine
DX: G47.30 Sleep apnea, unspecified (principal); Z20.5 Contact with and (suspected) exposure to viral hepatitis; E66.3 Overweight

== ENCOUNTER → 2024-10-30 09:49 | Outpatient (BNVA) | payer MEDICARE, SELFPAY | PROVIDERS: PCP Family Medicine; Visit Provider Family Medicine ==

== ENCOUNTER 2024-11-21 09:49 | Outpatient (AMB) | payer MEDICARE, SELFPAY ==
--- NOTE | 2024-11-21 10:25 | A.OFFPC_ITS ---
Vital Signs 11/21/24 10:29 Height 4 ft 11 in Weight 135 lb BMI 27.3 BP 126/50 L Blood Pressure Location Lt brachial Position Sitting Respiration 14 Pulse 85 Pulse Source Pulse Oximeter Temp 98.7 F Temp Source Oral Pulse Oximetry (%) 98 Oxygen Delivery Method Room Air Intake Visit Reasons: tooth pain (left) Intake Note: patient is scheduled for tooth pain Public Service Director Required: No Allergies Seasonal Allergies Allergy (Intermediate, Verified 11/21/24 10:26) Cough Medication List - Last Reconciled 11/21/24 by Salo Young MD albuterol sulfate 90 mcg/actuation 2 puffs inhalation Q4-6H PRN 30 days atorvastatin 40 mg PO BEDTIME 90 days baclofen 10 mg PO BID 30 days carvedilol 12.5 mg PO BID 90 days losartan 25 mg PO DAILY 90 days meclizine 12.5 mg PO TID PRN meloxicam 15 mg PO BEDTIME 30 days montelukast 10 mg PO QAM 90 days naloxone 4 mg/actuation 4 mg intranasal Q2M PRN 30 days oxycodone-acetaminophen 5-325 mg (Percocet) 2 tabs orally 3 times a day PRN; [employer] verified. Partial refill upon request. 30 days penicillin V potassium 500 mg PO TID 10 days polyethylene glycol 3350 (Miralax) 17 grams PO DAILY semaglutide 1 mg (0.75 mL) subcut QWEEK 84 days sertraline 100 mg PO QAM 90 days [thumb spica right hand, wear nightly & as much as possible throughout the day] [wrist splint wear nightly and as much as possible throughout the day] Tobacco use date assessed: 03/21/24 Dental Screening Dental Screen Date: 03/21/24 HPI tooth pain (left) HPI Details 64 y/o female presents today with compla ints of tooth pain. 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 Encounter for testing for latent tuberculosis infection Multiple sclerosis Non-Hodgkin's lymphoma in remission Surgical History Hx of foot surgery Hx of cystoscopy Hx of colonoscopy History of esophagogastroduodenoscopy (EGD) Hx of hysterectomy Hx of hernia repair History of cholecystectomy Family History Mother Lung cancer Sister Lung cancer Social History (Updated 03/21/24 @ 11:17 [facility] Household Members: Family Housing: House Are you a primary health care administrator to a significant other at home: No Do you presently have visiting nurse or other home services: No Alcohol intake: current Alcohol intake frequency: a few times a month Alcohol type: wine Patient Tobacco Use Status: Never used Tobacco e-Cigarette/Vaping Use: Never Used service: No Current occupational status: disabled 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 Jim Darden, Elke Barbosa, Ike Bowser and colleagues, with an educational rina from [employer]. Review of Systems Const Denies chills, Denies fatigue, Denies fever(s), Denies headache(s) and Denies weakness ENT Details: L jaw pain/tooth pain Denies dizziness and Denies headache(s) Card Denies chest pain, Denies lightheadedness, Denies dyspnea and Denies other (Palpitations) Resp Denies cough, Denies dyspnea, Denies wheezing and Denies other ( shortness of breath) Musc Denies numbness and Denies tingling Neuro Denies dizziness, Denies headache(s), Denies numbness, Denies tingling, Denies paresthesias and Denies weakness Psych Denies anxiety and Denies depression Endo Denies fatigue Aller/Immun Denies wheezing Physical exam (Primary Care) Vital Signs: Last Vital Signs Temp 98.7 F 11/21/24 10:29 Pulse 85 11/21/24 10:29 Resp 14 11/21/24 10:29 BP 126/50 L 11/21/24 10:29 Pulse Ox 98 11/21/24 10:29 Oxygen Delivery Method Room Air 11/21/24 10:29 BMI result Body Mass Index 27.3 Tobacco/Smoking Status: Tobacco use Status Tobacco use date assessed 03/21/24 11/21/24 10:29 Patient Tobacco Use Status Never used Tobacco 11/21/24 10:29 e-Cigarette/Vaping Use Never Used 11/21/24 10:29 Thrive Assessment: Date of Thrive Assessment Date Thrive assessed 03/21/24 11/21/24 10:29 Const General: no acute distress and well developed; No acute distress Nutritional Appearance: well nourished Orientation/consciousness: patient oriented x3 HENMT Other: L lower molar w/ swollen erythematous gums and pus. Jaw swelling. Head: Yes normocephalic and Yes atraumatic Eyes General: appearance normal, both eyes and all related structures Pupils: Equal, round and reactive pupils present EOM: EOMs intact bilaterally Resp Effort & Inspection: normal respiratory effort Auscultation: clear to auscultation bilaterally Cardio Rate: regular rate Rhythm: regular rhythm Heart sounds: S1 normal heart sound present, S2 normal heart sound present, no gallops, no murmurs and no rubs Neuro General: patient oriented x3 and gait normal Cranial nerves: Yes Equal, round and reactive pupils present Psych Affect: normal affect Coding Level of Care Code Est Pt Level 3 (88389) Diagnoses Dental abscess K04.7 Assessment & Plan Assessment & Plan (1) Dental abscess: Code(s): K04.7 - Periapical abscess without sinus Category: Medical Plan: Dental?abscess?at?left?lower?molar?with?erythema,?swelling?and?pus?at?gum?line Start?penicillin?VK Warm?saltwater?gargles Warm?compresses Advised?she?seek?definitive?care?with?a?dentist?as?soon?as?possible Medications: New penicillin V potassium 500 mg PO TID 30 tabs 0RF 10 days
[2024-11-21 10:29] VITALS: BP 126/50; PULSE 85; RESP 14; TEMP 37.1; O2SAT 98; BMI 27.3
--- OUTSIDE RECORDS SUMMARY | 2024-11-21 11:10 | XMS_ITS | Data Portability ---
Author Organization AJAY colin MD, [facility] Address [address] [place] [address] Assessment Encounter Date Assessment Date Assessment LastModified [...] bowel habits. Last colonoscopy was in 2015. Has been placed on Amitiza. Is currently on pain meds. Due to change in bowel habits will perform a colonoscopy for evaluation. No reports of abdominal pain or blood in the stool. [email or web address] Not available 12/14/2020 13:47:32 Plan of Treatment [...] en No observ ation record ed. [email or web address] [facility] [address], [place], [address], 03/13/2020 12:46:40 Result Notes None recorded. Problems Name Problem SNOMED Code Status Onset Date Resolution Date Notes Provider Name and Address Organization Details Recorded Time Constipation 43576378 Active 021 BRITTNEY Peralta [place] - Domingo [...] LastModified Time 03/11/2020 US, abdomen completed [email or web address] [facility] [address], [place], [address], 03/13/2020 12:46:40 Procedure Notes None recorded. Medical [...] Details Last Updated DateTime 1 27.8 kg/m2 40613.2 7 g 96 [degF] 64 /min 118 mm[Hg] 60 mm[Hg] ALVARADO Reaves MD 1 12:51:43 Date Recorded Body height Body mass index (BMI) Body weight Systolic blood pressure Diastolic blood pressure Provider Name and Address Organization Details Last Updated DateTime 07/09/2018 152.4 cm 25 kg/m2 65813.82 g 135 mm[Hg] 73 mm[Hg] jim jack Dumont MD 8 09:51:37 Date Recorded Body height Body mass index (BMI) Body weight Systolic blood pressure Diastolic blood pressure Provider Name and Address Organization Details Last Updated DateTime 08/01/2018 152.4 cm 25 kg/m2 03827.82 g 135 mm[Hg] 79 mm[Hg] stanley Dumont MD 8 10:12:35 Social History Question Answer Notes LastModified by Organizat ion Details LastModified Time Tobacco Smoking Status Never Smoker Not Available [facility] 05/28/2020 03:13:28 Do You Have An Advance [...] Many Years Have You Smoked Tobacco? 0 [id number] Information not available 05/28/2020 Sex: Unknown Functional [...] Gout N Other N Kidney Stones Y COPD N Depression N Osteoporosis/Osteopenia Y Anemia N Diverticulosis/Diverticulitis Y Colon Polyps Y GERD/Acid Reflux N Deep Vein Thrombosis N Anxiety Disorder N Diabetes N Autoimmune disease N Hemorrhoids Y Bleeding [...] quadrivalent, preservative 0 completed Brandy Pike LPN [place], [place] - Edenilson Dumont MD 12/14/2020 12:47:30 Past Encounters Encounter ID Performer Location Encounter Start Date Encounter Closed Date Diagnosis/Indication Diagnosis SNOMED-CT Code Diagnosis ICD10 Code Diagnosis Note [id number] Edenilson Dumont MD Main Office [address] [place] [address] 05/14/2018 11:58:15 05/16/2018 15:14:56 Ultrasound scan abnormal [id number] R93.89 Today I did a right groin ultrasound dynamic. With a linear probe. Patient does have a small right inguinal hernia. Right inguinal hernia 23 9066447 K40.90 We will schedule patient for open right inguinal hernia. Inguinal hernia 53914188 0 K40.90 Gave the patient for an open right inguinal hernia repair [id number] Edenilson Dumont MD Main Office [address] [place] [address] 07/09/2018 09:10:56 07/09/2018 10:45:28 [id number] Edenilson Dumont MD Main Office [address] [place] [address] 08/01/2018 09:20:43 08/01/2018 10:38:00 [id number] BRITTNEY Peralta Main Office [address] [place] [address] 12/14/2020 12:08:02 12/14/2020 14:53:29 Constipation 15087542 K59.00 We will schedule colonoscop y. Bowel prep instructio ns provided. Health Concerns Section Related Observation LastModified by Organization Detai ls LastModified Time None Recorded Concern Status LastModified by Organization Details LastModified Time None Recorded Advance Directives Directive N: Payers Encounter Date Sequence Insurance Name Policy Number Policy Ramirez Covered Member ID Ramirez Member ID Guarantor Name 05/14/2018 1 [place] Janeth Berrios [id number] Janeth Berrios 05/14/2018 2 [place] [id number] [facility] [place] [facility] (SECONDARY TO MEDICARE) Janeth Berrios [id number] Janeth Berrios 07/09/2018 1 [place] Janeth Berrios [id number] Janeth Berrios 07/09/2018 2 [place] [employer] [place] (SECONDARY TO MEDICARE) Janeth Berrios [id number] Janeth Berrios 08/01/2018 1 [place] Janeth Berrios [id number] Janeth Berrios 08/01/2018 2 [place] [employer] [facility] [place] (SECONDARY TO MEDICARE) Janeth Berrios [id number] Janeth Berrios 12/14/2020 1 [employer] (MEDICARE REPLACEMENT PPO) [id number] Janeth Berrios [id number] Janeth Rosas Berrios 12/14/2020 2 [place]: [facility] [place] [facility] (SECONDARY TO MEDICARE) Janeth Rosas Berrios [id number] Janeth Berrios Notes Date Note Type Note [...] years ago grossly [place] [address], [place], [address], [facility] Danette Dumont MD 07/09/2018 10:32:52 08/01/2018 text/html HerniaReported bypatient.Notes:Tona ent status post open right inguinal hernia repair patient doing well denies any pain [place] [address], [place], [address], [facility] Danette Dumont MD 08/01/2018 10:18:04 12/14/2020 text/html [...] or blood in the stool. BRITTNEY Peralta [place] Danette Dumont MD 12/14/2020 13:48:38 OBGyn Episode No OBEpisode recorded.
--- OUTSIDE RECORDS SUMMARY | 2024-11-21 11:10 | XMS_ITS | Data Portability ---
Author Organization [place] - [facility], [facility] Address [address] [address] [facility] [place] [address] Assessment No assessment recorded. Plan of Treatment Reminders Order Date Submit Date Provider Last Modified By Organization Details Last Modified Time Details Appointments None recorded. Lab lipid panel, blood 2020 021 [facility], [address], [place], [address], 10:56:54 TSH, serum, reflex free T4 2020 021 [facility], [address], [place], [address], 10:56:55 CMP, serum or plasma 2020 021 [facility], [address], [place], [address], 10:56:55 Referral None recorded. Procedures None recorded. Surgeries None recorded. Imaging None recorded. Medication Orders phentermine 37.5 mg tablet 2020 021 [facility] #[id number], [address] [place], [place], [id number], 09:44:30 phentermine 37.5 mg tablet 2020 021 [facility][id number], [address] [place], [place], [id number], 22:13:56 phentermine 37.5 mg tablet 2020 021 [facility] #[id number], [address], [place], [place], [id number], 17:20:00 Patient TargetsNo targets recorded. Patient Instructions Encounter Date Encounter Id Patient Instructions Last Modified By Organization Details Last Modified Time 02/23/2021 [id number] rhythm strip, EKG* Not available 02/25/2021 11:25:55 [...] 2WEEKS [email or web address] Not available 02/23/2021 18:12:48 05/03/2021 [id number] 05/03/21 CT IS A 61 YEAR OLD [...] 2WEEKS tlouissaint Not available 05/04/2021 09:32:16 06/21/2021 [id number] 06/21/2021 CT IS A 61 YEAR OLD [...] 4WEEKS tlouissaint Not available 06/21/2021 15:04:42 07/26/2021 [id number] 07/26/2021 CT IS A 61 YEAR OLD [...] Organization Details Recorded Time Increased blood pressure 50818820 Active 021 RAVEN Solomon [address], [place], [address], [facility] 1 18:06:19 Overweight 135846701 Active 021 RAVEN Solomon [address], [place], [address], [facility] 1 18:06:43 Problem Notes [...] 1 67 /min 149.86 cm 28.3 kg/m2 35228.9 3 g 185 mm[Hg] 104 mm[Hg] GENE TORO M.D. [address] [facility] [address], [place], [address] [place] 1 16:17:06 Date Recorded Body height Heart rate Body mass index (BMI) Body weight Systolic blood pressure Diastolic blood pressure Provider Name and Address Organization Details Last Updated DateTime 1 149.86 cm 70 /min 28.9 kg/m2 19728.7 1 g 128 mm[Hg] 84 mm[Hg] GENE TORO M.D. [address] [facility] [address], [place], [address] [place] 1 15:47:19 Date Recorded Body height Body mass index (BMI) Body weight Heart rate Systolic blood pressure Diastolic blood pressure Provider Name and Address Organization Details Last Updated DateTime 1 149.86 cm 27.5 kg/m2 04239.5 6 g 91 /min 108 mm[Hg] 67 mm[Hg] GENE TORO M.D. [address] [facility] [address] [address], [place], [address], [facility] 14:32:40 Date Recorded Body height Heart rate Body mass index (BMI) Body weight Systolic blood pressure Diastolic blood pressure Provider Name and Address Organization Details Last Updated DateTime 1 149.86 cm 88 /min 26.9 kg/m2 25660.7 9 g 153 mm[Hg] 88 mm[Hg] GENE TORO M.D. [address] [facility] [address], [place], [address], [facility] 15:41:17 Social History None recorded. Functional Status None recorded. Mental Status None recorded. Family History Nothing Reported. Medical History No medical history recorded. Gynecological HistoryNo gynecological history recorded. Obstetrics History GPAL:G 0 P 0 0 0 0 Past Encounters Encounter ID Performer Location Encounter Start Date Encounter Closed Date Diagnosis/Indication Diagnosis SNOMED-CT Code Diagnosis ICD10 Code Diagnosis Note [id number] GENE TORO M.D. [facility] [address] [place] [address] 02/23/2021 15:40:57 02/25/2021 15:34:30 Overweight 634761793 E66.3 [id number] GENE TORO M.D. [facility] [address] [place] [address] 05/03/2021 14:52:27 05/05/2021 11:24:38 Overweight 776545312 E66.3 [id number] GENE TORO M.D. [facility] [address] [facility] [address] [place] [address] 06/21/2021 14:24:55 06/22/2021 22:49:35 Overweight 998524743 E66.3 Increased blood pressure 59925485 R03.0 [id number] GENE TORO M.D. [facility] [address] [place] [address] 07/26/2021 15:39:26 08/02/2021 16:44:19 Overweight 292166193 E66.3 Increased blood pressure 95702773 R03.0 Health Concerns Section Related Observation LastModified by Organization Detai ls LastModified Time None Recorded Concern Status LastModified by Organization Details LastModified Time None Recorded Advance Directives Directive None Recorded Payers Encounter Date Sequence Insurance Name Policy Number Policy Ramirez Covered Member ID Ramirez Member ID Guarantor Name 02/23/2021 1 [employer] (MEDICARE REPLACEMENT PPO) [id number] [address] Rosas Berrios [id number] [address] Rosas Yash 05/03/2021 1 [employer] (MEDICARE REPLACEMENT PPO) [id number] [address] Ros[address] [id number] [address] Rosas Yash 06/21/2021 1 [employer] (MEDICARE REPLACEMENT PPO) [id number] [address] Ros[address] [id number] [address] Rosas Yash 07/26/2021 1 [employer] (MEDICARE REPLACEMENT PPO) [id number] [address] Ber[address] [id number] [address] Rosas Berrios Notes Date Note Type Note Provider Name and Address Organization Details Recorded Time 07/26/2021 text/html WEIGHT LOSS MANAGMENT GENE TORO M.D. [address], [place], [address], [facility] 07/28/2021 09:44:33 OBGyn Episode No OBEpisode recorded.
--- OUTSIDE RECORDS SUMMARY | 2024-11-21 11:10 | XMS_ITS | Clinical Summary ---
Author Organization [facility] Address [address] [place] [address] Care Team Providers Care [employer] Name Role Phone Berta Hennessy MD Primary Care Provider [phone] Allergies Active Allergy Reactions Criticality Noted Date [...] 0 05/08/2023 Active ergocalciferol (VITAMIN D2) capsule 48104 units Take 1 capsule (50,000 Units total) [...] age to complete this topic Care Teams [employer] Relationship Specialty Start Date End Date Berta Hennessy MD [address] [address] PCP - General Neurology 04/19/23
--- OUTSIDE RECORDS SUMMARY | 2024-11-21 11:10 | XMS_ITS | Data Portability ---
Author Organization [place] - [facility] Address [address] [place] [address] Assessment No assessment recorded. Plan of Treatment Reminders Order Date Submit Date Provider Last Modified By Organization Details Last Modified Time Details Appointments None recorded. Lab None recorded. Referral ophthalmol ogist referral 2019 [facility], [address] [place], [address], 0 12:20:43 Procedures None recorded. Surgeries None recorded. Imaging MRI, brain, w/wo contrast 2019 020 [facility], [address], [place], [address], 0 19:30:39 Medication Orders meclizine 25 mg tablet 2019 020 [facility] #[id number], [address] [place], [place], [id number], 0 11:15:15 baclofen 10 mg tablet 2019 020 [email or web address] [facility] #[id number], [address], [place], [id number], 0 22:07:55 Patient TargetsNo targets recorded. Patient InstructionsNo instructions recorded. 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 Referring Physician: Alejandra Lucas, Neurology, Encounter Date: 05/26/2020 Results Created Date Observation Date Name Description Value Unit Range Abnormal Flag Note LastModifiedBy Organization Detail LastModifiedTime 04/28/20 20 04/28/2020 MRI, brain , w/wo contr ast No observ ation record ed. [email or web address] [facility] [address], [place], [address], 05/26/2020 10:50:44 05/06/20 20 04/28/2020 MRI, brain , w/wo contr ast No observ ation record ed. [email or web address] [facility] [address] [facility] [address], [place], [address], 05/26/2020 10:50:44 01/06/20 21 01/24/2019 MRI, brain , w/wo contr ast No observ ation record ed. [email or web address] Not Available 01/05 10:38:08 Result Notes None recorded. Problems Name Problem SNOMED Code Status Onset Date Resolution Date Notes Provider Name and Address Organization Details Recorded Time Multiple sclerosis 19157005 Active 020 Alejandra Lucas MD [address] [facility], [place], [address], [facility] [place] 0 22:09:55 Spasticity 447560825 Active 020 Alejandra Lucas MD [address] [facility], [place], [address], [facility] [place] 0 22:09:56 Vertigo 216282956 Active 020 Alejandra Lucas MD [address] [facility], [place], [address], [facility] [place] 0 22:09:57 Problem Notes None recorded. Procedures Surgical History Date Name Laterality Status Provider Name and Address Organization Details Recorded Time 04/29/20 20 Unlisted px foot/toes completed Emili Barron [place] [facility] [place] 05/26/2020 09:42:01 arthroscopy completed [...] Time 04/28/2020 MRI, brain, w/wo contrast completed [email or web address] [place] [address] [address], [place], [address], 05/26/2020 10:50:44 04/28/2020 MRI, brain, w/wo contrast completed [email or web address] [place] [address] [address], [place], [address], 05/26/2020 10:50:44 01/24/2019 MRI, brain, w/wo contrast [...] Updated DateTime 0 149.86 cm 28.3 kg/m2 15683.9 3 g 14 /min 97.3 [degF] 68 /min 150 mm[Hg] 95 mm[Hg] [facility] 0 10:46:47 Date Recorded Body height Body mass index (BMI) Body weight Respiratory rate Body temperature Heart rate Systolic blood pressure Diastolic blood pressure Provider Name and Address Organization Details Last Updated DateTime 0 149.86 cm 27.9 kg/m2 95146.7 5 g 16 /min 97.3 [degF] 67 /min 129 mm[Hg] 79 mm[Hg] [facility] 0 09:40:03 Date Recorded Body height Body mass index (BMI) Body weight Respiratory rate Body temperature Heart rate Systolic blood pressure Diastolic blood pressure Provider Name and Address Organization Details Last Updated DateTime 0 149.86 cm 26.1 kg/m2 81954.4 2 g 16 /min 97.2 [degF] 81 /min 139 mm[Hg] 81 mm[Hg] [facility] 0 09:52:29 Date Recorded Body height Body mass index (BMI) Body weight Respiratory rate Body temperature Heart rate Systolic blood pressure Diastolic blood pressure Provider Name and Address Organization Details Last Updated DateTime 1 149.86 cm 28.3 kg/m2 08601.9 3 g 15 /min 97.7 [degF] 63 [...] 3467 Alejandra Lucas MD Main Office [address] [place] [address] 04/27/2020 10:32:20 04/27/2020 11:20:02 Multiple sclerosis 91050669 G35 Currently she has not evidence of activity. We need to rule out the possibilit y of exacerbati on or new multiple sclerosis lesions. Symptomati c management continues Spasticity 283321496 R25 .2 Baclofen is helping Vertigo 149063535 R42 Will is start symptomati c management 4326 Alejandra Lucas MD Main Office [address] [facility] [place] [address] 05/26/2020 09:22:59 05/26/2020 10:29:48 Multiple sclerosis 88435807 G35 Currently she has not evidence of activity. We need to rule out the possibilit y of exacerbati on or new multiple sclerosis lesions. Symptomati c management continues Spasticity 239001522 R25 .2 Baclofen is helping. Vertigo 480203102 R42 She is having improvemen t with meclizine Optic neuritis 68915630 H46.9 She had symptoms in the past and recently she has had problems with her vision. She has never had formal ophthalmol ogical evaluation and will refer Elevated blood-pressure reading without diagnosis of hypertension 342244974 R03.0 We have discussed about importance of losing weight. She is going to start exercising after she improves of the right foot 6359 Alejandra Lucas MD Main Office [address] [place] [address] 07/30/2020 09:45:30 07/30/2020 10:22:55 Multiple sclerosis 75640950 G35 No evidence of relapses but she has residual deficits that are worsening. She has severe fatigue and problems with balance. She recently had a fall with fx of the ankle that required so far 2 interventi ons. Spasticity 060524989 R25 .2 Baclofen is helping. She may benefit from trial with medical marijuana. Will contact her. Vertigo 727815082 R42 She is having improvemen t with meclizine but still present 9870 Alejandra Lucas MD Main Office [address] [place] [address] 11/26/2020 09:39:56 11/26/2020 10:42:31 Multiple sclerosis 13234607 G35 No evidence of relapses but she has residual deficits that are worsening. She has severe fatigue and problems with balance. She recently had a fall with fx of the ankle that required so far 2 interventi ons. Spasticity 058090190 R25 .2 Baclofen is helping. She may benefit from trial with medical marijuana. Will contact her. Vertigo 534710877 R42 She is having improvemen t with meclizine but still present Health Concerns Section Related Observation LastModified by Organization Detai ls LastModified Time None Recorded Concern Status LastModified by Organization Details LastModified Time None Recorded Advance Directives Directive N: Payers Encounter Date Sequence Insurance Name Policy Number Policy Ramirez Covered Member ID Ramirez Member ID Guarantor Name 04/27/2020 1 [place] Janeth Berrios [id number] Janeth Berrios 05/26/2020 1 [place] Janeth Berrios [id number] Janeth Berrios 07/30/2020 1 [place] Janeth Berrios [id number] Janeth Berrios 11/26/2020 1 [employer] (MEDICARE REPLACEMENT PPO) [id number] Janeth Berrios [id number] Janeth Berrios Notes Date Note Type Note [...] was very difficult her work at the [employer]. She was born in [place], she just moved to [place] 4 years ago. HISTORY OF MULTIPLE SCLEROSIS [...] Negative per patient Alejandra Lucas MD [address] [facility],[address], [place], [address], [facility] [place] 05/09/2020 22:10:54 05/26/2020 text/html Patient followed in the office since 2017 with diagnosis of multiple sclerosis. Patient has had no evidence of disease activity since she had chemotherapy for lymphoma. She has residual symptoms that are affecting her level of activity. The patient had right foot surgery and it is immobilized. 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 She try to help as much [...] has not had a formal evaluation by oyster culturist. She is totally and permanently disabled. 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 She try to help as much [...] of vertigo, weakness Alejandra Lucas MD [address] [facility],[address], [place], [address], [facility] 08/03/2020 20:08:39 11/26/2020 text/html LESLYE [...] of vertigo, weakness Alejandra Lucas MD [address] [facility],[address], [place], [address], [facility] 12/06/2020 20:30:53 OBGyn Episode No OBEpisode recorded.
--- OUTSIDE RECORDS SUMMARY | 2024-11-21 11:11 | XMS_ITS | Data Portability ---
Author Organization [place] [facility] [place] [facility] [address], [id number] Address [address] [place] [address] Assessment Encounter Date Assessment Date Assessment LastModified by Organization Details LastModified Time 03/21/2017 03/21/2017 57 year old female here with several concerns: 1) bleeding after intercourse- vaginal cultures done- use lubricant with intercourse- may need estrace cream- will await cultures. 2) occ RLQ pain with intercourse- urine sent for culture- pt. has had bowel resection- may have scar tissue. [email or web address] Not available 03/21/2017 12:05:16 Plan of Treatment Reminders Order Date Submit Date Provider Last Modified By Organization Details Last Modified Time Details Appointments None recorded. Lab bacterial vaginosis panel, vaginal 2016 017 [facility] [address] [place] [address], [address], 7 01:00:46 urinalysis , dipstick 2016 017 [email or web address] In-House Results, For Internal Use Only, Do Not Delete/merge, [id number] 7 12:03:45 culture, urine 2016 017 [place] [facility] ([facility] , [facility] [address], [place], [address], 7 16:50:06 Referral None recorded. Procedures None [...] For Internal Use Only, Do Not Delete/merge, [id number] 03/21/2017 11:22:56 03/21/20 17 03/21/2017 urina lysis [...] al Not Available [facility] [address] [place] [address], [address], 03/25/2017 01:00:46 03/21/2003/24/2017 bacte rial vagin osis panel , vagin al gardnerella vaginalis by real-time PCR Positi ve abnormal Swab- 1 Vagin al Not Available [facility] [address] [place] [address], [address], 03/25/2017 01:00:46 03/21/2003/24/2017 bacte rial vagin osis panel , vagin al atopobium vaginae by real-time PCR Positi ve abnormal Swab- 1 Vagin al Not Available [facility] [address] [place] [address], [address], 03/25/2017 01:00:46 03/21/2003/24/2017 bacte rial vagin osis panel , vagin al bacterial vaginosis associated bacterium 2 (bvab2) by real-time PCR Negati ve normal Swab- 1 Vagin al Not Available [facility] [address] [place] [address], [address], 03/25/2017 01:00:46 03/21/20 17 03/24/2017 bacte rial vagin osis panel , vagin al megasphaera species (type 1 and type 2) by real-time PCR Negati ve normal Swab- 1 Vagin al Type1 :Nega tive Type2 :Nega tive. Not Available [facility] [address] [place] [address], [address], 03/25/2017 01:00:46 03/21/2003/24/2017 bacte rial vagin osis panel , vagin al lactobacillu s (bv \T\ av panel) by real time PCR See Commen t normal Swab- 1 Vagin al L.cri spatu s: Negat surinder L.zoila senii : Posit surinder L.gas seri : Negat surinder L.ine rs : Negat surinder. Not Available [facility] [address] [place] [address], [address], 03/25/2017 01:00:46 03/21/2003/24/2017 bacte rial vagin osis panel , vagin al anisa albicans by real-time PCR Negati ve normal Swab- 1 Vagin al Not Available [facility] [address] [place] [address], [address], 03/25/2017 01:00:46 03/21/20 17 03/24/2017 bacte rial vagin osis panel , vagin al anisa tropicalis by real-time PCR Negati ve normal Swab- 1 Vagin al Not Available [facility] [address] [place] [address], [address], 03/25/2017 01:00:46 03/21/20 03/24/2017 bacte rial vagin osis panel , vagin al anisa parapsilosis by real-time PCR Negati ve normal Swab- 1 Vagin al Not Available [facility] [address] [place] [address], [place], [address], 03/25/2017 01:00:46 03/22/20 17 03/22/2017 cultu re, urine abnormal status normal Not Available [facility] ([facility]) [address] [place] [address] [address], [place], [address], 03/24/2017 16:50:06 Result Notes None recorded. Problems Name Problem SNOMED Code Status Onset Date Resolution Date Notes Provider Name and Address Organization Details Recorded Time Abnormal vaginal bleeding 550539955 Active 017 Eugencia Jaylen-Butn er (TERMED) [facility] 7 10:37:15 Problem Notes None recorded. Procedures Surgical History Date Name Laterality Status Provider Name and Address Organization Details Recorded Time SHIRT TURNER- Hysterectomy, Vaginal completed Eugencia Romayor-Medford (TERMED) [facility] 03/21/2017 10:44:24 Surgery-Other completed Eugencia Romayor-Medford (TERMED) [facility] 03/21/2017 10:45:09 Imaging Results None recorded. Procedure [...] Address Organization Details Last Updated DateTime 03/21/2017 63971.97 g 26.4 kg/m2 152.4 cm 132 mm[Hg] 70 mm[Hg] Shimadavid combs (TERMED) [facility] [employer] 10:33:14 Social History Question Answer Notes LastModified by Organizat ion Details LastModified Time Tobacco Smoking Status Never Smoker Joaquin Corbin (TERMED) [facility] [employer] 03/21/2017 10:42:25 Do You Have An Advance [...] available 03/21/2017 What Is Your Occupation? Retired [employer]er Information not available 03/21/2017 Are There Any [...] Medical History Condition Response GI- Hemorrhoids N Hematology-Blood Clotting Disorder/Facto r V Leiden N Neurology-Other N Neurology- Stroke/TIA N Dermatology-Acne N Endocrinology-Other N Endocrinology- Osteoporosis Y Psych- Depression N Hematology-Other N Hematology-Anemia N Dermatology-Eczema/Psoriasis N Dermatology-Other N Ortho-Chronic Back Pain Y Rheumatology-Autoimmune Disease Y Cancer- Ovary N Cardiology- High Cholesterol N Cardiology- Heart Arrhythmia N Psych-other N [...] SNOMED-CT Code Diagnosis ICD10 Code Diagnosis Note [id number] BRITTNEY SANCHEZ CC185_(UR OGYN) [place] [address] [place] [address] 03/21/2017 10:19:03 03/21/2017 11:26:36 Pain in pelvis 71168681 R10.2 Vaginal discharge 036488 006 N89.8 Dyspareunia 18369320 N94 .10 Health Concerns Section Related Observation LastModified by Organization Detai ls LastModified Time None Recorded Concern Status LastModified by Organization Details LastModified Time None Recorded Advance Directives Directive N: Payers Encounter Date Sequence Insurance Name Policy Number Policy Ramirez Covered Member ID Ramirez Member ID Guarantor Name 03/21/2017 1 [place] Janeth Berrios [id number] Janeth Berrios Notes Date Note Type Note Provider Name and Address Organization Details Recorded Time 03/21/2017 text/html 57 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 She states she has bleeding after [...] or vaginal dryness. BRITTNEY SANCHEZ [address], [address], [place], [address], [facility], [facility] 03/21/2017 12:05:38 OBGyn Episode No OBEpisode recorded.
--- OUTSIDE RECORDS SUMMARY | 2024-11-21 11:11 | XMS_ITS | Data Portability ---
Author Organization [place] - [facility], [facility] Address [address] [facility] [address] [place] [address] Assessment No assessment recorded. Plan of Treatment Reminders Order Date Submit Date Provider Last Modified By Organization Details Last Modified Time Details Appointments None recorded. Lab drug screen, urine 2021 022 In-House Results, For Internal Use Only, Do Not Delete/merge, [id number] 10:19:01 drug screen, urine 2021 022 In-House Results, For Internal Use Only, Do Not Delete/merge, [id number] 13:24:44 CMP, serum or plasma 2021 [facility], [address] [facility] [address], [place], [address], 2 03:21:18 urinalysis, dipstick 2021 022 In-House Results, For Internal Use Only, Do Not Delete/merge, [id number] 2 16:02:39 Referral None recorded. Procedures greater trochanteri c bursa injection (PROC) 2021 022 Not available 13:53:25 Surgeries None recorded. Imaging XR, hip + pelvis, bilateral, 3 or 4 view 2021 JAMES Akumin [place], [address] [facility], [place], [address], 2 20:37:24 Medication Orders oxycodone-a cetaminophe n 10 mg-325 mg tablet 2021 [facility] #[id number], [address] [place], [id number], 10:19:15 oxycodone-a cetaminophe n 10 mg-325 mg tablet 2021 [facility] #19876, [address] [place], [place], [id number], 13:46:12 baclofen 10 mg tablet 2021 [facility] #61193, [address] [place], [id number], 10:19:13 baclofen 10 mg tablet 2021 [facility] #85687, [address] [place], [place], [id number], 10:19:13 oxycodone-a cetaminophe n 10 mg-325 mg tablet 2021 [facility] #39047, [address] [place], [id number], 18:27:44 valacyclovi r 1 gram tablet 2021 [facility] #66733, [address] [place], [id number], 18:52:14 Medrol (Fco) 4 mg tablets in a dose pack 2021 [facility] #48894, [address] [place], [id number], 18:39:20 baclofen 10 mg tablet 2021 [facility] #54629, [address] [place], [id number], 18:28:02 oxycodone-a cetaminophe n 10 mg-325 mg tablet 2021 [facility] #31998, [address] [facility], [place], [place], [id number], 13:51:13 baclofen 10 mg tablet 2021 [facility] #75932, [address] [place], [place], [id number], 13:53:06 Patient TargetsNo targets recorded. Patient Instructions Encounter Date Encounter Id Patient Instructions Last Modified By Organization Details Last Modified Time 02/15/2022 [id number] depression and chronic disease: care instructions Not [...] risk. [email or web address] Not available 02/16/2022 14:13:46 03/15/2022 [id number] advance directives: care instructions [email or web address] Not available [...] recent and past UDS results play a odyle role in my decision-making process regarding treatment. [...] influenza vac Not available 03/15/2022 21:53:52 03/23/2022 [id number] 03/23/22 JANETH IS HERE TODAY FOR INJECTION [...] IF NEEDED. Not available 03/27/2022 21:23:32 04/07/2022 [id number] 04/07/2022 TODAY VIA TELEPHONE CALL I DISCUSSED THE MOST RECENT RADIOLOGY STUDIES ON THIS PATIENT. MODERATE SCOLIOSIS OF THE LUMBAR SPINE MODERATE DEGENERATIVE CHANGES OF THE RIGHT HIP JOINT MODERATE DEGENERATIVE CHANGES TO THE LEFT HIP JOINT [email or web address] Not available 04/30/2022 12:55:37 04/13/2022 [id number] 04/13/2022- Onelia comes in today for her [...] ick SEND TO LAB NO Not Available In-Naomy se Results For Internal [...] w-up test. Not Available [facility] [place] [facility] [address], [place], [address], 03/22/2022 03:21:16 03/21/20 22 03/22/2022 COMPR EHENS PATITO METAB OLIC PANEL urea nitrogen (BUN) 25 mg/dL 7-25 normal Not Available [facility] [place] [facility] [address], [place], [address], 03/22/2022 03:21:16 03/21/20 22 03/22/2022 COMPR EHENS PATITO METAB OLIC PANEL creatinine 0.70 mg/dL 0.50-1 .05 normal Not Available [facility] [address], [place], [address], 03/22/2022 03:21:16 03/21/20 22 03/22/2022 COMPR EHENS [...] kdoqi /gfr% 5Fcal culat or Not Available [facility] [address], [place], [address], 03/22/2022 03:21:16 03/21/20 22 03/22/2022 COMPR EHENS PATITO METAB OLIC PANEL BUN/creatini ne ratio NOT APPLIC ABLE (calc ) 6-22 Not Available [facility] [address], [place], [address], 03/22/2022 03:21:16 03/21/20 22 03/22/2022 COMPR EHENS PATITO METAB OLIC PANEL sodium 140 mmol/ L 135-14 6 normal Not Available [facility] [place] [facility] [address], [place], [address], 03/22/2022 03:21:16 03/21/20 22 03/22/2022 COMPR EHENS PATITO METAB OLIC PANEL potassium 4.5 mmol/ L 3.5-5. 3 normal Not Available [facility] [address], [place], [address], 03/22/2022 03:21:16 03/21/20 22 03/22/2022 COMPR EHENS PATITO METAB OLIC PANEL chloride 105 mmol/ L 98-110 normal Not Available [facility] [address], [place], [address], 03/22/2022 03:21:16 03/21/20 22 03/22/2022 COMPR EHENS PATITO METAB OLIC PANEL carbon dioxide 24 mmol/ L 20-32 normal Not Available [facility] [address], [place], [address], 03/22/2022 03:21:16 03/21/20 22 03/22/2022 COMPR EHENS PATITO METAB OLIC PANEL calcium 10.0 mg/dL 8.6-10 .4 normal Not Available [facility] [address], [place], [address], 03/22/2022 03:21:16 03/21/20 22 03/22/2022 COMPR EHENS PATITO METAB OLIC PANEL protein, total 7.0 g/dL 6.1-8. 1 normal Not Available [facility] [address], [place], [address], 03/22/2022 03:21:16 03/21/20 22 03/22/2022 COMPR EHENS PATITO METAB OLIC PANEL albumin 4.8 g/dL 3.6-5. 1 normal Not Available [facility] [address], [place], [address], 03/22/2022 03:21:16 03/21/20 22 03/22/2022 COMPR EHENS PATITO METAB OLIC PANEL globulin 2.2 g/dL_ (calc ) 1.9-3. 7 normal Not Available [facility] [address], [place], [address], 03/22/2022 03:21:16 03/21/20 22 03/22/2022 COMPR EHENS PATITO METAB OLIC PANEL albumin/glob ulin ratio 2.2 (calc ) 1.0-2. 5 normal Not Available [facility] [address], [place], [address], 03/22/2022 03:21:16 03/21/20 22 03/22/2022 COMPR EHENS PATITO METAB OLIC PANEL bilirubin, total 0.4 mg/dL 0.2-1. 2 normal Not Available [facility] [address], [place], [address], 03/22/2022 03:21:16 03/21/20 22 03/22/2022 COMPR EHENS PATITO METAB OLIC PANEL alkaline phosphatase 51 U/L 37-153 normal Not Available [facility] [address], [place], [address], 03/22/2022 03:21:16 03/21/20 22 03/22/2022 COMPR EHENS PATITO METAB OLIC PANEL AST 14 U/L 10-35 normal Not Available [facility] [address], [place], [address], 03/22/2022 03:21:16 03/21/20 22 03/22/2022 COMPR EHENS PATITO METAB OLIC PANEL ALT 22 U/L 6-29 normal Not Available [facility] [address], [place], [address], 03/22/2022 03:21:16 03/29/20 22 03/29/2022 XR, hip + pelvi s, bilat eral, 3 or 4 view No observ ation record ed. [facility] [address] [place], [address], 04/07/2022 20:32:49 Result Notes None recorded. Problems Name Problem SNOMED Code Status Onset Date Resolution Date Notes Provider Name and Address Organization Details Recorded Time Low back pain 066244714 Completed 201601/29/2018 MD Mikaela Cabello [address] [place],[address], [place], [address] , [facility] 8 09:43:11 Lumbar radiculop athy 521047338 Completed 201601/29/2018 MD Mikaela Cabello [address], [place], [address] , [facility] 8 09:42:52 Inflammat ion of sacroilia c joint 28300736 Active 2016 MD Mikaela Cabello,[address], [place], [address] , [facility] 7 16:57:52 Cervical radiculop athy 33681175 Active 2016 MD Mikaela Cabello [address], [place], [address] , [facility] 7 16:58:05 Multiple sclerosis 33375800 Active 2016 MD Mikaela Cabello,[address], [place], [address] , [facility] 7 16:58:13 Chronic obstructi ve pulmonary disease 23646372 Active 2016 MD Mikaela Cabello,[address], [place], [address] , [facility] 7 16:58:21 Myofascia l pain 553028231 Active 2016 MD [address], [place], [address] , [place] [facility] 7 16:58:40 Neck pain 14357212 Active 2016 MD Mikaela Cabello [place],[address], [place], [address] , [place] [facility] 7 16:58:52 Non-Hodgk in's lymphoma (clinical ) 713339654 Active 2016 MD Mikaela Cabello,[address], [place], [address] , [place] [facility] 7 16:59:07 Restless legs 35757303 Active 2016 MD Mikaela Cabello,[address], [place], [address] , [facility] 7 16:59:20 Osteoporo sis 41736149 Active 2016 MD Mikaela Cabello,[address], [place], [address] , [facility] 7 16:59:33 Chronic fatigue syndrome 54560166 Active 2016 MD Mikaela Cabello,[address], [place], [address] , [facility] 7 16:59:44 Spinal cord compressi on 67927458 Active 2016 MD Mikaela Cabello,[address], [place], [address] , [facility] 17:00:07 Obesity 976801260 Active 2016 MD Mikaela Cabello,[address], [place], [address] , [facility] 10/25/201 7 15:18:28 Lumbosacr al radiculit is 34052660 Active 2017 MD Mikaela Cabello [address], [place], [address] , [facility] 8 09:43:03 Long-term drug therapy Active 2017 MD Mikaela Cabello,[address], [place], [address] , [facility] 8 09:43:28 Spasm of back muscles 574753385 Active 2017 MD Mikaela Cabello [place],[address], [place], [address] , [facility] 8 12:30:05 Myalgia/m yositis - multiple 682344156 Active 2017 MD Mikaela Cabello,[address], [place], [address] , [facility] 8 12:30:21 Cervical spondylos is 148369203 Active 2017 MD Mikaela Cabello,[address], [place], [address] , [facility] 8 12:30:29 Chronic pain syndrome 407520888 Active 2017 MD Mikaela Cabello,[address], [place], [address] , [facility] 8 12:30:37 Increased blood pressure 04658788 Active 2017 MD Mikaela Cabello,[address], [place], [address] , [facility] 8 09:14:49 Rheumatoi d arthritis 58037916 Active 2018 MD Mikaela Cabello [place],[address], [place], [address] , [facility] 9 13:45:06 Pain in right hip joint 99986919856 9102 Active 2018 GENE TORO M.D. [address] [place],[address], [place], [address] , [facility] 9 09:25:54 Bursitis of hip 03467889 Active 2018 BRITTNEY LUNA [address] [place],[address], [place], [address] , [facility] 9 15:26:40 Greater trochante jose pain syndrome of right lower limb [id number] 441149 Active 2018 GENE TORO M.D. [address] [place],[address], [place], [address] , [facility] 9 09:26:37 Pain in right foot 00495828905 9107 Active 2018 GENE TORO M.D. [address] [place],[address], [place], [address] , [facility] 9 16:25:41 Fatigue 29223223 Active 2018 GENE TORO M.D. [address] [place],[address], [place], [address] , [facility] 9 16:31:53 Drug-dayanara awilda constipat ion 69554495 Active 2019 GENE TORO M.D. [address] [place],[address], [place], [address] , [facility] 0 09:24:53 Herpes zoster 4545113 Active 2021 GENE TORO M.D. [address] [place],[address], [place], [address] , [facility] 13:31:05 Problem Notes None recorded. Procedures Surgical History Date Name Laterality Status Provider Name and Address Organization Details Recorded Time 03/23/2022 Procedure completed GENE TORO M.D. [address] [facility],[address], [place], [address], [facility] 03/27/2022 21:23:38 08/19/2019 Procedure completed GENE TORO M.D. [address] [facility],[address], [place], [address], [facility] 08/19/2019 14:15:23 06/17/2019 Procedure completed GENE TORO M.D. [address] [facility] [address], [place], [address], [facility] 06/18/2019 09:27:55 Imaging Results Imaging Date Name Status LastModified by Organiz ation Details LastModified Time 03/29/2022 XR, hip + pelvis, bilateral, 3 or 4 view completed Akumin [place] [address] [facility], [place], [address], 04/07/2022 20:32:49 Procedure Notes None recorded. Medical [...] 2 149.86 cm 77 /min 25.9 kg/m2 59522.8 2 g 122 mm[Hg] 81 mm[Hg] GENE TORO M.D. [address] [facility] [address], [place], [address] [place] [address] [facility] 2 13:31:41 Date Recorded Body height Body mass index (BMI) Body weight Heart rate Systolic blood pressure Diastolic blood pressure Provider Name and Address Organization Details Last Updated DateTime 2 149.86 cm 25.9 kg/m2 88881.8 2 g 72 /min 133 mm[Hg] 86 mm[Hg] GENE TORO M.D. [address] [facility] 3[place], [address], [facility] 2 13:13:10 Date Recorded Body height Body mass index (BMI) Body weight Pain severity Hartley-Bashir FACES pain rating scale Heart rate Systolic blood pressure Diastolic blood pressure Provider Name and Address Organization Details Last Updated DateTime 2 149.86 cm 25.9 kg/m2 58889.8 2 g 6 77 /min 128 mm[Hg] 82 mm[Hg] GENE TORO M.D. [address] [facility] 3[place], [address], [facility] 2 08:41:03 Date Recorded Body height Body mass index (BMI) Body weight Pain severity - 0-10 verbal numeric rating [Score] - Reported Provider Name and Address Organization Details Last Updated DateTime 04/07/2022 149.86 cm 25.9 kg/m2 47542.82 g 6 GENE TORO M.D. [address] [facility] [address], [address], [facility] 04/07/2022 20:32:45 Date Recorded Body height Pain severity - 0-10 verbal numeric rating [Score] - Reported Body mass index (BMI) Body weight Heart rate Systolic blood pressure Diastolic blood pressure Provider Name and Address Organization Details Last Updated DateTime 2 149.86 cm 7 25.9 kg/m2 24758.8 2 g 103 /min 131 mm[Hg] 80 mm[Hg] GEEN TORO M.D. [address] [facility] 3[place], [address], [facility] 2 09:56:25 Social History Question Answer Notes LastModified by Organizat ion Details LastModified Time Tobacco Smoking Status Never Smoker GENE TORO M.D. [address] [facility],[address], [place], [address], [facility] 06/16/2020 09:57:52 Do You Have An Advance [...] Anxious, Or Unable To Sleep At Night)? [id number] BEST FRIEND JUST Information not available 06/29/2021 Do You Use Any Illicit Or Recreational Drugs? No Information not available 07/27/2021 How Many Years Have You Smoked Tobacco? 0 [id number] Information not available 07/14/2020 Do You Or Have You Ever Used Any Other Forms Of Tobacco Or Nicotine? No Information not available 06/29/2021 Sex: Female Functional Status Question Answer Note LastModified by Organization D etails LastModified Time Do you have difficulty walking or climbing stairs? Yes Information not available 06/29/2021 Do you have difficulty doing errands alone? No Information not available 06/29/2021 Do you have difficulty dressing or bathing? No Information not available 06/29/2021 Mental Status Question Answer Note LastModified by Organization D etails LastModified Time Do you have difficulty concentrating, remembering or making decisions? [place] [id number] Information no t available 06/29/2021 Family History Nothing Reported. Medical History Condition Response HIV N Gout N Kidney Stones Y Hyperthyroidism N Hepatitis A N Migraines N Hypothyroidism N COPD N Depression Y Hepatitis C N IBS - Irritable Bowel Syndrome N Anemia N Anxiety Disorder N Diabetes N Arthritis Y Tuberculosis N CAD - Coronary Artery Disease N Cancer Y Stroke N Diverticulitis N Asthma N Hepatitis B N Seizures N GERD/Reflux N High Cholesterol Y Liver Disease N Heart Disease N Pulmonary Embolism N Fibromyalgia N Hypertension Y Osteoporosis Y Kidney Disease N Gynecological HistoryNo gynecological history recorded. Obstetrics History GPAL:G 0 P 0 0 0 0 Past Encounters Encounter ID Performer Location Encounter Start Date Encounter Closed Date Diagnosis/Indication Diagnosis SNOMED-CT Code Diagnosis ICD10 Code Diagnosis Note [id number] Jose Hatch MD [facility] [address] [place] [address] 03/29/2017 15:04:29 03/30/2017 10:18:08 Low back pain 829295216 M54.5 Inflammati on of sacroiliac joint 42949697 M46.1 Lumbar fac et joint pain 015303202 M54.5 Neck pain 19821012 M54.2 Cervical f acet joint pain 925748664 M54.2 Skin sensa tion disturbance 34409600 R20.9 Sleep apnea 61969997 G47 .30 Lumbar radiculopathy 128 433872 M54.16 Cervical radiculopathy 92556578 M54.12 Myofascial pain 95124768 9 M79.1 Non-Hodgki n's lymphoma (clinical) 519845481 C85.90 Multiple sclerosis 62512 007 G35 Chronic ob structive pulmonary disease 91967369 J44.9 Long-term drug therapy 650315463 Z79.899 Restless legs 45370072 G 25.81 Osteoporosis 71167365 M8 1.0 [id number] Jose Hatch MD [facility] [address] [facility] [place] [address] 04/12/2017 09:16:17 04/13/2017 13:27:49 Low back pain 389849868 M54.5 Lumbar radiculopathy 128 768278 M54.16 Inflammati on of sacroiliac joint 47211628 M46.1 Lumbar fac et joint pain 343896087 M54.5 Neck pain 74638565 M54.2 Cervical f acet joint pain 814306864 M54.2 Skin sensa tion disturbance 15290651 R20.9 Sleep apnea 32884784 G47 .30 Cervical radiculopathy 69783480 M54.12 Myofascial pain 77848171 9 M79.1 Non-Hodgki n's lymphoma (clinical) 512191556 C85.90 Multiple sclerosis 01373 007 G35 Chronic ob structive pulmonary disease 38182285 J44.9 Long-term drug therapy 810644906 Z79.899 Restless legs 29592752 G 25.81 Osteoporosis 78678821 M8 1.0 Chronic fa tigue syndrome 74616800 R53.82 Spinal cor d compression 55501828 G95.20 [id number] Jose Hatch MD [facility] [address] [address] [place] [address] 05/10/2017 15:57:15 05/16/2017 15:50:47 Lumbar radiculopathy 833767246 M54.16 Low back pain 791277013 M54.5 Multiple sclerosis 87113 007 G35 Long-term drug therapy 863609237 Z79.899 Cervical radiculopathy 03000979 M54.12 Myofascial pain 91075831 9 M79.1 Neck pain 46888247 M54.2 Non-Hodgki n's lymphoma (clinical) 384918961 C85.90 Osteoporosis 47447236 M8 1.0 Spinal cor d compression 78486123 G95.20 Inflammati on of sacroiliac joint 99281801 M46.1 [id number] Jose Hatch MD [facility] [address] [address] 06/07/2017 12:36:54 06/08/2017 16:16:09 Lumbar radiculopathy 157977913 M54.16 Osteoporosis 36360779 M8 1.0 Multiple sclerosis 86203 007 G35 Long-term drug therapy 796578512 Z79.899 Spinal cor d compression 94007577 G95.20 Neck pain 10586811 M54.2 Myofascial pain 80217547 9 M79.1 Cervical radiculopathy 32066509 M54.12 Inflammati on of sacroiliac joint 06538942 M46.1 Obesity 394424022 E66.9 [id number] Jose Hatch MD [facility] [address] [address] 07/05/2017 10:40:27 07/09/2017 14:03:18 Lumbar radiculopathy 866256584 M54.16 Multiple sclerosis 90369 007 G35 Low back pain 183574925 M54.5 Long-term drug therapy 304462945 Z79.899 Myofascial pain 80905524 9 M79.1 Cervical radiculopathy 88088711 M54.12 Inflammati on of sacroiliac joint 50466350 M46.1 Spinal cor d compression 79249067 G95.20 Osteoporosis 61818785 M8 1.0 Restless legs 40527252 G 25.81 [id number] Jose Hatch MD [facility] [address] [address] 07/31/2017 16:18:40 08/01/2017 15:13:56 Lumbar radiculopathy 433618058 M54.16 Multiple sclerosis 94107 007 G35 Low back pain 831148390 M54.5 Long-term drug therapy 631396073 Z79.899 Myofascial pain 32000261 9 M79.1 Cervical radiculopathy 30886874 M54.12 Inflammati on of sacroiliac joint 75467255 M46.1 Spinal cor d compression 81081721 G95.20 Osteoporosis 42659041 M8 1.0 Restless legs 74042209 G 25.81 Chronic fa tigue syndrome 45884502 R53.82 Anxiety disorder 1308843 06 F41.9 Non-Hodgki n's lymphoma (clinical) 642098156 C85.90 Chronic ob structive pulmonary disease 09362188 J44.9 [id number] Jose Hatch MD [facility] [address] [address] 09/04/2017 08:43:44 09/04/2017 16:24:06 Low back pain 485745089 M54.5 Restless legs 86183328 G 25.81 Cervical radiculopathy 21682881 M54.12 Long-term drug therapy 257446564 Z79.899 Anxiety 58794021 F41.9 [id number] Jose Hatch MD [facility] [address] [facility] [address] [place] [address] 10/02/2017 10:19:16 10/02/2017 23:13:02 Low back pain 825083878 M54.5 Long-term drug therapy 782487029 Z79.899 Cervical radiculopathy 12094575 M54.12 Restless legs 01405097 G 25.81 Anxiety 53008815 F41.9 Obesity 420700296 E66.9 Chronic fa tigue syndrome 92436556 R53.82 Lumbar radiculopathy 128 902679 M54.16 Relapsing remitting multiple sclerosis 989933614 G35 Myofascial pain syndrome 345985876 M79.1 [id number] Jose Hatch MD [facility] [address] [address] 11/06/2017 16:40:36 11/08/2017 11:17:30 Low back pain 979716617 M54.5 Cervical radiculopathy 42237188 M54.12 Restless legs 96017793 G 25.81 Anxiety 40110360 F41.9 Obesity 395911046 E66.9 Chronic fa tigue syndrome 17449860 R53.82 Lumbar radiculopathy 128 049394 M54.16 Long-term drug therapy 289380375 Z79.899 Relapsing remitting multiple sclerosis 704751332 G35 Myofascial pain syndrome 483720680 M79.1 [id number] Jose Hatch MD [facility] [address] [facility] [address] [place] [address] 12/04/2017 14:44:23 12/05/2017 14:05:44 Chronic fatigue syndrome 21782761 R53.82 Anxiety 00103019 F41.1 Cervical radiculopathy 97074826 M54.12 Long-term drug therapy 482147221 Z79.899 Restless legs 89809190 G 25.81 Obesity 145945720 E66.9 Low back pain 194524020 M54.5 Lumbar radiculopathy 128 108858 M54.16 Relapsing remitting multiple sclerosis 796710757 G35 Myofascial pain syndrome 590064430 M79.1 [id number] Jose Hatch MD [facility] [address] [facility] [place] [address] 01/01/2018 14:41:59 01/04/2018 10:29:02 Chronic fatigue syndrome 65861012 R53.82 Anxiety 94825741 F41.1 Cervical radiculopathy 67055719 M54.12 Long-term drug therapy 361873731 Z79.899 Restless legs 54970799 G 25.81 Obesity 736407162 E66.9 Low back pain 272097290 M54.5 Lumbar radiculopathy 128 756317 M54.16 Relapsing remitting multiple sclerosis 272122321 G35 Myofascial pain syndrome 249401501 M79.1 [id number] Jose Hatch MD [facility] [address] [facility] [place] [address] 01/29/2018 09:15:36 01/29/2018 11:13:29 Non-Hodgkin's lymphoma (clinical) 517550588 C85.90 Lumbosacra l radiculitis 52194206 M54.17 Multiple sclerosis 07201 007 G35 Long-term drug therapy 135875437 Z79.899 Inflammati on of sacroiliac joint 43798032 M46.1 Cervical radiculopathy 91325542 M54.12 Spinal cor d compression 57703796 G95.20 Neck pain 27429645 M54.2 Osteoporosis 59199338 M8 1.0 Restless legs 87071210 G 25.81 Myofascial pain 28747030 9 M79.1 Chronic ob structive pulmonary disease 08708493 J44.9 [id number] Jose Hatch MD [facility] [address] [facility] [address] [place] [address] 02/28/2018 10:01:11 02/28/2018 11:50:17 Non-Hodgkin's lymphoma (clinical) 635916796 C85.90 Multiple sclerosis 42216 007 G35 Lumbosacra l radiculitis 98585825 M54.17 Long-term drug therapy 057639012 Z79.899 Inflammati on of sacroiliac joint 91337476 M46.1 Cervical radiculopathy 24051386 M54.12 Spinal cor d compression 74139331 G95.20 Neck pain 57559511 M54.2 Osteoporosis 03353334 M8 1.0 Restless legs 02366997 G 25.81 Myofascial pain 16990252 9 M79.1 Obesity 478914036 E66.9 Chronic fa tigue syndrome 26319380 R53.82 Chronic ob structive pulmonary disease 02446217 J44.9 [id number] Jose Hatch MD [facility] [address] [facility] [address] [place] [address] 03/28/2018 11:48:50 04/02/2018 10:01:32 Non-Hodgkin's lymphoma (clinical) 533574479 C85.90 Multiple sclerosis 62796 007 G35 Lumbosacra l radiculitis 40408003 M54.17 Long-term drug therapy 165755462 Z79.899 Inflammati on of sacroiliac joint 39854598 M46.1 Cervical radiculopathy 21143596 M54.12 Spinal cor d compression 75469290 G95.20 Neck pain 29476612 M54.2 Osteoporosis 04155015 M8 1.0 Restless legs 25286908 G 25.81 Myofascial pain 08811569 9 M79.1 Obesity 722007743 E66.9 Chronic fa tigue syndrome 62342689 R53.82 Chronic ob structive pulmonary disease 77541624 J44.9 [id number] Jose Hatch MD [facility] [address] [place] [address] 04/23/2018 12:13:10 04/23/2018 15:47:03 Inflammation of sacroiliac joint 45246672 M46.1 Notes: SI joints are formed by [...] SI joints and arthritis. Lumbosacra l radiculitis 44734372 M54.17 Notes: Discussed radicular pain extend from [...] care, injection therapy is indicated. Cervical radiculopathy 90298075 M54.12 Notes: Cervical radiculopa thy is pain [...] which nerve is affected. Cervical spondylosis 387 100687 M47.812 Notes: Discussed cervicalgi a in detail [...] be indicated. Spasm of back muscles 20 1556250 M62.830 Notes: Muscle spasms are usually the [...] the underlying pathology. Myalgia/my ositis - multiple 048433809 M79.1 Notes: Discussed with the patient pain [...] treatment is noted Chronic pain syndrome 37 9370336 G89.4 Notes: Pain Management : Medication Management [...] Medication s ordered as below. Drug dependence 48998878 9 Z79.891 [id number] Jose Hatch MD [facility] [address] [place] [address] 05/23/2018 08:32:16 05/23/2018 12:37:07 Inflammation of sacroiliac joint 93719380 M46.1 Notes: SI joints are formed by [...] SI joints and arthritis. Lumbosacra l radiculitis 07432564 M54.17 Notes: Discussed radicular pain extend from [...] care, injection therapy is indicated. Cervical radiculopathy 73663360 M54.12 Notes: Cervical radiculopa thy is pain [...] which nerve is affected. Cervical spondylosis 387 687734 M47.812 Notes: Discussed cervicalgi a in detail [...] be indicated. Spasm of back muscles 20 7790254 M62.830 Notes: Muscle spasms are usually the [...] the underlying pathology. Myalgia/my ositis - multiple 710766207 M79.10 Notes: Discussed with the patient pain [...] treatment is noted Chronic pain syndrome 37 1617496 G89.4 Notes: Pain Management : Medication Management [...] s ordered as below. Long-term drug therapy 834684162 Z79.899 Increased blood pressure 67717063 R03.0 [id number] Jose Hatch MD [facility] [address] [place] [address] 07/03/2018 09:05:13 07/03/2018 17:21:47 Inflammation of sacroiliac joint 53280534 M46.1 Notes: SI joints are formed by [...] SI joints and arthritis. Lumbosacra l radiculitis 99508825 M54.17 Notes: Discussed radicular pain extend from [...] care, injection therapy is indicated. Cervical radiculopathy 64334234 M54.12 Notes: Cervical radiculopa thy is pain [...] which nerve is affected. Long-term drug therapy 933418158 Z79.899 Cervical spondylosis 387 353727 M47.812 Notes: Discussed cervicalgi a in detail [...] be indicated. Spasm of back muscles 20 4169772 M62.830 Notes: Muscle spasms are usually the [...] the underlying pathology. Myalgia/my ositis - multiple 563598853 M79.10 Notes: Discussed with the patient pain [...] treatment is noted Chronic pain syndrome 37 1900403 G89.4 Notes: Pain Management : Medication Management [...] clinic interval. Medication s ordered as below. [id number] Jose Hatch MD [facility] [address] [place] [address] 07/31/2018 09:19:55 07/31/2018 13:30:15 Inflammation of sacroiliac joint 13189366 M46.1 Notes: SI joints are formed by [...] SI joints and arthritis. Lumbosacra l radiculitis 26117789 M54.17 Notes: Discussed radicular pain extend from [...] care, injection therapy is indicated. Cervical radiculopathy 96400585 M54.12 Notes: Cervical radiculopa thy is pain [...] which nerve is affected. Long-term drug therapy 080667296 Z79.899 Cervical spondylosis 387 831371 M47.812 Notes: Discussed cervicalgi a in detail [...] be indicated. Spasm of back muscles 20 7489071 M62.830 Notes: Muscle spasms are usually the [...] the underlying pathology. Myalgia/my ositis - multiple 169840471 M79.10 Notes: Discussed with the patient pain [...] treatment is noted Chronic pain syndrome 37 4243838 G89.4 Notes: Pain Management : Medication Management [...] clinic interval. Medication s ordered as below. [id number] Jose Hatch MD [facility] [address] [place] [address] 09/24/2018 08:47:14 09/24/2018 09:56:22 Cervical radiculopathy 98903565 M54.12 Notes: Cervical radiculopa thy is pain [...] which nerve is affected. Cervical spondylosis 387 007930 M47.812 Notes: Discussed cervicalgi a in detail [...] may be indicated. Myalgia/my ositis - multiple 140674564 M79.18 Notes: Discussed with the patient pain [...] is noted. Spasm of back muscles 20 5763281 M62.830 Notes: Muscle spasms are usually the [...] the underlying pathology. Chronic pain syndrome 37 3731608 G89.4 Notes: Pain Management : Medication Management [...] s ordered as below. Long-term drug therapy 157073954 Z79.899 Restless legs 04176852 G 25.81 [id number] Jose Hatch MD [facility] [address] [facility] [address]I [address] [place] [address] 10/22/2018 10:54:28 10/22/2018 16:42:52 Cervical spondylosis 738187482 M47.812 Notes: Discussed cervicalgi a in detail [...] be indicated. Spasm of back muscles 20 1222328 M62.830 Notes: Muscle spasms are usually the [...] and the underlying pathology. Lumbosacra l radiculitis 80109331 M54.17 Notes: Discussed radicular pain extend from [...] injection therapy is indicated. Long-term drug therapy 406149655 Z79.899 Restless legs 60471216 G 25.81 Cervical radiculopathy 38273927 M54.12 Notes: Cervical radiculopa thy is pain [...] is affected. Inflammati on of sacroiliac joint 77316710 M46.1 Notes: SI joints are formed by [...] cartilage of the SI joints and arthritis. [id number] Jose Hatch MD [facility] [address] [place] [address] 11/21/2018 11:43:55 11/21/2018 13:56:51 Cervical spondylosis 550491077 M47.812 Notes: Discussed cervicalgi a in detail [...] therapy may be indicated. Lumbosacra l radiculitis 46172288 M54.17 Notes: Discussed radicular pain extend from [...] care, injection therapy is indicated. Cervical radiculopathy 22413559 M54.12 Notes: Cervical radiculopa thy is pain [...] which nerve is affected. Long-term drug therapy 450635037 Z79.899 Restless legs 03941805 G 25.81 Spasm of back muscles 20 2692018 M62.830 Notes: Muscle spasms are usually the [...] underlying pathology. Inflammati on of sacroiliac joint 08731354 M46.1 Notes: SI joints are formed by [...] SI joints and arthritis. Rheumatoid arthritis 698 23661 M06.9 [id number] Jose Hatch MD [facility] [address] [facility] [address] [place] [address] 12/24/2018 08:17:29 12/24/2018 09:35:05 Cervical spondylosis 360086655 M47.812 Notes: Discussed cervicalgi a in detail [...] be indicated. Spasm of back muscles 20 7373428 M62.830 Notes: Muscle spasms are usually the [...] and the underlying pathology. Lumbosacra l radiculitis 83043655 M54.17 Notes: Discussed radicular pain extend from the spinal cord down into the arms and legs. Inflammato ry irritation of the nerve root can produce severe pain. Such inflammati on most commonly arises from a disc injury such as HNP or DDD. Controllin g and decreasing the local inflammati on, will control and decrease the pain. Radiculopa thy can also produce numbness and/or dmrfyu5gi and may become permanent if the pressure is not relieved. Conservati ve treatment such as rest, ice, NSAID when appropriat e and HEP including stretching and strengthin g help alleviate symptoms. Physical Therapy is also beneficial . If no relief from conservati ve care, injection therapy is indicated. Long-term drug therapy 440118628 Z79.899 Inflammati on of sacroiliac joint 81900041 M46.1 Notes: SI joints are formed by [...] the SI joints and arthritis. Cervical radiculopathy 37829718 M54.12 Notes: Cervical radiculopa thy is pain [...] on which nerve is affected. Restless legs 32468741 G 25.81 Multiple sclerosis 85969 007 G35 Chronic pain syndrome 37 2250268 G89.4 Notes: Pain Management : Medication Management [...] s ordered as below. Rheumatoid arthritis 698 53137 M06.9 [id number] GENE TORO M.D. [facility] [address] [facility] [address] [place] [address] 01/23/2019 08:03:42 01/23/2019 13:43:58 Cervical spondylosis 970466768 M47.812 Lumbosacra l radiculitis 05258222 M54.17 Cervical radiculopathy 89653469 M54.12 Long-term drug therapy 143954132 Z79.899 Inflammati on of sacroiliac joint 21970725 M46.1 Rheumatoid arthritis 698 64505 M06.9 Restless legs 31992967 G 25.81 Spasm of back muscles 20 9751326 M62.830 Non-Hodgki n's lymphoma (clinical) 798800061 C85.90 Overweight 735355011 E66 .3 Multiple sclerosis 32021 007 G35 [id number] GENE TORO M.D. [facility] [address] [facility] [address] [place] [address] 02/20/2019 08:20:37 02/20/2019 09:25:07 Multiple sclerosis 87151509 G35 Rheumatoid arthritis 698 63524 M06.9 Cervical spondylosis 387 293140 M47.812 Lumbosacra l radiculitis 82974858 M54.17 Cervical radiculopathy 35439307 M54.12 Long-term drug therapy 617265442 Z79.899 Inflammati on of sacroiliac joint 83634516 M46.1 Restless legs 88645748 G 25.81 Spasm of back muscles 20 4444013 M62.830 Non-Hodgki n's lymphoma (clinical) 273263001 C85.90 Overweight 111431681 E66 .3 [id number] GENE TORO M.D. [facility] [address] [facility] 3 [place] [address] 03/26/2019 09:06:23 03/26/2019 11:06:08 Cervical radiculopathy 51616681 M54.12 Cervical spondylosis 387 525868 M47.812 Multiple sclerosis 84013 007 G35 Long-term drug therapy 726857656 Z79.899 Rheumatoid arthritis 698 16844 M06.9 Lumbosacra l radiculitis 35414410 M54.17 Inflammati on of sacroiliac joint 52705517 M46.1 Restless legs 34627232 G 25.81 Spasm of back muscles 20 4949067 M62.830 Non-Hodgki n's lymphoma (clinical) 317259657 C85.90 Overweight 021683717 E66 .3 [id number] GENE TORO M.D. [facility] [address] [facility] 3 [place] [address] 04/23/2019 10:06:19 04/23/2019 13:29:57 Cervical radiculopathy 65361253 M54.12 Cervical spondylosis 387 786788 M47.812 Multiple sclerosis 02371 007 G35 Long-term drug therapy 848006162 Z79.899 Rheumatoid arthritis 698 42043 M06.9 Lumbosacra l radiculitis 99894906 M54.17 Inflammati on of sacroiliac joint 29680560 M46.1 Restless legs 67378798 G 25.81 Spasm of back muscles 20 5279523 M62.830 Non-Hodgki n's lymphoma (clinical) 258102607 C85.90 Overweight 248828289 E66 .3 Drug-induc ed constipation 77737179 K59.03 [id number] GENE TORO M.D. [facility] [address] [facility] 3 [place] [address] 05/28/2019 08:49:01 05/28/2019 10:36:23 Cervical radiculopathy 67614697 M54.12 Cervical spondylosis 387 175630 M47.812 Multiple sclerosis 78648 007 G35 Long-term drug therapy 080871360 Z79.899 Lumbosacra l radiculitis 19510735 M54.17 Inflammati on of sacroiliac joint 06475217 M46.1 Restless legs 16060501 G 25.81 Spasm of back muscles 20 9031363 M62.830 Drug-induc ed constipation 21969219 K59.03 Pain in ri t hip joint 8670573407 77251 M25.551 [id number] GENE TORO M.D. [facility] [address] [facility] [address] [place] [address] 06/17/2019 14:42:41 06/18/2019 09:30:46 Inflammation of sacroiliac joint 21197569 M46.1 Pain in ri ght hip joint 3403811204 22829 M25.551 Myalgia/my ositis - multiple 204067410 M60.89 Chronic pain syndrome 37 7584516 G89.4 Bursitis of hip 94937683 M70.71 Greater tr ochanteric pain syndrome of right lower limb 0021450090 7995811 M70.61 [id number] GENE TORO M.D. [facility] [address] [facility] 3 [place] [address] 07/09/2019 11:58:34 07/12/2019 12:04:13 Cervical radiculopathy 02449602 M54.12 Cervical spondylosis 387 944007 M47.812 Multiple sclerosis 25822 007 G35 Long-term drug therapy 634565262 Z79.899 Lumbosacra l radiculitis 72904229 M54.17 Inflammati on of sacroiliac joint 33985085 M46.1 Restless legs 68481223 G 25.81 Spasm of back muscles 20 2218851 M62.830 Drug-induc ed constipation 59516712 K59.03 Pain in ri ght hip joint 7655359288 34851 M25.551 Overweight 213032921 E66 .3 [id number] GENE TORO M.D. [facility] [address] [facility] [address] [place] [address] 07/31/2019 15:13:04 08/01/2019 12:11:12 Cervical radiculopathy 09589448 M54.12 Cervical spondylosis 387 804526 M47.812 Multiple sclerosis 11868 007 G35 Long-term drug therapy 007330664 Z79.891 Lumbosacra l radiculitis 96353196 M54.17 Inflammati on of sacroiliac joint 21504510 M46.1 Restless legs 50717678 G 25.81 Spasm of back muscles 20 5511652 M62.830 Drug-induc ed constipation 52727305 K59.03 Pain in ri ght hip joint 9420222057 97420 M25.551 Pain in right foot 45700 09530 21884 M79.671 Chronic fa tigue syndrome 32740911 G93.3 [id number] GENE TORO M.D. [facility] [address] [facility] [place] [address] 08/19/2019 08:28:10 08/20/2019 09:23:59 Inflammation of sacroiliac joint 96585049 M46.1 Multiple sclerosis 43791 007 G35 Pain in right foot 72122 73754 08555 M79.671 Obesity 538956715 E66.9 Bursitis of hip 99183623 M70.71 Greater tr ochanteric pain syndrome of right lower limb 9444707998 8559474 M70.61 [id number] GENE TORO M.D. [facility] [address] [facility] [address] [place] [address] 08/27/2019 08:31:23 08/27/2019 12:19:43 Cervical radiculopathy 08644053 M54.12 Cervical spondylosis 387 897459 M47.812 Multiple sclerosis 99268 007 G35 Long-term drug therapy 487307752 Z79.891 Lumbosacra l radiculitis 51575841 M54.17 Inflammati on of sacroiliac joint 38092778 M46.1 Chronic fa tigue syndrome 84503192 G93.3 Restless legs 72419887 G 25.81 Spasm of back muscles 20 8070154 M62.830 Drug-induc ed constipation 43694132 K59.03 Pain in ri ght hip joint 9735792083 02091 M25.551 Pain in right foot 15203 09853 57698 M79.671 [id number] GENE TORO M.D. [facility] [address] [facility] [address] [place] [address] 09/25/2019 08:33:14 09/25/2019 09:15:42 Non-Hodgkin's lymphoma (clinical) 635630933 C85.90 Cervical radiculopathy 03146678 M54.12 Cervical spondylosis 387 870551 M47.812 Multiple sclerosis 22432 007 G35 Long-term drug therapy 720693211 Z79.891 Lumbosacra l radiculitis 93270785 M54.17 Inflammati on of sacroiliac joint 99635843 M46.1 Chronic fa tigue syndrome 64043007 G93.3 Restless legs 85360896 G 25.81 Spasm of back muscles 20 5581785 M62.830 Drug-induc ed constipation 05444328 K59.03 Pain in ri ght hip joint 0233001052 72014 M25.551 Pain in right foot 80267 62618 98073 M79.671 Fatigue 85781502 R53.83 [id number] GENE TORO M.D. [facility] [address] [facility] 3 [place] [address] 10/23/2019 10:23:27 10/23/2019 12:15:55 Lumbosacral radiculitis 76169683 M54.17 Inflammati on of sacroiliac joint 43594698 M46.1 Cervical radiculopathy 64735904 M54.12 Long-term drug therapy 378631675 Z79.891 Cervical spondylosis 387 217732 M47.812 Neck pain 38419575 M54.2 Myofascial pain 74280576 9 M79.10 Multiple sclerosis 15814 007 G35 Fatigue 21696128 R53.83 Drug-induc ed constipation 89606504 K59.03 [id number] GENE TORO M.D. [facility] [address] [facility] [address] [place] [address] 11/26/2019 08:33:48 11/26/2019 09:42:44 Non-Hodgkin's lymphoma (clinical) 691603310 C85.90 Multiple sclerosis 34954 007 G35 Lumbosacra l radiculitis 39637367 M54.17 Inflammati on of sacroiliac joint 60053304 M46.1 Cervical radiculopathy 53030553 M54.12 Long-term drug therapy 325946769 Z79.891 Cervical spondylosis 387 524791 M47.812 Neck pain 35530040 M54.2 Myofascial pain 37648062 9 M79.10 Fatigue 98755390 R53.83 Drug-induc ed constipation 12090194 K59.03 [id number] GENE TORO M.D. [facility] [address] [facility] 3 [place] [address] 12/24/2019 08:51:49 12/24/2019 09:55:32 Cervical radiculopathy 91252854 M54.12 Cervical spondylosis 387 688124 M47.812 Rheumatoid arthritis 698 85833 M06.9 Long-term drug therapy 077277859 Z79.891 Restless legs 50460937 G 25.81 Spasm of back muscles 20 0364642 M62.830 Chronic pain syndrome 37 7389395 G89.4 Lumbosacra l radiculitis 80607808 M54.17 Myalgia/my ositis - multiple 536494928 M60.89 Pain in right foot 75692 15766 44895 M79.671 Pain in ri ght hip joint 9493224181 00454 M25.551 Drug-induc ed constipation 42904959 K59.03 Fatigue 84603769 R53.83 Multiple sclerosis 59713 007 G35 [id number] GENE TORO M.D. [facility] [address] [facility] 3 [place] [address] 01/29/2020 10:19:04 01/29/2020 13:17:47 Fatigue 69696206 R53.83 Multiple sclerosis 57119 007 G35 Rheumatoid arthritis 698 12956 M06.9 Cervical radiculopathy 09728016 M54.12 Cervical spondylosis 387 392362 M47.812 Long-term drug therapy 709484822 Z79.891 Restless legs 81597972 G 25.81 Spasm of back muscles 20 9010552 M62.830 Chronic pain syndrome 37 0893823 G89.4 Lumbosacra l radiculitis 60167500 M54.17 Myalgia/my ositis - multiple 121061098 M60.89 Pain in right foot 20712 23658 30779 M79.671 Pain in ri ght hip joint 8289247590 61542 M25.551 Drug-induc ed constipation 73784018 K59.03 [id number] GENE TORO M.D. [facility] [address] [facility] [address] [place] [address] 02/25/2020 00:11:20 02/25/2020 12:08:12 Fatigue 83409261 R53.83 Multiple sclerosis 83545 007 G35 Rheumatoid arthritis 698 66140 M06.9 Cervical radiculopathy 95584454 M54.12 Cervical spondylosis 387 488659 M47.812 Restless legs 80533834 G 25.81 Spasm of back muscles 20 0597400 M62.830 Chronic pain syndrome 37 3111092 G89.4 Lumbosacra l radiculitis 66414268 M54.17 Myalgia/my ositis - multiple 855928867 M60.89 Pain in right foot 46005 18611 12266 M79.671 Pain in ri ght hip joint 8998016402 31454 M25.551 Drug-induc ed constipation 14975243 K59.03 [id number] GENE TORO M.D. [facility] [address] [facility] [place] [address] 03/25/2020 14:44:32 03/26/2020 11:43:36 Fatigue 10289169 R53.83 Multiple sclerosis 62088 007 G35 Cervical radiculopathy 34464504 M54.12 Rheumatoid arthritis 698 28079 M06.9 Cervical spondylosis 387 518893 M47.812 Restless legs 58867287 G 25.81 Spasm of back muscles 20 5463047 M62.830 Chronic pain syndrome 37 0084773 G89.4 Lumbosacra l radiculitis 85701562 M54.17 Myalgia/my ositis - multiple 674810491 M60.89 Pain in right foot 96869 73067 79960 M79.671 Pain in ri ght hip joint 3901451816 69497 M25.551 Drug-induc ed constipation 41324596 K59.03 Long-term drug therapy 765333784 Z79.891 [id number] GENE TORO M.D. [facility] [address] [address] 04/22/2020 15:06:03 04/23/2020 09:34:41 Cervical radiculopathy 73200041 M54.12 Fatigue 94887091 R53.83 Multiple sclerosis 21333 007 G35 Long-term drug therapy 881208287 Z79.891 Rheumatoid arthritis 698 43808 M06.9 Cervical spondylosis 387 675559 M47.812 Restless legs 14404437 G 25.81 Spasm of back muscles 20 8141763 M62.830 Chronic pain syndrome 37 7263565 G89.4 Lumbosacra l radiculitis 75988093 M54.17 Myalgia/my ositis - multiple 596498216 M60.89 Pain in right foot 82495 26903 31251 M79.671 Pain in ri ght hip joint 2272265059 46797 M25.551 Drug-induc ed constipation 46388704 K59.03 [id number] GENE TORO M.D. [facility] [address] [address] 05/18/2020 10:41:50 05/19/2020 09:03:03 Cervical radiculopathy 92378916 M54.12 Fatigue 83385301 R53.83 Multiple sclerosis 85825 007 G35 Long-term drug therapy 921810874 Z79.891 Rheumatoid arthritis 698 23706 M06.9 Cervical spondylosis 387 743752 M47.812 Restless legs 93188578 G 25.81 Spasm of back muscles 20 2155741 M62.830 Chronic pain syndrome 37 9019467 G89.4 Lumbosacra l radiculitis 35280062 M54.17 Myalgia/my ositis - multiple 021969184 M60.89 Pain in right foot 28969 88244 45209 M79.671 Pain in ri ght hip joint 0140221797 70707 M25.551 Drug-induc ed constipation 71082960 K59.03 [id number] GENE TORO M.D. [facility] [address] [address] 06/16/2020 09:46:11 06/16/2020 13:53:11 Cervical radiculopathy 37063701 M54.12 Fatigue 04577424 R53.83 Multiple sclerosis 20702 007 G35 Long-term drug therapy 760459588 Z79.891 Rheumatoid arthritis 698 55781 M06.9 Cervical spondylosis 387 494193 M47.812 Restless legs 72967831 G 25.81 Spasm of back muscles 20 9061140 M62.830 Chronic pain syndrome 37 8240270 G89.4 Lumbosacra l radiculitis 79812718 M54.17 Myalgia/my ositis - multiple 951739081 M60.89 Pain in right foot 02011 46438 23036 M79.671 Pain in ri ght hip joint 3301939164 53266 M25.551 Drug-induc ed constipation 25575408 K59.03 [id number] GENE TORO M.D. [facility] [address] [facility] [address] [place] [address] 07/13/2020 08:38:38 07/14/2020 15:01:47 Cervical radiculopathy 89790329 M54.12 Fatigue 49331460 R53.83 Multiple sclerosis 10601 007 G35 Long-term drug therapy 401880996 Z79.891 Rheumatoid arthritis 698 13818 M05.19 Cervical spondylosis 387 619123 M47.812 Restless legs 47044234 G 25.81 Spasm of back muscles 20 2007508 M62.830 Chronic pain syndrome 37 4920091 G89.4 Lumbosacra l radiculitis 96104533 M54.17 Myalgia/my ositis - multiple 428121030 M60.89 Pain in right foot 17560 64715 54621 M79.671 Pain in ri ght hip joint 8124893450 91315 M25.551 Drug-induc ed constipation 24353679 K59.03 Tobacco us e cessation education 915361483 Z87.891 [id number] GENE TORO M.D. [facility] [address] [facility] [address] [place] [address] 08/26/2020 09:58:26 08/26/2020 10:30:22 Cervical radiculopathy 82037844 M54.12 Fatigue 58814567 R53.83 Cervical spondylosis 387 708110 M47.812 Chronic pain syndrome 37 9399385 G89.4 Inflammati on of sacroiliac joint 68228862 M46.1 Long-term drug therapy 317581462 Z79.891 Lumbosacra l radiculitis 53099530 M54.17 Multiple sclerosis 76068 007 G35 Myalgia/my ositis - multiple 874099906 M60.89 Non-Hodgki n's lymphoma (clinical) 014715510 C85.90 [id number] GENE TORO M.D. [facility] [address] [facility] [address] [place] [address] 09/23/2020 14:52:35 09/24/2020 08:16:38 Cervical radiculopathy 41590764 M54.12 Rheumatoid arthritis 698 96550 M05.19 Multiple sclerosis 23111 007 G35 Long-term drug therapy 681756483 Z79.891 Fatigue 22910711 R53.83 Cervical spondylosis 387 738459 M47.812 Restless legs 92718903 G 25.81 Spasm of back muscles 20 3385785 M62.830 Chronic pain syndrome 37 6159874 G89.4 Lumbosacra l radiculitis 41911253 M54.17 Myalgia/my ositis - multiple 943547144 M60.89 Pain in right foot 30464 88873 12055 M79.671 Pain in ri ght hip joint 6074962636 92574 M25.551 Drug-induc ed constipation 97328994 K59.03 Tobacco us e cessation education 679556483 Z87.891 Bursitis of hip 21718328 M70.71 M70.72 Greater tr ochanteric pain syndrome of right lower limb 1528581737 8017651 M70.61 Non-Hodgki n's lymphoma (clinical) 960385908 C85.90 [id number] GENE TORO M.D. [facility] [address] [facility] [address] [place] [address] 10/21/2020 16:45:12 10/26/2020 21:08:53 Cervical radiculopathy 39504565 M54.12 Cervical spondylosis 387 750187 M47.812 Inflammati on of sacroiliac joint 85944685 M46.1 Long-term drug therapy 366932943 Z79.891 Chronic pain syndrome 37 2903121 G89.4 Fatigue 40262612 R53.83 Lumbosacra l radiculitis 60486552 M54.17 Multiple sclerosis 84722 007 G35 Myalgia/my ositis - multiple 435798169 M60.89 Non-Hodgki n's lymphoma (clinical) 930980268 C85.90 [id number] GENE TORO M.D. [facility] [address] [facility] [address] [place] [address] 11/17/2020 11:01:43 11/18/2020 12:48:50 Cervical radiculopathy 54048915 M54.12 Notes: Cervical radiculopa thy is pain [...] ochanteric pain syndrome of right lower limb 0760435918 9567770 M70.61 Pain in ri ght hip joint 9522749553 20307 M25.551 Rheumatoid arthritis 698 64458 M06.9 Multiple sclerosis 77214 007 G35 Inflammati on of sacroiliac joint 43467744 M46.1 Notes: SI joints are formed by [...] cartilage of the SI joints and arthritis. [id number] GENE TORO M.D. [facility] [address] [facility] [address] [place] [address] 12/14/2020 09:46:57 12/15/2020 08:56:18 Cervical radiculopathy 65048036 M54.12 Notes: Cervical radiculopa thy is pain [...] ochanteric pain syndrome of right lower limb 9672921463 6984902 M70.61 Pain in ri ght hip joint 0835547019 39295 M25.551 Rheumatoid arthritis 698 54539 M06.9 Multiple sclerosis 47216 007 G35 Inflammati on of sacroiliac joint 35254324 M46.1 Notes: SI joints are formed by [...] cartilage of the SI joints and arthritis. [id number] GENE TORO M.D. [facility] [address] [facility] [address] [place] [address] 01/13/2021 13:58:18 01/18/2021 22:33:01 Cervical radiculopathy 44111059 M54.12 Notes: Cervical radiculopa thy is pain [...] ochanteric pain syndrome of right lower limb 7587753734 7733652 M70.61 Pain in ri [facility] hip joint 1455321657 73309 M25.551 Rheumatoid arthritis 698 98775 M06.9 Multiple sclerosis 87149 007 G35 Inflammati on of sacroiliac joint 20611801 M46.1 Notes: SI joints are formed by [...] SI joints and arthritis. Long-term drug therapy 076981589 Z79.899 [id number] GENE TORO M.D. [facility] [address] [place] [address] 02/10/2021 08:41:24 02/10/2021 10:24:46 Greater trochanteric pain syndrome of right lower limb 5544849295 5836847 M70.61 Rheumatoid arthritis 698 20595 M06.9 M05.29 Cervical radiculopathy 18255388 M54.12 Notes: Cervical radiculopa thy is pain [...] which nerve is affected. Cervical spondylosis 387 833744 M47.812 Notes: Discussed cervicalgi a in detail [...] therapy may be indicated. Long-term drug therapy 696657617 Z79.899 Lumbosacra l radiculitis 39912363 M54.17 Notes: Discussed radicular pain extend from [...] care, injection therapy is indicated. Multiple sclerosis 87361 007 G35 Chronic pain syndrome 37 4139757 G89.4 Notes: Pain Management : Medication Management [...] below. Pain in ri ght hip joint 2844729108 11871 M25.551 Myalgia/my ositis - multiple 637531965 M60.89 Notes: Discussed with the patient pain [...] ve treatment is noted Bursitis of hip 55070895 M70.71 Inflammati on of sacroiliac joint 91308127 M46.1 [id number] GENE TORO M.D. [facility] [address] [facility] [address] [place] [address] 03/02/2021 14:25:27 03/08/2021 09:41:36 Generalized rash 772426228 R21 Rheumatoid arthritis 698 69238 M06.9 M05.29 [id number] GENE TORO M.D. [facility] [address] [facility] [address] [place] [address] 05/04/2021 15:12:19 05/05/2021 12:00:13 Non-Hodgkin's lymphoma (clinical) 785886399 C85.90 Cervical radiculopathy 56575745 M54.12 Rheumatoid arthritis 698 37690 M06.9 M05.29 Cervical spondylosis 387 534355 M47.812 Inflammati on of sacroiliac joint 63617964 M46.1 Long-term drug therapy 678614016 Z79.891 Chronic pain syndrome 37 4840617 G89.4 Fatigue 55706957 R53.83 Lumbosacra l radiculitis 48529666 M54.17 Multiple sclerosis 06769 007 G35 Myalgia/my ositis - multiple 760235177 M60.89 [id number] [facility] [address] [facility] [address] [place] [address] 06/01/2021 15:09:13 06/04/2021 19:21:10 Non-Hodgkin's lymphoma (clinical) 103124611 C85.90 Cervical radiculopathy 19567067 M54.12 Cervical spondylosis 387 699143 M47.812 Rheumatoid arthritis 698 01421 M06.9 M05.29 Lumbosacra l radiculitis 44412681 M54.17 Long-term drug therapy 364166498 Z79.891 Inflammati on of sacroiliac joint 16873138 M46.1 Multiple sclerosis 45846 007 G35 Chronic pain syndrome 37 5173883 G89.4 Fatigue 88613403 R53.83 Myalgia/my ositis - multiple 508595260 M60.89 [id number] GENE TORO M.D. [facility] [address] [place] [address] 06/29/2021 15:08:29 07/02/2021 12:57:06 Non-Hodgkin's lymphoma (clinical) 239506937 C85.90 Cervical radiculopathy 85002547 M54.12 Notes: Cervical radiculopa thy is pain [...] which nerve is affected. Cervical spondylosis 387 799745 M47.812 Notes: Discussed cervicalgi a in detail [...] therapy may be indicated. Rheumatoid arthritis 698 64603 M06.9 M05.29 Lumbosacra l radiculitis 80112664 M54.17 Notes: Discussed radicular pain extend from [...] injection therapy is indicated. Long-term drug therapy 582944303 Z79.891 Inflammati on of sacroiliac joint 68778008 M46.1 Multiple sclerosis 28870 007 G35 Chronic pain syndrome 37 1904056 G89.4 Notes: Pain Management : Medication Management [...] interval. Medication s ordered as below. Fatigue 65726492 R53.83 Myalgia/my ositis - multiple 327033965 M60.89 Notes: Discussed with the patient pain [...] relief from conservati ve treatment is noted [id number] GENE TORO M.D. [facility] [address] [place] [address] 07/27/2021 09:16:24 08/02/2021 16:42:42 Rheumatoid arthritis 30187324 M06.9 M05.29 Non-Hodgki n's lymphoma (clinical) 786252288 C85.90 Cervical radiculopathy 90194934 M54.12 Notes: Cervical radiculopa thy is pain [...] which nerve is affected. Cervical spondylosis 387 913051 M47.812 Notes: Discussed cervicalgi a in detail [...] therapy may be indicated. Lumbosacra l radiculitis 64205281 M54.17 Notes: Discussed radicular pain extend from [...] injection therapy is indicated. Long-term drug therapy 904697941 Z79.891 Inflammati on of sacroiliac joint 63813554 M46.1 Multiple sclerosis 14752 007 G35 Chronic pain syndrome 37 6454864 G89.4 Notes: Pain Management : Medication Management [...] interval. Medication s ordered as below. Fatigue 11656137 R53.83 Myalgia/my ositis - multiple 564844594 M60.89 Notes: Discussed with the patient pain [...] noted Advance di rective discussed with patient 870645080 Z71.89 Body mass index 25-29 - overweight 808944001 Z68.26 BMI 26.7 Administra tion of influenza vaccine 94574405 Z23 [id number] GENE TORO M.D. [facility] [address] [place] [address] 08/24/2021 10:05:36 08/24/2021 22:36:36 Non-Hodgkin's lymphoma (clinical) 596413683 C85.90 Cervical radiculopathy 76974046 M54.12 Notes: Cervical radiculopa thy is pain [...] which nerve is affected. Rheumatoid arthritis 698 60655 M06.9 M05.29 Cervical spondylosis 387 710276 M47.812 Notes: Discussed cervicalgi a in detail [...] therapy may be indicated. Lumbosacra l radiculitis 68786913 M54.17 Notes: Discussed radicular pain extend from [...] injection therapy is indicated. Long-term drug therapy 438929262 Z79.891 Inflammati on of sacroiliac joint 97988773 M46.1 Multiple sclerosis 57590 007 G35 Chronic pain syndrome 37 3638516 G89.4 Notes: Pain Management : Medication Management [...] interval. Medication s ordered as below. Fatigue 39878109 R53.83 Myalgia/my ositis - multiple 125773259 M60.89 Notes: Discussed with the patient pain [...] noted Advance di rective discussed with patient 027221325 Z71.89 Body mass index 25-29 - overweight 984646874 Z68.26 BMI 26.7 Administra tion of influenza vaccine 30302705 Z23 [id number] GENE TORO M.D. [facility] [address] [place] [address] 09/21/2021 09:39:15 09/27/2021 21:21:12 Cervical spondylosis 465043252 M47.812 Notes: Discussed cervicalgi a in detail [...] injection therapy may be indicated. Cervical radiculopathy 30637586 M54.12 Notes: Cervical radiculopa thy is pain [...] on which nerve is affected. Multiple sclerosis 61661 007 G35 Long-term drug therapy 539030589 Z79.891 Lumbosacra l radiculitis 30989651 M54.17 Notes: Discussed radicular pain extend from [...] therapy is indicated. Non-Hodgki n's lymphoma (clinical) 103692124 C85.90 Osteoporosis 99343598 M8 1.0 Rheumatoid arthritis 698 54834 M05.29 [id number] GENE TORO M.D. [facility] [address] [place] [address] 10/26/2021 13:00:23 10/27/2021 17:58:30 Cervical spondylosis 802319964 M47.812 Notes: Discussed cervicalgi a in detail [...] injection therapy may be indicated. Cervical radiculopathy 01767575 M54.12 Notes: Cervical radiculopa thy is pain [...] on which nerve is affected. Multiple sclerosis 69901 007 G35 Long-term drug therapy 984156751 Z79.891 Lumbosacra l radiculitis 72671210 M54.17 Notes: Discussed radicular pain extend from [...] therapy is indicated. Non-Hodgki n's lymphoma (clinical) 137831856 C85.90 Osteoporosis 90214407 M8 1.0 Rheumatoid arthritis 698 71153 M05.29 [id number] GENE TORO M.D. [facility] [address] [place] [address] 12/06/2021 09:12:51 12/06/2021 20:26:10 Cervical spondylosis 437851910 M47.812 Notes: Discussed cervicalgi a in detail [...] injection therapy may be indicated. Cervical radiculopathy 05774511 M54.12 Notes: Cervical radiculopa thy is pain [...] on which nerve is affected. Multiple sclerosis 56266 007 G35 Long-term drug therapy 737787006 Z79.891 NARCAN EDUCATION PROVIDED Lumbosacra l radiculitis 47734277 M54.17 Notes: Discussed radicular pain extend from [...] therapy is indicated. Non-Hodgki n's lymphoma (clinical) 756511651 C85.90 Osteoporosis 71823463 M8 1.0 Rheumatoid arthritis 698 82464 M05.29 [id number] GENE TORO M.D. [facility] [address] [place] [address] 01/04/2022 15:56:22 01/04/2022 22:07:43 Cervical spondylosis 175213956 M47.812 Notes: Discussed cervicalgi a in detail [...] injection therapy may be indicated. Cervical radiculopathy 09734560 M54.12 Notes: Cervical radiculopa thy is pain [...] on which nerve is affected. Multiple sclerosis 17588 007 G35 Long-term drug therapy 897297565 Z79.891 Lumbosacra l radiculitis 21035364 M54.17 Notes: Discussed radicular pain extend from [...] therapy is indicated. Non-Hodgki n's lymphoma (clinical) 478464583 C85.90 Osteoporosis 50341545 M8 1.0 Rheumatoid arthritis 698 31647 M05.29 [id number] GENE TORO M.D. [facility] [address] [facility] [address] [place] [address] 02/15/2022 13:11:33 02/17/2022 11:52:01 Long-term drug therapy 666266670 Z79.899 Cervical radiculopathy 10722376 M54.12 Notes: Cervical radiculopa thy is pain [...] is affected. Inflammati on of sacroiliac joint 78585122 M46.1 Multiple sclerosis 24591 007 G35 Greater tr ochanteric pain syndrome of right lower limb 7491278208 5063112 M70.61 Chronic ob structive pulmonary disease 35823400 J44.9 Drug-induc ed constipation 82781877 K59.03 Chronic fa tigue syndrome 94422960 G93.3 Restless legs 81972384 G 25.81 Bursitis of hip 85564778 M70.71 Cervical spondylosis 387 074882 M47.812 Notes: Discussed cervicalgi a in detail [...] may be indicated. Chronic pain syndrome 37 4770742 G89.4 Notes: Pain Management : Medication Management [...] s ordered as below. Lumbosacra l radiculitis 73670852 M54.17 Notes: Discussed radicular pain extend from [...] is indicated. Spasm of back muscles 20 4551765 M62.830 Body mass index 25-29 - overweight 629966653 Z68.26 BMI 25.9 At moderat e risk for fall 5234475429 02293997 Z91.89 Depression screening 171 781146 Z13.31 Advance di rective discussed with patient 932037693 Z71.89 Influenza 0379437 J11.1 Medication review done by doctor 665414131 Z76.89 [id number] GENE TORO M.D. [facility] [address] [facility] [address] [address] [place] [address] 03/15/2022 12:56:50 03/16/2022 09:55:28 Long-term drug therapy 732996730 Z79.899 Cervical radiculopathy 91510426 M54.12 Notes: Cervical radiculopa thy is pain [...] is affected. Inflammati on of sacroiliac joint 44992897 M46.1 Greater tr ochanteric pain syndrome of right lower limb 0946774921 7233943 M70.61 Spasm of back muscles 20 6408909 M62.830 Herpes zoster 7966091 B0 2.9 Body mass index 25-29 - overweight 891260126 Z68.26 Advance di rective discussed with patient 902387284 Z71.89 Medication review done by doctor 775928645 Z76.89 Administra tion of influenza vaccine 72162597 Z23 Blood pressure taking 46 700182 Z01.30 [id number] GENE TORO M.D. [facility] [address] [place] [address] 03/23/2022 08:07:45 03/28/2022 10:54:10 Greater trochanteric pain syndrome of right lower limb 1424702522 7897468 M70.61 Myofascial pain 38697631 9 M79.18 Pain in ri ght hip joint 4377856367 10639 M25.551 Osteoporosis 04199054 M8 1.0 Bursitis of hip 96353745 M70.71 Chronic pain syndrome 37 4650603 G89.4 Notes: Pain Management : Medication Management [...] clinic interval. Medication s ordered as below. [id number] GENE TORO M.D. [facility] [address] [facility] [address] [place] [address] 04/07/2022 08:21:20 04/08/2022 22:33:58 Greater trochanteric pain syndrome of right lower limb 0843862570 0971340 M70.61 Multiple sclerosis 32901 007 G35 Osteoporosis 83116473 M8 1.0 Pain in ri ght hip joint 8558111639 58586 M25.551 Bursitis of hip 84551709 M70.71 [id number] GENE TORO M.D. [facility] [address] [facility] [address] [place] [address] 04/13/2022 09:33:11 04/13/2022 22:28:21 Cervical radiculopathy 84036960 M54.12 Notes: Cervical radiculopa thy is pain [...] is affected. Inflammati on of sacroiliac joint 97295965 M46.1 Greater tr ochanteric pain syndrome of right lower limb 3856607876 4911725 M70.61 Spasm of back muscles 20 9184862 M62.830 Herpes zoster 9691677 B0 2.9 Long-term drug therapy 743239469 Z79.899 Health Concerns Section Related Observation LastModified by Organization Detai ls LastModified Time None Recorded Concern Status LastModified by Organization Details LastModified Time None Recorded Advance Directives Directive N: Payers Encounter Date Sequence Insurance Name Policy Number Policy Ramirez Covered Member ID Ramirez Member ID Guarantor Name 02/15/2022 1 [employer] (MEDICARE RE[place]ACEMENT P[place]) [id number] Janeth Rosas Berrios [id number] Janeth Berrios 02/15/2022 2 [place] [id number] Janeth Rosas Berrios [id number] Janeth Berrios 03/15/2022 1 [employer] ([place]IC[place]AC[place] [id number] Janeth Rosas Yash [id number] Janeth Berrios 03/15/2022 2 [place] [id number] Janeth Rosas Yash [id number] Janeth Berrios 03/23/2022 1 [employer] (MEDICARE [place]AC[place] [id number] Janeth Rosas Berrios [id number] Janeth Berrios 04/07/2022 1 [employer] (MEDIC[place]AC[place] [id number] Janeth Rosas Yash [id number] Janeth Berrios 04/13/2022 1 [employer] (MEDICARE RE[place]ACEMENT [place] [id number] Janeth Rosas Berrios [id number] Janeth Berrios Notes Date Note Type Note [...] Injections:none Previous PT:none; haven't started 04/23/18 Previous certified social workers in health care:noneNotes: GENE TORO M.D. [address],[facility] [address], [place], [address] 02/16/2022 20:12:25 03/15/2022 text/html [...] Injections:none Previous PT:none; haven't started 04/23/18 Previous certified social workers in health care:noneNotes: GENE TORO M.D. [address], [place], [address], [facility] 03/15/2022 21:55:57 03/23/2022 text/html [...] Injections:none Previous PT:none; haven't started 04/23/18 Previous certified social workers in health care:noneNotes: GENE TORO M.D. [address] [facility],[address], [place], [address], [facility] [place] 03/27/2022 21:27:27 04/07/2022 text/html Pain Management C-spineReported [...] Injections:none Previous PT:none; haven't started 04/23/18 Previous certified social workers in health care:noneNotes: GENE TORO M.D. [address] [facility],[address], [place], [address], [facility] 05/02/2022 13:52:26 04/13/2022 text/html [...] Injections:none Previous PT:none; haven't started 04/23/18 Previous certified social workers in health care:noneNotes: GEEN TORO M.D. [address] [facility],[address], [place], [address], [facility] 04/13/2022 11:28:47 OBGyn Episode No OBEpisode recorded.
== END 2024-11-21 10:51 | disposition home or self-care (01) ==
LOC: HO.HMCFM 09:49
PROVIDERS: PCP Family Medicine; Visit Provider Family Medicine
DX: K04.7 Periapical abscess without sinus (principal)

== ENCOUNTER → 2024-11-21 09:49 | Outpatient (BNVA) | payer MEDICARE, SELFPAY | PROVIDERS: PCP Family Medicine; Visit Provider Family Medicine | DX: K04.7 Periapical abscess without sinus (principal) | CPT/HCPCS: 99212 ==

== ENCOUNTER 2024-11-29 09:42 | Outpatient (AMB) | payer MEDICARE, SELFPAY ==
[2024-11-29 10:03] VITALS: BP 120/72; PULSE 83; O2SAT 98; BMI 27.5
--- NOTE | 2024-11-29 10:03 | MHC.OFFVIS ---
Vital Signs 11/29/24 10:03 Height 4 ft 11 in Weight 136 lb 4 oz BMI 27.5 BP 120/72 Blood Pressure Location Lt brachial Position Sitting Pulse 83 Pulse Source Pulse Oximeter Pulse Oximetry (%) 98 Oxygen Delivery Method Room Air Intake Visit Reasons: INP-JUNE Intake Note: Patient referred inhouse Dr. Young for JUNE. Patient has MS Allergies Seasonal Allergies Allergy (Intermediate, Verified 11/29/24 10:06) Cough HPI Comments Details: 64 y/o female l. hand dominant with h/o MS diagnosed at age 35, is here for management of sleep disturbances. PMH Her initial symptoms were vertigo, diplopia, balance issues. she also had an episode of diplopia and loss of vision for 3 days. She was treated with IV steroids. She was living in [place] at that time. She was on copaxone for 8 years. She is not sure why it has stopped. She reports chronic fatigue. Her episodes decreased significantly when she was on copaxone. After she stopped copaxone, she had some relapses. She was diagnosed with NHL 12 years ago, treated with Rituximab and Fludrabine, she did not have any MS episodes during the treatment period. She moved from [place] a year ago she was seeing a neurologist there. She was going to start on Ocrevus but her insurance did not approve it. She still has c/o chronic fatigue with episodes of vertigo. She has occasional double vision, almost daily and terrible allergies, her eyes feel dry and irritated. She had optic neuritis in her right eye but now has good vision. She has an appt with her eye doctor [facility]. December 03, 2024, she is not sure if it is the allergies that are bothering her eyes or if it is diplopia, we discussed being seen by the [facility] as she has been there before and is aware of their comprehensive services for patients with MS. She has chronic sleep issues with loud snoring, grinding her teeth at night and chronic fatigue. She used to have a CPAP machine and was diagnosed with sleep apnea 6 years ago. But she lost weight and repeat the study 3 years ago and it was normal, now has gained 20lbs and feels she is needs to be evaluated again. She feels exhuasted especially with flare ups. RLS: She has RLS and an uncomfortable sensation in her feet, which radiates to her shins and it keeps her up at night. Her feet get numb and she has muscle spasms at night. Falls: She has had multiple falls this month and has been taking meclizine for vertigo and dizziness. She fell on her shoulder last month and it is still sore, she fell in the barn and hit her head, she had a full work up at [facility]. Her mood is stable, and diet is okay, she wants to lose weight. Cervical Myelolpathy note: History of multiple sclerosis dating back 30 years ago when she was formally diagnosed, underwent chemotherapy for non-Hodgkin's lymphoma about 14 years ago and tells me that her MS has been in remission after that. She has not been on any MS treatments for at least 10 years other than some meclizine for dizziness. For about a year or more she has developed a progressive numbness and severe pain going down both of her arms as well as numbness of her feet with difficulty walking and gait imbalance. She had been moving around the country from place to place and moved up here from [place] last year, and has noticed that over the last 6 months or so she has having a lot of difficulty with fine motor tasks, buttoning buttons and strength in her hands. She thought this might just be her MS, she had seen Neurology who was evaluating her. She was also seen in your office for evaluation and cervical MRI was ordered and this showed severe spinal cord compression at C5-6. She was sent to us for an urgent evaluation. Her progression of symptoms has been slow, over the last year or so. Every month or 2 she will notice a change in the strength in her arms or worsening numbness bilaterally but nothing acutely. [facility] Medical History Exposure to hepatitis C Renal calculi Sleep apnea Chronic pain Arthritis Elevated cholesterol Pre-diabetes Asthma HTN (hypertension) Tarsal tunnel syndrome of both lower extremities Encounter for testing for latent tuberculosis infection Multiple sclerosis Non-Hodgkin's lymphoma in remission Surgical History Hx of foot surgery Hx of cystoscopy Hx of colonoscopy History of esophagogastroduodenoscopy (EGD) Hx of hysterectomy Hx of hernia repair History of cholecystectomy Family History Mother Lung cancer Sister Lung cancer Social History Household Members: Family Housing: House Are you a primary medicare contact specialist to a significant other at home: No Do you presently have visiting nurse or other home services: No Alcohol intake: current Alcohol intake frequency: a few times a month Alcohol type: wine Patient Tobacco Use Status: Never used Tobacco e-Cigarette/Vaping Use: Never Used service: No Current occupational status: disabled 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 Cognitive needs: No Hearing needs: No Vision needs: No Physical Exam Vital Signs: Last Vital Signs Pulse 83 11/29/24 10:03 BP 120/72 11/29/24 10:03 Pulse Ox 98 11/29/24 10:03 Oxygen Delivery Method Room Air 11/29/24 10:03 BMI result Body Mass Index 27.5 Const General: cooperative, healthy appearing and comfortable Nutritional Appearance: average body habitus Orientation/consciousness: patient oriented x3 Eyes Pupils: Equal, round and reactive pupils present Neuro Other: Mild Dysmetria Bilateral UE left UE tremors- mild intermittent General: patient oriented x3 and moves all extremities Cranial nerves: Yes Facial sensation intact/muscles of mastication intact, Yes Equal, round and reactive pupils present, Yes Normal accommodation reflex present, Yes Bilaterally intact EOM present, Yes Nystagmus not present, Yes Normal facial strength present, Yes Midline tongue present, Yes Symmetric palate elevation present, Yes Ability to bilaterally rotate head present and Yes Ability to bilaterally elevate shoulders present Cognition (Neuro): normal cognition Gait exam (Neuro): Normal gait present Motor exam (neuro): Normal motor muscle tone present throughout and Other motor observations present (mild weakness of hand therapeutic mentor - likely due to pain) Deep tendon reflexes (DTR's): Right triceps reflex intensity grade: 3+, Left triceps reflex intensity grade: 3+, Rt Biceps (C5, C6): 3+, Left biceps reflex intensity grade: 3+, Right brachioradialis reflex intensity grade: 3+, Left brachioradialis reflex intensity grade: 3+, Right patellar reflex intensity grade: 3+ and Left patellar reflex intensity grade: 3+ Results Reviewed Results Reviewed: Aug 2022 IMPRESSION: 1. This is an abnormal study. 2. There is electrodiagnostic evidence for left mild median neuropathy at the wrist. 3. There is electrodiagnostic findings suggestive for bilateral subacute/chronic C7-8 radiculopathy. 4. There is no electrodiagnostic evidence for ulnar neuropathy, or brachial plexopathy,. Assessment & Plan Assessment & Plan (1) Transient diplopia: Code(s): H53.2 - Diplopia Category: Medical (2) Multiple sclerosis: Comment: dx at age 35 started with optic neuritis, took Copaxone for 8 years. Code(s): G35 - Multiple sclerosis Category: Medical (3) Radiculopathy: Code(s): M54.10 - Radiculopathy, site unspecified Category: Medical Qualifiers: Spinal region: cervical Qualified Code(s): M54.12 - Radiculopathy, cervical region (4) Fatigue: Code(s): R53.83 - Other fatigue Category: Medical Qualifiers: Fatigue type: chronic, unspecified Qualified Code(s): R53.82 - Chronic fatigue, unspecified (5) Sleep apnea: Comment: states tried CPAP, could not use, better with weight loss Code(s): G47.30 - Sleep apnea, unspecified Category: Medical Qualifiers: Sleep apnea type: unspecified type Qualified Code(s): G47.30 - Sleep apnea, unspecified Plan Optic Neuritis? Allergies? Conjunctiviits? Vision disturbances f/u with opthalmologist next week as scheduled and continue to use your eye drops at home, f/u with [facility] for comprehensive care of MS, if you are having episodes of relapsing / remitting MS, you need to be on continuous therapy waiting until January and turning 65 for medicare coverage is not an option, emphasized the importance of vision and other health concerns and patient is hesitant to go to [facility], will have [facility] f/u with this patient. You may go to the ED if your symptoms do not improve or if you have a severe headache with the vision disturbances. MRI? brain with Alhaji to evaluate progression of MS? BS? Judith? Nakita? I will refer her to Dr. Kitchen at [facility] for MS for opinion. Chronic Fatigue Evaluate sleep study HST then PSG? Request labs, and will f/u. Orders: Orders RT home sleep study 11/29/24 G47.19 - Other hypersomnia Medications: New tobramycin-dexamethasone 0.3-0.1 % May use one drop in each eye up to 4 times a day for diplopia due to optic neuritis. 1 drp ophthalmic (eye) QID 2.5 mL 3RF diplopia 90 days MDD 4 drops in each eye H53.2 - Diplopia Patient Instructions: Sleep Hygiene provided: set a scheduled bedtime and wake time to help regulate the circadian rhythm and balance the release of pituitary hormones. Sleep in a dark room, temperatures below 68 degrees, and no devices n bed. Limit caffeinated products 6 hours prior to bed, and limit fluids 2-4 hours prior to bed. Gentle night yoga, diffusing essential oils, and playing soft music can be relaxing. Diplopia optic neuritis?/ - allergies/ Conjunctivitis - tearing corticosone - prednisone drops at home, use them. Repeated Falls use a cane or walker daily. Patient has been seen at the [facility] in the past, she is hesitant to go back and encouraged to go see them today, as they are the comprehensive clinic for MS treatment, I will have [facility] reach out to her today. Coding Level of Care Code New Pt Level 4 (38385) Complex EM visit Add On G2211 Diagnoses Transient diplopia H53.2 Multiple sclerosis G35 Cervical radiculopathy M54.12 Spinal region: cervical Chronic fatigue R53.82 Fatigue type: chronic, unspecified Sleep apnea, unspecified type G47.30 Sleep apnea type: unspecified type Time Spent (min) 30 Comment Evaluation at baseline of JUNE Sleep Questionnaire Difficulty falling asleep: No Difficulty staying asleep?: Yes Snoring: Yes Witnessed apneas: Yes Gasping arousals: Yes Nocturia: No GERD: No Vivid dreams: No Acting out dreams: No Abnormal behavior in sleep: No Abnormal movements in sleep: Yes Morning headaches: Yes Excessive daytime sleepiness: Yes Daytime naps: Yes Restless legs: Yes Hallucinations: No Sleep paralysis: No Drop attacks: No Sleep Study: Yes CPAP: Yes (10 years ago)
--- OUTSIDE RECORDS SUMMARY | 2024-11-29 10:21 | XMS_ITS | Data Portability ---
Author Organization AJAY colin MD, [facility] Address [address] [place] [address] Assessment Encounter Date Assessment Date Assessment LastModified [...] abdominal pain or blood in the stool. [email or web address] Not available 12/14/2020 13:47:32 Plan of Treatment [...] en No observ ation record ed. [email or web address] [facility] [address], [place], [address], 03/13/2020 12:46:40 Result Notes None recorded. Problems Name Problem SNOMED Code Status Onset Date Resolution Date Notes Provider Name and Address Organization Details Recorded Time Constipation 04030432 Active 021 BRITTNEY Peralta [place] - Domingo [...] LastModified Time 03/11/2020 US, abdomen completed [email or web address] [facility] [address], [place], [address], 03/13/2020 12:46:40 Procedure Notes None recorded. Medical [...] Details Last Updated DateTime 1 27.8 kg/m2 55438.2 7 g 96 [degF] 64 /min 118 mm[Hg] 60 mm[Hg] ALVARADO Reaves MD 1 12:51:43 Date Recorded Body height Body mass index (BMI) Body weight Systolic blood pressure Diastolic blood pressure Provider Name and Address Organization Details Last Updated DateTime 07/09/2018 152.4 cm 25 kg/m2 01359.82 g 135 mm[Hg] 73 mm[Hg] jim jack Dumont MD 8 09:51:37 Date Recorded Body height Body mass index (BMI) Body weight Systolic blood pressure Diastolic blood pressure Provider Name and Address Organization Details Last Updated DateTime 08/01/2018 152.4 cm 25 kg/m2 41635.82 g 135 mm[Hg] 79 mm[Hg] stanley Dumont MD 8 10:12:35 Social History Question Answer Notes LastModified by Organizat ion Details LastModified Time Tobacco Smoking Status Never Smoker Not Available [facility] 05/28/2020 03:13:28 Do You Have An Advance [...] Many Years Have You Smoked Tobacco? 0 [id number] Information not available 05/28/2020 Sex: Unknown Functional [...] available 07/09/2018 09:53:20 Medical History Condition Response Other N Gout N Kidney Stones Y Depression N COPD N Osteoporosis/Osteopenia Y Anemia N Diverticulosis/Diverticulitis Y Colon Polyps Y GERD/Acid Reflux N Deep Vein Thrombosis N Diabetes N Anxiety Disorder N Hemorrhoids Y Autoimmune disease N Bleeding Disorder N Arthritis Y Seizures/Epilepsy N [...] quadrivalent, preservative 0 completed Brandy Pike LPN [place], [place] - Edenilson Dumont MD 12/14/2020 12:47:30 Past Encounters Encounter ID Performer Location Encounter Start Date Encounter Closed Date Diagnosis/Indication Diagnosis SNOMED-CT Code Diagnosis ICD10 Code Diagnosis Note [id number] Edenilson Dumont MD Main Office [id number] [facility] [address] [place] [address] 05/14/2018 11:58:15 05/16/2018 15:14:56 Ultrasound scan abnormal [id number] R93.89 Today I did a right groin ultrasound dynamic. With a linear probe. Patient does have a small right inguinal hernia. Right inguinal hernia 23 4554419 K40.90 We will schedule patient for open right inguinal hernia. Inguinal hernia [id number] 0 K40.90 Gave the patient for an open right inguinal hernia repair [id number] Edenilson Dumont MD Main Office [address] [place] [address] 07/09/2018 09:10:56 07/09/2018 10:45:28 [id number] Edenilson Dumont MD Main Office [address] [place] [address] 08/01/2018 09:20:43 08/01/2018 10:38:00 [id number] BRITTNEY Peralta Main Office [address] [place] [address] 12/14/2020 12:08:02 12/14/2020 14:53:29 Constipation 99386144 K59.00 We will schedule colonoscop y. Bowel prep instructio ns provided. Health Concerns Section Related Observation LastModified by Organization Detai ls LastModified Time None Recorded Concern Status LastModified by Organization Details LastModified Time None Recorded Advance Directives Directive N: Payers Encounter Date Sequence Insurance Name Policy Number Policy Ramirez Covered Member ID Ramirez Member ID Guarantor Name 05/14/2018 1 [place] Janeth Berrios [id number] Janeth Berrios 05/14/2018 2 [place] [employer] [place]SECONDARY TO MEDICARE) Janeth Berrios [id number] Janeth Berrios 07/09/2018 1 [place] Janeth Berrios [id number] Janeth Berrios 07/09/2018 2 [place] [employer] [place]CONDARY [place] MEDICARE) Janeth Berrios [id number] Janeth Berrios 08/01/2018 1 [place] Janeth Berrios [id number] Janeth Berrios 08/01/2018 2 [place] [employer] [place]CONDARY TO MEDICARE) Janeth Berrios [id number] Janeth Berrios 12/14/2020 1 [employer] (MEDICARE REPLACEMENT PPO) [id number] Janeth Berrios [id number] Janeth Rosas Berrios 12/14/2020 2 [place] [facility] [employer] [facility] [place] [facility] (SECONDARY TO MEDICARE) Janeth Rosas Berrios [id number] Janeth Berrios Notes Date Note Type Note [...] years ago grossly [place] [address], [place], [address], [facility] Danette Dumont MD 07/09/2018 10:32:52 08/01/2018 text/html HerniaReported bypatient.Notes:Tona ent status post open right inguinal hernia repair patient doing well denies any pain this [place] [address], [place], [address], [facility] Danette Dumont MD 08/01/2018 10:18:04 [...] or blood in the stool. BRITTNEY Peralta [place] Danette Dumont MD 12/14/2020 13:48:38 OBGyn Episode No OBEpisode recorded.
--- OUTSIDE RECORDS SUMMARY | 2024-11-29 10:21 | XMS_ITS | Clinical Summary ---
Author Organization [facility] Address [address] [place] [address] Care Team Providers Care Backup Administrative Coordinator Name Role Phone Berta Hennessy MD Primary Care Provider [phone] Allergies Active Allergy Reactions Criticality Noted Date [...] 0 05/08/2023 Active ergocalciferol (VITAMIN D2) capsule 90178 units Take 1 capsule (50,000 Units total) [...] age to complete this topic Care Teams Backup Administrative Coordinator Relationship Specialty Start Date End Date Berta Hennessy MD [address] [address] PCP - General Neurology 04/19/23
--- OUTSIDE RECORDS SUMMARY | 2024-11-29 10:21 | XMS_ITS | Data Portability ---
Author Organization [place] - Neurology macrina MCFARLANE [facility] Address [address] [facility] [address] [place] [address] Assessment No assessment recorded. Plan of Treatment Reminders Order Date Submit Date Provider Last Modified By Organization Details Last Modified Time Details Appointments None recorded. Lab None recorded. Referral ophthalmol ogist referral 2019 [facility], [address] [place], [address], 0 12:20:43 Procedures None recorded. Surgeries None recorded. Imaging MRI, brain, w/wo contrast 2019 020 [facility], [address] [facility] [address], [place], [address], 0 19:30:39 Medication Orders meclizine 25 mg tablet 2019 020 [facility] #[id number], [address] [place], [place], [id number], 0 11:15:15 baclofen 10 mg tablet 2019 020 [email or web address] [facility] #63354, [address] [place], [place], [id number], 0 22:07:55 Patient TargetsNo targets recorded. Patient InstructionsNo instructions recorded. Reason for Referral Mass Spectrometry Specialist Referral for Optic neuritis hx of MS and optic neuritis. Referring Physician: Alejandra Lucas, Neurology, Encounter Date: 05/26/2020 Results Created Date Observation Date Name Description Value Unit Range Abnormal Flag Note LastModifiedBy Organization Detail LastModifiedTime 04/28/20 20 04/28/2020 MRI, brain , w/wo contr ast No observ ation record ed. [email or web address] [facility] [address] [facility], [place], [address], 05/26/2020 10:50:44 05/06/20 20 04/28/2020 MRI, brain , w/wo contr ast No observ ation record ed. [email or web address] [facility] [address] [facility] [address], [place], [address], 05/26/2020 10:50:44 01/06/20 21 01/24/2019 MRI, brain , w/wo contr ast No observ ation record ed. [email or web address] Not Available 01/05 10:38:08 Result Notes None recorded. Problems Name Problem SNOMED Code Status Onset Date Resolution Date Notes Provider Name and Address Organization Details Recorded Time Multiple sclerosis 67044285 Active 020 Alejandra Lucas MD [address] [facility], [place], [address], [facility] [place] 0 22:09:55 Spasticity 585036037 Active 020 Alejandra Lucas MD [address] [facility], [place], [address], [facility] [place] 0 22:09:56 Vertigo 098533945 Active 020 Alejandra Lucas MD [address] [facility], [place], [address], [facility] 0 22:09:57 Problem Notes None recorded. Procedures Surgical History Date Name Laterality Status Provider Name and Address Organization Details Recorded Time 04/29/20 20 Unlisted px foot/toes completed Emili Barron [place] - [facility] [place] 05/26/2020 09:42:01 arthroscopy completed [...] Time 04/28/2020 MRI, brain, w/wo contrast completed [email or web address] [place] [address] [address], [place], [address], 05/26/2020 10:50:44 04/28/2020 MRI, brain, w/wo contrast completed [email or web address] [place] [address] [address], [place], [address], 05/26/2020 10:50:44 01/24/2019 MRI, brain, w/wo contrast [...] Updated DateTime 0 149.86 cm 28.3 kg/m2 13576.9 3 g 14 /min 97.3 [degF] 68 /min 150 mm[Hg] 95 mm[Hg] [facility] 0 10:46:47 Date Recorded Body height Body mass index (BMI) Body weight Respiratory rate Body temperature Heart rate Systolic blood pressure Diastolic blood pressure Provider Name and Address Organization Details Last Updated DateTime 0 149.86 cm 27.9 kg/m2 53771.7 5 g 16 /min 97.3 [degF] 67 /min 129 mm[Hg] 79 mm[Hg] [facility] 0 09:40:03 Date Recorded Body height Body mass index (BMI) Body weight Respiratory rate Body temperature Heart rate Systolic blood pressure Diastolic blood pressure Provider Name and Address Organization Details Last Updated DateTime 0 149.86 cm 26.1 kg/m2 45614.4 2 g 16 /min 97.2 [degF] 81 /min 139 mm[Hg] 81 mm[Hg] [facility] 0 09:52:29 Date Recorded Body height Body mass index (BMI) Body weight Respiratory rate Body temperature Heart rate Systolic blood pressure Diastolic blood pressure Provider Name and Address Organization Details Last Updated DateTime 1 149.86 cm 28.3 kg/m2 87334.9 3 g 15 /min 97.7 [degF] 63 [...] 3467 Alejandra Lucas MD Main Office [address] [facility] [place] [address] 04/27/2020 10:32:20 04/27/2020 11:20:02 Multiple sclerosis 39488830 G35 Currently she has not evidence of activity. We need to rule out the possibilit y of exacerbati on or new multiple sclerosis lesions. Symptomati c management continues Spasticity 790627603 R25 .2 Baclofen is helping Vertigo 849826464 R42 Will is start symptomati c management 4326 Alejandra Lucas MD Main Office [address] [employer],[address] [place] [address] 05/26/2020 09:22:59 05/26/2020 10:29:48 Multiple sclerosis 02581731 G35 Currently she has not evidence of activity. We need to rule out the possibilit y of exacerbati on or new multiple sclerosis lesions. Symptomati c management continues Spasticity 684366448 R25 .2 Baclofen is helping. Vertigo 245029926 R42 She is having improvemen t with meclizine Optic neuritis 35063431 H46.9 She had symptoms in the past and recently she has had problems with her vision. She has never had formal ophthalmol ogical evaluation and will refer Elevated blood-pressure reading without diagnosis of hypertension 299164135 R03.0 We have discussed about importance of losing weight. She is going to start exercising after she improves of the right foot 6359 Alejandra Lucas MD Main Office [address] [place] [address] 07/30/2020 09:45:30 07/30/2020 10:22:55 Multiple sclerosis 86493408 G35 No evidence of relapses but she has residual deficits that are worsening. She has severe fatigue and problems with balance. She recently had a fall with fx of the ankle that required so far 2 interventi ons. Spasticity 495981488 R25 .2 Baclofen is helping. She may benefit from trial with medical marijuana. Will contact her. Vertigo 007173594 R42 She is having improvemen t with meclizine but still present 9870 Alejandra Lucas MD Main Office [address] [place] [address] 11/26/2020 09:39:56 11/26/2020 10:42:31 Multiple sclerosis 32475412 G35 No evidence of relapses but she has residual deficits that are worsening. She has severe fatigue and problems with balance. She recently had a fall with fx of the ankle that required so far 2 interventi ons. Spasticity 884105254 R25 .2 Baclofen is helping. She may benefit from trial with medical marijuana. Will contact her. Vertigo 565441832 R42 She is having improvemen t with meclizine but still present Health Concerns Section Related Observation LastModified by Organization Detai ls LastModified Time None Recorded Concern Status LastModified by Organization Details LastModified Time None Recorded Advance Directives Directive N: Payers Encounter Date Sequence Insurance Name Policy Number Policy Ramirez Covered Member ID Ramirez Member ID Guarantor Name 04/27/2020 1 [place] Janeth Berrios [id number] Janeth Berrios 05/26/2020 1 [place] Janeth Berrios [id number] Janeth Berrios 07/30/2020 1 [place] Janeth Berrios [id number] Janeth Berrios 11/26/2020 1 [employer] (MEDICARE REPLACEMENT PPO) [id number] Janeth Berrios [id number] Janeth Berrios Notes Date Note Type Note [...] was very difficult her work at the [employer]. She was born in [place], she just moved to [place] 4 years ago. HISTORY OF MULTIPLE SCLEROSIS [...] Hcg: NA CSF: Negative per patient Alejandra Lcuas MD [address] [facility],[address], [place], [address], [facility] - [facility] [place] 05/09/2020 22:10:54 05/26/2020 text/html Patient followed in the office since 2017 with diagnosis of multiple sclerosis. Patient has had no evidence of disease activity since she had chemotherapy for lymphoma. She has residual symptoms that are affecting her level of activity. The patient had right foot surgery and it is immobilized. 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 She try to help as much [...] has not had a formal evaluation by manager life insurance. She is totally and permanently disabled. 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 She try to [...] of vertigo, weakness Alejandra Lucas MD [address] [facility],[address], [place], [address], [facility] 08/03/2020 20:08:39 11/26/2020 text/html LESLYE [...] of vertigo, weakness Alejandra Lucas MD [address] [facility],[address], [place], [address], [facility] 12/06/2020 20:30:53 OBGyn Episode No OBEpisode recorded.
--- OUTSIDE RECORDS SUMMARY | 2024-11-29 10:21 | XMS_ITS | Data Portability ---
Author Organization [place] - [facility], [facility] Address [address] [facility] [address] [place] [address] Assessment No assessment recorded. Plan of Treatment Reminders Order Date Submit Date Provider Last Modified By Organization Details Last Modified Time Details Appointments None recorded. Lab lipid panel, blood 2020 021 [employer] [facility], [address] [facility] [address], [place], [address], 10:56:54 TSH, serum, reflex free T4 2020 021 [employer] [facility], [address] [facility] [address], [place], [address], 10:56:55 CMP, serum or plasma 2020 021 [employer] [facility], [address] [facility] [address], [place], [address], 10:56:55 Referral None recorded. Procedures None recorded. Surgeries None recorded. Imaging None recorded. Medication Orders phentermine 37.5 mg tablet 2020 021 [facility] #38008, [address] [place], [place], [id number], 09:44:30 phentermine 37.5 mg tablet 2020 021 [facility] #48158, [address] [place], [place], [id number], 22:13:56 phentermine 37.5 mg tablet 2020 021 [facility] #59817, [address], [place], [id number], 17:20:00 Patient TargetsNo targets recorded. Patient Instructions Encounter Date Encounter Id Patient Instructions Last Modified By Organization Details Last Modified Time 02/23/2021 [id number] rhythm strip, EKG* Not available 02/25/2021 11:25:55 [...] 2WEEKS tlouissaint Not available 02/23/2021 18:12:48 05/03/2021 [id number] 05/03/21 CT IS A 61 YEAR OLD [...] 2WEEKS tlouissaint Not available 05/04/2021 09:32:16 06/21/2021 [id number] 06/21/2021 CT IS A 61 YEAR OLD [...] 4WEEKS tlouissaint Not available 06/21/2021 15:04:42 07/26/2021 [id number] 07/26/2021 CT IS A 61 YEAR OLD [...] Organization Details Recorded Time Increased blood pressure 49198061 Active 021 RAVEN Solomon [address], [place], [address], [facility] 1 18:06:19 Overweight 258986842 Active 021 RAVEN Solomon [address], [place], [address], [facility] 1 18:06:43 Problem Notes [...] 1 67 /min 149.86 cm 28.3 kg/m2 10788.9 3 g 185 mm[Hg] 104 mm[Hg] GENE TORO M.D. [address] [facility] [address], [place], [address]ly [facility] [place] 1 16:17:06 Date Recorded Body height Heart rate Body mass index (BMI) Body weight Systolic blood pressure Diastolic blood pressure Provider Name and Address Organization Details Last Updated DateTime 1 149.86 cm 70 /min 28.9 kg/m2 96218.7 1 g 128 mm[Hg] 84 mm[Hg] GENE TORO M.D. [address] [facility] [address], [place], [address] [place] 1 15:47:19 Date Recorded Body height Body mass index (BMI) Body weight Heart rate Systolic blood pressure Diastolic blood pressure Provider Name and Address Organization Details Last Updated DateTime 1 149.86 cm 27.5 kg/m2 57063.5 6 g 91 /min 108 mm[Hg] 67 mm[Hg] GENE TORO M.D. [address] [facility] [address], [place], [address], [facility] 14:32:40 Date Recorded Body height Heart rate Body mass index (BMI) Body weight Systolic blood pressure Diastolic blood pressure Provider Name and Address Organization Details Last Updated DateTime 1 149.86 cm 88 /min 26.9 kg/m2 77656.7 9 g 153 mm[Hg] 88 mm[Hg] GENE TORO M.D. [address] [facility] [address], [place], [address], [facility] 15:41:17 Social History None recorded. Functional Status None recorded. Mental Status None recorded. Family History Nothing Reported. Medical History No medical history recorded. Gynecological HistoryNo gynecological history recorded. Obstetrics History GPAL:G 0 P 0 0 0 0 Past Encounters Encounter ID Performer Location Encounter Start Date Encounter Closed Date Diagnosis/Indication Diagnosis SNOMED-CT Code Diagnosis ICD10 Code Diagnosis Note [id number] GENE TORO M.D. [facility] [address] [facility] [address] [place] [address] 02/23/2021 15:40:57 02/25/2021 15:34:30 Overweight 930167613 E66.3 [id number] GENE TORO M.D. [facility] [address] [place] [address] 05/03/2021 14:52:27 05/05/2021 11:24:38 Overweight 242052412 E66.3 [id number] GENE TORO M.D. [facility] [address] [facility] [place] [address] 06/21/2021 14:24:55 06/22/2021 22:49:35 Overweight 256861379 E66.3 Increased blood pressure 78862086 R03.0 [id number] GENE TORO M.D. [facility] [address] [place] [address] 07/26/2021 15:39:26 08/02/2021 16:44:19 Overweight 329121428 E66.3 Increased blood pressure 58522565 R03.0 Health Concerns Section Related Observation LastModified by Organization Detai ls LastModified Time None Recorded Concern Status LastModified by Organization Details LastModified Time None Recorded Advance Directives Directive None Recorded Payers Encounter Date Sequence Insurance Name Policy Number Policy Ramirez Covered Member ID Ramirez Member ID Guarantor Name 02/23/2021 1 [employer] (MEDICARE REPLACEMENT PPO) [id number] [address] Ros[address] Ber[address] [id number] [address] Rosas Yash 05/03/2021 1 [employer] (MEDICARE REPLACEMENT PPO) [id number] [address] [id number] [address] Ros[address] Yash 06/21/2021 1 [employer] (MEDICARE REPLACEMENT PPO) [id number] [address] [id number] [address] Ros[address] Yash 07/26/2021 1 [employer] (MEDICARE REPLACEMENT PPO) [id number] Ct Ber[address] [id number] Ct Rosas Berrios Notes Date Note Type Note Provider Name and Address Organization Details Recorded Time 07/26/2021 text/html WEIGHT LOSS MANAGMENT GENE TORO M.D. [address], [place], [address], [facility] 07/28/2021 09:44:33 OBGyn Episode No OBEpisode recorded.
--- OUTSIDE RECORDS SUMMARY | 2024-11-29 10:22 | XMS_ITS | Data Portability ---
Author Organization [place] - [place] PIPER Arredondo, [id number] Address [address] [facility] [address] [place] [address] Assessment Encounter Date Assessment Date Assessment LastModified by Organization Details LastModified Time 03/21/2017 03/21/2017 57 year old female here with several concerns: 1) bleeding after intercourse- vaginal cultures done- use lubricant with intercourse- may need estrace cream- will await cultures. 2) occ RLQ pain with intercourse- urine sent for culture- pt. has had bowel resection- may have scar tissue. [email or web address] Not available 03/21/2017 12:05:16 Plan of Treatment Reminders Order Date Submit Date Provider Last Modified By Organization Details Last Modified Time Details Appointments None recorded. Lab bacterial vaginosis panel, vaginal 2016 017 [facility] [address] [place] [address], [address], 7 01:00:46 urinalysis , dipstick 2016 017 [email or web address] In-House Results, For Internal Use Only, Do Not Delete/merge, [id number] 7 12:03:45 culture, urine 2016 017 [facility] ([facility] , [address], [place], [address], 7 16:50:06 Referral None recorded. Procedures None [...] For Internal Use Only, Do Not Delete/merge, [address] 03/21/2017 11:22:56 03/21/20 17 03/21/2017 urina lysis [...] al Not Available [facility] [address] [place] [address], [address], 03/25/2017 01:00:46 03/21/2003/24/2017 bacte rial vagin osis panel , vagin al gardnerella vaginalis by real-time PCR Positi ve abnormal Swab- 1 Vagin al Not Available [facility] [address] [place] [address], [address], 03/25/2017 01:00:46 03/21/2003/24/2017 bacte rial vagin osis panel , vagin al atopobium vaginae by real-time PCR Positi ve abnormal Swab- 1 Vagin al Not Available [facility] [address] [place] [address], [address], 03/25/2017 01:00:46 03/21/2003/24/2017 bacte rial vagin osis panel , vagin al bacterial vaginosis associated bacterium 2 (bvab2) by real-time PCR Negati ve normal Swab- 1 Vagin al Not Available [facility] [address] [place] [address], [address], 03/25/2017 01:00:46 03/21/20 17 03/24/2017 bacte rial vagin osis panel , vagin al megasphaera species (type 1 and type 2) by real-time PCR Negati ve normal Swab- 1 Vagin al Type1 :Nega tive Type2 :Nega tive. Not Available [facility] [address] [place] [address], [address], 03/25/2017 01:00:46 03/21/2003/24/2017 bacte rial vagin osis panel , vagin al lactobacillu s (bv \T\ av panel) by real time PCR See Commen t normal Swab- 1 Vagin al L.cri spatu s: Negat surinder L.zoila senii : Posit surinder L.gas seri : Negat surinder L.ine rs : Negat surinder. Not Available [facility] [address] [place] [address], [address], 03/25/2017 01:00:46 03/21/2003/24/2017 bacte rial vagin osis panel , vagin al anisa albicans by real-time PCR Negati ve normal Swab- 1 Vagin al Not Available [facility] [address] [place] [address], [address], 03/25/2017 01:00:46 03/21/20 17 03/24/2017 bacte rial vagin osis panel , vagin al anisa tropicalis by real-time PCR Negati ve normal Swab- 1 Vagin al Not Available [facility] [address] [place] [address], [address], 03/25/2017 01:00:46 03/21/20 03/24/2017 bacte rial vagin osis panel , vagin al anisa parapsilosis by real-time PCR Negati ve normal Swab- 1 Vagin al Not Available [facility] [address] [place] [address], [place], [address], 03/25/2017 01:00:46 03/22/20 17 03/22/2017 cultu re, urine abnormal status normal Not Available [facility] ([facility]) [address] [place] [address] [address], [place], [address], 03/24/2017 16:50:06 Result Notes None recorded. Problems Name Problem SNOMED Code Status Onset Date Resolution Date Notes Provider Name and Address Organization Details Recorded Time Abnormal vaginal bleeding 758166924 Active 017 Eugencia Jaylen-Butn er (TERMED) [facility] 7 10:37:15 Problem Notes None recorded. 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 Information not available 03/21/2017 Are There Any [...] SNOMED-CT Code Diagnosis ICD10 Code Diagnosis Note [id number] BRITTNEY SANCHEZ CC185_(UR OGYN) [place] [address] [place] [address] 03/21/2017 10:19:03 03/21/2017 11:26:36 Pain in pelvis 27016648 R10.2 Vaginal discharge 603916 006 N89.8 Dyspareunia 20413891 N94 .10 Health Concerns Section Related Observation LastModified by Organization Detai ls LastModified Time None Recorded Concern Status LastModified by Organization Details LastModified Time None Recorded Advance Directives Directive N: Payers Encounter Date Sequence Insurance Name Policy Number Policy Ramirez Covered Member ID Ramirez Member ID Guarantor Name 03/21/2017 1 [place] Janeth Berrios [id number] Janeth Berrios Notes Date Note Type Note Provider Name and Address Organization Details Recorded Time 03/21/2017 text/html 57 year 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 She states she has bleeding after [...] or vaginal dryness. BRITTNEY SANCHEZ [address] [facility], [address], [place], [address], [facility] - [facility], [facility] 03/21/2017 12:05:38 OBGyn Episode No OBEpisode recorded.
--- OUTSIDE RECORDS SUMMARY | 2024-11-29 10:22 | XMS_ITS | Data Portability ---
Author Organization [place] [facility], [facility] Address [address] [facility] [address] [place] [address] Assessment No assessment recorded. Plan of Treatment Reminders Order Date Submit Date Provider Last Modified By Organization Details Last Modified Time Details Appointments None recorded. Lab drug screen, urine 2021 022 In-House Results, For Internal Use Only, Do Not Delete/merge, [id number] 10:19:01 drug screen, urine 2021 022 In-House Results, For Internal Use Only, Do Not Delete/merge, [id number] 13:24:44 CMP, serum or plasma 2021 [email or web address] [facility], [address], [place], [address], 2 03:21:18 urinalysis, dipstick 2021 022 In-House Results, For Internal Use Only, Do Not Delete/merge, [id number] 2 16:02:39 Referral None recorded. Procedures greater trochanteri c bursa injection (PROC) 2021 022 Not available 13:53:25 Surgeries None recorded. Imaging XR, hip + pelvis, bilateral, 3 or 4 view 2021 JAMES [facility] [place], [address] [facility], [place], [address], 2 20:37:24 Medication Orders oxycodone-a cetaminophe n 10 mg-325 mg tablet 2021 [facility][id number], [address], [id number], 10:19:15 oxycodone-a cetaminophe n 10 mg-325 mg tablet 2021 [facility] #74221, [address] [place], [place], [id number], 13:46:12 baclofen 10 mg tablet 2021 [facility] #[id number], [address], [id number], 10:19:13 baclofen 10 mg tablet 2021 [facility] #10277, [address] [place], [place], [id number], 10:19:13 oxycodone-a cetaminophe n 10 mg-325 mg tablet 2021 [facility] #42052, [address], [id number], 18:27:44 valacyclovi r 1 gram tablet 2021 [facility] #54727, [address], [id number], 18:52:14 Medrol (Fco) 4 mg tablets in a dose pack 2021 [facility] #07947, [address], [id number], 18:39:20 baclofen 10 mg tablet 2021 [facility] #09630, [address] [place], [id number], 18:28:02 oxycodone-a cetaminophe n 10 mg-325 mg tablet 2021 [facility] #59078, [address] [facility], [place], [place], [id number], 13:51:13 baclofen 10 mg tablet 2021 [facility] #82189, [address] [place], [place], [id number], 13:53:06 Patient TargetsNo targets recorded. Patient Instructions Encounter Date Encounter Id Patient Instructions Last Modified By Organization Details Last Modified Time 02/15/2022 [id number] depression and chronic disease: care instructions Not [...] risk. [email or web address] Not available 02/16/2022 14:13:46 03/15/2022 [id number] advance directives: care instructions [email or web address] Not available [...] influenza vac Not available 03/15/2022 21:53:52 03/23/2022 [id number] 03/23/22 JANETH IS HERE TODAY FOR INJECTION [...] IF NEEDED. Not available 03/27/2022 21:23:32 04/07/2022 [id number] 04/07/2022 TODAY VIA TELEPHONE CALL I DISCUSSED THE MOST RECENT RADIOLOGY STUDIES ON THIS PATIENT. MODERATE SCOLIOSIS OF THE LUMBAR SPINE MODERATE DEGENERATIVE CHANGES OF THE RIGHT HIP JOINT MODERATE DEGENERATIVE CHANGES TO THE LEFT HIP JOINT [email or web address] Not available 04/30/2022 12:55:37 04/13/2022 [id number] 04/13/2022- Onelia comes in today for her [...] w-up test. Not Available [facility] [place] [facility] [address], [place], [address], 03/22/2022 03:21:16 03/21/20 22 03/22/2022 COMPR EHENS PATITO METAB OLIC PANEL urea nitrogen (BUN) 25 mg/dL 7-25 normal Not Available [facility] [place] [facility] [address], [place], [address], 03/22/2022 03:21:16 03/21/20 22 03/22/2022 COMPR EHENS PATITO METAB OLIC PANEL creatinine 0.70 mg/dL 0.50-1 .05 normal Not Available [facility] [address], [place], [address], 03/22/2022 03:21:16 03/21/20 22 03/22/2022 COMPR EHENS [...] kdoqi /gfr% 5Fcal culat or Not Available [facility] [address], [place], [address], 03/22/2022 03:21:16 03/21/20 22 03/22/2022 COMPR EHENS PATITO METAB OLIC PANEL BUN/creatini ne ratio NOT APPLIC ABLE (calc ) 6-22 Not Available [facility] [address], [place], [address], 03/22/2022 03:21:16 03/21/20 22 03/22/2022 COMPR EHENS PATITO METAB OLIC PANEL sodium 140 mmol/ L 135-14 6 normal Not Available [facility] [place] [facility] [address], [place], [address], 03/22/2022 03:21:16 03/21/20 22 03/22/2022 COMPR EHENS PATITO METAB OLIC PANEL potassium 4.5 mmol/ L 3.5-5. 3 normal Not Available [facility] [address], [place], [address], 03/22/2022 03:21:16 03/21/20 22 03/22/2022 COMPR EHENS PATITO METAB OLIC PANEL chloride 105 mmol/ L 98-110 normal Not Available [facility] [address], [place], [address], 03/22/2022 03:21:16 03/21/20 22 03/22/2022 COMPR EHENS PATITO METAB OLIC PANEL carbon dioxide 24 mmol/ L 20-32 normal Not Available [facility] [address], [place], [address], 03/22/2022 03:21:16 03/21/20 22 03/22/2022 COMPR EHENS PATITO METAB OLIC PANEL calcium 10.0 mg/dL 8.6-10 .4 normal Not Available [facility] [address], [place], [address], 03/22/2022 03:21:16 03/21/20 22 03/22/2022 COMPR EHENS PATITO METAB OLIC PANEL protein, total 7.0 g/dL 6.1-8. 1 normal Not Available [facility] [address], [place], [address], 03/22/2022 03:21:16 03/21/20 22 03/22/2022 COMPR EHENS PATITO METAB OLIC PANEL albumin 4.8 g/dL 3.6-5. 1 normal Not Available [facility] [address], [place], [address], 03/22/2022 03:21:16 03/21/20 22 03/22/2022 COMPR EHENS PATITO METAB OLIC PANEL globulin 2.2 g/dL_ (calc ) 1.9-3. 7 normal Not Available [facility] [address], [place], [address], 03/22/2022 03:21:16 03/21/20 22 03/22/2022 COMPR EHENS PATITO METAB OLIC PANEL albumin/glob ulin ratio 2.2 (calc ) 1.0-2. 5 normal Not Available [facility] [address], [place], [address], 03/22/2022 03:21:16 03/21/20 22 03/22/2022 COMPR EHENS PATITO METAB OLIC PANEL bilirubin, total 0.4 mg/dL 0.2-1. 2 normal Not Available [facility] [address], [place], [address], 03/22/2022 03:21:16 03/21/20 22 03/22/2022 COMPR EHENS PATITO METAB OLIC PANEL alkaline phosphatase 51 U/L 37-153 normal Not Available [facility] [address], [place], [address], 03/22/2022 03:21:16 03/21/20 22 03/22/2022 COMPR EHENS PATITO METAB OLIC PANEL AST 14 U/L 10-35 normal Not Available [facility] [address], [place], [address], 03/22/2022 03:21:16 03/21/20 22 03/22/2022 COMPR EHENS PATITO METAB OLIC PANEL ALT 22 U/L 6-29 normal Not Available [facility] [address], [place], [address], 03/22/2022 03:21:16 03/29/20 22 03/29/2022 XR, hip + pelvi s, bilat eral, 3 or 4 view No observ ation record ed. [facility] [address] [place], [address], 04/07/2022 20:32:49 Result Notes None recorded. Problems Name Problem SNOMED Code Status Onset Date Resolution Date Notes Provider Name and Address Organization Details Recorded Time Low back pain 096791353 Completed 201601/29/2018 MD Mikaela Cabello [address], [place], [address] , [facility] 8 09:43:11 Lumbar radiculop athy 512648413 Completed 201601/29/2018 MD Mikaela Cabello [address], [place], [address] , [facility] 8 09:42:52 Inflammat ion of sacroilia c joint 56439041 Active 2016 MD Mikaela Cabello,[address], [place], [address] , [facility] 7 16:57:52 Cervical radiculop athy 12676508 Active 2016 MD Mikaela Cabello [address], [place], [address] , [facility] 7 16:58:05 Multiple sclerosis 44863167 Active 2016 MD Mikaela Cabello,[address], [place], [address] , [facility] 7 16:58:13 Chronic obstructi ve pulmonary disease 02043573 Active 2016 MD Mikaela Cabello,[address], [place], [address] , [facility] 7 16:58:21 Myofascia l pain 088799939 Active 2016 MD [address], [place], [address] , [place] [facility] 7 16:58:40 Neck pain 91355868 Active 2016 MD Mikaela Cabello [address], [place], [address] , [place] [facility] 7 16:58:52 Non-Hodgk in's lymphoma (clinical ) 908270627 Active 2016 MD Mikaela Cabello,[address], [place], [address] , [place] [facility] 7 16:59:07 Restless legs 33390956 Active 2016 MD Mikaela Cabello,[address], [place], [address] , [facility] 7 16:59:20 Osteoporo sis 29545960 Active 2016 MD Mikaela Cabello,[address], [place], [address] , [facility] 7 16:59:33 Chronic fatigue syndrome 58326100 Active 2016 MD Mikaela Cabello,[address], [place], [address] , [facility] 7 16:59:44 Spinal cord compressi on 66170312 Active 2016 MD Mikaela Cabello,[address], [place], [address] , [facility] 17:00:07 Obesity 407218948 Active 2016 MD Mikaela Cabello,[address], [place], [address] , [facility] 10/25/201 7 15:18:28 Lumbosacr al radiculit is 58401192 Active 2017 MD Mikaela Cabello [address], [place], [address] , [facility] 8 09:43:03 Long-term drug therapy Active 2017 MD Mikaela Cabello,[address], [place], [address] , [facility] 8 09:43:28 Spasm of back muscles 020488749 Active 2017 MD Mikaela Cabello [address], [place], [address] , [facility] 8 12:30:05 Myalgia/m yositis - multiple 511053433 Active 2017 MD Mikaela Cabello,[address], [place], [address] , [facility] 8 12:30:21 Cervical spondylos is 198098752 Active 2017 MD Mikaela Cabello,[address], [place], [address] , [facility] 8 12:30:29 Chronic pain syndrome 307903118 Active 2017 MD Mikaela Cabello,[address], [place], [address] , [facility] 8 12:30:37 Increased blood pressure 76744384 Active 2017 MD Mikaela Cabello,[address], [place], [address] , [facility] 8 09:14:49 Rheumatoi d arthritis 12758390 Active 2018 MD Mikaela Cabello [address], [place], [address] , [facility] 9 13:45:06 Pain in right hip joint 01585544877 9102 Active 2018 GENE TORO M.D. [address], [place], [address] , [facility] 9 09:25:54 Bursitis of hip 25131507 Active 2018 BRITTNEY LUNA [address], [place], [address] , [facility] 9 15:26:40 Greater trochante jose pain syndrome of right lower limb 64345880035 839220 Active 2018 GENE TORO M.D. [address], [place], [address] , [facility] 9 09:26:37 Pain in right foot 64283364814 9107 Active 2018 GENE TORO M.D. [address], [place], [address] , [facility] 9 16:25:41 Fatigue 23147833 Active 2018 GENE TORO M.D. [address], [place], [address] , [facility] 9 16:31:53 Drug-dayanara awilda constipat ion 47865489 Active 2019 GENE TORO M.D. [address], [place], [address] , [facility] 0 09:24:53 Herpes zoster 1758791 Active 2021 GENE TORO M.D. [address], [place], [address] , [facility] 13:31:05 Problem Notes None recorded. Procedures Surgical History Date Name Laterality Status Provider Name and Address Organization Details Recorded Time 03/23/2022 Procedure completed GENE TORO M.D. [address] [facility],[address], [place], [address], [facility] 03/27/2022 21:23:38 08/19/2019 Procedure completed GENE TORO M.D. [address] [facility],[address], [place], [address], [facility] 08/19/2019 14:15:23 06/17/2019 Procedure completed GENE TORO M.D. [address] [facility] [address], [place], [address], [facility] 06/18/2019 09:27:55 Imaging Results Imaging Date Name Status LastModified by Organiz ation Details LastModified Time 03/29/2022 XR, hip + pelvis, bilateral, 3 or 4 view completed [facility] [place] [address] [facility], [place], [address], 04/07/2022 20:32:49 Procedure Notes None recorded. Medical [...] 2 149.86 cm 77 /min 25.9 kg/m2 35310.8 2 g 122 mm[Hg] 81 mm[Hg] GENE TORO M.D. [address] [facility] [address], [place], [address] [place] [address] [facility] 2 13:31:41 Date Recorded Body height Body mass index (BMI) Body weight Heart rate Systolic blood pressure Diastolic blood pressure Provider Name and Address Organization Details Last Updated DateTime 2 149.86 cm 25.9 kg/m2 99267.8 2 g 72 /min 133 mm[Hg] 86 mm[Hg] GENE TORO M.D. [address] [facility] 3[place], [address], [facility] [place] 2 13:13:10 Date Recorded Body height Body mass index (BMI) Body weight Pain severity Hartley-Bashir FACES pain rating scale Heart rate Systolic blood pressure Diastolic blood pressure Provider Name and Address Organization Details Last Updated DateTime 2 149.86 cm 25.9 kg/m2 56814.8 2 g 6 77 /min 128 mm[Hg] 82 mm[Hg] GENE TORO M.D. [address] [facility] 3[place], [address], [facility] [place] 2 08:41:03 Date Recorded Body height Body mass index (BMI) Body weight Pain severity - 0-10 verbal numeric rating [Score] - Reported Provider Name and Address Organization Details Last Updated DateTime 04/07/2022 149.86 cm 25.9 kg/m2 20089.82 g 6 GENE TORO M.D. [address] [facility] 3[place], [address], [facility] [place] 04/07/2022 20:32:45 Date Recorded Body height Pain severity - 0-10 verbal numeric rating [Score] - Reported Body mass index (BMI) Body weight Heart rate Systolic blood pressure Diastolic blood pressure Provider Name and Address Organization Details Last Updated DateTime 2 149.86 cm 7 25.9 kg/m2 05445.8 2 g 103 /min 131 mm[Hg] 80 mm[Hg] GENE TORO M.D. [address] [facility] 3[place], [address], [facility] [place] 2 09:56:25 Social History Question Answer Notes LastModified by Organizat ion Details LastModified Time Tobacco Smoking Status Never Smoker GENE TORO M.D. [address] [facility],[address], [place], [address], [facility] 06/16/2020 09:57:52 Do You [...] Anxious, Or Unable To Sleep At Night)? [id number] BEST FRIEND JUST Information not available 06/29/2021 [...] difficulty concentrating, remembering or making decisions? [place] [address] Information no t available 06/29/2021 Family History [...] SNOMED-CT Code Diagnosis ICD10 Code Diagnosis Note [id number] Jose Hatch MD [facility] [address] [place] [address] 03/29/2017 15:04:29 03/30/2017 10:18:08 Low back pain 914186912 M54.5 Inflammati on of sacroiliac joint 08205422 M46.1 Lumbar fac et joint pain 097415625 M54.5 Neck pain 76683029 M54.2 Cervical f acet joint pain 998450813 M54.2 Skin sensa tion disturbance 46549968 R20.9 Sleep apnea 28148095 G47 .30 Lumbar radiculopathy 128 782752 M54.16 Cervical radiculopathy 35766149 M54.12 Myofascial pain 00692215 9 M79.1 Non-Hodgki n's lymphoma (clinical) 831858547 C85.90 Multiple sclerosis 28200 007 G35 Chronic ob structive pulmonary disease 15953143 J44.9 Long-term drug therapy 574224069 Z79.899 Restless legs 97606188 G 25.81 Osteoporosis 20975702 M8 1.0 [id number] Jose Hatch MD [facility] [address] [facility] [place] [address] 04/12/2017 09:16:17 04/13/2017 13:27:49 Low back pain 627914308 M54.5 Lumbar radiculopathy 128 655146 M54.16 Inflammati on of sacroiliac joint 17994250 M46.1 Lumbar fac et joint pain 568306759 M54.5 Neck pain 02997494 M54.2 Cervical f acet joint pain 585826504 M54.2 Skin sensa tion disturbance 71276197 R20.9 Sleep apnea 98993239 G47 .30 Cervical radiculopathy 24952828 M54.12 Myofascial pain 17036348 9 M79.1 Non-Hodgki n's lymphoma (clinical) 514847207 C85.90 Multiple sclerosis 04092 007 G35 Chronic ob structive pulmonary disease 83140659 J44.9 Long-term drug therapy 382404314 Z79.899 Restless legs 48943832 G 25.81 Osteoporosis 22769995 M8 1.0 Chronic fa tigue syndrome 34226574 R53.82 Spinal cor d compression 04514307 G95.20 [id number] Jose Hatch MD [facility] [address] [place] [address] 05/10/2017 15:57:15 05/16/2017 15:50:47 Lumbar radiculopathy 479670688 M54.16 Low back pain 375663116 M54.5 Multiple sclerosis 61411 007 G35 Long-term drug therapy 212017715 Z79.899 Cervical radiculopathy 54006086 M54.12 Myofascial pain 82502071 9 M79.1 Neck pain 06578863 M54.2 Non-Hodgki n's lymphoma (clinical) 825858727 C85.90 Osteoporosis 31240424 M8 1.0 Spinal cor d compression 39633690 G95.20 Inflammati on of sacroiliac joint 69718152 M46.1 [id number] Jose Hatch MD [facility] [address] [address] 06/07/2017 12:36:54 06/08/2017 16:16:09 Lumbar radiculopathy 272331651 M54.16 Osteoporosis 05057940 M8 1.0 Multiple sclerosis 59905 007 G35 Long-term drug therapy 159259608 Z79.899 Spinal cor d compression 03647994 G95.20 Neck pain 93448124 M54.2 Myofascial pain 61546461 9 M79.1 Cervical radiculopathy 62898225 M54.12 Inflammati on of sacroiliac joint 62131083 M46.1 Obesity 901507306 E66.9 [id number] Jose Hatch MD [facility] [address] [address] 07/05/2017 10:40:27 07/09/2017 14:03:18 Lumbar radiculopathy 050832235 M54.16 Multiple sclerosis 62049 007 G35 Low back pain 926154840 M54.5 Long-term drug therapy 702588443 Z79.899 Myofascial pain 81644526 9 M79.1 Cervical radiculopathy 45197892 M54.12 Inflammati on of sacroiliac joint 16868302 M46.1 Spinal cor d compression 15894177 G95.20 Osteoporosis 42577247 M8 1.0 Restless legs 14885900 G 25.81 [id number] Jose Hatch MD [facility] [address] [address] 07/31/2017 16:18:40 08/01/2017 15:13:56 Lumbar radiculopathy 031834329 M54.16 Multiple sclerosis 55894 007 G35 Low back pain 014827700 M54.5 Long-term drug therapy 773575602 Z79.899 Myofascial pain 11340426 9 M79.1 Cervical radiculopathy 43317659 M54.12 Inflammati on of sacroiliac joint 84195864 M46.1 Spinal cor d compression 83951404 G95.20 Osteoporosis 17429059 M8 1.0 Restless legs 00472768 G 25.81 Chronic fa tigue syndrome 59344070 R53.82 Anxiety disorder 5889639 06 F41.9 Non-Hodgki n's lymphoma (clinical) 178070623 C85.90 Chronic ob structive pulmonary disease 72080820 J44.9 [id number] Jose Hatch MD [facility] [address] [address] 09/04/2017 08:43:44 09/04/2017 16:24:06 Low back pain 825481473 M54.5 Restless legs 56849676 G 25.81 Cervical radiculopathy 50260624 M54.12 Long-term drug therapy 080805367 Z79.899 Anxiety 59206047 F41.9 [id number] Jose Hatch MD [facility] [address] [facility] [address] [place] [address] 10/02/2017 10:19:16 10/02/2017 23:13:02 Low back pain 091973105 M54.5 Long-term drug therapy 259097346 Z79.899 Cervical radiculopathy 11195394 M54.12 Restless legs 95318018 G 25.81 Anxiety 99117201 F41.9 Obesity 804882920 E66.9 Chronic fa tigue syndrome 17503167 R53.82 Lumbar radiculopathy 128 777337 M54.16 Relapsing remitting multiple sclerosis 963048203 G35 Myofascial pain syndrome 105774865 M79.1 [id number] Jose Hatch MD [facility] [address] [address] 11/06/2017 16:40:36 11/08/2017 11:17:30 Low back pain 471251437 M54.5 Cervical radiculopathy 89304205 M54.12 Restless legs 19809185 G 25.81 Anxiety 14140200 F41.9 Obesity 848610864 E66.9 Chronic fa tigue syndrome 09641137 R53.82 Lumbar radiculopathy 128 784692 M54.16 Long-term drug therapy 010963876 Z79.899 Relapsing remitting multiple sclerosis 809722136 G35 Myofascial pain syndrome 625772873 M79.1 [id number] Jose Hatch MD [facility] [address] [facility] [address] [place] [address] 12/04/2017 14:44:23 12/05/2017 14:05:44 Chronic fatigue syndrome 48661879 R53.82 Anxiety 26750566 F41.1 Cervical radiculopathy 35273682 M54.12 Long-term drug therapy 434803375 Z79.899 Restless legs 76092437 G 25.81 Obesity 664704025 E66.9 Low back pain 463358149 M54.5 Lumbar radiculopathy 128 909864 M54.16 Relapsing remitting multiple sclerosis 207419241 G35 Myofascial pain syndrome 607102323 M79.1 [id number] Jose Hatch MD [facility] [address] [facility] [address] [address] [place] [address] 01/01/2018 14:41:59 01/04/2018 10:29:02 Chronic fatigue syndrome 26038936 R53.82 Anxiety 07533081 F41.1 Cervical radiculopathy 52774271 M54.12 Long-term drug therapy 079806929 Z79.899 Restless legs 69949033 G 25.81 Obesity 469473506 E66.9 Low back pain 529721562 M54.5 Lumbar radiculopathy 128 279382 M54.16 Relapsing remitting multiple sclerosis 635409640 G35 Myofascial pain syndrome 152553810 M79.1 [id number] Jose Hatch MD [facility] [address] [facility] [address] [place] [address] 01/29/2018 09:15:36 01/29/2018 11:13:29 Non-Hodgkin's lymphoma (clinical) 800869402 C85.90 Lumbosacra l radiculitis 46961407 M54.17 Multiple sclerosis 87288 007 G35 Long-term drug therapy 646373453 Z79.899 Inflammati on of sacroiliac joint 50858622 M46.1 Cervical radiculopathy 06171233 M54.12 Spinal cor d compression 84568638 G95.20 Neck pain 71341762 M54.2 Osteoporosis 37136010 M8 1.0 Restless legs 73129531 G 25.81 Myofascial pain 60324165 9 M79.1 Chronic ob structive pulmonary disease 39690711 J44.9 [id number] Joes Hatch MD [facility] [address] [facility] [address] [place] [address] 02/28/2018 10:01:11 02/28/2018 11:50:17 Non-Hodgkin's lymphoma (clinical) 541640256 C85.90 Multiple sclerosis 01186 007 G35 Lumbosacra l radiculitis 12592580 M54.17 Long-term drug therapy 283334425 Z79.899 Inflammati on of sacroiliac joint 58030729 M46.1 Cervical radiculopathy 66673262 M54.12 Spinal cor d compression 48478904 G95.20 Neck pain 82438492 M54.2 Osteoporosis 07902112 M8 1.0 Restless legs 98275802 G 25.81 Myofascial pain 34449614 9 M79.1 Obesity 830267326 E66.9 Chronic fa tigue syndrome 11900710 R53.82 Chronic ob structive pulmonary disease 19584143 J44.9 [id number] Jose Hatch MD [facility] [address] [facility] [address] [place] [address] 03/28/2018 11:48:50 04/02/2018 10:01:32 Non-Hodgkin's lymphoma (clinical) 663086725 C85.90 Multiple sclerosis 85731 007 G35 Lumbosacra l radiculitis 75322408 M54.17 Long-term drug therapy 376079820 Z79.899 Inflammati on of sacroiliac joint 18185076 M46.1 Cervical radiculopathy 32317414 M54.12 Spinal cor d compression 14367808 G95.20 Neck pain 93494827 M54.2 Osteoporosis 15602206 M8 1.0 Restless legs 55041034 G 25.81 Myofascial pain 46801891 9 M79.1 Obesity 605572669 E66.9 Chronic fa tigue syndrome 70489328 R53.82 Chronic ob structive pulmonary disease 97663859 J44.9 [id number] Jose Hatch MD [facility] [address] [place] [address] 04/23/2018 12:13:10 04/23/2018 15:47:03 Inflammation of sacroiliac joint 69955379 M46.1 Notes: SI joints are formed by [...] SI joints and arthritis. Lumbosacra l radiculitis 45393806 M54.17 Notes: Discussed radicular pain extend from [...] care, injection therapy is indicated. Cervical radiculopathy 82254973 M54.12 Notes: Cervical radiculopa thy is pain [...] which nerve is affected. Cervical spondylosis 387 909621 M47.812 Notes: Discussed cervicalgi a in detail [...] be indicated. Spasm of back muscles 20 6336874 M62.830 Notes: Muscle spasms are usually the [...] the underlying pathology. Myalgia/my ositis - multiple 069253715 M79.1 Notes: Discussed with the patient pain [...] treatment is noted Chronic pain syndrome 37 6153302 G89.4 Notes: Pain Management : Medication Management [...] Medication s ordered as below. Drug dependence 71152630 9 Z79.891 [id number] Jose Hatch MD [facility] [address] [place] [address] 05/23/2018 08:32:16 05/23/2018 12:37:07 Inflammation of sacroiliac joint 87076351 M46.1 Notes: SI joints are formed by [...] SI joints and arthritis. Lumbosacra l radiculitis 06580812 M54.17 Notes: Discussed radicular pain extend from [...] care, injection therapy is indicated. Cervical radiculopathy 71023726 M54.12 Notes: Cervical radiculopa thy is pain [...] which nerve is affected. Cervical spondylosis 387 403528 M47.812 Notes: Discussed cervicalgi a in detail [...] be indicated. Spasm of back muscles 20 8591265 M62.830 Notes: Muscle spasms are usually the [...] the underlying pathology. Myalgia/my ositis - multiple 584378671 M79.10 Notes: Discussed with the patient pain [...] treatment is noted Chronic pain syndrome 37 4277025 G89.4 Notes: Pain Management : Medication Management [...] s ordered as below. Long-term drug therapy 528550425 Z79.899 Increased blood pressure 56683319 R03.0 [id number] Jose Hatch MD [facility] [address] [place] [address] 07/03/2018 09:05:13 07/03/2018 17:21:47 Inflammation of sacroiliac joint 10127164 M46.1 Notes: SI joints are formed by [...] SI joints and arthritis. Lumbosacra l radiculitis 70058198 M54.17 Notes: Discussed radicular pain extend from [...] care, injection therapy is indicated. Cervical radiculopathy 81408415 M54.12 Notes: Cervical radiculopa thy is pain [...] which nerve is affected. Long-term drug therapy 195955785 Z79.899 Cervical spondylosis 387 142359 M47.812 Notes: Discussed cervicalgi a in detail [...] be indicated. Spasm of back muscles 20 4094068 M62.830 Notes: Muscle spasms are usually the [...] the underlying pathology. Myalgia/my ositis - multiple 595214008 M79.10 Notes: Discussed with the patient pain [...] treatment is noted Chronic pain syndrome 37 7700237 G89.4 Notes: Pain Management : Medication Management [...] clinic interval. Medication s ordered as below. [id number] Jose Hathc MD [facility] [address] [place] [address] 07/31/2018 09:19:55 07/31/2018 13:30:15 Inflammation of sacroiliac joint 97349095 M46.1 Notes: SI joints are formed by [...] SI joints and arthritis. Lumbosacra l radiculitis 30014095 M54.17 Notes: Discussed radicular pain extend from [...] care, injection therapy is indicated. Cervical radiculopathy 95090749 M54.12 Notes: Cervical radiculopa thy is pain [...] which nerve is affected. Long-term drug therapy 797540275 Z79.899 Cervical spondylosis 387 595472 M47.812 Notes: Discussed cervicalgi a in detail [...] be indicated. Spasm of back muscles 20 8074658 M62.830 Notes: Muscle spasms are usually the [...] the underlying pathology. Myalgia/my ositis - multiple 888765399 M79.10 Notes: Discussed with the patient pain [...] treatment is noted Chronic pain syndrome 37 7394330 G89.4 Notes: Pain Management : Medication Management [...] clinic interval. Medication s ordered as below. [id number] Jose Hatch MD [facility] [address] [place] [address] 09/24/2018 08:47:14 09/24/2018 09:56:22 Cervical radiculopathy 07607221 M54.12 Notes: Cervical radiculopa thy is pain [...] which nerve is affected. Cervical spondylosis 387 641528 M47.812 Notes: Discussed cervicalgi a in detail [...] may be indicated. Myalgia/my ositis - multiple 472859169 M79.18 Notes: Discussed with the patient pain [...] is noted. Spasm of back muscles 20 2191517 M62.830 Notes: Muscle spasms are usually the [...] the underlying pathology. Chronic pain syndrome 37 5430781 G89.4 Notes: Pain Management : Medication Management [...] s ordered as below. Long-term drug therapy 862998825 Z79.899 Restless legs 93269340 G 25.81 [id number] Jose Hatch MD [facility] [address] [facility] [address] [place] [address] 10/22/2018 10:54:28 10/22/2018 16:42:52 Cervical spondylosis 870435601 M47.812 Notes: Discussed cervicalgi a in detail [...] be indicated. Spasm of back muscles 20 5301671 M62.830 Notes: Muscle spasms are usually the [...] and the underlying pathology. Lumbosacra l radiculitis 13520412 M54.17 Notes: Discussed radicular pain extend from [...] injection therapy is indicated. Long-term drug therapy 979127105 Z79.899 Restless legs 27816802 G 25.81 Cervical radiculopathy 27403009 M54.12 Notes: Cervical radiculopa thy is pain [...] is affected. Inflammati on of sacroiliac joint 30567621 M46.1 Notes: SI joints are formed by [...] cartilage of the SI joints and arthritis. [id number] Jose Hatch MD [facility] [address] [place] [address] 11/21/2018 11:43:55 11/21/2018 13:56:51 Cervical spondylosis 141918452 M47.812 Notes: Discussed cervicalgi a in detail [...] therapy may be indicated. Lumbosacra l radiculitis 18340561 M54.17 Notes: Discussed radicular pain extend from [...] care, injection therapy is indicated. Cervical radiculopathy 92964489 M54.12 Notes: Cervical radiculopa thy is pain [...] which nerve is affected. Long-term drug therapy 240175288 Z79.899 Restless legs 24390732 G 25.81 Spasm of back muscles 20 3185175 M62.830 Notes: Muscle spasms are usually the [...] underlying pathology. Inflammati on of sacroiliac joint 60882975 M46.1 Notes: SI joints are formed by [...] SI joints and arthritis. Rheumatoid arthritis 698 90362 M06.9 [id number] Jose Hatch MD [facility] [address] [facility] [address] [place] [address] 12/24/2018 08:17:29 12/24/2018 09:35:05 Cervical spondylosis 651424558 M47.812 Notes: Discussed cervicalgi a in detail [...] be indicated. Spasm of back muscles 20 5170294 M62.830 Notes: Muscle spasms are usually the [...] and the underlying pathology. Lumbosacra l radiculitis 59195190 M54.17 Notes: Discussed radicular pain extend from the spinal cord down into the arms and legs. Inflammato ry irritation of the nerve root can produce severe pain. Such inflammati on most commonly arises from a disc injury such as HNP or DDD. Controllin g and decreasing the local inflammati on, will control and decrease the pain. Radiculopa thy can also produce numbness and/or uwirij2gk and may become permanent if the pressure is not relieved. Conservati ve treatment such as rest, ice, NSAID when appropriat e and HEP including stretching and strengthin g help alleviate symptoms. Physical Therapy is also beneficial . If no relief from conservati ve care, injection therapy is indicated. Long-term drug therapy 884934658 Z79.899 Inflammati on of sacroiliac joint 12191451 M46.1 Notes: SI joints are formed by [...] the SI joints and arthritis. Cervical radiculopathy 45534419 M54.12 Notes: Cervical radiculopa thy is pain [...] on which nerve is affected. Restless legs 28316034 G 25.81 Multiple sclerosis 28635 007 G35 Chronic pain syndrome 37 8064523 G89.4 Notes: Pain Management : Medication Management [...] s ordered as below. Rheumatoid arthritis 698 18316 M06.9 [id number] GENE TORO M.D. [facility] [address] [facility] [address] [place] [address] 01/23/2019 08:03:42 01/23/2019 13:43:58 Cervical spondylosis 600297907 M47.812 Lumbosacra l radiculitis 25222420 M54.17 Cervical radiculopathy 61155916 M54.12 Long-term drug therapy 910901740 Z79.899 Inflammati on of sacroiliac joint 14747324 M46.1 Rheumatoid arthritis 698 51659 M06.9 Restless legs 09417839 G 25.81 Spasm of back muscles 20 3197732 M62.830 Non-Hodgki n's lymphoma (clinical) 324188809 C85.90 Overweight 770996616 E66 .3 Multiple sclerosis 27056 007 G35 [id number] GENE TORO M.D. [facility] [address] [facility] [address] [place] [address] 02/20/2019 08:20:37 02/20/2019 09:25:07 Multiple sclerosis 51760339 G35 Rheumatoid arthritis 698 75048 M06.9 Cervical spondylosis 387 230308 M47.812 Lumbosacra l radiculitis 91033646 M54.17 Cervical radiculopathy 39132074 M54.12 Long-term drug therapy 576549174 Z79.899 Inflammati on of sacroiliac joint 30318202 M46.1 Restless legs 50260076 G 25.81 Spasm of back muscles 20 5502172 M62.830 Non-Hodgki n's lymphoma (clinical) 282093945 C85.90 Overweight 902487686 E66 .3 [id number] GENE TORO M.D. [facility] [address] [facility] [address] [place] [address] 03/26/2019 09:06:23 03/26/2019 11:06:08 Cervical radiculopathy 07435399 M54.12 Cervical spondylosis 387 368979 M47.812 Multiple sclerosis 34315 007 G35 Long-term drug therapy 368509249 Z79.899 Rheumatoid arthritis 698 84673 M06.9 Lumbosacra l radiculitis 25165846 M54.17 Inflammati on of sacroiliac joint 69076661 M46.1 Restless legs 03105836 G 25.81 Spasm of back muscles 20 9244344 M62.830 Non-Hodgki n's lymphoma (clinical) 687018114 C85.90 Overweight 838799519 E66 .3 [id number] GENE TORO M.D. [facility] [address] [facility] [address] [place] [address] 04/23/2019 10:06:19 04/23/2019 13:29:57 Cervical radiculopathy 55003436 M54.12 Cervical spondylosis 387 001189 M47.812 Multiple sclerosis 35887 007 G35 Long-term drug therapy 445515997 Z79.899 Rheumatoid arthritis 698 34089 M06.9 Lumbosacra l radiculitis 85947828 M54.17 Inflammati on of sacroiliac joint 37828736 M46.1 Restless legs 78992806 G 25.81 Spasm of back muscles 20 4412043 M62.830 Non-Hodgki n's lymphoma (clinical) 628325535 C85.90 Overweight 408054540 E66 .3 Drug-induc ed constipation 58042770 K59.03 [id number] GENE TORO M.D. [facility] [address] [facility] [address] [place] [address] 05/28/2019 08:49:01 05/28/2019 10:36:23 Cervical radiculopathy 84381543 M54.12 Cervical spondylosis 387 677734 M47.812 Multiple sclerosis 49316 007 G35 Long-term drug therapy 247661564 Z79.899 Lumbosacra l radiculitis 92446297 M54.17 Inflammati on of sacroiliac joint 74319322 M46.1 Restless legs 95050341 G 25.81 Spasm of back muscles 20 5283682 M62.830 Drug-induc ed constipation 68575504 K59.03 Pain in ri t hip joint 0160278540 51623 M25.551 [id number] GENE TORO M.D. [facility] [address] [facility] [address] [place] [address] 06/17/2019 14:42:41 06/18/2019 09:30:46 Inflammation of sacroiliac joint 88469775 M46.1 Pain in ri ght hip joint 9730590375 15370 M25.551 Myalgia/my ositis - multiple 537972125 M60.89 Chronic pain syndrome 37 0330984 G89.4 Bursitis of hip 67810915 M70.71 Greater tr ochanteric pain syndrome of right lower limb 1783363847 7095699 M70.61 [id number] GENE TORO M.D. [facility] [address] [facility] [address] [place] [address] 07/09/2019 11:58:34 07/12/2019 12:04:13 Cervical radiculopathy 23147660 M54.12 Cervical spondylosis 387 245060 M47.812 Multiple sclerosis 40360 007 G35 Long-term drug therapy 526461677 Z79.899 Lumbosacra l radiculitis 72606971 M54.17 Inflammati on of sacroiliac joint 24403468 M46.1 Restless legs 27677298 G 25.81 Spasm of back muscles 20 0291875 M62.830 Drug-induc ed constipation 19466757 K59.03 Pain in ri ght hip joint 7236064311 94109 M25.551 Overweight 391167697 E66 .3 [id number] GNEE TORO M.D. [facility] [address] [facility] [address] [address] [place] [address] 07/31/2019 15:13:04 08/01/2019 12:11:12 Cervical radiculopathy 85161124 M54.12 Cervical spondylosis 387 469181 M47.812 Multiple sclerosis 35510 007 G35 Long-term drug therapy 800106083 Z79.891 Lumbosacra l radiculitis 90530884 M54.17 Inflammati on of sacroiliac joint 53584255 M46.1 Restless legs 17424170 G 25.81 Spasm of back muscles 20 5712238 M62.830 Drug-induc ed constipation 54979895 K59.03 Pain in ri ght hip joint 2682871535 87014 M25.551 Pain in right foot 70684 85229 53550 M79.671 Chronic fa tigue syndrome 68980591 G93.3 [id number] GENE TORO M.D. [facility] [address] [facility] [place] [address] 08/19/2019 08:28:10 08/20/2019 09:23:59 Inflammation of sacroiliac joint 15364089 M46.1 Multiple sclerosis 23254 007 G35 Pain in right foot 30360 34547 84400 M79.671 Obesity 537017802 E66.9 Bursitis of hip 37259075 M70.71 Greater tr ochanteric pain syndrome of right lower limb 8248913711 0744876 M70.61 [id number] GENE TORO M.D. [facility] [address] [facility] [address] [place] [address] 08/27/2019 08:31:23 08/27/2019 12:19:43 Cervical radiculopathy 30433291 M54.12 Cervical spondylosis 387 653557 M47.812 Multiple sclerosis 43380 007 G35 Long-term drug therapy 411730412 Z79.891 Lumbosacra l radiculitis 35242193 M54.17 Inflammati on of sacroiliac joint 79884085 M46.1 Chronic fa tigue syndrome 64645701 G93.3 Restless legs 08859067 G 25.81 Spasm of back muscles 20 4972221 M62.830 Drug-induc ed constipation 57119327 K59.03 Pain in ri ght hip joint 0036181959 37966 M25.551 Pain in right foot 47349 07206 53135 M79.671 [id number] GENE TORO M.D. [facility] [address] [facility] 3 [place] [address] 09/25/2019 08:33:14 09/25/2019 09:15:42 Non-Hodgkin's lymphoma (clinical) 076355600 C85.90 Cervical radiculopathy 47866032 M54.12 Cervical spondylosis 387 931940 M47.812 Multiple sclerosis 06362 007 G35 Long-term drug therapy 539104655 Z79.891 Lumbosacra l radiculitis 57491644 M54.17 Inflammati on of sacroiliac joint 91403685 M46.1 Chronic fa tigue syndrome 04050258 G93.3 Restless legs 29156219 G 25.81 Spasm of back muscles 20 3935797 M62.830 Drug-induc ed constipation 64563309 K59.03 Pain in ri ght hip joint 0330317906 45750 M25.551 Pain in right foot 28011 64204 56430 M79.671 Fatigue 86620631 R53.83 [id number] GENE TORO M.D. [facility] [address] [facility] 3 [place] [address] 10/23/2019 10:23:27 10/23/2019 12:15:55 Lumbosacral radiculitis 72917685 M54.17 Inflammati on of sacroiliac joint 17337766 M46.1 Cervical radiculopathy 28798985 M54.12 Long-term drug therapy 140309283 Z79.891 Cervical spondylosis 387 987748 M47.812 Neck pain 93180734 M54.2 Myofascial pain 56564621 9 M79.10 Multiple sclerosis 79019 007 G35 Fatigue 24407958 R53.83 Drug-induc ed constipation 06455325 K59.03 [id number] GENE TORO M.D. [facility] [address] [facility] [address] [place] [address] 11/26/2019 08:33:48 11/26/2019 09:42:44 Non-Hodgkin's lymphoma (clinical) 187008062 C85.90 Multiple sclerosis 72774 007 G35 Lumbosacra l radiculitis 28670639 M54.17 Inflammati on of sacroiliac joint 04444269 M46.1 Cervical radiculopathy 50490656 M54.12 Long-term drug therapy 512342609 Z79.891 Cervical spondylosis 387 377566 M47.812 Neck pain 02784913 M54.2 Myofascial pain 62921065 9 M79.10 Fatigue 27605775 R53.83 Drug-induc ed constipation 23870495 K59.03 [id number] GENE TORO M.D. [facility] [address] [facility] [address] [place] [address] 12/24/2019 08:51:49 12/24/2019 09:55:32 Cervical radiculopathy 82150113 M54.12 Cervical spondylosis 387 609089 M47.812 Rheumatoid arthritis 698 14190 M06.9 Long-term drug therapy 120354851 Z79.891 Restless legs 35063186 G 25.81 Spasm of back muscles 20 5934759 M62.830 Chronic pain syndrome 37 6413959 G89.4 Lumbosacra l radiculitis 34630850 M54.17 Myalgia/my ositis - multiple 873631169 M60.89 Pain in right foot 28003 69119 02245 M79.671 Pain in ri ght hip joint 4697416835 18605 M25.551 Drug-induc ed constipation 08299148 K59.03 Fatigue 18680431 R53.83 Multiple sclerosis 60080 007 G35 [id number] GENE TORO M.D. [facility] [address] [facility] [address] [place] [address] 01/29/2020 10:19:04 01/29/2020 13:17:47 Fatigue 80711699 R53.83 Multiple sclerosis 24472 007 G35 Rheumatoid arthritis 698 66113 M06.9 Cervical radiculopathy 75408384 M54.12 Cervical spondylosis 387 014754 M47.812 Long-term drug therapy 390640461 Z79.891 Restless legs 84528934 G 25.81 Spasm of back muscles 20 4049805 M62.830 Chronic pain syndrome 37 7561963 G89.4 Lumbosacra l radiculitis 32499165 M54.17 Myalgia/my ositis - multiple 544283686 M60.89 Pain in right foot 64308 89079 89677 M79.671 Pain in ri ght hip joint 2365365844 31312 M25.551 Drug-induc ed constipation 36256084 K59.03 [id number] GENE TORO M.D. [facility] [address] [facility] [address] [place] [address] 02/25/2020 00:11:20 02/25/2020 12:08:12 Fatigue 24833319 R53.83 Multiple sclerosis 32233 007 G35 Rheumatoid arthritis 698 68531 M06.9 Cervical radiculopathy 65435582 M54.12 Cervical spondylosis 387 612176 M47.812 Restless legs 28347826 G 25.81 Spasm of back muscles 20 3863120 M62.830 Chronic pain syndrome 37 4313355 G89.4 Lumbosacra l radiculitis 15910164 M54.17 Myalgia/my ositis - multiple 099522586 M60.89 Pain in right foot 19009 92436 34944 M79.671 Pain in ri ght hip joint 9200062881 68659 M25.551 Drug-induc ed constipation 25290343 K59.03 [id number] GENE TORO M.D. [facility] [address] [facility] [address] [place] [address] 03/25/2020 14:44:32 03/26/2020 11:43:36 Fatigue 46540388 R53.83 Multiple sclerosis 53792 007 G35 Cervical radiculopathy 72502702 M54.12 Rheumatoid arthritis 698 26221 M06.9 Cervical spondylosis 387 002528 M47.812 Restless legs 93640223 G 25.81 Spasm of back muscles 20 4105084 M62.830 Chronic pain syndrome 37 7559048 G89.4 Lumbosacra l radiculitis 30898765 M54.17 Myalgia/my ositis - multiple 379954814 M60.89 Pain in right foot 62873 22837 01568 M79.671 Pain in ri ght hip joint 9867549484 12640 M25.551 Drug-induc ed constipation 80330096 K59.03 Long-term drug therapy 582667589 Z79.891 [id number] GENE TORO M.D. [facility] [address] [address] 04/22/2020 15:06:03 04/23/2020 09:34:41 Cervical radiculopathy 02811923 M54.12 Fatigue 72258126 R53.83 Multiple sclerosis 97556 007 G35 Long-term drug therapy 032647766 Z79.891 Rheumatoid arthritis 698 63187 M06.9 Cervical spondylosis 387 483439 M47.812 Restless legs 40794712 G 25.81 Spasm of back muscles 20 4863608 M62.830 Chronic pain syndrome 37 1909473 G89.4 Lumbosacra l radiculitis 42477394 M54.17 Myalgia/my ositis - multiple 965760339 M60.89 Pain in right foot 49493 17898 04229 M79.671 Pain in ri ght hip joint 4118267577 42056 M25.551 Drug-induc ed constipation 15456369 K59.03 [id number] GENE TORO M.D. [facility] [address] [address] 05/18/2020 10:41:50 05/19/2020 09:03:03 Cervical radiculopathy 72361273 M54.12 Fatigue 41327605 R53.83 Multiple sclerosis 08563 007 G35 Long-term drug therapy 102299486 Z79.891 Rheumatoid arthritis 698 26925 M06.9 Cervical spondylosis 387 689016 M47.812 Restless legs 46965139 G 25.81 Spasm of back muscles 20 0626888 M62.830 Chronic pain syndrome 37 4285776 G89.4 Lumbosacra l radiculitis 18567044 M54.17 Myalgia/my ositis - multiple 645019989 M60.89 Pain in right foot 86675 01167 07140 M79.671 Pain in ri ght hip joint 4735523342 93764 M25.551 Drug-induc ed constipation 56085667 K59.03 [id number] GENE TORO M.D. [facility] [address] [address] 06/16/2020 09:46:11 06/16/2020 13:53:11 Cervical radiculopathy 73752271 M54.12 Fatigue 85689826 R53.83 Multiple sclerosis 77126 007 G35 Long-term drug therapy 579178921 Z79.891 Rheumatoid arthritis 698 45678 M06.9 Cervical spondylosis 387 469646 M47.812 Restless legs 72270311 G 25.81 Spasm of back muscles 20 4570650 M62.830 Chronic pain syndrome 37 7958711 G89.4 Lumbosacra l radiculitis 81174470 M54.17 Myalgia/my ositis - multiple 945403176 M60.89 Pain in right foot 79148 72257 42350 M79.671 Pain in ri ght hip joint 8265644003 34471 M25.551 Drug-induc ed constipation 92821790 K59.03 [id number] GENE TORO M.D. [facility] [address] [facility] [address] [place] [address] 07/13/2020 08:38:38 07/14/2020 15:01:47 Cervical radiculopathy 44711972 M54.12 Fatigue 04657231 R53.83 Multiple sclerosis 66026 007 G35 Long-term drug therapy 900306154 Z79.891 Rheumatoid arthritis 698 12646 M05.19 Cervical spondylosis 387 386789 M47.812 Restless legs 04656846 G 25.81 Spasm of back muscles 20 1297899 M62.830 Chronic pain syndrome 37 4588275 G89.4 Lumbosacra l radiculitis 27984813 M54.17 Myalgia/my ositis - multiple 940349116 M60.89 Pain in right foot 13856 24053 31766 M79.671 Pain in ri ght hip joint 0427299006 41751 M25.551 Drug-induc ed constipation 97318674 K59.03 Tobacco us e cessation education 736692951 Z87.891 [id number] GENE TORO M.D. [facility] [address] [facility] [address] [place] [address] 08/26/2020 09:58:26 08/26/2020 10:30:22 Cervical radiculopathy 96888495 M54.12 Fatigue 25210282 R53.83 Cervical spondylosis 387 944914 M47.812 Chronic pain syndrome 37 5782240 G89.4 Inflammati on of sacroiliac joint 46827233 M46.1 Long-term drug therapy 195084853 Z79.891 Lumbosacra l radiculitis 06330016 M54.17 Multiple sclerosis 16420 007 G35 Myalgia/my ositis - multiple 298167010 M60.89 Non-Hodgki n's lymphoma (clinical) 927827157 C85.90 [id number] GENE TORO M.D. [facility] [address] [facility] [address] [place] [address] 09/23/2020 14:52:35 09/24/2020 08:16:38 Cervical radiculopathy 14326641 M54.12 Rheumatoid arthritis 698 55076 M05.19 Multiple sclerosis 96595 007 G35 Long-term drug therapy 459132781 Z79.891 Fatigue 74579015 R53.83 Cervical spondylosis 387 839643 M47.812 Restless legs 29931900 G 25.81 Spasm of back muscles 20 4462717 M62.830 Chronic pain syndrome 37 2299997 G89.4 Lumbosacra l radiculitis 98236571 M54.17 Myalgia/my ositis - multiple 160947916 M60.89 Pain in right foot 01628 14443 17400 M79.671 Pain in ri ght hip joint 5478678282 98496 M25.551 Drug-induc ed constipation 06861760 K59.03 Tobacco us e cessation education 632324366 Z87.891 Bursitis of hip 67203586 M70.71 M70.72 Greater tr ochanteric pain syndrome of right lower limb 1581180431 7068806 M70.61 Non-Hodgki n's lymphoma (clinical) 299262336 C85.90 [id number] GENE TORO M.D. [facility] [address] [facility] [address] [place] [address] 10/21/2020 16:45:12 10/26/2020 21:08:53 Cervical radiculopathy 22918781 M54.12 Cervical spondylosis 387 487975 M47.812 Inflammati on of sacroiliac joint 04308606 M46.1 Long-term drug therapy 081923679 Z79.891 Chronic pain syndrome 37 6842118 G89.4 Fatigue 30771070 R53.83 Lumbosacra l radiculitis 87164474 M54.17 Multiple sclerosis 10341 007 G35 Myalgia/my ositis - multiple 645097496 M60.89 Non-Hodgki n's lymphoma (clinical) 284620014 C85.90 [id number] GENE TORO M.D. [facility] [address] [facility] [address] [place], [place] [address] 11/17/2020 11:01:43 11/18/2020 12:48:50 Cervical radiculopathy 57402234 M54.12 Notes: Cervical radiculopa thy is pain [...] ochanteric pain syndrome of right lower limb 8399735452 7604391 M70.61 Pain in ri ght hip joint 0259196094 35154 M25.551 Rheumatoid arthritis 698 15098 M06.9 Multiple sclerosis 41982 007 G35 Inflammati on of sacroiliac joint 11453311 M46.1 Notes: SI joints are formed by [...] cartilage of the SI joints and arthritis. [id number] GENE TOOR M.D. [facility] [address] [facility] [address] [place] [address] 12/14/2020 09:46:57 12/15/2020 08:56:18 Cervical radiculopathy 29872126 M54.12 Notes: Cervical radiculopa thy is pain [...] ochanteric pain syndrome of right lower limb 5345494962 4282726 M70.61 Pain in ri ght hip joint 0288393421 20299 M25.551 Rheumatoid arthritis 698 26530 M06.9 Multiple sclerosis 86304 007 G35 Inflammati on of sacroiliac joint 89826252 M46.1 Notes: SI joints are formed by [...] cartilage of the SI joints and arthritis. [id number] GENE TORO M.D. [facility] [address] [facility] [address] [place] [address] 01/13/2021 13:58:18 01/18/2021 22:33:01 Cervical radiculopathy 32359609 M54.12 Notes: Cervical radiculopa thy is pain [...] ochanteric pain syndrome of right lower limb 5694557545 6074867 M70.61 [facility] hip joint 0332150345 26949 M25.551 Rheumatoid arthritis 698 51727 M06.9 Multiple sclerosis 04641 007 G35 Inflammati on of sacroiliac joint 33769446 M46.1 Notes: SI joints are formed by [...] SI joints and arthritis. Long-term drug therapy 223492817 Z79.899 [id number] GENE TORO M.D. [facility] [address] [place] [address] 02/10/2021 08:41:24 02/10/2021 10:24:46 Greater trochanteric pain syndrome of right lower limb 0446566365 0246854 M70.61 Rheumatoid arthritis 698 13807 M06.9 M05.29 Cervical radiculopathy 42046082 M54.12 Notes: Cervical radiculopa thy is pain [...] which nerve is affected. Cervical spondylosis 387 965245 M47.812 Notes: Discussed cervicalgi a in detail [...] therapy may be indicated. Long-term drug therapy 530686463 Z79.899 Lumbosacra l radiculitis 56853279 M54.17 Notes: Discussed radicular pain extend from [...] care, injection therapy is indicated. Multiple sclerosis 58525 007 G35 Chronic pain syndrome 37 7824759 G89.4 Notes: Pain Management : Medication Management [...] below. Pain in ri ght hip joint 8083307844 89804 M25.551 Myalgia/my ositis - multiple 259788809 M60.89 Notes: Discussed with the patient pain [...] ve treatment is noted Bursitis of hip 00402352 M70.71 Inflammati on of sacroiliac joint 87538642 M46.1 [id number] GENE TORO M.D. [facility] [address] [facility] [address] [place] [address] 03/02/2021 14:25:27 03/08/2021 09:41:36 Generalized rash 121831124 R21 Rheumatoid arthritis 698 18774 M06.9 M05.29 [id number] GEEN TORO M.D. [facility] [address] [facility] [address] [place] [address] 05/04/2021 15:12:19 05/05/2021 12:00:13 Non-Hodgkin's lymphoma (clinical) 313401842 C85.90 Cervical radiculopathy 91461083 M54.12 Rheumatoid arthritis 698 59537 M06.9 M05.29 Cervical spondylosis 387 826785 M47.812 Inflammati on of sacroiliac joint 14707841 M46.1 Long-term drug therapy 078978468 Z79.891 Chronic pain syndrome 37 0294237 G89.4 Fatigue 62653698 R53.83 Lumbosacra l radiculitis 32491050 M54.17 Multiple sclerosis 33227 007 G35 Myalgia/my ositis - multiple 696385902 M60.89 [id number] [facility] [address] [facility] [address] [place] [address] 06/01/2021 15:09:13 06/04/2021 19:21:10 Non-Hodgkin's lymphoma (clinical) 367149211 C85.90 Cervical radiculopathy 27363853 M54.12 Cervical spondylosis 387 583391 M47.812 Rheumatoid arthritis 698 73524 M06.9 M05.29 Lumbosacra l radiculitis 50476927 M54.17 Long-term drug therapy 983051238 Z79.891 Inflammati on of sacroiliac joint 88289179 M46.1 Multiple sclerosis 40114 007 G35 Chronic pain syndrome 37 7220033 G89.4 Fatigue 02424358 R53.83 Myalgia/my ositis - multiple 131829929 M60.89 [id number] GENE TORO M.D. [facility] [address] [place] [address] 06/29/2021 15:08:29 07/02/2021 12:57:06 Non-Hodgkin's lymphoma (clinical) 570616112 C85.90 Cervical radiculopathy 79719737 M54.12 Notes: Cervical radiculopa thy is pain [...] which nerve is affected. Cervical spondylosis 387 217161 M47.812 Notes: Discussed cervicalgi a in detail [...] therapy may be indicated. Rheumatoid arthritis 698 08197 M06.9 M05.29 Lumbosacra l radiculitis 41354154 M54.17 Notes: Discussed radicular pain extend from [...] injection therapy is indicated. Long-term drug therapy 242861609 Z79.891 Inflammati on of sacroiliac joint 48466827 M46.1 Multiple sclerosis 53428 007 G35 Chronic pain syndrome 37 7886695 G89.4 Notes: Pain Management : Medication Management [...] interval. Medication s ordered as below. Fatigue 47268794 R53.83 Myalgia/my ositis - multiple 242200477 M60.89 Notes: Discussed with the patient pain [...] relief from conservati ve treatment is noted [id number] GENE TORO M.D. [facility] [address] [place] [address] 07/27/2021 09:16:24 08/02/2021 16:42:42 Rheumatoid arthritis 16569851 M06.9 M05.29 Non-Hodgki n's lymphoma (clinical) 527109695 C85.90 Cervical radiculopathy 66387550 M54.12 Notes: Cervical radiculopa thy is pain [...] which nerve is affected. Cervical spondylosis 387 756677 M47.812 Notes: Discussed cervicalgi a in detail [...] therapy may be indicated. Lumbosacra l radiculitis 52272926 M54.17 Notes: Discussed radicular pain extend from [...] injection therapy is indicated. Long-term drug therapy 320973888 Z79.891 Inflammati on of sacroiliac joint 31582245 M46.1 Multiple sclerosis 36567 007 G35 Chronic pain syndrome 37 1085483 G89.4 Notes: Pain Management : Medication Management [...] interval. Medication s ordered as below. Fatigue 42103901 R53.83 Myalgia/my ositis - multiple 974107280 M60.89 Notes: Discussed with the patient pain [...] noted Advance di rective discussed with patient 782560871 Z71.89 Body mass index 25-29 - overweight 600415052 Z68.26 BMI 26.7 Administra tion of influenza vaccine 73585330 Z23 [id number] GENE TORO M.D. [facility] [address] [place] [address] 08/24/2021 10:05:36 08/24/2021 22:36:36 Non-Hodgkin's lymphoma (clinical) 123246963 C85.90 Cervical radiculopathy 32262546 M54.12 Notes: Cervical radiculopa thy is pain [...] which nerve is affected. Rheumatoid arthritis 698 84313 M06.9 M05.29 Cervical spondylosis 387 173699 M47.812 Notes: Discussed cervicalgi a in detail [...] therapy may be indicated. Lumbosacra l radiculitis 80129637 M54.17 Notes: Discussed radicular pain extend from [...] injection therapy is indicated. Long-term drug therapy 879143579 Z79.891 Inflammati on of sacroiliac joint 42638764 M46.1 Multiple sclerosis 70350 007 G35 Chronic pain syndrome 37 9057325 G89.4 Notes: Pain Management : Medication Management [...] interval. Medication s ordered as below. Fatigue 33964772 R53.83 Myalgia/my ositis - multiple 227028691 M60.89 Notes: Discussed with the patient pain [...] noted Advance di rective discussed with patient 110921570 Z71.89 Body mass index 25-29 - overweight 907798824 Z68.26 BMI 26.7 Administra tion of influenza vaccine 14438752 Z23 [id number] GENE TORO M.D. [facility] [address] [place] [address] 09/21/2021 09:39:15 09/27/2021 21:21:12 Cervical spondylosis 854713442 M47.812 Notes: Discussed cervicalgi a in detail [...] injection therapy may be indicated. Cervical radiculopathy 33361590 M54.12 Notes: Cervical radiculopa thy is pain [...] on which nerve is affected. Multiple sclerosis 23891 007 G35 Long-term drug therapy 976477513 Z79.891 Lumbosacra l radiculitis 15651601 M54.17 Notes: Discussed radicular pain extend from [...] therapy is indicated. Non-Hodgki n's lymphoma (clinical) 597797679 C85.90 Osteoporosis 65821958 M8 1.0 Rheumatoid arthritis 698 66887 M05.29 [id number] GENE TORO M.D. [facility] [address] [place] [address] 10/26/2021 13:00:23 10/27/2021 17:58:30 Cervical spondylosis 091500522 M47.812 Notes: Discussed cervicalgi a in detail [...] injection therapy may be indicated. Cervical radiculopathy 53999883 M54.12 Notes: Cervical radiculopa thy is pain [...] on which nerve is affected. Multiple sclerosis 25871 007 G35 Long-term drug therapy 376373253 Z79.891 Lumbosacra l radiculitis 36736185 M54.17 Notes: Discussed radicular pain extend from [...] therapy is indicated. Non-Hodgki n's lymphoma (clinical) 075280367 C85.90 Osteoporosis 56828452 M8 1.0 Rheumatoid arthritis 698 29623 M05.29 [id number] GENE TORO M.D. [facility] [address] [place] [address] 12/06/2021 09:12:51 12/06/2021 20:26:10 Cervical spondylosis 306551245 M47.812 Notes: Discussed cervicalgi a in detail [...] injection therapy may be indicated. Cervical radiculopathy 19643752 M54.12 Notes: Cervical radiculopa thy is pain [...] on which nerve is affected. Multiple sclerosis 43677 007 G35 Long-term drug therapy 976336375 Z79.891 [employer]ARC[employer]UC[employer] PROVIDED Lumbosacra l radiculitis 95802554 M54.17 Notes: Discussed radicular pain extend from [...] therapy is indicated. Non-Hodgki n's lymphoma (clinical) 145620700 C85.90 Osteoporosis 12740220 M8 1.0 Rheumatoid arthritis 698 95702 M05.29 [id number] GENE TORO M.D. [facility] [address] [place] [address] 01/04/2022 15:56:22 01/04/2022 22:07:43 Cervical spondylosis 226733128 M47.812 Notes: Discussed cervicalgi a in detail [...] injection therapy may be indicated. Cervical radiculopathy 21302227 M54.12 Notes: Cervical radiculopa thy is pain [...] on which nerve is affected. Multiple sclerosis 36833 007 G35 Long-term drug therapy 101338691 Z79.891 Lumbosacra l radiculitis 45393145 M54.17 Notes: Discussed radicular pain extend from [...] therapy is indicated. Non-Hodgki n's lymphoma (clinical) 983990375 C85.90 Osteoporosis 29897032 M8 1.0 Rheumatoid arthritis 698 50941 M05.29 [id number] GENE TORO M.D. [facility] [address] [facility] [address] [place] [address] 02/15/2022 13:11:33 02/17/2022 11:52:01 Long-term drug therapy 226314502 Z79.899 Cervical radiculopathy 48337521 M54.12 Notes: Cervical radiculopa thy is pain [...] is affected. 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 Chronic pain syndrome 37 5282752 G89.4 Notes: Pain Management : Medication Management [...] s ordered as below. Lumbosacra l radiculitis 30209269 M54.17 Notes: Discussed radicular pain extend from [...] is indicated. Spasm of back muscles 20 1947685 M62.830 Body mass index 25-29 - overweight 629776798 Z68.26 BMI 25.9 At moderat e risk for fall 9658474235 84542855 Z91.89 Depression screening 171 059340 Z13.31 Advance di rective discussed with patient 596599557 Z71.89 Influenza 4239743 J11.1 Medication review done by doctor 895066037 Z76.89 [id number] GENE TORO M.D. [facility] [address] [facility] [address] [place] [address] 03/15/2022 12:56:50 03/16/2022 09:55:28 Long-term drug therapy 702167650 Z79.899 Cervical radiculopathy 93730572 M54.12 Notes: Cervical radiculopa thy is pain [...] is affected. Inflammati on of sacroiliac joint 91757749 M46.1 Greater tr ochanteric pain syndrome of right lower limb 9297809475 5163862 M70.61 Spasm of back muscles 20 4766153 M62.830 Herpes zoster 4465677 B0 2.9 Body mass index 25-29 - overweight 653272689 Z68.26 Advance di rective discussed with patient 900157434 Z71.89 Medication review done by doctor 697450927 Z76.89 Administra tion of influenza vaccine 40718633 Z23 Blood pressure taking 46 686909 Z01.30 [id number] GENE TORO M.D. [facility] [address] [place] [address] 03/23/2022 08:07:45 03/28/2022 10:54:10 Greater trochanteric pain syndrome of right lower limb 9643919508 0352211 M70.61 Myofascial pain 53890992 9 M79.18 Pain in ri ght hip joint 9213598186 09183 M25.551 Osteoporosis 89125243 M8 1.0 Bursitis of hip 56358546 M70.71 Chronic pain syndrome 37 1985194 G89.4 Notes: Pain Management : Medication Management [...] clinic interval. Medication s ordered as below. [id number] GENE TORO M.D. [facility] [address] [facility] [address] [place] [address] 04/07/2022 08:21:20 04/08/2022 22:33:58 Greater trochanteric pain syndrome of right lower limb 7768753277 9883762 M70.61 Multiple sclerosis 20867 007 G35 Osteoporosis 92962442 M8 1.0 Pain in ri ght hip joint 8456109201 34798 M25.551 Bursitis of hip 42823534 M70.71 [id number] GENE TORO M.D. [facility] [address] [facility] [address] [place] [address] 04/13/2022 09:33:11 04/13/2022 22:28:21 Cervical radiculopathy 96057320 M54.12 Notes: Cervical radiculopa thy is pain [...] is affected. 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 0725856421 6617642 M70.61 Spasm of back muscles 20 1512225 M62.830 Herpes zoster 6971365 B0 2.9 Long-term drug therapy 830835516 Z79.899 Health Concerns Section Related Observation LastModified by Organization Detai ls LastModified Time None Recorded Concern Status LastModified by Organization Details LastModified Time None Recorded Advance Directives Directive N: Payers Encounter Date Sequence Insurance Name Policy Number Policy Ramirez Covered Member ID Ramirez Member ID Guarantor Name 02/15/2022 1 [employer] (MEDICARE RE[place]ACEMENT P[place]) [id number] Janeth Rosas Berrios [id number] Janeth Berrios 02/15/2022 2 [place] [id number] Janeth Rosas Berrios [id number] Janeth Berrios 03/15/2022 1 [employer] ([place]IC[place]AC[place] [id number] Janeth Rosas Yash [id number] Janeth Berrios 03/15/2022 2 [place] [employer] Janeth Rosas Yash [id number] Janeth Berrios 03/23/2022 1 [employer] (MEDICARE [place]AC[place] [id number] Janeth Rosas Berrios [id number] Janeth Berrios 04/07/2022 1 [employer] (MEDIC[place]AC[place] [id number] Janeth Rosas Yash [id number] Janeth Berrios 04/13/2022 1 [employer] (MEDICARE [place]AC[place]) [id number] Janeth Rosas Berrios [id number] Janeth Berrios Notes Date Note Type Note [...] Injections:none Previous PT:none; haven't started 04/23/18 Previous manager critical care:noneNotes: GENE TORO M.D. [address],[facility] [address], [place], [address] 02/16/2022 20:12:25 [...] Injections:none Previous PT:none; haven't started 04/23/18 Previous manager critical care:noneNotes: GENE TORO M.D. [address], [place], [address], [facility] 03/15/2022 21:55:57 03/23/2022 text/html [...] Injections:none Previous PT:none; haven't started 04/23/18 Previous manager critical care:noneNotes: GENE TORO M.D. [address] [facility],[address], [place], [address], [facility] [place] 03/27/2022 21:27:27 04/07/2022 text/html Pain Management C-spineReported [...] Injections:none Previous PT:none; haven't started 04/23/18 Previous manager critical care:noneNotes: GENE TORO M.D. [address] [facility],[address], [place], [address], [facility] 05/02/2022 13:52:26 04/13/2022 text/html [...] Injections:none Previous PT:none; haven't started 04/23/18 Previous manager critical care:noneNotes: GENE TORO M.D. [address] [facility],[address], [place], [address], [facility] 04/13/2022 11:28:47 OBGyn Episode No OBEpisode recorded.
--- OUTSIDE RECORDS SUMMARY | 2024-11-29 10:22 | XMS_ITS | Data Portability ---
Author Organization [place] [facility], [facility] - ER Address [address] [place] [address] Care Team Providers Care Practice Business Asst Name Role Phone HUDSON, GEOFF OTHER Assessment [...] By Organization Details Last Modified Time 05/01/2017 [id number] sleep apnea: car e instructions Not available [...] nirmala* No observ ation record ed. [email or web address] [address], [place], [address], 06/15/2017 11:01:20 06/12/20 17 06/12/2017 compl ete PFT w/ post [facility] hodil ator ricco metry * No observ ation record ed. [email or web address] [facility] [address] [facility] [address], [place], [address], 06/19/2017 16:37:55 Result Notes None recorded. Problems No Known Problems Procedures Surgical History None recorded. Imaging Results Imaging Date Name Status LastModified by Organization Details LastModified Time 05/09/2017 sleep study, baseline diagnostic polysomnogram* completed [email or web address] [facility] - [place] [address] [facility] [address], [place], [address], 06/15/2017 11:01:20 06/12/2017 complete PFT w/ post bronchodilator spirometry* completed [email or web address] [facility] [address] [facility] [address], [place], [address], 06/19/2017 16:37:55 Procedure Notes None recorded. Medical [...] Updated DateTime 7 149.86 cm 26.7 kg/m2 93979.1 9 g 15 /min 73 /min 98 % 98 % 98.3 [degF] 136 mm[Hg] 66 mm[Hg] carlos jeffrey [facility] 7 09:20:42 Date Recorded Body height Body mass index (BMI) Body weight Respiratory rate Heart rate Oxygen saturation Oxygen saturation in Arterial blood by Pulse oximetry Body temperature Systolic blood pressure Diastolic blood pressure Provider Name and Address Organization Details Last Updated DateTime 7 149.86 cm 26.5 kg/m2 35193.6 g 15 /min 68 /min 99 % 99 % 98 [degF] 140 mm[Hg] 80 mm[Hg] carlos jeffrey [facility] Sleep [facility] Pulmonary [facility] 7 10:49:51 Social History Question Answer Notes LastModified by Organizat ion Details LastModified Time Tobacco Smoking Status Former Smoker carlos jeffrey kuldeep [facility] Sleep [facility] 05/01/2017 09:13:31 Live Alone Or With Others? [...] SNOMED-CT Code Diagnosis ICD10 Code Diagnosis Note [id number] Liz Pitts Md1 [place] [address] [facility] [place] [address] 05/01/2017 08:46:31 05/01/2017 09:59:53 Dyspnea 554315871 R06.02 Possible from asthmatic bronchitis . I have reviewed the chest Xray and clear Obstructiv e sleep apnea syndrome 68918307 G47.33 She has JUNE about 10 years ago and failed treatment , she has lost weight but she is symptomati c . Sleep disorder 77299003 G47.9 Wheezing 36964438 R06.2 [id number] Liz Pitts Md1 [place] [address] [facility] [place] [address] 06/15/2017 10:35:14 06/15/2017 11:09:17 Dyspnea 050266767 R06.02 I have reviewed the PFt and normal , just some very mild decrease DLCO and her breathing is better . Obstructiv e sleep apnea syndrome 78760611 G47.33 I have reviewed the repeat PSG [...] Name 05/01/2017 1 [place] Janeth Berrios [id number] Janeth Berrios 06/15/2017 1 [place] Janeth Berrios [id number] Janeth Berrios Notes Date Note Type Note [...] no headaches . Liz Pitts Md1 [address] [facility], [place], [address], [facility] - [facility] 05/01/2017 09:39:22 06/15/2017 text/html She is here for follow up and she has been doing well . She has not been sick and no new medications .She has some SOB on exertion and she has been seen pain management . Liz Pitts Md1 [address] [facility], [place], [address], [facility] - [facility] 06/15/2017 11:04:42 OBGyn Episode No OBEpisode recorded.
== END 2024-11-29 11:01 | disposition home or self-care (01) ==
LOC: HO.HSMS 09:43
PROVIDERS: PCP Family Medicine; Visit Provider Physician Assistant Medical
DX: H53.2 Diplopia (principal); G35 Multiple sclerosis; M54.12 Radiculopathy, cervical region; R53.82 Chronic fatigue, unspecified; G47.30 Sleep apnea, unspecified
CPT/HCPCS: 99204; G2211

== ENCOUNTER → 2024-11-29 09:42 | Outpatient (BNVA) | payer MEDICARE, SELFPAY | PROVIDERS: PCP Family Medicine; Visit Provider Physician Assistant Medical | DX: G35 Multiple sclerosis (principal); G47.30 Sleep apnea, unspecified; H53.2 Diplopia; M54.12 Radiculopathy, cervical region; R53.82 Chronic fatigue, unspecified | CPT/HCPCS: 99202 ==

== ENCOUNTER → 2025-02-13 07:43 | Outpatient (REF) | payer MEDICARE, SELFPAY ==
--- OUTSIDE RECORDS SUMMARY | 2025-02-13 07:45 | XMS_ITS | Clinical Summary ---
Author Organization [facility] Address [address] [place] [address] Phone Care Team Providers Care Investigator Operator Name Role Phone Berta Hennessy MD Primary Care Provider [phone] Allergies Active Allergy Reactions Criticality Noted Date Comments Pollen Extracts 07/28/2023 Medications ergocalciferol (VITAMIN D-2) 1,250 mcg (50,000 unit) capsule TAKE 1 CAPSULE BY MOUTH ONE TIME PER WEEK 12 capsule 4 10/14/2024 Active albuterol HFA (PROAIR HFA ; PROVENTIL HFA ; VENTOLIN HFA) 90 mcg/actuation inhaler Inhale 2 puffs by mouth if needed. Active atorvastatin (LIPITOR) 40 mg tablet Take 1 tablet (40 mg total) by mouth 1 (one) time each day. at bedtime Active baclofen (LIORESAL) 10 mg tablet Take 1 tablet (10 mg total) by mouth 2 (two) times a day. 12/19/2024 Active carvediloL (COREG) 12.5 mg tablet Take 1 tablet (12.5 mg total) by mouth 2 (two) times a day. for 90 days 11/03/2024 Active losartan (COZAAR) 25 mg tablet Take 1 tablet (25 mg total) by mouth 1 (one) time each day. 10/10/2024 Active meloxicam (MOBIC) 15 mg tablet Take 1 tablet (15 mg total) by mouth 1 (one) time each day. 11/27/2024 Active montelukast (SINGULAIR) 10 mg tablet Take 1 tablet (10 mg total) by mouth 1 (one) time each day. Active oxyCODONE-aceta minophen (PERCOCET) 5-325 mg per tablet Take 1 tablet by mouth if needed for severe pain. Active sertraline (ZOLOFT) 100 mg tablet Take 1 tablet (100 mg total) by mouth 1 (one) time each day in the morning. Active Encounters Date Type Department Care Team Description 01/02/2025 2:10 PM EDT - 01/02/2025 11:59 PM EDT Hospital Encounter [facility] MRI [address] [place] [id number] Multiple sclerosis ([facility] V24, [facility] V28) Discharge Disposition: Home or Self Care 12/27/2024 9:30 AM EDT Office Visit [facility] [address] [facility] [address] [place] [address] Keyon Werner MD Multiple sclerosis ([facility] V24, [facility] V28) (Primary Dx); Cervical disc disease with myelopathy from Last 3 Months Social History Tobacco Use Types Packs/Day Years Used Date Smoking Tobacco: Never Smokeless Tobacco: Never Alcohol Use Standard Drinks/Week Comments Never 0 (1 standard drink = 0.6 oz pur e alcohol) Comments Unknown Sex and Gender Information Value Date Recorded Sex Assigned at Not on file Legal Sex Female 8:56 PM EST Gender Identity Not on file Sexual Orientation Not on file Obstetrics History Last Filed Vital Signs Vital Sign Reading Time Taken Comments Blood Pressure 131/79 12/27/2024 9:31 AM EDT Pulse 66 12/27/2024 9:31 AM EDT Temperature - - Respiratory Rate - - Oxygen Saturation 97% 12/27/2024 9:31 AM EDT Inhaled Oxygen Concentration - - Weight 60.8 kg (134 lb) 12/27/2024 9:31 AM EDT Height 149.9 cm (4' 11 ) 12/27/2024 9:31 AM EDT Body Mass Index 27.06 12/27/2024 9:31 AM EDT Plan of Treatment Upcoming Encounters Date Type Department Care Team (Late st Contact Info) Description 03/10/2025 1:30 PM EDT Office Visit [facility] [address] [facility] [address] [place] [address] Keyon Werner MD [address] [facility] [address] [place] [address] Health Maintenance Due Date Last Done Comments Breast Cancer Screening 1960 DTaP,Tdap,and Td Vaccines (1 - Tdap) 01/24/1979 Pneumococcal Vaccine: 50+ Years (1 of 2 - PCV) 01/24/1979 Pneumococcal Vaccine: Pediatrics (0 to 5 Years) and At-Risk Patients (6 to 64 Years) (1 of 2 - PCV) 01/24/1979 Zoster Vaccines (1 of 2) 01/24/1979 Cervical Cancer Screening: P ap Smear 01/24/1981 Cholesterol Screening (Lipid Panel) 09/08/2023 Colorectal Cancer Screening: Colonoscopy 09/08/2023 Depression Screening 09/08/2023 Hepatitis C Screening 09/08/2023 Medicare Annual Wellness Visit 09/08/2023 Osteoporosis Screening (Bone Density Screening) 09/08/2023 Social Influencers of Health Screening 09/08/2023 COVID-19 Vaccine (3 - Pfizer risk series) 07/20/2024 06/22/2024, 05/14/2023 Falls Risk Assessment 01/24/2025 Influenza Vaccine (#1) 2025 , 05/14/2023 RSV Immunization Adult Patients Completed 08/11/2023 HIB Vaccines Aged Out No longer eligi ble based on patient's age to complete this topic HPV Vaccines Aged Out No longer eligi ble based on patient's age to complete this topic Hepatitis A Vaccines Aged Out No long er eligible based on patient's age to complete this topic Hepatitis B Vaccines Aged Out No long er eligible based on patient's age to complete this topic IPV Vaccines Aged Out No longer eligi ble based on patient's age to complete this topic MMR Vaccines Aged Out No longer eligi ble based on patient's age to complete this topic Meningococcal ACWY Vaccine Aged Out N o longer eligible based on patient's age to complete this topic Meningococcal B Vaccine Aged Out No l onger eligible based on patient's age to complete this topic RSV Immunization Patients Under 20 months Aged Out No longer eligible b ased on patient's age to complete this topic Varicella Vaccines Aged Out No longer eligible based on patient's age to complete this topic Procedures Procedure Name Priority Date/Time Associated Diagnosis Comments MR BRAIN WO AND W CONTRAST Routine 01/02/2025 4:18 PM EDT Multiple sclerosis (CMS/HCC V24, CMS/HCC V28) from Last 3 Months Results * MR Brain wo and w Contrast (01/02/2025 4:18 PM EDT) Anatomical Region Laterality Modality Head and Neck Magnetic Resonan ce 01/02/2025 7:11 PM EDT Impressions 01/02/2025 7:17 PM EDT No change in scattered supratentorial white matter T2 hyperintense foci dating back to 2022 which may be due to chronic small vessel ischemic changes, demyelination, and/or sequelae of chronic migraine. No new lesions or abnormal enhancement to suggest active demyelination. -------- FINAL REPORT -------- Dictated By: CLEMENTINE GLASGOW Dictated Date: 01/02/2025 19:11 ET Assigned Physician: CLEMENTINE GLASGOW Reviewed and Electronically Signed By: CLEMENTINE GLASGOW Signed Date: 01/02/2025 19:17 ET Workstation ID: [id number] Transcribed By: Self Edit Transcribed Date: 01/02/2025 19:11 ET Narrative 01/02/2025 7:17 PM EDT PROCEDURE: Brain MRI INDICATION: Multiple sclerosis TECHNIQUE: Multiplanar, multisequence MRI of the brain without and with contrast. 10 mL Dotarem injected intravenously from a 15 mL vial with the remainder discarded. COMPARISON: 06/05/2023 FINDINGS: No acute infarct, mass effect, or intracranial hemorrhage. Scattered foci of periventricular and subcortical white matter T2 hyperintensity are nonspecific and are stable compared to 2022. No new T2 hyperintense lesions are seen. No infratentorial lesions. No abnormal intracranial enhancement. Sella and foramen magnum are normal. No abnormal intracranial susceptibility artifact. Ventricles, sulci, and cisterns are normal in size and configuration. No hydrocephalus. Major intracranial arterial flow voids are within normal limits. Major dural venous sinuses enhance normally with contrast. Evidence of prior sinus surgery scattered mucosal thickening throughout the sinuses. Small bilateral mastoid effusions. Orbits and extracranial soft tissues are normal. Calvarium is normal. Procedure Note Clementine Glasgow MD - 01/02/2025 PROCEDURE: Brain MRI INDICATION: Multiple sclerosis TECHNIQUE: Multiplanar, multisequence MRI of the brain without and withcontrast. 10 mL Dotarem injected intravenously from a 15 mL vial with theremainder discarded. COMPARISON: 06/05/2023 FINDINGS: No acute infarct, mass effect, or intracranial hemorrhage. Scattered foci of periventricular and subcortical white matter J1ysqzwirbswpovh are nonspecific and are stable compared to 202. No new E7epyasuxoxist lesions are seen. No infratentorial lesions. No abnormalintracranial enhancement. Sella and foramen magnum are normal. No abnormal intracranialsusceptibility artifact. Ventricles, sulci, and cisterns are normal in size and configuration. Nohydrocephalus. Major intracranial arterial flow voids are within normal limits. Majordural venous sinuses enhance normally with contrast. Evidence of prior sinus surgery scattered mucosal thickening throughoutthe sinuses. Small bilateral mastoid effusions. Orbits and extracranial soft tissues are normal. Calvarium is normal. IMPRESSION: No change in scattered supratentorial white matter T2 hyperintense focidating back to 2022 which may be due to chronic small vessel ischemicchanges, demyelination, and/or sequelae of chronic migraine. No newlesions or abnormal enhancement to suggest active demyelination. -------- FINAL REPORT -------- Dictated By: CLEMENTINE GLASGOW Dictated Date: 01/02/2025 19:11 ET Assigned Physician: CLEMENTINE GLASGOW Reviewed and Electronically Signed By: CLEMENTINE GLASGOW Signed Date: 01/02/2025 19:17 ET Workstation ID: [id number] Transcribed By: Self Edit Transcribed Date: 01/02/2025 19:11 ET Keyon Werner MD IMG MRI PROCEDURES Final Result from Last 3 Months Insurance AETNA MEDICARE ADVANTAGE MEDICAID - [place] Care Teams Investigator Operator Relationship Specialty Start Date End Date Berta Hennessy MD [address] [facility] [address] [place] [address] PCP - General 04/19/23
--- OUTSIDE RECORDS SUMMARY | 2025-02-13 07:45 | XMS_ITS | Clinical Summary ---
Author Organization [facility] Address [address] [place] [address] Care Team Providers Care Chief Wellness Officer Name Role Phone Berta Hennessy MD Primary Care Provider [phone] Allergies Active Allergy Reactions Criticality Noted Date [...] 0 05/08/2023 Active ergocalciferol (VITAMIN D2) capsule 01217 units Take 1 capsule (50,000 Units total) [...] 61 07/28/2023 9:23 AM EST Temperature 36.8 C (98.2 F) 07/28/2023 9:23 AM EST Respiratory Rate - - Oxygen Saturation 98% [...] 01/24/2010 Shingrix-Zoster Vaccine (1 of 2) 01/24/2010 Fall Risk Assessment 01/24/2025 Osteoporosis Screening (DEXA Scan) 01/24/2025 Pneumococcal Vaccine (1 of 1 - PCV) 01/24/2025 Influenza Vaccine (Season Ended) 2025 RSV Adult > 60+ Yrs or Pregn [...] age to complete this topic Care Teams Chief Wellness Officer Relationship Specialty Start Date End Date Berta Hennessy MD [address] [address] PCP - General Neurology 04/19/23
--- OUTSIDE RECORDS SUMMARY | 2025-02-13 07:45 | XMS_ITS | Data Portability ---
Author Organization AJAY colin MD, [facility] Address [address] [place] [address] Assessment Encounter Date Assessment Date Assessment LastModified [...] abdominal pain or blood in the stool. [email or web address] Not available 12/14/2020 13:47:32 Plan of Treatment [...] Abnormal Flag Note LastModifiedBy Organization Detail LastModifiedTime 03/13/2003/11/2020 US, abdom en No observ ation record ed. [email or web address] [facility] [address], [place], [address], 03/13/2020 12:46:40 Result Notes None recorded. Problems Name Problem SNOMED Code Status Onset Date Resolution Date Notes Provider Name and Address Organization Details Recorded Time Constipation 10447103 Active [address] [place] [place] - Domingo [...] jim Dumont MD 07/09/2018 09:55:08 Imaging Results None recorded. Procedure Notes None [...] Available Not Available Vitals Date Recorded Body mass index (BMI) Body weight Body temperature Heart rate Systolic blood pressure Diastolic blood pressure Provider Name and Address Organization Details Last Updated DateTime 1 27.8 kg/m2 87556.2 7 g 96 [degF] 64 /min 118 mm[Hg] 60 mm[Hg] ALVARADO Reaves MD 1 12:51:43 Date Recorded Body height Provider Name an d Address Organization Details Last Updated DateTime 12/14/2020 152.4 cm Giovana Dumont MD 12/14/2020 12:41:00 Date Recorded Body height Body mass index (BMI) Body weight Systolic blood pressure Diastolic blood pressure Provider Name and Address Organization Details Last Updated DateTime 07/09/2018 152.4 cm 25 kg/m2 48988.82 g 135 mm[Hg] 73 mm[Hg] jim Dumont MD 8 09:51:37 Date Recorded Body height Body mass index (BMI) Body weight Systolic blood pressure Diastolic blood pressure Provider Name and Address Organization Details Last Updated DateTime 08/01/2018 152.4 cm 25 kg/m2 86643.82 g 135 mm[Hg] 79 mm[Hg] stanley caroline Dumont MD 8 10:12:35 Social History Question Answer Notes LastModified by [employer] Details LastModified Time Tobacco Smoking Status Never Smoker Not Available [facility] 05/28/2020 03:13:28 Do You Have An Advance [...] Tobacco Screening? 12/14/2020 Information not available 12/14/2020 How Many Years Have You Smoked Tobacco? 0 [id number] Information not available 05/28/2020 Sex: Unknown Functional Status Question Answer Note LastModified by [employer] Details LastModified Time Do you use any illicit or recreational drugs? No Information not available 12/14/2020 What is your level of alcohol consumption? Occasional Information not available 12/14/2020 Are you able to walk? YESWOREST Information [...] [email or web address] Not available 07/09 09:52:46 Mother Malignant neoplasm of lung sister lung cancer also [email or web address] Not available 07/09/2018 09:53:20 Medical History Condition Response Other N Gout N Kidney Stones Y COPD N Depression N Anxiety Disorder N Autoimmune disease N Hemorrhoids Y Arthritis Y Cancer Y Stroke N Diverticulosis/Diverticulitis Y Bleeding Disorder N Tuberculosis N Asthma Y Hepatitis N Cirrhosis N Pulmonary Embolism N GERD/Acid Reflux N Deep Vein Thrombosis N Liver Disease N Osteoporosis/Osteopenia Y Anemia N Colon Polyps Y Diabetes N Seizures/Epilepsy N Sleep Apnea N Hypertension N Gynecological HistoryNo gynecological history recorded. Obstetrics History GPAL:G 0 P 0 0 0 0 Immunizations Vaccine Type Date Status Note Provider Nam e and Address Organization Details Recorded Time Influenza, split virus, quadrivalent, preservative 0 completed Brandy Pike LPN [place], [place] - Edenilson Dumont MD 12/14/2020 12:47:30 Past Encounters Encounter ID Performer Location Encounter Start Date Encounter Closed Date Diagnosis/Indication Diagnosis SNOMED-CT Code Diagnosis ICD10 Code Diagnosis Note 160 Edenilson Dumont MD Main Office [address] [facility] [address] [place] [address] 05/14/2018 11:58:15 05/16/2018 15:14:56 Ultrasound scan abnormal [id number] R93.89 Today I did a right groin ultrasound dynamic. With a linear probe. Patient does have a small right inguinal hernia. Right inguinal hernia 23 [id number] K40.90 We will schedule patient for open right inguinal hernia. Inguinal hernia [id number] 0 K40.90 Gave the patient for an open right inguinal hernia repair [id number] Edenilson Dumont MD Main Office [address] [place] [address] 07/09/2018 09:10:56 07/09/2018 10:45:28 [id number] Edenilson Dumont MD Main Office [address] [place] [address] 08/01/2018 09:20:43 08/01/2018 10:38:00 [id number] Edenilson Dumont MD Main Office [address] [place] [address] 12/14/2020 12:08:02 12/14/2020 14:53:29 Constipation 16176428 K59.00 We will schedule colonoscop y. Bowel prep instructio ns provided. Health Concerns Section Related Observation LastModified by Organization Detai ls LastModified Time None Recorded Concern Status LastModified by Organization Details LastModified Time None Recorded Advance Directives Directive N: Payers Insurance Date Sequence Insurance Name Policy Number Policy Ramirez Covered Member ID Ramirez Member ID Guarantor Name 01/20/2021 1 [employer] (MEDICARE REPLACEMENT/A DVANTAGE - PPO) [id number] Janeth Berrios [id number] Janeth Berrios 11/23/2020 1 [place] Janeth Berrios [id number] Janeth Berrios 01/20/2021 2 [place] [facility] (SECONDARY TO MEDICARE) Janeth Berrios [id number] Janeth Berrios 05/16/2018 2 [place] [facility] Janeth Berrios [id number] Janeth Berrios Notes Date Note Type Note [...] years ago [place] [address], [place], [address], [facility] - Edenilson Dumont MD 07/09/2018 10:32:52 08/01/2018 text/html HerniaReported bypatient.Notes:Tona ent status post open right inguinal hernia repair patient doing well denies any pain [place] [address] [facility] [address], [place], [address], AJAY Dumont MD 08/01/2018 10:18:04 12/14/2020 text/html 08/01/18Patient [...] bowel habits. Last colonoscopy was in 2016. Due to change in bowel habits will perform a colonoscopy for evaluation. No reports of abdominal pain or blood in the stool. BRITTNEY [place]eral[place] - Domingo E Galliano MD 12/14/2020 13:48:38 OBGyn Episode No OBEpisode recorded.
--- OUTSIDE RECORDS SUMMARY | 2025-02-13 07:45 | XMS_ITS ---
Author Name CRISP Organization Unknown Allergies Allergen Reaction Severity Comment Documented Date Source Statu s SEASONAL 07/28/2023 CTTHNEMG active Care Team Organization Name Specialty Phone Email Start Date End Da te [facility] SANTOSH GARYA Primary Care 08/15 [facility] 11/202408/26/2024
== END ==
LOC: HO.SL 07:43
PROVIDERS: PCP Family Medicine; Visit Provider Physician Assistant Medical
DX: Z13.89 Encounter for screening for other disorder (principal)

== ENCOUNTER → 2025-03-03 10:09 | Outpatient (REF) | payer MEDICARE, SELFPAY ==
--- OUTSIDE RECORDS SUMMARY | 2025-03-03 11:00 | XMS_ITS | Data Portability ---
Author Organization AJAY colin MD, [facility] Address [address] [place] [address] Assessment Encounter Date Assessment Date Assessment LastModified [...] abdominal pain or blood in the stool. [email or web address] Not available 12/14/2020 13:47:32 Plan of Treatment [...] en No observ ation record ed. [email or web address] [facility] [address], [place], [address], 03/13/2020 12:46:40 Result Notes None recorded. Problems Name Problem SNOMED Code Status Onset Date Resolution Date Notes Provider Name and Address Organization Details Recorded Time Constipation 12326824 Active 021 [place] - Domingo [...] Body weight Body temperature Heart rate Systolic And Diastolic Provider Name and Address Organization Details Last Updated DateTime 12/14/2020 27.8 kg/m2 36855.27 g 96 [degF] 64 /min 118/60 mm[Hg] AVLARADO Reaves MD 12:51:43 Date Recorded Body height Provider Name an d Address Organization Details Last Updated DateTime 12/14/2020 152.4 cm Giovana Dumont MD 12/14/2020 12:41:00 Date Recorded Body height Body mass index (BMI) Body weight Systolic And Diastolic Provider Name and Address Organization Details Last Updated DateTime 07/09/2018 152.4 cm 25 kg/m2 41035.82 g 135/73 mm[Hg] jim Dumont MD 07/09/2018 09:51:37 Date Recorded Body height Body mass index (BMI) Body weight Systolic And Diastolic Provider Name and Address Organization Details Last Updated DateTime 08/01/2018 152.4 cm 25 kg/m2 29972.82 g 135/79 mm[Hg] stanley Dumont MD 08/01/2018 10:12:35 Social History Question Answer Notes LastModified by [employer] Details LastModified Time Tobacco Smoking Status Never Smoker Not Available [facility] 05/28/2020 03:13:28 Do You Have An Advance [...] Many Years Have You Smoked Tobacco? 0 [id number] Information not available 05/28/2020 Sex: Unknown Functional Status Question Answer Note LastModified by Organizat ion Details LastModified Time Do you use any [...] Kidney Stones Y Depression N COPD N GERD/Acid Reflux N Deep Vein Thrombosis N Anxiety Disorder N Autoimmune disease N Hemorrhoids Y Arthritis Y Cancer Y Stroke N Liver Disease N Osteoporosis/Osteopenia Y Anemia N Diverticulosis/Diverticulitis Y Colon Polyps Y Diabetes N Bleeding Disorder N Seizures/Epilepsy N Tuberculosis N Asthma Y Sleep Apnea N Hepatitis N Cirrhosis N Pulmonary Embolism N Hypertension N Gynecological HistoryNo gynecological history recorded. Obstetrics History GPAL:G 0 P 0 0 0 0 Immunizations Vaccine Type Date Status Note Provider Nam e and Address Organization Details Recorded Time Influenza, split virus, quadrivalent, preservative 0 completed Brandy Pike LPN [place], [place] - Edenilson Dumont MD 12/14/2020 12:47:30 Past Encounters Encounter ID Performer Location Encounter Start Date Encounter Closed Date Diagnosis/Indication Diagnosis SNOMED-CT Code Diagnosis ICD10 Code Diagnosis Note 160 Edenilson Dumont MD Main Office [address] [facility] [address] [place] [address] 05/14/2018 11:58:15 05/16/2018 15:14:56 Ultrasound scan abnormal [id number] R93.89 Today I did a right groin ultrasound dynamic. With a linear probe. Patient does have a small right inguinal hernia. Right inguinal hernia 23 [id number] K40.90 We will schedule patient for open right inguinal hernia. Inguinal hernia [id number] 0 K40.90 Gave the patient for an open right inguinal hernia repair [id number] Edenilson Dumont MD Main Office [address] [facility] [address] [place] [address] 07/09/2018 09:10:56 07/09/2018 10:45:28 [id number] Edenilson Dumont MD Main Office [address] [place] [address] 08/01/2018 09:20:43 08/01/2018 10:38:00 [id number] Edenilson Dumont MD Main Office [address] [place] [address] 12/14/2020 12:08:02 12/14/2020 14:53:29 Constipation [id number] K59.00 We will schedule colonoscop y. Bowel [...] 1 [employer] (MEDICARE REPLACEMENT/A DVANTAGE - PPO) [id number] Janeth Berrios [id number] Janeth Berrios 11/23/2020 1 [place] Janeth Berrios [id number] Janeth Berrios 01/20/2021 2 [place] [facility] [place] [facility] (SECONDARY TO MEDICARE) Janeth M Yash [id number] Janeth Alison Yash 05/16/2018 2 [place] [employer] Janeth M Yash [id number] Janeth Alison Yash Notes Date Note Type Note Provider Name and Address Organization Details Recorded Time 05/14/2018 text/html Patient comes in complaining of right groin pain. 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 I did a colonoscopy and the patient 2 years ago grossly [place] [address], [place], [address], [facility] - Edenilson Dumont MD 07/09/2018 10:32:52 08/01/2018 text/html HerniaReported bypatient.Notes:Tona ent status post open right inguinal hernia repair patient doing well denies any pain [place] [address] [facility] [address], [place], [address], [place] AJAY Dumont MD 08/01/2018 10:18:04 12/14/2020 text/html 08/01/18Patient comes in complaining of right groin pain. 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 I did a colonoscopy and the patient 2 years ago grossly unremarkable.12/14/20 ina is a pleasant 16-year-old female with known [...]
--- OUTSIDE RECORDS SUMMARY | 2025-03-03 11:01 | XMS_ITS | Clinical Summary ---
Author Organization [facility] Address [address] [place], [place] [id number] Care Team Providers Care [employer] Dairy [employer] Supervisor Name Role Phone Berta Hennessy MD Primary Care Provider [phone] Allergies Active Allergy Reactions Criticality Noted Date [...] 0 05/08/2023 Active ergocalciferol (VITAMIN D2) capsule 17867 units Take 1 capsule (50,000 Units total) [...] of 1 - PCV) 01/24/2025 Influenza Vaccine (#1) 2025 RSV Adult > 60+ Yrs or [...] age to complete this topic Care Teams [employer] Supervisor Relationship Specialty Start Date End Date Berta Hennessy MD [address] [address] PCP - General Neurology 04/19/23
--- OUTSIDE RECORDS SUMMARY | 2025-03-03 11:01 | XMS_ITS | Clinical Summary ---
Author Organization 175 [facility] Address [address] [place] [address] Phone Care Team Providers Care Forensic Examiner Name Role Phone Berta Hennessy MD Primary Care Provider [phone] Allergies Active Allergy Reactions Criticality Noted Date [...] - 01/02/2025 11:59 PM EDT Hospital Encounter [facility] MRI [address] [place] [id number] Multiple sclerosis ([facility] V24, [facility] V28) Discharge Disposition: Home or Self Care 12/27/2024 9:30 AM EDT [facility] 175 [facility] [address] [place] [address] Keyon Werner MD Multiple sclerosis ([facility] V24, [facility] V28) (Primary Dx); Cervical disc disease [...] Description 03/10/2025 1:30 PM EDT [facility] 175 [facility] [address] [place] [address] Keyon Werner MD 175 [facility] [address] [place] [address] Health Maintenance Due Date Last Done Comments Breast Cancer Screening 1960 DTaP,Tdap,and Td Vaccines (1 - Tdap) 01/24/1979 Pneumococcal Vaccine: 50+ Years (1 of 2 - PCV) 01/24/1979 Zoster Vaccines (1 of 2) 01/24/1979 Cervical Cancer Screening: P ap Smear 01/24/1981 Cholesterol Screening (Lipid Panel) 09/08/2023 Colorectal Cancer Screening: Colonoscopy 09/08/2023 Hepatitis C Screening 09/08/2023 Medicare Annual Wellness Visit 09/08/2023 Osteoporosis Screening (Bone Density Screening) 09/08/2023 Social Influencers of Health Screening 09/08/2023 COVID-19 Vaccine (3 - Pfizer risk series) 07/20/2024 06/22/2024, 05/14/2023 Depression Screening 08/14/2024 Falls Risk Assessment 01/24/2025 Influenza Vaccine (#1) [...] Routine 01/02/2025 4:18 PM EDT Multiple sclerosis ([facility] V24, [facility] V28) from Last 3 Months Results * [...] Signed Date: 01/02/2025 19:17 ET Workstation ID: [id number] Transcribed By: Self Edit Transcribed Date: 01/02/2025 [...] foci of periventricular and subcortical white matter Z6ewmnfkspppnaxb are nonspecific and are stable compared to 2022. No new D6ywqohezpgoiy lesions are seen. No infratentorial lesions. No [...] Signed Date: 01/02/2025 19:17 ET Workstation ID: [id number] Transcribed By: Self Edit Transcribed Date: 01/02/2025 19:11 ET Keyon Werner MD IM MRI PROCEDURES Final Result from Last 3 Months Insurance [employer] MEDICARE ADVANTAGE [place] - [place] Care Teams Forensic Examiner Relationship Specialty Start Date End Date Berta Hennessy MD 299 [facility] [address] [place] [address] PCP - General 04/19/23
== END ==
LOC: HO.SL 10:09
PROVIDERS: PCP Family Medicine; Visit Provider Physician Assistant Medical
DX: G47.19 Other hypersomnia (principal); G47.30 Sleep apnea, unspecified
CPT/HCPCS: 95806

== ENCOUNTER → 2025-03-03 10:17 | Outpatient (BNV) | payer MEDICARE, SELFPAY | PROVIDERS: PCP Family Medicine; Visit Provider Psychiatry & Neurology Neurology | DX: G47.19 Other hypersomnia (principal) | CPT/HCPCS: 95806 ==

== ENCOUNTER 2025-03-06 09:07 | Outpatient (REF) | payer MEDICARE, SELFPAY ==
--- OUTSIDE RECORDS SUMMARY | 2025-03-06 09:34 | XMS_ITS | Clinical Summary ---
Author Organization [facility] Address [address] [place], [place] [id number] Care Team Providers Care Bone Puller Name Role Phone Berta Hennessy MD Primary Care Provider [phone] Allergies Active Allergy Reactions Criticality Noted Date [...] 0 05/08/2023 Active ergocalciferol (VITAMIN D2) capsule 98109 units Take 1 capsule (50,000 Units total) [...] age to complete this topic Care Teams Bone Puller Relationship Specialty Start Date End Date Berta Hennessy MD [address] [address] PCP - General Neurology 04/19/23
--- OUTSIDE RECORDS SUMMARY | 2025-03-06 09:34 | XMS_ITS | Clinical Summary ---
Author Organization 175 [facility] Address [address] [place] [address] Phone Care Team Providers Care Computer Programmer Name Role Phone Berta Hennessy MD Primary Care Provider [phone] Allergies Active Allergy Reactions Criticality Noted Date [...] - 01/02/2025 11:59 PM EDT Hospital Encounter [facility] MRI [address] [place] [phone] Multiple sclerosis ([facility] V24, [facility] V28) Discharge Disposition: Home or Self Care 12/27/2024 9:30 AM EDT Office Visit [facility] 175 [facility] [address] [place] [address] Keyon Werner MD Multiple sclerosis ([facility] V24, [facility] V28) (Primary Dx); Cervical disc disease with [...] Description 03/10/2025 1:30 PM EDT Office Visit [facility] 175 [facility] [address] [place] [address] Keyon Werner MD 175 [facility] [address] [place] [address] Health Maintenance Due Date Last Done Comments [...] Routine 01/02/2025 4:18 PM EDT Multiple sclerosis ([facility] V24, [facility] V28) from Last 3 Months Results * MR Brain wo and w Contrast (01/02/2025 4:18 PM EDT) Anatomical Region Laterality Modality Head and Neck Magnetic Resonan ce 01/02/2025 7:1 1 PM EDT Impressions 01/02/2025 7:17 PM EDT [...] Signed Date: 01/02/2025 19:17 ET Workstation ID: [id number] Transcribed By: Self Edit Transcribed Date: 01/02/2025 [...] foci of periventricular and subcortical white matter A7fadfmrgxwnjhax are nonspecific and are stable compared to 2022. No new M4vqhosnuiiizm lesions are seen. No infratentorial lesions. No [...] Signed Date: 01/02/2025 19:17 ET Workstation ID: [id number] Transcribed By: Self Edit Transcribed Date: 01/02/2025 19:11 ET Keyon Werner MD IM MRI PROCEDURES Final Result from Last 3 Months Insurance A[employer] MEDICARE ADVANTAGE MEDICAID - [place] Care Teams Computer Programmer Relationship Specialty Start Date End Date Berta Hennessy MD 299 [facility] [address] [place] [address] PCP - General 04/19/23
--- OUTSIDE RECORDS SUMMARY | 2025-03-06 09:34 | XMS_ITS | Data Portability ---
Author Organization AJAY colin MD, [facility] Address [address] [place] [address] Assessment Encounter Date Assessment Date Assessment LastModified [...] abdominal pain or blood in the stool. [email or web address] Not available 12/14/2020 13:47:32 Plan of Treatment [...] en No observ ation record ed. [email or web address] [facility] [address], [place], [address], 03/13/2020 12:46:40 Result Notes None recorded. Problems Name Problem SNOMED Code Status Onset Date Resolution Date Notes Provider Name and Address Organization Details Recorded Time Constipation 93707100 Active [address] [place] - Domingo [...] Details Last Updated DateTime 12/14/2020 27.8 kg/m2 09316.27 g 96 [degF] 64 /min 118/60 mm[Hg] ALVARADO Reaves MD 12:51:43 Date Recorded Body height Provider Name an d Address Organization Details Last Updated DateTime 12/14/2020 152.4 cm Giovana Dumont MD 12/14/2020 12:41:00 Date Recorded Body height Body mass index (BMI) Body weight Systolic And Diastolic Provider Name and Address Organization Details Last Updated DateTime 07/09/2018 152.4 cm 25 kg/m2 59559.82 g 135/73 mm[Hg] jim Dumont MD 07/09/2018 09:51:37 Date Recorded Body height Body mass index (BMI) Body weight Systolic And Diastolic Provider Name and Address Organization Details Last Updated DateTime 08/01/2018 152.4 cm 25 kg/m2 08488.82 g 135/79 mm[Hg] stanley Dumont MD 08/01/2018 10:12:35 Social History Question Answer Notes LastModified by Formisimo Details LastModified Time Tobacco Smoking Status Never Smoker Not Available [facility] 05/28/2020 03:13:28 Do You Have An Advance [...] Many Years Have You Smoked Tobacco? 0 [id number] Information not available 05/28/2020 Sex: Unknown Functional [...] quadrivalent, preservative 0 completed Brandy Pike LPN [place], [place] - Edenilson Dumont MD 12/14/2020 12:47:30 Past Encounters Encounter ID Performer Location Encounter Start Date Encounter Closed Date Diagnosis/Indication Diagnosis SNOMED-CT Code Diagnosis ICD10 Code Diagnosis Note [id number] Edenilson Dumont MD Main Office [id number] [facility] [address] [place] [address] 05/14/2018 11:58:15 05/16/2018 15:14:56 Ultrasound scan abnormal [id number] R93.89 Today I did a right groin ultrasound dynamic. With a linear probe. Patient does have a small right inguinal hernia. Right inguinal hernia 23 [id number] K40.90 We will schedule patient for open right inguinal hernia. Inguinal hernia [id number] 0 K40.90 Gave the patient for an open right inguinal hernia repair [id number] Edenilson Dumont MD Main Office [id number] [facility] [address] [place] [address] 07/09/2018 09:10:56 07/09/2018 10:45:28 [id number] Edenilson Dumont MD Main Office [address] [place] [address] 08/01/2018 09:20:43 08/01/2018 10:38:00 [id number] Edenilson Dumont MD Main Office [address] [place] [address] 12/14/2020 12:08:02 12/14/2020 14:53:29 Constipation [id number] K59.00 We will schedule colonoscop y. Bowel [...] 1 [employer] (MEDICARE REPLACEMENT/A DVANTAGE - PPO) [id number] Janeth Berrios [id number] Janeth Berrios 11/23/2020 1 [place] Janeth Berrios [id number] Janeth Berrios 01/20/2021 2 [place] [employer] [place] (SECONDARY TO MEDICARE) Janeth M Yash [id number] Janeth Alison Yash 05/16/2018 2 [place] [employer] Janeth M Yash [id number] Janeth Alison Yash Notes Date Note Type [...] years ago grossly [place] [address], [place], [address], [facility] - Edenilson Dumont MD 07/09/2018 10:32:52 08/01/2018 text/html HerniaReported bypatient.Notes:Tona ent status post open right inguinal hernia repair patient doing well denies any pain [place] [address] [facility] [address], [place], [address], [place] AJAY Dumont MD 08/01/2018 10:18:04 12/14/2020 [...]
[2025-03-06 11:16] LABS: MANUAL DIFF FLAG NO
[2025-03-06 11:25] LABS: Appearance Urine Clear; Glucose Urine UA Negative (Negative); PH 5.5 (5.0-9.0); Specific Gravity - Urine 1.020 (1.005-1.025); UMIC TRIGGER UA YES
[2025-03-06 11:29] LABS: Hematocrit 38.3 % (37.0-47.0); Hemoglobin 12.6 g/dl (12.0-16.0); Imm Gran Abs Auto 0.01 X10*3/uL (0.00-0.03); Imm Gran Pct Auto 0.2 % (0.0-0.4); Lymphocytes Absolute Auto 1.2 X10*3/uL (1.2-4.9); Mean Corpuscular HGB Conc 32.9 g/dl (31.0-35.0); Mean Corpuscular Hemoglobin 30.6 pg (27.0-33.0); Mean Corpuscular Volume 93.0 fL (80.0-98.0); NRBC Abs Auto 0.000 X10*3/uL (0.0-0.012); NRBC Pct Auto 0.0 /100WBC (0.0-0.2); Platelet Count 220 X10*3/uL (160-400); Red Blood Count 4.12 X10*6/uL (4.20-5.50); White Blood Count 4.0 X10*3/uL (4.8-10.8)
[2025-03-06 11:52] LABS: Alanine Aminotransferase 19 U/L (0-31); Albumin Level 4.4 g/dL (3.5-5.0); Alkaline Phosphatase 65 U/L (39-117); Anion Gap 13 (12-20); Aspartate Amino Transferase 20 U/L (5-31); Blood Urea Nitrogen 24 mg/dL (9-16); Calcium 8.9 mg/dL (8.4-10.2); Carbon Dioxide 24 mmol/L (22-29); Chloride 108 mmol/L (96-108); Cholesterol 194 mg/dL (<200); Estimated Glomerular Filt Rate > 60; HDL Cholesterol 60 mg/dL (>40); Potassium 4.5 mmol/L (3.3-5.1); Sodium 140 mmol/L (135-145); Total Protein 6.2 g/dL (6.5-8.0); Triglycerides 107 mg/dL (<150)
== END 2025-03-06 09:08 | disposition home or self-care (01) ==
LOC: HO.WFDLDS 09:07
PROVIDERS: Visit Provider Family Medicine
DX: Z00.00 Encounter for general adult medical examination without abnormal findings (principal); F11.90 Opioid use, unspecified, uncomplicated
CPT/HCPCS: 36415; 80053; 80061; 81001; 84443; 85025

== ENCOUNTER 2025-03-26 15:18 | Outpatient (AMB) | payer MEDICARE, SELFPAY ==
--- OUTSIDE RECORDS SUMMARY | 2025-03-26 15:20 | XMS_ITS | Clinical Summary ---
Author Organization [facility] Address [address] [place], [place] [address] Care Team Providers Care Promos Executive Producer Name Role Phone Berta Hennessy MD Primary Care Provider [phone] Allergies Active Allergy Reactions Criticality Noted Date [...] 0 05/08/2023 Active ergocalciferol (VITAMIN D2) capsule 17832 units Take 1 capsule (50,000 Units total) [...] age to complete this topic Care Teams Promos Executive Producer Relationship Specialty Start Date End Date Berta Hennessy MD [address] [address] PCP - General Neurology 04/19/23
--- NOTE | 2025-03-26 15:22 | MHC.PC.OV ---
Vital Signs 03/26/25 15:28 03/26/25 16:47 Height 4 ft 11 in Weight 133 lb 2 oz BMI 26.9 BP 162/71 H 146/68 H Blood Pressure Location Lt brachial Lt brachial Position Sitting Sitting Respiration 13 Pulse 74 Pulse Source Pulse Oximeter Temp 96.8 F Temp Source Temporal Artery Scan Pulse Oximetry (%) 98 Oxygen Delivery Method Room Air Intake Visit Reasons: f/u weight, pre-diabetes Intake Note: Follow up on pre diabetes, weight management and review sleep study test Exercise Physiology Professor Required: No Allergies Seasonal Allergies Allergy (Intermediate, Verified 03/26/25 15:24) Cough Medication List - Last Reconciled 03/26/25 by Salo Young MD albuterol sulfate 90 mcg/actuation 2 puffs inhalation Q4-6H PRN 30 days atorvastatin 40 mg PO BEDTIME 90 days baclofen 10 mg PO BID 30 days carvedilol 12.5 mg PO BID 90 days losartan 25 mg PO DAILY 90 days meclizine 12.5 mg PO TID PRN meloxicam 15 mg PO BEDTIME 30 days montelukast 10 mg PO QAM 90 days naloxone 4 mg/actuation 4 mg intranasal Q2M PRN 30 days oxycodone-acetaminophen 5-325 mg (Percocet) 2 tabs orally 3 times a day PRN; [employer] verified. Partial refill upon request. 30 days Paxlovid 300 mg (150 mg x 2)-100 mg (nirmatrelvir-ritonavir) take TWO 150 mg tablets of nirmatrelvir with ONE 100 mg tablet of ritonavir twice daily for 5 days PO NS penicillin V potassium 500 mg PO TID 10 days polyethylene glycol 3350 (Miralax) 17 grams PO DAILY semaglutide 1 mg (0.75 mL) subcut QWEEK 84 days sertraline 100 mg PO QAM 90 days [thumb spica right hand, wear nightly & as much as possible throughout the day] tobramycin-dexamethasone 0.3-0.1 % 1 drp ophthalmic (eye) QID 90 days MDD 4 drops in each eye [wrist splint wear nightly and as much as possible throughout the day] Tobacco use date assessed: 03/26/25 Fall risk assessment: 2 + Falls in past year Last assessed Fall Risk: 03/26/25 Dental Screening Dental Screen Date: 03/26/25 Did you have a dental visit in the last 12 months?: Yes Did you have a dental problem in the last 6 months where you did not have access to dental care?: No Was dental information given to patient?: Patient has dentist HPI f/u weight, pre-diabetes HPI Details 65 y/o female presents to f/u weight, pre-diabetes. Weight today 133lbs - improved from 136 lbs in November. Blood pressure today 162/71, 74p. She is on carvedilol 12.5mg b.i.d, [id number] daily. Hx of prediabetes. A1c today 5.6%. Pt had a dental abscess and she notes she has been f/u with a specialist for this. Had been positive for sleep apnea. [facility] Medical History Exposure to hepatitis C Renal calculi Sleep apnea Chronic pain Arthritis Elevated cholesterol Pre-diabetes Asthma HTN (hypertension) Tarsal tunnel syndrome of both lower extremities Encounter for testing for latent tuberculosis infection Multiple sclerosis Non-Hodgkin's lymphoma in remission Surgical History Hx of foot surgery Hx of cystoscopy Hx of colonoscopy History of esophagogastroduodenoscopy (EGD) Hx of hysterectomy Hx of hernia repair History of cholecystectomy Family History Mother Lung cancer Sister Lung cancer Social History Household Members: Family Housing: House Are you a primary critical care unit nurse to a significant other at home: No Do you presently have visiting nurse or other home services: No Alcohol intake: current Alcohol intake frequency: a few times a month Alcohol type: wine Patient Tobacco Use Status: Never used Tobacco e-Cigarette/Vaping Use: Never Used service: No Current occupational status: disabled 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 1. Little interest or pleasure in doing things: not at all 2. Feeling down, depressed, or hopeless: not at all 3. Trouble falling or staying asleep, or sleeping too much: not at all 4. Feeling tired or having little energy: not at all 5. Poor appetite or overeating: not at all 6. Feeling bad about yourself - or that you are a failure or have let yourself or your family down: not at all 7. Trouble concentrating on things, such as reading the newspaper or watching television: not at all 8. Moving or speaking so slowly that other people could have noticed. Or the opposite - being so fidgety or restless that you have been moving around a lot more than usual: not at all 9. Thoughts that you would be better off or of hurting yourself in some way: not at all Total score: 0 Depression Screening Interpretation: Negative Depression Screening Done: Yes 25415 - PHQ-9 Billing: Yes Source: Developed by Drs. Jim Darden, Elke Barbosa, Ike Bowser and colleagues, with an educational rina from [email or web address]. Thrive Questionnaire Date Thrive assessed: 03/26/25 I am a: Patient What is your living situation today?: I have a steady place to live Within the past 12 months, did the food you bought not last and you didn't have the money to get more?: Never true Within the past 12 months, did you worry whether your food would run out before you got money to buy more?: Never true Do you have trouble paying for medicines?: No Do you have trouble getting transportation to medical appointments?: No Do you have trouble paying your heating and electricity bill?: No Do you have trouble taking care of your child, family member or friend?: No Do you have trouble with day-to-day activities such as bathing, preparing meals, shopping, managing finances, etc.?: No Are you currently unemployed and looking for a job?: No Are you interested in more education?: No THRIVE Score: 0 HAYDE-7 AMB Questionnaire HAYDE-7 Date HAYDE - 7 assessed: 03/26/25 Feeling nervous, anxious, or on edge: 0 = Not at all Not being able to stop or control worryin = Not at all Worrying too much about different things: 0 = Not at all Trouble relaxin = Not at all Being so restless that it is hard to sit still: 0 = Not at all Becoming easily annoyed or irritable: 0 = Not at all Feeling afraid as if something awful might happen: 0 = Not at all Total HAYDE-7 score (0-4 normal; 5-9 mild; 10-14 moderate; 15-21 severe): 0 Source: Developed by Drs. Jim Darden, Elke Barbosa, Ike Bowser and colleagues, with an educational rina from [email or web address]. HAYDE-7 Assessment Billing HAYDE-7 Assessment Tool: HAYDE-7 Assessment 77086 Review of Systems Const Denies chills, Denies fatigue, Denies fever(s), Denies headache(s) and Denies weakness ENT Denies dizziness and Denies headache(s) Card Denies dyspnea Resp Denies cough, Denies dyspnea, Denies wheezing and Denies other (shortness of breath) Musc Denies numbness and Denies tingling Neuro Denies dizziness, Denies headache(s), Denies numbness, Denies tingling and Denies weakness Psych Denies anxiety and Denies depression Endo Denies fatigue Aller/Immun Denies wheezing Physical exam (Primary Care) Vital Signs: Last Vital Signs Temp 96.8 F 03/26/25 15:28 Pulse 74 03/26/25 15:28 Resp 13 03/26/25 15:28 BP 162/71 H 03/26/25 15:28 Pulse Ox 98 03/26/25 15:28 Oxygen Delivery Method Room Air 03/26/25 15:28 BMI result Body Mass Index 26.9 Tobacco/Smoking Status: Tobacco use Status Tobacco use date assessed 03/26/25 03/26/25 15:26 Patient Tobacco Use Status Never used Tobacco 03/26/25 15:23 e-Cigarette/Vaping Use Never Used 03/26/25 15:23 PHQ-9: PHQ-9 Score PHQ-9: Total score 0 03/26/25 16:25 Depression Screening Interpretation: Negative Thrive Assessment: Date of Thrive Assessment Date Thrive assessed 03/26/25 03/26/25 15:23 Const General: well developed; No acute distress Nutritional Appearance: well nourished Orientation/consciousness: patient oriented x3 HENMT Head: Yes normocephalic and Yes atraumatic Eyes General: appearance normal, both eyes and all related structures Pupils: Equal, round and reactive pupils present EOM: EOMs intact bilaterally Resp Effort & Inspection: normal respiratory effort Neuro General: patient oriented x3 and gait normal Cranial nerves: Yes Equal, round and reactive pupils present Psych Affect: normal affect Results AMB Hemoglobin A1c AMB Hemoglobin A1c 5.6 % Last Edit by Fiona Perdomo MA on 03/26/25 15:58 Results Reviewed Results Reviewed: Laboratory Last Values Hgb A1c (Clinic) 5.6 % (4.0-6.0) 03/26/25 15:33 Coding Level of Care Code Est Pt Level 5 (35627) Diagnoses Pre-diabetes R73.03 Primary hypertension I10 Hypertension type: primary hypertension Overweight E66.3 Sleep apnea, unspecified type G47.30 Sleep apnea type: unspecified type Dental abscess K04.7 Additional Codes HAYDE-7 Assessment Billing - HAYDE-7 Assessment Tool: HAYDE-7 Assessment 20707 ([id number]) PHQ-9 - 64221 - PHQ-9 Billing: Yes ([id number]) Assessment & Plan Assessment & Plan (1) Pre-diabetes: Code(s): R73.03 - Prediabetes Category: Medical Plan: A1c 5.6%. Continue working at a diet low in sugars and starches Will continue to monitor periodically (2) Hypertension: Code(s): I10 - Essential (primary) hypertension Category: Medical Qualifiers: Hypertension type: primary hypertension Qualified Code(s): I10 - Essential (primary) hypertension Plan: Blood pressure is high on presentation and still mildly elevated after relaxation. Recent sleep study shows significant sleep apnea in this may be affecting blood pressures. Continue current medication She will check her blood pressures at home and let me know if they remain high. (3) Overweight: Code(s): E66.3 - Overweight Category: Medical Plan: Patient had tried Ozempic in the past. Will try Zepbound. (4) Sleep apnea: Comment: states tried CPAP, could not use, better with weight loss Code(s): G47.30 - Sleep apnea, unspecified Category: Medical Qualifiers: Sleep apnea type: unspecified type Qualified Code(s): G47.30 - Sleep apnea, unspecified Plan: Sleep study significantly positive for sleep apnea Plan is for CPAP. Follow-up with sleep medicine as recommended (5) Dental abscess: Code(s): K04.7 - Periapical abscess without sinus Category: Medical Plan: No current flare up but she is followed by a dentist who is planning to the extractions. Orders: Orders AMB Hemoglobin A1c Today R73.03 - Prediabetes, Z13.9 - Encounter for screening, unspecified Medications: New tirzepatide (weight loss) (Zepbound) for 4 weeks 2.5 mg (0.5 mL) subcut QWEEK 2 mL 3RF 28 days Discontinued semaglutide for 4 weeks Discontinued Reason: Doctor's Order 1 mg (0.75 mL) subcut QWEEK 84 days 9 mL 2RF
[2025-03-26 15:28] VITALS: BP 162/71; PULSE 74; RESP 13; TEMP 36; O2SAT 98; BMI 26.9
[2025-03-26 16:47] VITALS: BP 146/68
== END 2025-03-26 16:48 | disposition home or self-care (01) ==
LOC: HO.HMCFM 15:18
PROVIDERS: PCP Family Medicine; Visit Provider Family Medicine
DX: R73.03 Prediabetes (principal); I10 Essential (primary) hypertension; E66.3 Overweight; Z68.26 Body mass index [BMI] 26.0-26.9, adult; G47.30 Sleep apnea, unspecified; K04.7 Periapical abscess without sinus

== ENCOUNTER → 2025-03-26 15:18 | Outpatient (BNVA) | payer MEDICARE, SELFPAY | PROVIDERS: PCP Family Medicine; Visit Provider Family Medicine | DX: I10 Essential (primary) hypertension (principal); R73.03 Prediabetes; E66.3 Overweight; G47.30 Sleep apnea, unspecified; K04.7 Periapical abscess without sinus; Z68.26 Body mass index [BMI] 26.0-26.9, adult | CPT/HCPCS: 83036; 96127; 99212 ==

== ENCOUNTER → 2025-04-17 19:30 | Outpatient (REF) | payer MEDICARE, SELFPAY ==
--- OUTSIDE RECORDS SUMMARY | 2025-04-17 21:09 | XMS_ITS | Clinical Summary ---
Author Organization [facility] Address [address] [place], [place] [id number] Care Team Providers Care Seam Stay Stitcher Name Role Phone Berta Hennessy MD Primary Care Provider [phone] Allergies Active Allergy Reactions Criticality Noted Date [...] 0 05/08/2023 Active ergocalciferol (VITAMIN D2) capsule 66355 units Take 1 capsule (50,000 Units total) [...] age to complete this topic Care Teams Seam Stay Stitcher Relationship Specialty Start Date End Date Berta Hennessy MD [address] [address] PCP - General Neurology 04/19/23
--- OUTSIDE RECORDS SUMMARY | 2025-04-17 21:09 | XMS_ITS | Clinical Summary ---
Author Organization 175 [facility] Address [address] [place] [address] Phone Care Team Providers Care Front Clerk Name Role Phone Berta Hennessy MD Primary Care Provider [phone] Allergies Active Allergy Reactions Criticality Noted Date [...] time each day in the morning. Active Social History Tobacco Use Types Packs/Day [...] 12/27/2024 9:31 AM EDT Plan of Treatment Health Maintenance Due Date [...] on patient's age to complete this topic Insurance [employer] MEDICARE ADVANTAGE MEDICAID - [place] Care Teams Front Clerk Relationship Specialty Start Date End Date Berta Hennessy MD 299 [facility] [address] [place] [address] PCP - General 04/19/23
== END ==
LOC: HO.SL 19:30
PROVIDERS: PCP Family Medicine; Visit Provider Physician Assistant Medical
DX: G47.33 Obstructive sleep apnea (adult) (pediatric) (principal)
CPT/HCPCS: 95811

== ENCOUNTER → 2025-04-17 21:10 | Outpatient (BNV) | payer MEDICARE, SELFPAY | PROVIDERS: PCP Family Medicine; Visit Provider Psychiatry & Neurology Neurology | DX: G47.33 Obstructive sleep apnea (adult) (pediatric) (principal) | CPT/HCPCS: 95811 ==

== ENCOUNTER 2025-07-29 10:43 | Outpatient (REF) | payer MEDICARE, MEDICAID, SELFPAY ==
[2025-07-29 18:09] LABS: Bacterial Vaginosis PCR POSITIVE (Negative); Candida Group PCR NOT DETECTED (Not Detect); Candida glab krusei PCR NOT DETECTED (Not Detect); Trichomonas vaginalis PCR NOT DETECTED (Not Detect)
== END 2025-07-29 10:44 | disposition home or self-care (01) ==
LOC: HO.LNP 10:43
PROVIDERS: Advanced Practice Midwife; PCP Family Medicine; Visit Provider Advanced Practice Midwife
DX: Z01.419 Encounter for gynecological examination (general) (routine) without abnormal findings (principal); N93.0 Postcoital and contact bleeding; N89.8 Other specified noninflammatory disorders of vagina; Z20.2 Contact with and (suspected) exposure to infections with a predominantly sexual mode of transmission
CPT/HCPCS: 81515; 87626; 88175

== ENCOUNTER 2025-07-29 10:43 | Outpatient (AMB) | payer MEDICARE, MEDICAID, SELFPAY ==
--- NOTE | 2025-07-29 10:45 | A.OFFVIS_ITS ---
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 Hysterectomy done 2011. C/o spotting after sex. Information Interpreted: non-clinical & clinical Gun Fertilizer: Gun Fertilizer Present (Arpita) Accompanied by: Self / Same As Patient Allergies Seasonal Allergies Allergy (Intermediate, Verified 07/29/25 10:50) Cough Medication List - Last Reconciled 07/29/25 by Stefany Lindsay LPN albuterol sulfate 90 mcg/actuation 2 puffs inhalation Q4-6H PRN 30 days atorvastatin 40 mg PO BEDTIME 90 days baclofen 10 mg PO BID 30 days carvedilol 12.5 mg PO BID 90 days losartan 25 mg PO DAILY 90 days meclizine 12.5 mg PO TID PRN meloxicam 15 mg PO BEDTIME 30 days montelukast 10 mg PO QAM 90 days naloxone 4 mg/actuation 4 mg intranasal Q2M PRN 30 days oxycodone-acetaminophen 5-325 mg (Percocet) 2 tabs orally 3 times a day PRN; [employer] verified. Partial refill upon request. 30 days polyethylene glycol 3350 (Miralax) 17 grams PO DAILY sertraline 100 mg PO QAM 90 days [thumb spica right hand, wear nightly & as much as possible throughout the day] tirzepatide (weight loss) (Zepbound) 2.5 mg (0.5 mL) subcut QWEEK 28 days [wrist splint wear nightly and as much as possible throughout the day] Do you need a note to return to daycare/school/sports/work: No HPI Comments Details: Patient is a postmenopausal woman presenting for her new patient annual digital marketing assistant examination. Small Engine Specialist concerns: spotting with intimacy since 2011 after her hysterectomy due to chronic pelvic pain. She denies any itching externally, odors, or abnormal vaginal discharge. Attempting to eat a healthy diet with calcium and vitamin D and stays active with exercise. Last mammogram; 2024. Colonoscopy is UTD. [facility] Medical History Exposure to hepatitis C Renal calculi Sleep apnea Chronic pain Arthritis Elevated cholesterol Pre-diabetes Asthma HTN (hypertension) Tarsal tunnel syndrome of both lower extremities Encounter for testing for latent tuberculosis infection Multiple sclerosis Non-Hodgkin's lymphoma in remission Surgical History Hx of foot surgery Hx of cystoscopy Hx of colonoscopy History of esophagogastroduodenoscopy (EGD) Hx of hysterectomy Hx of hernia repair History of cholecystectomy Family History Mother Lung cancer Sister Lung cancer Social History Household Members: Family Housing: House Are you a primary healthcare receptionist to a significant other at home: No Do you presently have visiting nurse or other home services: No Alcohol intake: current Alcohol intake frequency: a few times a month Alcohol type: wine Patient Tobacco Use Status: Never used Tobacco e-Cigarette/Vaping Use: Never Used service: No Current occupational status: disabled 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 Cognitive needs: No Hearing needs: No Vision needs: No Female Reproductive History Menstrual Age of Menarche: 12 Date of last menstrual period: 07/29/12 Date of menopause: 07/29/12 Total pregnancies: 1 Number of Living Children: 1 Date of last pap smear: 07/29/12 Date of Mammogram: 07/29/25 Physical Exam Vital Signs: Last Vital Signs BP 138/78 07/29/25 10:47 BMI result Body Mass Index 25.2 Const General: cooperative, healthy appearing, no acute distress, well developed and alert Orientation/consciousness: patient oriented x3 HEENT Head: Yes normal to inspection Eyes General: appearance normal, both eyes and all related structures Neck Neck: Yes normal visual inspection Thyroid: Thyroid normal Chest Chest palpation & inspection: normal inspection of the chest Breast/axilla inspection: normal inspection of the breasts, normal inspection of the axillae and Other (No puckering, dimpling, peau de orange, retraction, discharge, or masses) Breast/axilla palpation: normal palpation of the breasts and normal palpation of the axillae GI Inspection: Yes normal to inspection and Yes scar Palpation (GI): Soft to palpation General: Yes bladder normal to inspection and Yes bladder normal to palpation External Female Exam: normal external appearance and normal appearance of the urethra Speculum Exam - Vagina: normal appearance of the vagina and normal vaginal discharge Speculum Exam - Cervix: Cervix absent (Vaginal cuff, no lesions or nodules, friable area right side, near pocket) Bimanual exam- vagina & uterus: bladder normal to palpation and uterus absent Bimanual Exam- Adnexa, other: no masses and No adnexal tenderness Skin General skin exam: no rashes or lesions noted Neuro General: patient oriented x3 Cognition (Neuro): normal cognition Extrem General: Yes normal to inspection Psych Attitude: cooperative Thought process: Normal thought process present Assessment & Plan Assessment & Plan (1) Encounter for well woman exam with routine gynecological exam: Code(s): Z01.419 - Encounter for gynecological examination (general) (routine) without abnormal findings Category: Medical (2) Postcoital bleeding: Code(s): N93.0 - Postcoital and contact bleeding Plan: Discussed: Atrophy changes mainly to cervical thinning and susceptible to bleeding with over stretching, vaginal cuff Pap completed BV panel obtained, await results for final plan of care and follow up to discuss options of tr eatment. The patient expressed understanding and agreement with the plan of care. All of her questions and concerns were addressed to the best of my ability. Total time I personally spent on visit and management today: ?20 minutes. Time spent included review of pertinent office notes in the electronic health record; review of laboratory and imaging results; review of personal family medical history; performing physical exam; discussing diagnosis and plan of care with the patient; documenting the encounter in the EMR. Plan Discussed: Current recommendations for pap smears per ASCCP guidelines. Breast awareness, periodic self breast exams and yearly mammogram. Maintain a healthy lifestyle, well balanced diet including Calcium 1,200 mg and Vitamin D 600 IU daily, and routine exercise. Contact the office with any postmenopausal bleeding. Patient verbalizes understanding and agrees to the plan of care. She was given opportunity to ask questions and all questions were answered to the best of my ability. RTO in 1 year for annual digital marketing assistant exam. This note is constructed using voice recognition software. While every effort has been made to ensure accuracy, oracle hyperion consultant errors may have been included. Orders: Orders MM tomosynthesis screening LT Today Z12.31 - Encounter for screening mammogram for malignant neoplasm of breast HPV High risk Today Z01.419 - Encounter for gynecological examination (general) (routine) without abnormal findings Pap Smear Today Z01.419 - Encounter for gynecological examination (general) (routine) without abnormal findings Bacterial Vaginosis Panel Today N89.8 - Other specified noninflammatory disorders of vagina Coding Level of Care Code New Pt Level 2 (28542) New Pt Prev Care >65yr (65557) Diagnoses Encounter for well woman exam with routine gynecological exam Z01.419 Postcoital bleeding N93.0
[2025-07-29 10:47] VITALS: BP 138/78; BMI 25.2
--- OUTSIDE RECORDS SUMMARY | 2025-07-29 13:40 | XMS_ITS | Clinical Summary ---
Author Organization [facility] Prior to 01/11/25 Address [address] [place] [address] Care Team Providers Care Landscape Specialist Name Role Phone Berta Hennessy MD Primary Care Provider [phone] Allergies Active Allergy Reactions Criticality Noted Date [...] 0 05/08/2023 Active ergocalciferol (VITAMIN D2) capsule 56900 units Take 1 capsule (50,000 Units total) [...] age to complete this topic Care Teams Landscape Specialist Relationship Specialty Start Date End Date Berta Hennessy MD [address] [address] PCP - General Neurology 04/19/23
--- OUTSIDE RECORDS SUMMARY | 2025-07-29 13:40 | XMS_ITS | Clinical Summary ---
Author Organization [address] [facility] Address [address] [place] [address] Phone Care Team Providers Care Stamping Die Maker Name Role Phone Berta Hennessy MD Primary Care Provider [phone] Allergies Active Allergy Reactions Criticality Noted Date [...] on file Sexual Orientation Not on file Last Filed Vital Signs [...] Last Done Comments Breast Cancer Screening 1960 Colorectal Cancer Screening: Colonoscopy 1960 DTaP,Tdap,and Td Vaccines (1 - Tdap) 01/24/1979 Pneumococcal Vaccine: 50+ Years (1 of 2 - PCV) 01/24/1979 Zoster Vaccines (1 of 2) 01/24/1979 Cervical Cancer Screening: P ap Smear 01/24/1981 Cholesterol Screening (Lipid Panel) 09/08/2023 Hepatitis C Screening 09/08/2023 Medicare Annual [...] MEDICARE ADVANTAGE [place]ICA[place] - [place] Care Teams Stamping Die Maker Relationship Specialty Start Date End Date Berta Hennessy MD [address] [place] [address] PCP - General 04/19/23
== END 2025-07-29 11:34 | disposition home or self-care (01) ==
LOC: HO.HWS 10:43
PROVIDERS: PCP Family Medicine; Visit Provider Advanced Practice Midwife
DX: Z01.419 Encounter for gynecological examination (general) (routine) without abnormal findings (principal); N93.0 Postcoital and contact bleeding
CPT/HCPCS: 99202; 99387; 99459